=== PATIENT | male | born 1965 | race Caucasian/White ===

== ENCOUNTER → 2017-11-01 15:58 | Outpatient (CLI) | payer BC, SELFPAY ==
[2017-11-01 18:25] LABS: PSA,Total- Diagnostic 6.02 ng/mL (0.0-4.0)
== END ==
PROVIDERS: Family Provider Internal Medicine; PCP Internal Medicine; Visit Provider Internal Medicine
DX: R97.20 Elevated prostate specific antigen [PSA] (principal)
CPT/HCPCS: 36415; 84153

== ENCOUNTER → 2017-11-23 16:10 | Outpatient (CLI) | payer BC, SELFPAY ==
--- NOTE | 2017-11-23 16:11 | US_ITS ---
STUDY: RENAL ULTRASOUND - COMPLETE REASON FOR EXAM: Male, 52 years old. Flank pain. TECHNIQUE: Ultrasound evaluation of the kidneys was performed with real-time and static villatoro-scale imaging. COMPARISON: None. FINDINGS: RIGHT KIDNEY: Normal location of the right kidney, which is normal in size. The right kidney measures 10.7 cm x 4.8 cm x 4.3 cm. There is a normal cortex of the right kidney. The renal cortex measures 1.2 cm. There is no right renal mass or cyst. There are no right renal calculi. There is no right hydronephrosis. DISTAL RIGHT URETER: There is non-visualization of the distal right ureter. There is no demonstrated right ureterovesical junction calculus. There is a visualized right ureteral jet. LEFT KIDNEY: Normal location of the left kidney, which is normal in size. The left kidney measures 10.4 cm x 4.8 cm x 5.2 cm. There is a normal cortex of the left kidney. The renal cortex measures 1.0 cm. There is no left renal mass or cyst. There are no left renal calculi. There is no left hydronephrosis. DISTAL LEFT URETER: There is non-visualization of the distal left ureter. There is no demonstrated left ureterovesical junction calculus. There is a visualized left ureteral jet. BLADDER: The bladder is not well distended. The bladder wall is thickened. Incidental note is made of fatty infiltration of the liver. US/Kidney and Bladder IMPRESSION: Normal ultrasound of the kidneys. Thickening of the bladder wall although the bladder is not adequately distended. Electronically Signed: Long Molina MD at 8:26 EDT Tel [phone], Service support ,
== END ==
PROVIDERS: Family Provider Internal Medicine; PCP Internal Medicine; Visit Provider Nurse Practitioner Adult Health
DX: R10.9 Unspecified abdominal pain (principal)
CPT/HCPCS: 76770

== ENCOUNTER → 2018-01-05 18:16 | Outpatient (CLI) | payer BC, SELFPAY ==
--- NOTE | 2018-01-05 08:00 | PROSBIL_PTH ---
PATIENT: GIANCARLO MARTIN LOC: [facility] U#:[id number] AGE/SX: 60/M ROOM: RE01/05/[address]: Dr. James Ornelas MD : 1965 BED: DIS: SPEC #: [id number] RECD: 01/05/18 16:39 STATUS: KAT FRANCISCA #: [id number] HARSH: 01/05/18 08:[address]: James Ornelas DEPT: SURGICAL PATHOLOGY RECD BY: Ramses Jaimes Tissues: A - PROSTATE RIGHT B - PROSTATE RIGHT C - PROSTATE RIGHT D - PROSTATE LEFT E - PROSTATE LEFT F - PROSTATE LEFT Procedures: PROSTATE BX HEADER OPERATION: Prostate biopsy PRE-OP DIAGNOSIS: Elevated PSA TISSUE SUBMITTED: A - Right apex, B - Right mid, C - Right base, D - Left apex, E - Left mid, F - Left base MICROSCOPIC DIAGNOSIS A. Right prostate, apex, core biopsy: Focal high-grade prostatic intraepithelial neoplasia (HGPIN). B. Right prostate, mid, core biopsy: Prostatic tissue, negative for malignancy. C. Right prostate, base, core biopsy: Prostatic tissue, negative for malignancy. D. Left prostate, apex, core biopsy: Prostatic tissue, negative for malignancy. E. Left prostate, mid, core biopsy: Prostatic tissue, negative for malignancy. F. Left prostate, base, core biopsy: Prostatic tissue, negative for malignancy. SJ:farooq 01/12/18 MICROSCOPIC DESCRIPTION Slides are reviewed. GROSS DESCRIPTION A - Received is one container designated prostate, right apex. The specimen consists of two elongated fragments of light cavazos-white soft tissue each measuring 1 cm in length and 0.1 cm in diameter. The specimen is totally submitted in one cassette. B - Received is one container designated prostate, right mid. The specimen consists of two elongated fragments of light cavazos-white soft tissue each measuring 1 cm in length and 0.1 cm in diameter. The specimen is totally submitted in one cassette. C - Received is one container designated prostate, right base. The specimen consists of two elongated fragments of light cavazos-white soft tissue each measuring 1 cm in length and 0.1 cm in diameter. The specimen is totally submitted in one cassette. D - Received is one container designated prostate, left apex. The specimen consists of two elongated fragments of light cavazos-white soft tissue each measuring 1.5 cm in length and 0.1 cm in diameter. The specimen is totally submitted in one cassette. E - Received is one container designated prostate, left mid. The specimen consists of two elongated fragments of light cavazos-white soft tissue each measuring 1.5 cm in length and 0.1 cm in diameter. The specimen is totally submitted in one cassette. F - Received is one container designated prostate, left base. The specimen consists of two elongated fragments of light cavazos-white soft tissue each measuring 1.5 cm in length and 0.1 cm in diameter. The specimen is totally submitted in one cassette. / AM:farooq 01/06/18 TC:5 CPT: 23899 x6
== END ==
PROVIDERS: Visit Provider Urology
DX: N42.31 Prostatic intraepithelial neoplasia (principal); R97.20 Elevated prostate specific antigen [PSA]
CPT/HCPCS: 88305; G0416

== ENCOUNTER → 2018-01-23 15:45 | Outpatient (CLI) | payer BC, SELFPAY ==
[2018-01-23 16:57] LABS: Anion Gap 7 (5-15); BUN 15 mg/dL (7-18); BUN/Creat Ratio 13.6 RATIO (10-20); Calcium,Total 8.3 mg/dL (8.5-10.1); Chloride 100 mmol/L (98-107); Cholesterol 195 mg/dL (200); EST Glomerular Filtration Rate 74 mL/min (>60); Est Glom Filt Rate - Afr Amer 89 mL/min (>60); Glucose 94 mg/dL (74-106); High Density Lipoprotein 57 mg/dL; Potassium 3.5 mmol/L (3.5-5.1); Sodium Level 134 mmol/L (136-145); Triglycerides 233 mg/dL; Very Low Density Lipoprotein 47 mg/dL (5-40)
== END ==
PROVIDERS: Family Provider Internal Medicine; PCP Internal Medicine; Visit Provider Internal Medicine
DX: I10 Essential (primary) hypertension (principal)
CPT/HCPCS: 36415; 80048; 80061

== ENCOUNTER 2018-01-25 09:44 | Emergency (ER) | payer BC, SELFPAY ==
[2018-01-25 09:44] VITALS: BP 127/73; PULSE 77; RESP 20; TEMP 36.6; O2SAT 99; BMI 34.0
--- NOTE | 2018-01-25 10:27 | EKG12_ITS ---
Test Reason : SYNCOPE Blood Pressure : / mmHG Vent. Rate : 065 BPM Atrial Rate : 065 BPM P-R Int : 146 ms QRS Dur : 084 ms QT Int : 416 ms P-R-T Axes : 005 019 014 degrees QTc Int : 432 ms Normal sinus rhythm Normal ECG Confirmed by CASSI FARAH ([id number]), medical editor LORI MASCORRO ([id number]) on 01/30/2018 10:46:20 AM Referred By: Jere Jain Confirmed By:CASSI FARAH
--- NOTE | 2018-01-25 10:27 | CT_ITS ---
STUDY: CT BRAIN WITHOUT CONTRAST REASON FOR EXAM: Male, 53 years old. Fall due to a syncopal episode. RADIATION DOSAGE (If Supplied By Facility): CTDIvol = ( 60.81 ) mGy, DLP = ( 998.67 ) mGycm TECHNIQUE: Transaxial CT imaging of the brain was performed without administration of intravenous contrast material. Individualized dose optimization techniques were used for this CT. COMPARISON: None. FINDINGS: Normal soft tissue structures. Normal calvarium. Normal size ventricles and extra-axial spaces for the patient's age. Normal white matter tracts of the cerebral hemispheres. Normal basal ganglia and thalami. Normal brainstem. Normal cerebellum. There is no intracranial hemorrhage. There are no findings of an acute ischemic infarction. Partial opacification of the posterior aspect of the right ethmoid sinus. CT/Brain/Head without Contrast IMPRESSION: No acute abnormality is seen. Electronically Signed: Long Molina MD at 13:55 EDT Tel [phone], Service support ,
--- NOTE | 2018-01-25 10:28 | RAD_ITS ---
STUDY: X-RAY - UNILATERAL RIBS ( LEFT ) WITH CHEST REASON FOR EXAM: Male, 53 years old. Low back pain after a fall TECHNIQUE - RIBS: 4 view(s) of the ribs. TECHNIQUE - CHEST: Single PA view of the chest. COMPARISON: None. FINDINGS - RIBS: Normal visualized ribs without a demonstrated fracture. FINDINGS - CHEST: The lungs are clear and expanded. There is no demonstrated pleural abnormality. Normal size heart. Normal mediastinum and radha. Normal visualized pulmonary arteries. Normal visualized aortic arch and descending thoracic aorta. Normal visualized thoracic spine. Normal visualized ribs, clavicles, and shoulders. There is no demonstrated abnormality of the visualized soft tissue structures of the upper abdomen. RAD/Ribs Uni Min 3V w/PA Chest IMPRESSION: RIBS: Normal x-ray examination of the ribs. CHEST: Normal x-ray examination of the chest. Electronically Signed: Fidel Jernigan MD at 16:21 EDT , Service support ,
[2018-01-25 10:46] VITALS: BP 109/68; BP 110/67; BP 115/71; PULSE 60; PULSE 63; PULSE 88
[2018-01-25 10:47] LABS: Absolute Lymphocyte Count 0.89 X10^3/ul (0.83-4.51); Absolute Neutrophil Count 9.9 X10^3/uL (2.0-7.7); Basophil# 0.02 X10^3/uL; Basophil% 0.2 % (0-1); Eosinophil# 0.03 X10^3/uL; Eosinophils% 0.2 % (0-5); Hematocrit 39.2 % (40-54); Hemoglobin 13.1 g/dl (13.0-16.5); Lymphocyte # 0.89 X10^3/ul (4.0); Lymphocyte % 7.4 % (19-41); Mean Corp Hgb Conc 33.4 g/gl (32-36); Mean Corpuscular Hgb 29.7 pg (27.0-32.0); Mean Corpuscular Volume 88.9 fL (80-94); Mean Platelet Vol. 9.8 fl (6.2-12.0); Monocyte# 1.19 X10^3/uL; Monocyte% 9.9 % (0-10); Neutrophil # 9.86 X10^3/uL (2.7-7.7); Neutrophil % 81.9 % (47-70); POSITIVE COUNT NO; POSITIVE DIFFERENTIAL NO; POSITIVE MORPHOLOGY NO; Platelet Count 245 K/mm3 (150-450); RBC Distribution Width CV 12.7 % (11.6-14.6); RBC Distribution Width SD 40.9 fl (35.1-43.9); Red Blood Count 4.41 M/mm3 (4.6-6.2)
[2018-01-25] MEDS: 0.9% Normal Saline 1,000 ML 1000 ML IV (10:55)
[2018-01-25 10:56] VITALS: BP 109/68; PULSE 62; RESP 16; O2SAT 99
[2018-01-25 11:05] LABS: Anion Gap 6 (5-15); BUN 16 mg/dL (7-18); BUN/Creat Ratio 11.4 RATIO (10-20); Calcium,Total 8.6 mg/dL (8.5-10.1); Chloride 101 mmol/L (98-107); EST Glomerular Filtration Rate 56 mL/min (>60); Est Glom Filt Rate - Afr Amer 68 mL/min (>60); Estimated Creatinine Clearance 55.74 ml/min; Glucose 103 mg/dL (74-106); Potassium 3.6 mmol/L (3.5-5.1); Sodium Level 136 mmol/L (136-145)
--- NOTE | 2018-01-25 11:39 | NURSING ---
PER MARIANA AT [facility] THIS CASE WILL NOT BE FILED WORKERS COMP PER JOSUE. PT JUST STARTED A NEW MEDICATION AND SIDE EFFECT COULD HAVE CONTRIBUTED TO SYNCOPE.
[2018-01-25 11:58] VITALS: BP 112/77; PULSE 85; RESP 17; O2SAT 98
[2018-01-25 13:02] VITALS: BP 109/68; PULSE 63; RESP 19; O2SAT 98
--- NOTE | 2018-01-25 13:17 | ED.VISSUMM ---
- ER Visit Summary Date of Service: 01/25/18 Chief Complaint: Syncope History of Present Illness: The patient is a [address] Jain and Dr. Ornelas. Patient reports that today he was at work and had been standing for approximately 2 hours. He began feeling very lightheaded and shaky. Reports it was hard to think. States that he did feel diaphoretic and short of breath. This last approximately 30 seconds before he passed out. He denies any preceding chest pain, palpitations, or nausea. Patient did hit his head and states that his headache is 3 out of 10 severity that began after the fall. He has upper back pain that is 8-9 out of 10 in severity with movement. Is 5 out of 10 at rest. He describes this as sharp. Patient reports that he has BPH and was placed on Flomax. He took his first dose last night approximately 930. Physical Examination: Vitals: Stable. Afebrile. General: Well-nourished and well-developed. Head: Normocephalic atraumatic. Neck: Supple, no lymphadenopathy. No JVD. Nontender. Cardiovascular: Regular rate and rhythm. No murmurs. Respiratory: No respiratory distress. Clear to auscultation bilaterally. Abdominal: Soft, nontender, nondistended, normal bowel sounds. No guarding, rebound, or peritoneal signs. Back: Contusion/abrasion just inferior and medial to the left scapula. There is severe tenderness palpation. He does have pain with lateral compression of his chest. Extremities: Nontender, 1+ pitting edema of his lower extremity bilaterally. Skin: Normal color, no rash. Neurologic: Alert and oriented ?3. Cranial nerves II through XII are intact. Normal strength and sensation. Psych: Normal affect. Test Results: EKG is sinus at 65 with no acute changes. Is unchanged since 2014. CBC is more for white count of 12.0 with hematocrit of 39.2, 7 neutrophils 82, lymphocytes 7. Chem-7 is more for creatinine 1.40. Previously his creatinine is range between 0.97-1.26. Troponin is less than 0.015. Left rib series shows no pneumothorax or fracture. CT brain shows no acute disease. Emergency Department Course and Treatment: Patient had positive orthostatic vital signs. His heart rate increased 25 from lying to standing. His blood pressure remained 109/68 with standing. Patient was given a liter bolus of normal saline and is resting comfortably. Treatment Plan: Patient was discussed with Dr. Ornelas. He is instructed to stop taking the Flomax. Push fluids. He will be discharged with Aubrey and incentive spirometer. Instructed to follow-up with Dr. Jain in 1 week if his ribs are not improving. Return to the emergency department for any worsening symptoms. Disposition: To home in improved and stable condition. Impression: 1. Syncope. 2. Orthostatic hypotension due to Flomax. 3. Dehydration. 4. Contusion upper back. This note was generated with [employer] software. It may contain incorrect words, spelling, and punctuation that were not noted in review of the chart prior to signing ED Disposition - Plan for ED Patient: Disposition: Home or Assisted Living Chief Complaint: Syncope Instructions: ED Hypotension Orthostatic, ED Contusion Vs Minor Fx Rib Prescriptions: Hydrocodone/Acetaminophen [Aubrey 5-325 Tablet] 1 - 2 each PO 4X/DAY PRN PRN 5 Days #20 tablet PRN Reason: Pain Referrals: Jere Jain MD [Primary Care Provider] - 1 Week if not improving Additional Instructions: Do not take flomax again.
== END 2018-01-25 14:57 | disposition home or self-care (01) ==
PROVIDERS: Emergency Provider Emergency Medicine; Family Provider Internal Medicine; PCP Internal Medicine
DX: R55 Syncope and collapse (principal); I95.2 Hypotension due to drugs; T44.6X5A Adverse effect of alpha-adrenoreceptor antagonists, initial encounter; E86.0 Dehydration; S20.222A Contusion of left back wall of thorax, initial encounter; N40.0 Benign prostatic hyperplasia without lower urinary tract symptoms; I10 Essential (primary) hypertension; J45.909 Unspecified asthma, uncomplicated; Z79.899 Other long term (current) drug therapy; W18.30XA Fall on same level, unspecified, initial encounter; Y93.89 Activity, other specified; Y92.009 Unspecified place in unspecified non-institutional (private) residence as the place of occurrence of the external cause; Y99.8 Other external cause status
CPT/HCPCS: 70450; 71101; 80048; 84484; 85025; 93005; 96360; 99285; J7030; A4216

== ENCOUNTER → 2018-02-14 10:22 | Outpatient (CLI) | payer BC, SELFPAY ==
[2018-02-14 11:53] LABS: Anion Gap 8 (5-15); BUN 15 mg/dL (7-18); BUN/Creat Ratio 16.2 RATIO (10-20); Calcium,Total 8.8 mg/dL (8.5-10.1); Chloride 105 mmol/L (98-107); Creatinine, Serum 0.92 mg/dL (0.70-1.30); EST Glomerular Filtration Rate 90 mL/min (>60); Est Glom Filt Rate - Afr Amer 109 mL/min (>60); Glucose 94 mg/dL (74-106); Potassium 4.1 mmol/L (3.5-5.1); Sodium Level 138 mmol/L (136-145)
== END ==
PROVIDERS: Family Provider Internal Medicine; PCP Internal Medicine; Visit Provider Nurse Practitioner Family
DX: I10 Essential (primary) hypertension (principal)
CPT/HCPCS: 36415; 80048

== ENCOUNTER → 2018-03-31 10:30 | Outpatient (CLI) | payer BC, SELFPAY | PROVIDERS: Family Provider Internal Medicine; PCP Internal Medicine; Visit Provider Internal Medicine | DX: R68.81 Early satiety (principal) | CPT/HCPCS: 78264; A9541 ==

== ENCOUNTER → 2018-04-17 10:19 | Outpatient (CLI) | payer BC, SELFPAY ==
--- NOTE | 2018-04-17 10:21 | US_ITS ---
STUDY: ABDOMINAL ULTRASOUND REASON FOR EXAM: Male, 53 years old. Abdominal pain, early satiety, ascites TECHNIQUE: Transabdominal ultrasound was performed with real-time and static nguyen scale imaging. TECHNICAL QUALITY: Adequate. COMPARISON: CT 01/19/2014 FINDINGS: Liver: The liver measures 18.2 cm. There is increased echogenicity consistent with fatty infiltration. The bile ducts are within normal limits. There is hepatic color flow. The direction of portal flow is hepatopetal. There is no demonstrated mass lesion. Portal vein measurement: Gallbladder: Normal distended gallbladder. The gallbladder wall measures 2.8 mm. There is a negative sonographic Adams's sign. There is no pericholecystic fluid. There are no gallstones. Common Bile Duct (C.B.D.): The common bile duct measures 3.7 mm. Pancreas: Normal size of the head, body and tail of the pancreas. There is increased echogenicity of the pancreas. There is no demonstrated pancreatic mass or cyst. Spleen: Normal size of the spleen. The spleen measures 11.4 cm. Right Kidney: Normal size of the right kidney. The right kidney measures 10.8 x 4.5 x 5 cm. Normal renal cortex. The right cortex measures 1.5 cm. There is no demonstrated renal mass or cyst. There is no right hydronephrosis. Left Kidney: Normal size of the left kidney. The left kidney measures 10.4 x 5.3 x 4.8 cm. Normal renal cortex. The left cortex measures 1.6 cm. There is no demonstrated renal mass or cyst. There is no left hydronephrosis. Aorta: Unremarkable. I.V.C.: The IVC is patent. There is no ascites. US/Abdomen Complete IMPRESSION: Hepatomegaly and hepatic steatosis. The pancreas is echogenic consistent with fatty replacement. No ascites or additional abnormalities. The gallbladder is normal. Electronically Signed: Jeronimo Nettles DO at 8:33 EDT Tel , Service support ,
== END ==
PROVIDERS: Family Provider Internal Medicine; PCP Internal Medicine; Visit Provider Internal Medicine
DX: R68.81 Early satiety (principal); R10.9 Unspecified abdominal pain
CPT/HCPCS: 76700

== ENCOUNTER → 2018-06-27 08:33 | Outpatient (CLI) | payer BC, SELFPAY ==
[2018-06-27 08:33] VITALS: BMI 35.9
[2018-06-27 09:44] LABS: Anion Gap 5 (5-15); BUN 14 mg/dL (7-18); BUN/Creat Ratio 14.5 RATIO (10-20); Calcium,Total 8.5 mg/dL (8.5-10.1); Chloride 103 mmol/L (98-107); Creatinine, Serum 0.97 mg/dL (0.70-1.30); EST Glomerular Filtration Rate 86 mL/min (>60); Est Glom Filt Rate - Afr Amer 104 mL/min (>60); Glucose 104 mg/dL (74-106); Potassium 3.9 mmol/L (3.5-5.1); Sodium Level 136 mmol/L (136-145)
== END ==
PROVIDERS: Family Provider Internal Medicine; PCP Internal Medicine; Referring Provider Internal Medicine; Visit Provider Internal Medicine
DX: I10 Essential (primary) hypertension (principal)
CPT/HCPCS: 36415; 80048

== ENCOUNTER 2018-07-07 14:32 | Emergency (ER) | payer BC, SELFPAY ==
[2018-06-27 08:33] VITALS: BMI 35.9
[2018-07-07 14:35] VITALS: BP 187/97; PULSE 76; RESP 16; TEMP 36.4; O2SAT 99; BMI 37.0
--- NOTE | 2018-07-07 15:11 | CT_ITS ---
STUDY: CT ABDOMEN AND PELVIS WITHOUT CONTRAST REASON FOR EXAM: Male, 53 years old. Right-sided abdominal pain for 2 days. RADIATION DOSAGE (If Supplied By Facility): CTDIvol = ( 19.7 ) mGy, DLP = ( 1039.62 ) mGycm TECHNIQUE: Transaxial images were obtained from the dome of the diaphragm to the symphysis pubis without oral contrast, and without intravenous contrast. Sagittal and coronal images were reconstructed. Individualized dose optimization techniques were used for this CT. COMPARISON: None. FINDINGS: There is right basilar subsegmental atelectasis. There is mild elevation of the right hemidiaphragm. The visualized portions of the heart are within normal limits. There are vascular calcifications of the coronary arteries. Normal liver. Normal gallbladder and extrahepatic biliary system. Normal spleen. Normal pancreas. Normal bilateral adrenal glands. Normal right kidney. Normal left kidney. Normal visualized stomach. There is no evidence for dilated bowel, ascites or pneumoperitoneum. The small bowel has a grossly normal appearance. There are multiple colonic diverticula consistent with diverticulosis. There is non-visualization of the appendix. There is groundglass attenuation within the fat in the right peritoneum. This could be the result of mesenteric ischemia. Sequela of mesenteric panniculitis is also possible. Normal abdominal aorta. Normal inferior vena cava. Normal retroperitoneum. There is a left-sided retroaortic vein. Normal urinary bladder. There is enlargement of the prostate gland. Incidental note is made of mild bilateral gynecomastia. There appears to be a small left-sided inguinal hernia containing fat. Normal osseous structures. CT/Abdomen/Pelvis without Cont IMPRESSION: 1. Acute inflammation in the fat of the right paracolic region just caudal to the liver. Differential considerations include sequela of mesenteric panniculitis or mesenteric ischemia. 2. Mild colonic diverticulosis. 3. Right basilar subsegmental atelectasis. Electronically Signed: Sandie Sifuentes MD at 17:36 EST , Service support ,
[2018-07-07 15:36] LABS: AST(SGOT) 14 U/L (15-37); Alanine Aminotransfer ALT/SGPT 24 U/L (16-61); Albumin, Serum 3.4 g/dL (3.2-5.0); Alkaline Phosphatase 82 U/L (45-117); Anion Gap 8 (5-15); BUN 10 mg/dL (7-18); BUN/Creat Ratio 10.1 RATIO (10-20); Bilirubin, Direct 0.12 mg/dL (0.00-0.30); Calcium,Total 8.7 mg/dL (8.5-10.1); Chloride 103 mmol/L (98-107); Creatinine, Serum 0.99 mg/dL (0.70-1.30); EST Glomerular Filtration Rate 83 mL/min (>60); Est Glom Filt Rate - Afr Amer 101 mL/min (>60); Estimated Creatinine Clearance 76.08 ml/min; Globulin 4.2 g/dL (2.2-4.2); Glucose 72 mg/dL (74-106); Lipase 117 U/L (73-393); Potassium 3.5 mmol/L (3.5-5.1); Protein, Total 7.6 g/dL (6.4-8.2); Sodium Level 138 mmol/L (136-145)
[2018-07-07 15:38] LABS: Absolute Neutrophil Count 11.3 X10^3/uL (2.0-7.7); Basophil# 0.04 X10^3/uL; Basophil% 0.3 % (0-1); Eosinophil# 0.21 X10^3/uL; Eosinophils% 1.3 % (0-5); Hematocrit 42.9 % (40-54); Hemoglobin 14.3 g/dl (13.0-16.5); Mean Corp Hgb Conc 33.3 g/gl (32-36); Mean Corpuscular Hgb 29.4 pg (27.0-32.0); Mean Corpuscular Volume 88.1 fL (80-94); Mean Platelet Vol. 10.7 fl (6.2-12.0); Monocyte# 2.73 X10^3/uL; Monocyte% 17.1 % (0-10); Neutrophil # 11.33 X10^3/uL (2.7-7.7); Neutrophil % 70.8 % (47-70); Platelet Count 286 K/mm3 (150-450); RBC Distribution Width CV 13.5 % (11.6-14.6); RBC Distribution Width SD 43.4 fl (35.1-43.9); Red Blood Count 4.87 M/mm3 (4.6-6.2)
--- NOTE | 2018-07-07 15:44 | ED.VISSUMM ---
- ER Visit Summary Date of Service: 07/07/18 Chief Complaint: Abdominal pain History of Present Illness: The patient is a 53 M with a 2-day history of right-sided abdominal pain. He reports to the lateral right abdomen and states he has had pain occasionally radiate toward the groin. He had some mild nausea but no vomiting. He has had no diarrhea or constipation. He does report some radiation to the groin, however has no urinary symptoms. He has not had fever or chills. Patient states he had some mild right-sided abdominal pain about a month ago and had an ultrasound that was unremarkable. Physical Examination: Blood pressure is 187/97, other vitals normal. Patient is sitting upright in bed no acute distress. Head neck examination unremarkable. Heart is regular rate and rhythm. Lung sounds are clear. Abdomen is soft with moderate right-sided tenderness. No guarding or rebound. Active bowel sounds are noted throughout. Lower external examination is significant for 3+ bilateral symmetric edema. Test Results: CBC was a white count of 16.0 with 70% neutrophils. Chemistry studies significant only for glucose of 72. LFTs and lipase normal. Urinalysis normal. CT abdomen pelvis with p.o. contrast shows acute inflammation of the fat of the right pericolic region just caudal to the liver. Differential includes mesenteric panniculitis versus mesenteric ischemia. Emergency Department Course and Treatment: Patient declined anything for pain. On repeat evaluation he was resting comfortably. Test results were discussed with him. Lactic acid is added at this time. CTA of the abdomen and pelvis is obtained. CTA reveals no CTA evidence of dissection, narrowing, or thrombosis. CTA, however, cannot completely rule out mesenteric ischemia and they state that the location of inflammation would be typical of ischemia. Lactic acid returns at 0.8. On repeat evaluation patient is resting comfortably. I spoke with Dr. Rabago who the patient has seen in the past. He will see the patient in the office tomorrow morning at 8:00. Patient is comfortable with this plan. Treatment Plan: [] Disposition: Discharge Impression: Abdominal pain This note was generated with [employer] dictation software. It may contain incorrect words, spelling, and punctuation that were not noted in review of the chart prior to signing ED Disposition - Plan for ED Patient: Chief Complaint: Abd Pain Referrals: Jere Jain MD [Primary Care Provider] -
[2018-07-07 15:46] LABS: Differential Indicated SCAN CRITERIA MET; POSITIVE COUNT NO; POSITIVE DIFFERENTIAL YES; POSITIVE MORPHOLOGY NO
[2018-07-07 15:53] LABS: Bacteria 0 SEEN /hpf (None Seen); Mucous, Urine 0 SEEN /hpf (<or=2+); Red Blood Cells-Urine 0 SEEN /hpf (0-5); Squamous Epithelial Cells - UA 0 SEEN /hpf (0-5); White Blood Cells 0 SEEN /hpf (0-5)
[2018-07-07 16:07] LABS: Platelet Estimate A (ADEQ)
[2018-07-07 16:08] LABS: Anisocytosis RARE
[2018-07-07 16:12] LABS: Color, Urine Yellow (Yellow); Glucose, Dipstick Normal (Normal); Ketone-Dipstick Negative (Negative); Leukocyte Esterase-Dipstick Negative /ul (Negative); Nitrite-Dipstick Negative (Negative); Occult Blood-Urine Negative /ul (Negative); Protein-Dipstick Negative (Negative); Urine Bilirubin Dipstick Negative (Negative); Urine Clarity Clear (Clear); Urine Urobilinogen Normal (Normal); Urine pH 6.5 (5.0 - 8.0)
[2018-07-07] MEDS: 0.9% Normal Saline 1,000 ML 150 ML IV (16:30)
[2018-07-07 17:43] VITALS: BP 132/74; PULSE 71; RESP 16; O2SAT 97
--- NOTE | 2018-07-07 17:58 | CT_ITS ---
STUDY: CTA OF THE ABDOMEN AND PELVIS REASON FOR EXAM: Male, 53 years old. Right upper quadrant abdominal pain for 2 days. RADIATION DOSAGE (If Supplied By Facility): CTDIvol = ( 21.67 ) mGy, DLP = ( 1283.78 ) mGycm TECHNIQUE: Axial CT angiography multi-detector data acquisition was obtained from the lung bases to the to proximal thighs following intravenous administration of 100 ml of Isovue 370 contrast. Axial images and MIP images were reconstructed from the axial data set. Post-processing of the angiographic images was performed, with multiplanar reformation and 3D reconstruction. Individualized dose optimization techniques were used for this CT. TECHNICAL QUALITY: Good COMPARISON: CT of the abdomen and pelvis dated July 07, 2018. Descriptors of Narrowing: None (0%) Mild (< 50%) Moderate (50-70%) Severe (70-90%) Subtotal/Total Occlusion (90-100%) Non-Evaluable (technically non-diagnostic FINDINGS: Abdominal aorta: No demonstrated narrowing. Celiac and superior mesenteric arteries: There is variant anatomy at the celiac axis with a tiny rudimentary artery arising proximal to the celiac axis supplying the stomach. The remaining celiac axis has a normal appearance. The visualized superior mesenteric artery has a normal appearance. Inferior mesenteric artery: No demonstrated narrowing. Right renal artery(arteries): No demonstrated narrowing. Left renal artery(arteries): There appear to be two left-sided renal arteries, both of which appear patent. Right common iliac artery: No demonstrated narrowing with atherosclerotic calcification. Right external iliac artery: No demonstrated narrowing. Right internal iliac artery: No demonstrated narrowing. Left common iliac artery: No demonstrated narrowing. Left external iliac artery: No demonstrated narrowing. Left internal iliac artery: No demonstrated narrowing. ABDOMINAL AND PELVIC FINDINGS: There is right basilar subsegmental atelectasis. There is mild elevation of the right hemidiaphragm. The visualized portions of the heart are within normal limits. There are vascular calcifications of the coronary arteries. Normal liver. Normal gallbladder and extrahepatic biliary system. Normal spleen. Normal pancreas. Normal bilateral adrenal glands. Normal right kidney. Normal left kidney. Normal visualized stomach. There is no evidence for dilated bowel, ascites or pneumoperitoneum. The small bowel has a grossly normal appearance. There are multiple colonic diverticula consistent with diverticulosis. There is non-visualization of the appendix. There is groundglass attenuation within the fat in the right peritoneum, caudal to the liver. This could be the result of mesenteric ischemia. Sequela of mesenteric panniculitis is also possible. Normal inferior vena cava. Normal retroperitoneum. There is a left-sided retroaortic vein. Normal urinary bladder. There is enlargement of the prostate gland. Incidental note is made of mild bilateral gynecomastia. There appears to be a small left-sided inguinal hernia containing fat. There is degenerative disc disease at L5-S1. CT/CT ANGIO ABD&PEL W/O&W/DYE IMPRESSION: 1. No CTA evidence for arterial dissection, significant narrowing or thrombosis. 2. Acute inflammation in the fat of the right paracolic region just caudal to the liver. Differential considerations include sequela of mesenteric panniculitis or omental ischemia/infarct. The location of this abnormality is typical for sequela of omental ischemia. CTA usually does not help narrow the differential considerations. 3. Mild colonic diverticulosis. 4. Right basilar subsegmental atelectasis. Electronically Signed: Sandie Sifuentes MD at 20:00 EST , Service support ,
[2018-07-07] MEDS: DiphenhydrAMINE 50 MG/ML Syringe 25 MG IV (18:13)
[2018-07-07] MEDS: MethylPREDNISolone 125 MG/2 ML Vial 60 MG IV (18:14)
[2018-07-07 18:31] LABS: Lactic Acid 0.8 mmol/L (0.4-2.0)
[2018-07-07 20:00] VITALS: BP 141/93; PULSE 70; RESP 17; O2SAT 97
--- NOTE | 2018-07-07 20:29 | ED.DEP ---
ED Disposition - Plan for ED Patient: Disposition: Home or Assisted Living Chief Complaint: Abd Pain Instructions: ED Abdominal Pain Unkn Cause Male Referrals: Tahir Rabago MD [STAFF PHYSICIAN] - 1 Day
[2018-07-07 20:39] VITALS: BP 160/98; PULSE 70; RESP 14; O2SAT 98
--- NOTE | 2018-07-07 20:39 | ED.RN ---
pt given written and verbal discharge instructions. pt verbalizes understanding. iv d/c and covered with 2x2 gauze dressing and paper tape. pt dresses self and ambulates out of dept.
[2018-07-11 14:35] LABS: Pathologist Review Reviewed
--- OUTSIDE RECORDS SUMMARY | 2018-09-01 14:32 | XMS RPT_ITS ---
:1965 Author Organization [place] Support Name Relationship Address Phone KEIRY MARTIN Unavailable [address] + [place] [address] FUNK, NIMISHA Unavailable [address] + [address] [place] [address] THEA Unavailable [address] + [place] [address] FUNK, KEIRY Unavailable [address] + [place] [address] FUNK, NIMISHA Unavailable [address] + [address] [place] [address] THEA Unavailable [address] + [place] [address] FUNK, KEIRY Unavailable [address] + [place] [address] FUNK, NIMISHA Unavailable [address] + [address] [place] [address] THEA Unavailable [address] + [place] [address] FUNK, KEIRY Unavailable [address] + [place] [address] FUNK, NIMISHA Unavailable [address] + [address] [place] [address] THEA Unavailable [address] + [place] [address] FUNK, KEIRY Unavailable [address] + [place] [address] FUNK, NIMISHA Unavailable [address] [place] [address] THEA Unavailable [address] + [place] [address] FUNK, KEIRY Unavailable [address] + [place] [address] FUNK, NIMISHA Unavailable [address] [place] [address] THEA Unavailable [address] + [place] [address] FUNK, KEIRY Unavailable [address] + [place] [address] FUNK, NIMISHA Unavailable [address] + [address] [place] [address] THEA Unavailable [address] + [place] [address] FUNK, KEIRY Unavailable [address] + [place] [address] FUNK, NIMISHA Unavailable [address] + [address] [place] [address] THEA Unavailable [address] + [place] [address] FUNK, KEIRY Unavailable [address] + [place] [address] FUNK, NIMISHA Unavailable [address] + [address] [place] [address] THEA Unavailable [address] + [place] [address] FUNK, KEIRY Unavailable [address] + [place] [address] FUNK, NIMISHA Unavailable [address] [place] [address] THEA Unavailable [address] + [place] [address] FUNK, KEIRY Unavailable [address] + [place] [address] FUNK, NIMISHA Unavailable [address] + [address] [place] [address] THEA Unavailable [address] + [place] [address] FUNK, KEIRY Unavailable [address] + [place] [address] FUNK, NIMISHA Unavailable [address] + [address] [place] [address] THEA Unavailable [address] + [place] [address] FUNK, KEIRY Unavailable [address] + [place] [address] FUNK, NIMISHA Unavailable [address] + [address] [place] [address] THEA Unavailable [address] + [place] [address] FUNK, KEIRY Unavailable [address] + [place] [address] FUNK, NIMISHA Unavailable [address] + [address] [place] [address] THEA Unavailable [address] + [place] [address] FUNK, KEIRY Unavailable [address] + [place] [address] FUNK, NIMISHA Unavailable [address] + [address] [place] [address] THEA Unavailable [address] + [place] [address] FUNK, KEIRY Unavailable [address] + [place] [address] FUNK, NIMISHA Unavailable [address] + [address] [place] [address] THEA Unavailable [address] + [place] [address] FUNK, KEIRY Unavailable [address] + [place] [address] FUNK, NIMISHA Unavailable [address] + [address] [place] [address] THEA Unavailable [address] + [place] [address] FUNK, KEIRY Unavailable [address] + [place] [address] FUNK, NIMISHA Unavailable [address] + [address] [place] [address] THEA Unavailable [address] + [place] [address] FUNK, KEIRY Unavailable [address] + [place] [address] FUNK, NIMISHA Unavailable [address] + [address] [place] [address] THEA Unavailable [address] + [place] [address] FUNK, KEIRY Unavailable [address] + [place] [address] FUNK, NIMISHA Unavailable [address] [place] [address] THEA Unavailable [address] + [place] [address] FUNK, KEIRY Unavailable [address] + [place] [address] FUNK, NIMISHA Unavailable [address] + [address] [place] [address] THEA Unavailable [address] + [place] [address] FUNK, KEIRY Unavailable [address] + [place] [address] FUNK, NIMISHA Unavailable [address] + [address] [place] [address] THEA Unavailable [address] + [place] [address] FUNK, KEIRY Unavailable [address] + [place] [address] FUNK, NIMISHA Unavailable [address] + [address] [place] [address] THEA Unavailable [address] + [place] [address] FUNK, KEIRY Unavailable [address] + [place] [address] FUNK, NIMISHA Unavailable [address] + [address] [place] [address] THEA Unavailable [address] + [place] [address] FUNK, KEIRY Unavailable [address] + [place] [address] FUNK, NIMISHA Unavailable [address] + [address] [place] [address] THEA Unavailable [address] + [place] [address] FUNK, KEIRY Unavailable [address] + [place] [address] FUNK, NIMISHA Unavailable [address] + [address] [place] [address] THEA Unavailable [address] + [place] [address] Care Team Providers Name Role Phone Tahir Rabago Attending Unavailable Tahir Rabago Referring Unavailable Oleghe, Efewongbe Primary Care Unavailable Fabio Cueto TECHNICAL REP-C Attending Unavailable Oleghe, Efewongbe Referring Unavailable Oleghe, Efewongbe Primary Care Unavailable Fabio Cueto TECHNICAL REP-C Attending Unavailable CuetoFabio TECHNICAL REP-C Referring Unavailable Oleghe, Efewongbe Primary Care Unavailable Fabio Cueto TECHNICAL REP-C Attending Unavailable Oleghe, Efewongbe Referring Unavailable Oleghe, Efewongbe Primary Care Unavailable Fabio Cueto TECHNICAL REP-C Attending Unavailable Oleghe, Efewongbe Referring Unavailable Oleghe, Efewongbe Primary Care Unavailable Oleghe, Efewongbe Attending Unavailable Oleghe, Efewongbe Referring Unavailable Oleghe, Efewongbe Attending Unavailable Oleghe, Efewongbe Referring Unavailable Oleghe, Efewongbe Primary Care Unavailable Meli Elias Attending Unavailable Meli Elias Referring Unavailable Oleghe, Efewongbe Primary Care Unavailable Fabio Cueto TECHNICAL REP-C Attending Unavailable Oleghe, Efewongbe Referring Unavailable Oleghe, Efewongbe Primary Care Unavailable CeicJames Attending Unavailable Oleghe, Efewongbe Primary Care Unavailable CeciJames Referring Unavailable Oleghe, Efewongbe Attending Unavailable Oleghe, Efewongbe Referring Unavailable Oleghe, Efewongbe Primary Care Unavailable Oleghe, Efewongbe Primary Care Unavailable Giancarlo Navarro Attending Unavailable Fabio Cueto TECHNICAL REP-C Attending Unavailable Oleghe, Efewongbe Referring Unavailable Fabio Cueto TECHNICAL REP-C Attending Unavailable Oleghe, Efewongbe Referring Unavailable Oleghe, Efewongbe Primary Care Unavailable Fabio Cueto TECHNICAL REP-C Attending Unavailable Oleghe, Efewongbe Referring Unavailable Oleghe, Efewongbe Primary Care Unavailable Fabio Cueto TECHNICAL REP-C Attending Unavailable Fabio Cueto TECHNICAL REP-C Referring Unavailable Oleghe, Efewongbe Primary Care Unavailable Fabio Cueto TECHNICAL REP-C Attending Unavailable Oleghe, Efewongbe Referring Unavailable Oleghe, Efewongbe Primary Care Unavailable Oleghe, Efewongbe Attending Unavailable Oleghe, Efewongbe Referring Unavailable Oleghe, Efewongbe Primary Care Unavailable Oleghe, Efewongbe Attending Unavailable Oleghe, Efewongbe Referring Unavailable Oleghe, Efewongbe Primary Care Unavailable Oleghe, Efewongbe Attending Unavailable Oleghe, Efewongbe Referring Unavailable Oleghe, Efewongbe Primary Care Unavailable Oleghe, Efewongbe Attending Unavailable Oleghe, Efewongbe Referring Unavailable Oleghe, Efewongbe Primary Care Unavailable Oleghe, Efewongbe Attending Unavailable Oleghe, Efewongbe Referring Unavailable Oleghe, Efewongbe Attending Unavailable Oleghe, Efewongbe Referring Unavailable Oleghe, Efewongbe Primary Care Unavailable Oleghe, Efewongbe Primary Care Unavailable Ana Villanueva Attending Unavailable Tahir Rabago Attending Unavailable Oleghe, Efewongbe Referring Unavailable Tahir Rabago Attending Unavailable PROBLEMS PROBLEMS DATE TYPE CONDITION / CODE ATTENDING STATUS SOURCE 07/25/2018 Unknown R19.7 - Diarrhea, Tahir Rabago Active [facility] unspecified / Community R19.7(ICD-10) Hospital Repository 07/17/2018 Unknown R93.5 - Abnormal Tahir Rabago Active [place] findings on Community diagnostic imaging of Hospital other abdominal Repository regions, including retroperitoneum / R93.5(ICD-10) 07/17/2018 Unknown R10.9 - Unspecified Tahir Rabago Active [place] abdominal pain / Community R10.9(ICD-10) Hospital Repository 06/27/2018 Unknown I10 - Essential Oleghe, Active [place] (primary) [facility] hypertension / Hospital I10(ICD-10) Repository 03/15/2018 Unknown R68.81 - Early Oleghe, Active [place] satiety / [facility] R68.81(ICD-10) Hospital Repository 02/20/2018 Unknown R55 - Syncope and Giancarlo Navarro Active [facility] collapse / Community R55(ICD-10) Hospital Repository 02/20/2018 Unknown S22.39XA - Fracture Giancarlo Navarro Active [place] of one rib, Community unspecified side, Hospital initial encounter for Repository closed fracture / S22.39XA(ICD-10) 11/01/2017 Unknown R97.20 - Elevated Oleghe, Active [facility] prostate specific [place]be [facility] antigen [PSA] / Hospital R97.20(ICD-10) Repository 08/05/2017 Unknown K21.9 - CuetoFabio hamilton Active [place] Gastro-esophageal TECHNICAL REP-C [facility] reflux disease Hospital without esophagitis / Repository K21.9(ICD-10) 08/05/2017 Unknown I87.2 - Venous Cueto, Fabio Active [facility] insufficiency TECHNICAL REP-C Community (chronic) Hospital (peripheral) / Repository I87.2(ICD-10) 08/05/2017 Unknown F10.20 - Alcohol Cueto, Fabio Active [place] dependence, TECHNICAL REP-C Community uncomplicated / Hospital F10.20(ICD-10) Repository 08/05/2017 Unknown E66.9 - Obesity, Cueto, Fabio Active [place] unspecified / TECHNICAL REP-C Community E66.9(ICD-10) Hospital Repository PROCEDURES PROCEDURES No Procedure Records FoundRESULTS RESULTS Observed: 07/25/2018 Status: F Source: [place] CDIFF (MOLECULAR) 11:28 AM [facility] [place] [place] REPOSITORY Cdiff-Molecular Normal Reference Range = Negative C. Diff DNA Negative- No toxigenic C. Diff DNA Detected NAAT METHOD Testing was performed using nucleic acid amplification Performed By: #### [id number] #### [facility] [address] [place], [address] SURGERY VISIT REPORT Observed: 07/18/2018 Status: F Source: CLEAR 7:16 AM [facility] [place], [place] REPOSITORY [facility] [address] [place] [address] OFFICE VISIT Date of Service: 07/17/18 MR#: [id number] Acct: [id number] Name: GIANCARLO MARTIN Rep #: [id number] : 1965 Provider: Tahir Rabago MD Age/Sex: 53/M Location: [facility] Status: Signed Intake Vital Signs07/17/18 Height 5 ft 6 in 07/17/18 Weight: 220 lb Intake Visit Reasons: Abdominal Pain Chief Complaint: follow-up visit Rn Registry Required: No Is patient in pain?: Yes (Right flank / RLQ) Pain scale (1- 10): 1 Allergies shellfish derived Adverse Reaction (Verified 07/17/18 13:59) Anaphylaxis Medications amlodipine 10 mg tablet 10 mg PO DAILY #90 tab 08/05/17 [Rx Confirmed 07/17/18] fluticasone 50 mcg/actuation nasal spray,suspension 1 spray INTRANASAL BID #16 g 09/29/17 [Rx Confirmed 07/17/18] albuterol sulfate HFA 90 mcg/actuation aerosol inhaler 1 puff INHALATION Q6H PRN #8.5 g 06/12/18 [Rx Confirmed 07/17/18] pantoprazole 40 mg tablet,delayed release 40 mg PO BID #60 tab 06/28/18 [Rx Confirmed 07/17/18] amoxicillin 875 mg-potassium clavulanate 125 mg tablet 1 tab PO BID #20 tab 07/08/18 [Rx Confirmed 07/17/18] PFSH Medical History History of stomach ulcers (Acute) Hemorrhoids (Acute) Diarrhea (Acute) Vomiting (Acute) Nausea (Acute) Abdominal pain (Acute) Elevated PSA (Chronic) Polymorphous light eruption, diffuse erythematous type (Chronic) Early satiety (Acute) Elevated PSA (Chronic) Venous insufficiency of both lower extremities (Chronic) Alcohol dependence (Chronic) Obesity (Chronic) GERD (gastroesophageal reflux disease) (Chronic) Hypertension (Chronic) Asthma (Chronic) Surgical History Hx of colonoscopy (Acute) History of esophagogastroduodenoscopy (EGD) (Acute) H/O hernia repair (Acute) Family History Grandmother Diabetes Father Cancer unknown Brother Hypertension Grandfather Heart disease Social History Smoking Status: Never smoker how long ago did patient quit smokin alcohol intake: current alcohol intake frequency: 3 or more drinks per day Alcohol type: beer substance use type: does not use caffeine: Yes what type of physical activity do you participate in: walking frequency: daily seatbelt use: always HPI HPI HPI: GIANCARLO MARTIN, is a 53 M who presents to the office today for reevaluation from his abdominal pain which I saw on 07/08/2018. At that time the patient had been seen in [facility] emergency department on 07/07/2018. The CAT scan of his abdomen showed some acute inflammation in the fat of the right paracolic region just caudal to the liver. There did not appear to be any signs of inflammation of the colon itself. The patient was noted to have elevation in his white count and a normal lactic acid level his urinalysis was entirely normal. Patient had not been having any hematemesis nor any been noticing any bright red rectal bleeding or melena. I originally started on antibiotics Augmentin 875 mg twice daily for 10 days. He noted that he was having significant amounts of diarrhea which is slowly starting to get better but it is still loose. Patient states that he still notices some discomfort when he stretches his right side out mostly at nighttime. It is right along the right costal margin and right lower quadrant area. He has had no fevers and no chills. ROS General General: Yes weight change and fatigue; no appetite, colon cancer, breast cancer or weakness HEENT HEENT: No difficulty swallowing, eye injury, eye surgery, swollen glands or hoarseness Endo Endocrine: No thyroid disease, diabetes mellitus, thyroid cancer, Hair loss, heat intolerance or cold intolerance Skin Skin: Yes changing moles; no rash Musc Musculoskeletal: Yes back problems and joint pain; no arthritis, rheumatoid arthritis or gout Cardio Cardiovascular: Yes atrial fibrillation and high blood pressure; no murmur, pacemaker, heart disease, heart attack, heart stent, palpitations, shortness of breat with exertion or chest pain Psych Psychiatric: No depression, anxiety or hearing voices Resp Respiratory: Yes shortness of breath, Yes cough, Yes asthma Gastro Gastrointestinal: Yes abdominal pain, Yes nausea or vomiting, Yes diarrhea, Yes acid reflux, Yes hemorrhoids, Yes ulcers, No constipation, No blood in stool, No gallbladder problem, No black,tarry stools Papo Hematologic: No blood thinners, No blood disorders, No bleeding, No anemia, No blood clots Neuro Neurologic: No weakness Exam Const General: well developed, no acute distress, well hydrated Orientation: oriented to person, oriented to place, oriented to time [facility] Head: normocephalic, atraumatic Ears: external ears normal Mouth: moist mucous membranes Eyes Sclera: sclerae normal Pupils: normal by confrontation Neck Neck: no lymphadenopathy noted Neck mass: No Thyroid: symmetrical, thyroid normal Chest Chest palpation AND inspection: normal inspection of the chest Resp Effort AND Inspection: normal respiratory effort Auscultation: clear to auscultation bilaterally, wheezes expiratory wheezes and left upper Percussion: percussion normal Cardio Rate: regular rate Rhythm: regular rhythm Heart Sounds: no murmurs GI Palpation: soft, no masses, no hepatosplenomegaly, nontender Rectal Exam: other Other: Rectal exam deferred. Extrem General: no clubbing, cyanosis or edema, normal to inspection Assessment AND Plan Problems 1. Abnormal CT of the abdomen R93.5 Plan I have discussed the above with the patient. I have offered the patient colonoscopy as well as an esophagogastroduodenoscopy for evaluation. I have explained the risks/benefits of the procedure and described the procedure. I have discussed the risks with the patient, including but not limited to: infection, bleeding, perforation of the GI tract requiring emergency surgery, inability to complete the procedure, injury to any internal organs, complications of anesthesia, etc. - the patient understands and agrees to proceed. I have answered all the patient's questions to the patient's satisfaction and the patient has no further questions. The patient has been given instructions for the colon cleansing preparation. I am going to obtain stool cultures for C. difficile as well Orders Orders: Coding Level of Care Code Off vis,est,level [address] of the abdomen R93.5 07/18/18 0716 <Electronically signed by Tahir Rabago MD> Date Tahir Rabago MD Cosigner Signature: Date (if applicable) CC: Jere Jain MD SURGERY VISIT REPORT Observed: 07/10/2018 Status: F Source: CLEAR 8:21 AM [facility] [place] [place] REPOSITORY [facility] [address] [place] [address] [address] [place] [address] OFFICE VISIT Date of Service: 07/08/18 MR#: [id number] Acct: [id number] Name: GIANCARLO MARTIN Rep #: [id number] : 1965 Provider: Tahir Rabago MD Age/Sex: 53/M Location: [facility] Status: Signed Intake Vital Signs07/08/18 Body Mass Index (BMI) 37.0 07/08/18 Height 5 ft 6 in 07/08/18 Weight: 220 lb Intake Visit Reasons: Abdominal Pain Chief Complaint: follow-up visit Rn Registry Required: No Is patient in pain?: Yes (Right ribs/ flank) Pain scale (1- 10): 4 Allergies shellfish derived Adverse Reaction (Verified 07/08/18 09:26) Anaphylaxis Medications amlodipine 10 mg tablet 10 mg PO DAILY #90 tab 08/05/17 [Rx Confirmed 07/08/18] fluticasone 50 mcg/actuation nasal spray,suspension 1 spray INTRANASAL BID #16 g 09/29/17 [Rx Confirmed 07/08/18] albuterol sulfate HFA 90 mcg/actuation aerosol inhaler 1 puff INHALATION Q6H PRN #8.5 g 06/12/18 [Rx Confirmed 07/08/18] pantoprazole 40 mg tablet,delayed release 40 mg PO BID #60 tab 06/28/18 [Rx Confirmed 07/08/18] amoxicillin 875 mg-potassium clavulanate 125 mg tablet 1 tab PO BID #20 tab 07/08/18 [Rx Confirmed 07/08/18] [facility] Medical History History of stomach ulcers (Acute) Hemorrhoids (Acute) Diarrhea (Acute) Vomiting (Acute) Nausea (Acute) Abdominal pain (Acute) Elevated PSA (Chronic) Polymorphous light eruption, diffuse erythematous type (Chronic) Early satiety (Acute) Elevated PSA (Chronic) Venous insufficiency of both lower extremities (Chronic) Alcohol dependence (Chronic) Obesity (Chronic) GERD (gastroesophageal reflux disease) (Chronic) Hypertension (Chronic) Asthma (Chronic) Surgical History Hx of colonoscopy (Acute) History of esophagogastroduodenoscopy (EGD) (Acute) H/O hernia repair (Acute) Family History Grandmother Diabetes Father Cancer unknown Brother Hypertension Grandfather Heart disease Social History Smoking Status: Never smoker how long ago did patient quit smokin alcohol intake: current alcohol intake frequency: 3 or more drinks per day Alcohol type: beer substance use type: does not use caffeine: Yes what type of physical activity do you participate in: walking frequency: daily seatbelt use: always HPI HPI HPI: GIANCARLO MARTIN, is a 53 M who presents to the office today for evaluation of abdominal pain. Patient was seen and [facility] [place] 07/07/2018 a CAT scan of his abdomen was obtained. Patient was noted to have some acute inflammation in the fat of the right paracolic region just caudal to the liver. Differential considerations include sequelae of mesenteric panniculitis or omental ischemic infarct or ischemia. There did not appear to be any signs of inflammation of the colon itself. CTA revealed no evidence of dissection narrowing or thrombosis. He had a normal lactic acid level however his white count was elevated to 16,000 with 70% neutrophils. Urinalysis was entirely normal. Patient has been having issues with gastric emptying and has been worked up for abdominal pain over the last several months. He has had no hematemesis and no melena. However he has been complaining of significant amounts of looser stool. ROS General General: Yes weight change and fatigue; no appetite, colon cancer, breast cancer or weakness HEENT HEENT: No difficulty swallowing, eye injury, eye surgery, swollen glands or hoarseness Endo Endocrine: No thyroid disease, diabetes mellitus, thyroid cancer, Hair loss, heat intolerance or cold intolerance Skin Skin: Yes changing moles; no rash Musc Musculoskeletal: Yes back problems and joint pain; no arthritis, rheumatoid arthritis or gout Cardio Cardiovascular: Yes atrial fibrillation and high blood pressure; no murmur, pacemaker, heart disease, heart attack, heart stent, palpitations, shortness of breat with exertion or chest pain Psych Psychiatric: No depression, anxiety or hearing voices Resp Respiratory: Yes shortness of breath, Yes cough, Yes asthma Gastro Gastrointestinal: Yes abdominal pain, Yes nausea or vomiting, Yes diarrhea, Yes acid reflux, Yes hemorrhoids, Yes ulcers, No constipation, No blood in stool, No gallbladder problem, No black,tarry stools Papo Hematologic: No blood thinners, No blood disorders, No bleeding, No anemia, No blood clots Neuro Neurologic: No weakness, Yes tingling, Yes numbness Exam Const General: well developed, no acute distress, well hydrated Orientation: oriented to person, oriented to place, oriented to time [facility] Head: normocephalic, atraumatic Ears: external ears normal Mouth: moist mucous membranes Eyes Sclera: sclerae normal Pupils: normal by confrontation Neck Neck: no lymphadenopathy noted Neck mass: No Thyroid: symmetrical, thyroid normal Chest Chest palpation AND inspection: normal inspection of the chest Resp Effort AND Inspection: normal respiratory effort Auscultation: clear to auscultation bilaterally Percussion: percussion normal Cardio Rate: regular rate Rhythm: regular rhythm Heart Sounds: no murmurs GI Palpation: soft, no masses, no hepatosplenomegaly, tender (Tender along the right side and right upper quadrant area ) Rectal Exam: other Other: Rectal exam deferred. Extrem General: no clubbing, cyanosis or edema, normal to inspection Assessment AND Plan Problems 1. Abnormal CT scan R93.89 Plan I am going to start him on Augmentin 875 mg 2 times a day for 10 days. After this I am going to more likely going to need to reevaluate him with both an upper and lower endoscopy. If this is negative which I anticipate it more likely will be then he may need to have an exploratory laparoscopy to get a good visualization was going on in the right upper quadrant and right side of his abdomen. I have discussed the above with the patient. I have offered the patient colonoscopy as well as egd for evaluation. I have explained the risks/benefits of the procedure and described the procedure. I have discussed the risks with the patient, including but not limited to: infection, bleeding, perforation of the GI tract requiring emergency surgery, inability to complete the procedure, injury to any internal organs, complications of anesthesia, etc. - the patient understands and agrees to proceed. I have answered all the patient's questions to the patient's satisfaction and the patient has no further questions. The patient has been given instructions for the colon cleansing preparation. Medications New: Coding Level of Care Code Off vis,est,level [address] scan R93.89 07/10/18 0821 <Electronically signed by Tahir Rabago MD> Date Tahir Rabago MD Cosigner Signature: Date (if applicable) CC: Jere Jain MD EMERGENCY DEPARTMENT Observed: 07/07/2018 Status: F Source: CLEAR SUMMARY 10:56 PM [facility] [place] [place] REPOSITORY [facility] Medical Records Department [address] [place] [address] Emergency Department Summary 07/07/18 1544 MR#: [id number] Acct: [id number] Name: GIANCARLO MARTIN Rep #: [id number] : 1965 53 From: Ana Villanueva MD PCP: Jere Jain MD Status: DEP ER - ER Visit Summary Date of Service: 07/07/18 Chief Complaint: Abdominal pain History of Present Illness: The patient is a 53 M with a 2- day history of right-sided abdominal pain. He reports to the lateral right abdomen and states he has had pain occasionally radiate toward the groin. He had some mild nausea but no vomiting. He has had no diarrhea or constipation. He does report some radiation to the groin, however has no urinary symptoms. He has not had fever or chills. Patient states he had some mild right-sided abdominal pain about a month ago and had an ultrasound that was unremarkable. Physical Examination: Blood pressure is 187/97, other vitals normal. Patient is sitting upright in bed no acute distress. Head neck examination unremarkable. Heart is regular rate and rhythm. Lung sounds are clear. Abdomen is soft with moderate right-sided tenderness. No guarding or rebound. Active bowel sounds are noted throughout. Lower external examination is significant for 3+ bilateral symmetric edema. Test Results: CBC was a white count of 16.0 with 70% neutrophils. Chemistry studies significant only for glucose of 72. LFTs and lipase normal. Urinalysis normal. CT abdomen pelvis with p.o. contrast shows acute inflammation of the fat of the right pericolic region just caudal to the liver. Differential includes mesenteric panniculitis versus mesenteric ischemia. Emergency Department Course and Treatment: Patient declined anything for pain. On repeat evaluation he was resting comfortably. Test results were discussed with him. Lactic acid is added at this time. CTA of the abdomen and pelvis is obtained. CTA reveals no CTA evidence of dissection, narrowing, or thrombosis. CTA, however, cannot completely rule out mesenteric ischemia and they state that the location of inflammation would be typical of ischemia. Lactic acid returns at 0.8. On repeat evaluation patient is resting comfortably. I spoke with Dr. Rabago who the patient has seen in the past. He will see the patient in the office tomorrow morning at 8:00. Patient is comfortable with this plan. Treatment Plan: [] Disposition: Discharge Impression: Abdominal pain This note was generated with Digil[employer] dictation software. It may contain incorrect words, spelling, and punctuation that were not noted in review of the chart prior to signing ED Disposition - Plan for ED Patient: Chief Complaint: Abd Pain Referrals: Jere Jain MD [Primary Care Provider] - What to do if you have Problems For any increased pain, shortness of breath, bleeding, nausea or vomiting, chest pain, or any unexpected problems, contact your Primary Care Provider. Call [facility] ([phone]) or report to the closest Emergency Room. Call 911 if necessary. 07/07/182255 <Electronically signed by Ana Villanueva MD> Date Ana Villanueva MD Cosigner Signature (If Indicated): Date CC: Jere Jain MD DISCHARGE INSTRUCTION Observed: 07/07/2018 Status: F Source: MANNY 8:29 PM [facility] [place], [place] REPOSITORY [facility] Medical Records Department [address] [place] [address] [place] [address] Discharge Instruction 07/07/182028 MR#: [id number] Acct: [id number] Name: GIANCARLO MARTIN Rep #: [id number] : 1965 53 From: Ana Villanueva MD PCP: Jere Jain MD Status: REG ER ED Disposition - Plan for ED Patient: Disposition: Home or Assisted Living Chief Complaint: Abd Pain Instructions: ED Abdominal Pain Unkn Cause Male Referrals: Tahir Rabago MD [STAFF PHYSICIAN] - 1 Day What to do if you have Problems For any increased pain, shortness of breath, bleeding, nausea or vomiting, chest pain, or any unexpected problems, contact your Primary Care Provider. Call [facility] ([phone]) or report to the closest Emergency Room. Call 911 if necessary. 07/07/182028 <Electronically signed by Ana Villanueva MD> Date Ana Villanueva MD Cosigner Signature (If Indicated): Date CC: Jere Jain MD LACTIC ACID Collected: 07/07/2018 Status: F Source: MANNY 6:00 PM [facility] [place] [place] REPOSITORY Order Comment: Yes/No query for Sepsis Lactate Rule Y TYPE CODE TESTS RESULT OUT OF RANGE REFERENCE UNITS LAB L503.6005 0.4-2.0 mmol/L Normal LACTIC ACID 0.8 Performed By: #### L503.6005 #### [facility] [address] [facility] [place], [address] CT ANGIO ABD AND Observed: 07/07/2018 Status: F Source: MANNY PEL W/O AND W/DYE 5:59 PM [facility] [place] [place] REPOSITORY [facility] Imaging Services [address] [address] CT ANGIO ABD AND PEL W/O AND W/DYE MR#: [id number] Acct: [id number] Name: GIANCARLO MARTIN Rep #: [id number] : 1965 53 From: Sandie Sifuentes MD PCP: Jere Jain MD Status: REG ER Study: CT ANGIO ABD AND PEL W/O AND W/DYE Date of Exam: 07/07/18 Exam# [id number] Ordering Dr: Ana Villanueva MD STUDY: CTA OF THE ABDOMEN AND PELVIS REASON FOR EXAM: Male, 53 years old. Right upper quadrant abdominal pain for 2 days. RADIATION DOSAGE (If Supplied By Facility): CTDIvol = ( 21.67 ) mGy, DLP = ( 1283.78 ) mGycm TECHNIQUE: Axial CT angiography multi-detector data acquisition was obtained from the lung bases to the to proximal thighs following intravenous administration of 100 ml of Isovue 370 contrast. Axial images and MIP images were reconstructed from the axial data set. Post-processing of the angiographic images was performed, with multiplanar reformation and 3D reconstruction. Individualized dose optimization techniques were used for this CT. TECHNICAL QUALITY: Good COMPARISON: CT of the abdomen and pelvis dated July 07, 2018. Descriptors of Narrowing: None (0%) Mild (< 50%) Moderate (50-70%) Severe (70-90%) Subtotal/Total Occlusion (90-100%) Non-Evaluable (technically non-diagnostic FINDINGS: Abdominal aorta: No demonstrated narrowing. Celiac and superior mesenteric arteries: There is variant anatomy at the celiac axis with a tiny rudimentary artery arising proximal to the celiac axis supplying the stomach. The remaining celiac axis has a normal appearance. The visualized superior mesenteric artery has a normal appearance. Inferior mesenteric artery: No demonstrated narrowing. Right renal artery(arteries): No demonstrated narrowing. Left renal artery(arteries): There appear to be two left- sided renal arteries, both of which appear patent. Right common iliac artery: No demonstrated narrowing with atherosclerotic calcification. Right external iliac artery: No demonstrated narrowing. Right internal iliac artery: No demonstrated narrowing. Left common iliac artery: No demonstrated narrowing. Left external iliac artery: No demonstrated narrowing. Left internal iliac artery: No demonstrated narrowing. ABDOMINAL AND PELVIC FINDINGS: There is right basilar subsegmental atelectasis. There is mild elevation of the right hemidiaphragm. The visualized portions of the heart are within normal limits. There are vascular calcifications of the coronary arteries. Normal liver. Normal gallbladder and extrahepatic biliary system. Normal spleen. Normal pancreas. Normal bilateral adrenal glands. Normal right kidney. Normal left kidney. Normal visualized stomach. There is no evidence for dilated bowel, ascites or pneumoperitoneum. The small bowel has a grossly normal appearance. There are multiple colonic diverticula consistent with diverticulosis. There is non-visualization of the appendix. There is groundglass attenuation within the fat in the right peritoneum, caudal to the liver. This could be the result of mesenteric ischemia. Sequela of mesenteric panniculitis is also possible. Normal inferior vena cava. Normal retroperitoneum. There is a left-sided retroaortic vein. Normal urinary bladder. There is enlargement of the prostate gland. Incidental note is made of mild bilateral gynecomastia. There appears to be a small left-sided inguinal hernia containing fat. There is degenerative disc disease at L5-S1. CT/CT ANGIO ABD AND PEL W/O AND W/DYE IMPRESSION: 1. No CTA evidence for arterial dissection, significant narrowing or thrombosis. 2. Acute inflammation in the fat of the right paracolic region just caudal to the liver. Differential considerations include sequela of mesenteric panniculitis or omental ischemia/infarct. The location of this abnormality is typical for sequela of omental ischemia. CTA usually does not help narrow the differential considerations. 3. Mild colonic diverticulosis. 4. Right basilar subsegmental atelectasis. Electronically Signed: Sandie Sifuentes MD at 20:00 EST , Service support , CC: Jere Jain MD; Ana Villanueva MD Pesticide Chemist: Signed URINALYSIS, COMPLETE Collected: 07/07/2018 Status: F Source: MANNY 3:45 PM [facility] [place] [place] REPOSITORY Order Comment: Order Date: 07/07/18 Has pt arrived? Y How was Urine Obtained? CLEAN CATCH TYPE CODE TESTS RESULT OUT OF RANGE REFERENCE UNITS LAB L400.3000 Yellow COLOR Normal Yellow LAB L400.3050 Clear Normal CLARITY Clear LAB L400.3200 Normal mg/dl Normal GLUCOSE, UR Normal LAB L400.3300 Negative mg/dL Normal BILIRUBIN URINE Negative LAB L400.3400 Negative mg/dl Normal KETONE UR Negative LAB L400.3465 1.002-1.030 Normal SP.GR. DIPSTX 1.010 LAB L400.3550 5.0 - 8.0 pH UR Normal 6.5 LAB L400.3600 Negative mg/dl PROT Normal DIPSTX Negative LAB L400.3700 Normal mg/dl Normal UROBILI Normal LAB L400.3750 Negative Normal NITRITE UR Negative LAB L400.3780 Negative /ul Normal OCCULT BLOOD-UR Negative LAB L400.3800 Negative /ul LEUK Normal ESTERASE Negative LAB L400.4050 0-5 /hpf WBC 0 Normal SEEN LAB L400.4100 0-5 /hpf 0 Normal RBC-UA SEEN LAB L400.4150 0-5 /hpf SQUAM 0 Normal EPI SEEN LAB L400.4300 None Seen /hpf 0 Normal BACTERIA SEEN LAB L400.4350 <or=2+ /hpf 0 Normal MUCUS, URINE SEEN Performed By: #### L400.0001 #### [facility] [address] [place], [address] ABDOMEN/PELVIS WITHOUT Observed: 07/07/2018 Status: F Source: MANNY CONT 3:13 PM [facility] [place] [place] REPOSITORY [facility] Imaging Services [address] [place] [address] Abdomen/Pelvis without Cont MR#: [id number] Acct: [id number] Name: GIANCARLO MARTIN Rep #: [id number] : 1965 M 53 From: Sandie Sifuentes MD PCP: Jere Jain MD Status: REG ER Study: Abdomen/Pelvis without Cont Date of Exam: 07/07/18 Exam# [id number] Ordering Dr: Ana Villanueva MD STUDY: CT ABDOMEN AND PELVIS WITHOUT CONTRAST REASON FOR EXAM: Male, 53 years old. Right-sided abdominal pain for 2 days. RADIATION DOSAGE (If Supplied By Facility): CTDIvol = ( 19.7 ) mGy, DLP = ( 1039.62 ) mGycm TECHNIQUE: Transaxial images were obtained from the dome of the diaphragm to the symphysis pubis without oral contrast, and without intravenous contrast. Sagittal and coronal images were reconstructed. Individualized dose optimization techniques were used for this CT. COMPARISON: None. FINDINGS: There is right basilar subsegmental atelectasis. There is mild elevation of the right hemidiaphragm. The visualized portions of the heart are within normal limits. There are vascular calcifications of the coronary arteries. Normal liver. Normal gallbladder and extrahepatic biliary system. Normal spleen. Normal pancreas. Normal bilateral adrenal glands. Normal right kidney. Normal left kidney. Normal visualized stomach. There is no evidence for dilated bowel, ascites or pneumoperitoneum. The small bowel has a grossly normal appearance. There are multiple colonic diverticula consistent with diverticulosis. There is non-visualization of the appendix. There is groundglass attenuation within the fat in the right peritoneum. This could be the result of mesenteric ischemia. Sequela of mesenteric panniculitis is also possible. Normal abdominal aorta. Normal inferior vena cava. Normal retroperitoneum. There is a left-sided retroaortic vein. Normal urinary bladder. There is enlargement of the prostate gland. Incidental note is made of mild bilateral gynecomastia. There appears to be a small left-sided inguinal hernia containing fat. Normal osseous structures. CT/Abdomen/Pelvis without Cont IMPRESSION: 1. Acute inflammation in the fat of the right paracolic region just caudal to the liver. Differential considerations include sequela of mesenteric panniculitis or mesenteric ischemia. 2. Mild colonic diverticulosis. 3. Right basilar subsegmental atelectasis. Electronically Signed: Sandie Sifuentes MD at 17:36 EST , Service support , CC: Jere Jain MD; Ana Villanueva MD Pesticide Chemist: Signed BASIC METABOLIC Collected: 07/07/2018 Status: F Source: MNANY PROFILE (BMP) 2:40 PM [facility] [place] [place] REPOSITORY TYPE CODE TESTS RESULT OUT OF RANGE REFERENCE UNITS LAB L501.0100 74-106 mg/dL Low GLU 72 Result Comment: Please note revised GLUCOSE reference range effective 2017. LAB L501.1000 7-18 mg/dL Normal BUN 10 LAB L501.1100 0.70-1.30 mg/dL Normal CREAT,SERUM 0.99 Result Comment: The validity of the calculated GFR AND GFRAA in patients over 70 years has not been determined. Clinical correlation is essential. LAB L501.1110 >60 mL/min Normal EST GFR 83 Result Comment: Non- GFR Calc LAB L501.1115 >60 mL/min Normal EST GFR - AA 101 Result Comment: GFR Calc LAB L501.1255 ml/min Normal Estimated CRCL 76.08 LAB L501.1300 10-20 RATIO Normal BUN/CRE 10.1 LAB L501.2200 8.5-10 mg/dL Normal .1 CA 8.7 LAB L501.5300 136-14 mmol/L Normal 5 NA 138 LAB L501.5600 3.5-5. mmol/L Normal 1 K 3.5 LAB L501.5900 98-107 mmol/L Normal CL 103 LAB L501.6100 21.0-3 mmol/L Normal 2.0 CO2 27.0 LAB L501.6200 5-15 Normal GAP 8 Performed By: #### L500.2500, L500.3400, L501.2450 #### [facility] [address] [place], [place], [id number] LIVER PROFILE Collected: 07/07/2018 Status: F Source: CLEAR 2:40 PM [facility] [place] [place] REPOSIT[place] TYPE CODE TESTS RESULT OUT OF RANGE REFERENCE UNITS LAB L501.1500 6.4-8.2 g/dL Normal T PROT 7.6 LAB L501.1800 3.2-5.0 g/dL Normal ALB 3.4 LAB L501.1950 2.2-4.2 g/dL Normal GLOB 4.2 LAB L501.4100 15-37 U/L Low AST 14 LAB L501.4305 45-117 U/L Normal ALK P 82 LAB L501.4405 16-61 U/L Normal ALT 24 LAB L501.4600 0.20-1.00 mg/dL Normal T BILI 0.50 LAB L501.4700 0.00-0.30 mg/dL Normal D BILI 0.12 Performed By: #### L500.2500, L500.3400, L501.2450 #### [facility] [address], [place], [id number] LIPASE Collected: 07/07/2018 Status: F Source: CLEAR 2:40 PM [facility] [place] [place] REPOS[place] TYPE CODE TESTS RESULT OUT OF RANGE REFERENCE UNITS LAB L501.2450 73-393 U/L Normal LIPASE 117 Performed By: #### L500.2500, L500.3400, L501.2450 #### [facility] [address], [place], [id number] CBC W/DIFF, AUTOMATED Collected: 07/07/2018 Status: C Source: CLEAR 2:40 PM [facility] [place] [place] REPOSIT[place] TYPE CODE TESTS RESULT OUT OF RANGE REFERENCE UNITS LAB L100.1000 4.4-11.0 K/mm3 High WBC 16.0 LAB L100.1200 4.6-6.2 M/mm3 Normal RBC 4.87 LAB L100.1300 13.0-16.5 g/dl Normal HGB 14.3 LAB L100.1400 40-54 % Normal HCT 42.9 LAB L100.1500 80-94 fL Normal MCV 88.1 LAB L100.1600 27.0-32.0 pg Normal MCH 29.4 LAB L100.1700 32-36 g/gl Normal MCHC 33.3 LAB L100.1810 11.6-14.6 % Normal RDW CV 13.5 LAB L100.1820 35.1-43.9 fl Normal RDW SD 43.4 LAB L100.1900 150-450 K/mm3 Normal PLT 286 LAB L100.2000 6.2-12.0 fl Normal MPV 10.7 LAB L100.2100 47-70 % High NEUT% 70.8 LAB L100.2200 19-41 % Low LY% 10.0 LAB L100.2300 0-10 % High MONO% 17.1 LAB L100.2400 0-5 % Normal EO% 1.3 LAB L100.2500 0-1 % Normal BASO% 0.3 LAB L100.2550 0.0-0.9 % Normal IM GRAN % 0.500 Result Comment: IG% - Immature Granulocytes (promyelocytes, myelocytes and metamyelocytes) > 1% indicates that a LEFT SHIFT is Present. LAB L100.2620 2.0-7.7 X10 3/uL High Absolute Neut 11.3 LAB L100.2720 0.83-4.51 X10 3/ul Normal Absolute Lymph 1.60 LAB L100.4500 Normal SMEAR COMMENT SEE COMMENT Result Comment: MONOCYTOSIS NOTED LAB L100.5500 ADEQ Normal A PLT EST LAB L100.7300 Normal RARE ANISO LAB L100.9900 Normal PATH REV Reviewed Result Comment: Neutrophilic leukocytosis. Clinical correlation necessary. Dmitry Vera M.D. 07/11/18 AMENDED REPORT 07/11/18 3445 PATH REV previously reported as: Mary Ellen aburto Performed By: #### L100.0100 #### [facility] [place] [place], [address] BASIC METABOLIC Collected: 06/27/2018 Status: F Source: CLEAR PROFILE (BMP) 8:38 AM [facility] [place] [place] REPOSITORY TYPE CODE TESTS RESULT OUT OF RANGE REFERENCE UNITS LAB L501.0100 74-106 mg/dL Normal GLU 104 Result Comment: Fasting Glucose result from 100 to 125 mg/dL suggests IMPAIRED HOMEOSTASIS per A.D.A. criteria. Please note revised GLUCOSE reference range effective 2017. LAB L501.1000 7-18 mg/dL Normal BUN 14 LAB L501.1100 0.70-1.30 mg/dL Normal CREAT,SERUM 0.97 Result Comment: The validity of the calculated GFR AND GFRAA in patients over 70 years has not been determined. Clinical correlation is essential. LAB L501.1110 >60 mL/min Normal EST GFR 86 Result Comment: Non- GFR Calc LAB L501.1115 >60 mL/min Normal EST GFR - AA 104 Result Comment: GFR Calc LAB L501.1300 10-20 RATIO Normal BUN/CRE 14.5 LAB L501.2200 8.5-10.1 mg/dL CA Normal 8.5 LAB L501.5300 136-145 mmol/L NA Normal 136 LAB L501.5600 3.5-5.1 mmol/L K Normal 3.9 LAB L501.5900 98-107 mmol/L CL Normal 103 LAB L501.6100 21.0-32.0 mmol/L Normal CO2 28.0 LAB L501.6200 5-15 Normal GAP 5 Performed By: #### L500.2500 #### [facility] [address] [place], [address] INTERNAL MEDICINE Observed: 06/13/2018 Status: F Source: CLEAR OFFICE VISIT 4:53 PM [facility] [place] [place] REPOSITORY [facility] [address] [place] [address] [place] [address] OFFICE VISIT Date of Service: 06/12/18 MR#: [id number] Acct: [id number] Name: GIANCARLO MARTIN Rep #: [id number] : 1965 Provider: Jere Jain MD Age/Sex: 53/M Location: [facility] [place] Status: Signed Intake Vital Signs06/12/18 Height 5 ft 7 in Intake Visit Reasons: 2 MO FU Chief Complaint: follow-up visit Is patient in pain?: No Allergies shellfish derived Adverse Reaction (Verified 03/15/18 15:34) Anaphylaxis Medications amlodipine 10 mg tablet 10 mg PO DAILY #90 tab 08/05/17 [Rx Confirmed 03/15/18] fluticasone 50 mcg/actuation nasal spray,suspension 1 spray INTRANASAL BID #16 g 09/29/17 [Rx Confirmed 03/15/18] compression stocking, knee high,regular length,medium See Dose Instructions .ROUTE .MEDSUPPLY #2 ea 02/09/18 [Rx Confirmed 03/15/18] pantoprazole 40 mg tablet,delayed release 40 mg PO BID #60 tab 03/15/18 [Rx Confirmed 03/15/18] triamcinolone acetonide 0.025 % topical ointment 1 applic TOPICAL BID #80 g 03/15/18 [Rx Confirmed 04/12/18] albuterol sulfate HFA 90 mcg/actuation aerosol inhaler 1 puff INHALATION Q6H PRN #8.5 g 06/12/18 [Rx Confirmed 06/12/18] PFSH Medical History Alcohol dependence (Chronic) Obesity (Chronic) GERD (gastroesophageal reflux disease) (Chronic) Hypertension (Chronic) Asthma (Chronic) Surgical History H/O hernia repair (Acute) Family History Grandmother Diabetes Father Cancer unknown Brother Hypertension Grandfather Heart disease Social History Smoking Status: Never smoker how long ago did patient quit smokin alcohol intake: current alcohol intake frequency: 3 or more drinks per day Alcohol type: beer substance use type: does not use what type of physical activity do you participate in: walking frequency: daily HPI HPI Chief Complaint: follow-up visit Details: GIANCARLO MARTIN, is a 53 M who presents to the office today for follow-up of his chronic medical conditions. He has no acute complaints at this time. LE/OT said to have improved. Investigations/workup was without any abnormality. He is currently on pantoprazole twice daily. He denies any concerns with this. He has noted some worsening shortness of breath. This is typically improved with albuterol. Blood pressure noted to be elevated at this visit. He however routinely checks it at home and states that it is typically in the 120s systolic. ROS Const Constitutional: No weight change, body ache, chills, fatigue, sleep problems, fever(s), change in appetite, snoring, weakness, frequent falls, headache(s) or excessive sweating Eyes Eyes: No change in vision, eye pain, light sensitivity or blurry vision ENT ENT: No headache(s), abnormal hearing, ear pain, tinnitus, nasal congestion, sore throat or neck pain Resp Respiratory: Positive for cough Cough: Yes productive, shortness of breath and wheezing (increase asthma symptoms); no snoring Cardio Cardiology: No excessive sweating, chest pain at rest, chest pain with exertion, shortness of breath, dyspnea on exertion, palpitations, orthopnea or lightheadedness Gastro GI: No abdominal pain, change in bowel habits, constipation, diarrhea, vomiting, nausea/dyspepsia or cramping Genitourinary Male: No painful urination, urinary incontinence, urinary frequency, urinary urgency, blood in urine, testicle pain or other Musc Musculoskeletal: Positive for muscle weakness; no neck pain, abnormal walking, joint pain, back pain, limited range of motion, numbness or tingling Skin Skin: No redness, dry skin, itching, lesions, wounds or rash Neuro Neurology: No weakness, frequent falls, headache(s), abnormal hearing, abnormal walking, numbness, tingling, abnormal speech, dizziness or memory loss Psych Psychiatric: No change in appetite, No memory loss, No anxiety, No depression, No Thoughts of harming yourself/Others Endo Endocrine: No fatigue, excessive sweating, cold intolerance, increased thirst/drinking, heat intolerance, flushing or increased hunger Aller/Imm Allergy/Immunologic: Positive for wheezing (increase asthma symptoms); no itchy eyes, hives or seasonal allergy symptoms Papo/Lymp Hematologic/Lymphatic: No easy bleeding, easy bruising or enlarged lymph nodes Exam Const General: cooperative, no acute distress Orientation: alert, awake, oriented x3 HENMT Head: atraumatic, normocephalic Ears: hearing grossly normal bilaterally Resp Effort AND Inspection: normal respiratory effort, able to speak in complete sentences Auscultation: Bilateral: Clear to Auscultation Cardio Rate: regular rate Rhythm: regular rhythm Heart Sounds: S1 normal, S2 normal GI Palpation: soft, no hepatosplenomegaly Musc Musculoskeletal: Yes muscle weakness Neuro General: alert, awake, oriented x3, moves all extremities, CN's II-XI intact bilaterally Psych Appearance: grossly normal Mood: congruent mood Affect: normal affect Office Meds Flucelvax Quad [id number] (PF) Performing Provider: Jere Jain MD Administered by: Laura Cavanaugh on 06/12/18 16:06 Dose Route Admin Location Lot Number Expiration Date NDC [employer] 60 mcg IM left deltoid [id number] 02/04/19 89472-271-66 [employer]. Assessment AND Plan 1. Essential hypertension I10 Plan Slightly elevated at this visit. Patient however states that he routinely checks it at home and his blood pressures typically in the 120s systolic. He did a lot of walking coming in here today. Lifestyle/dietary modifications discussed. Advised to continue blood pressure log. Goal blood pressure is less than 130 80 mmHg. Continue current medication. Orders Orders: 2. Asthma J45.909 Plan States that he has had no recent in the last week otherwise no other significant concerns. Lungs clear to auscultation at this time. Continue albuterol as needed for now, if symptoms persist, will escalate therapy. Advised to call with worsening or persistence. 3. Flu vaccine need Z23 Plan Flu shot given. This note was generated with [employer] dictation software. It may contain incorrect words, spelling, and punctuation that were not noted in checking the note before signing. Orders Orders: Medications Discontinued: Flucelvax Quad 0816-7118 (PF) (flu vac qs 2018(4 yr up60 mcg (0.5 mL) IM ONCE 1 mL 0RF NS )CD(PF)) Discontinued Reason: Office Medication jackson s been Documented as given Plan Detail Other Medications New: albuterol sulfate HFA 90 mcg/actuation (ProAi1 puff Inhalation Q6H PRN 8.5 grams 3RF shor r HFA) tness of breath or wheezing Coding Level of Care Code Off vis,est,level 3 Diagnoses Essential hypertension I10 Hypertension type: essential hypertension Asthma J45.909 Flu vaccine need Z23 06/13/18 1653 <Electronically signed by Jere Jain MD> Date Jere Jain MD Cosigner Signature: Date (if applicable) CC: ABDOMEN COMPLETE Observed: 04/17/2018 Status: F Source: [place] 10:21 AM [facility] [place] [place] REPOSITORY [facility] Imaging Services [address] [address] Abdomen Complete MR#: [id number] Acct: [id number] Name: GIANCARLO MARTIN Rep #: [id number] : 1965 M 53 From: Jeronimo Nettles DO PCP: Jere Jain MD Status: REG CLI Study: Abdomen Complete Date of Exam: 04/17/18 Exam# [id number] Ordering Dr: Jere Jain MD STUDY: ABDOMINAL ULTRASOUND REASON FOR EXAM: Male, 53 years old. Abdominal pain, early satiety, ascites TECHNIQUE: Transabdominal ultrasound was performed with real-time and static nguyen scale imaging. TECHNICAL QUALITY: Adequate. COMPARISON: CT 01/19/2014 FINDINGS: Liver: The liver measures 18.2 cm. There is increased echogenicity consistent with fatty infiltration. The bile ducts are within normal limits. There is hepatic color flow. The direction of portal flow is hepatopetal. There is no demonstrated mass lesion. Portal vein measurement: Gallbladder: Normal distended gallbladder. The gallbladder wall measures 2.8 mm. There is a negative sonographic Adams's sign. There is no pericholecystic fluid. There are no gallstones. Common Bile Duct (C.B.D.): The common bile duct measures 3.7 mm. Pancreas: Normal size of the head, body and tail of the pancreas. There is increased echogenicity of the pancreas. There is no demonstrated pancreatic mass or cyst. Spleen: Normal size of the spleen. The spleen measures 11.4 cm. Right Kidney: Normal size of the right kidney. The right kidney measures 10.8 x 4.5 x 5 cm. Normal renal cortex. The right cortex measures 1.5 cm. There is no demonstrated renal mass or cyst. There is no right hydronephrosis. Left Kidney: Normal size of the left kidney. The left kidney measures 10.4 x 5.3 x 4.8 cm. Normal renal cortex. The left cortex measures 1.6 cm. There is no demonstrated renal mass or cyst. There is no left hydronephrosis. Aorta: Unremarkable. I.V.C.: The IVC is patent. There is no ascites. US/Abdomen Complete IMPRESSION: Hepatomegaly and hepatic steatosis. The pancreas is echogenic consistent with fatty replacement. No ascites or additional abnormalities. The gallbladder is normal. Electronically Signed: Jeronimo Nettles DO at 8:33 EDT Tel , Service support , CC: Jere Jain MD Pesticide Chemist: Signed INTERNAL MEDICINE Observed: 04/13/2018 Status: F Source: [place] OFFICE VISIT 3:44 PM [facility] [place] [address] [place] [address] OFFICE VISIT Date of Service: 04/12/18 MR#: [id number] Acct: [id number] Name: GIANCARLO MARTIN Rep #: [id number] : 1965 Provider: Jere Jain MD Age/Sex: 53/M Location: [facility] [place] Status: Signed Intake Vital Signs04/12/18 Height 5 ft 7 in Intake Visit Reasons: 1 MO FU Chief Complaint: 1 month FU Is patient in pain?: No Allergies shellfish derived Adverse Reaction (Verified 03/15/18 15:34) Anaphylaxis Medications amlodipine 10 mg tablet 10 mg PO DAILY #90 tab 08/05/17 [Rx Confirmed 03/15/18] fluticasone 50 mcg/actuation nasal spray,suspension 1 spray INTRANASAL BID #16 g 09/29/17 [Rx Confirmed 03/15/18] compression stocking, knee high,regular length,medium See Dose Instructions .ROUTE .MEDSUPPLY #2 ea 02/09/18 [Rx Confirmed 03/15/18] pantoprazole 40 mg tablet,delayed release 40 mg PO BID #60 tab 03/15/18 [Rx Confirmed 03/15/18] triamcinolone acetonide 0.025 % topical ointment 1 applic TOPICAL BID #80 g 03/15/18 [Rx Confirmed 04/12/18] PFSH Medical History Alcohol dependence (Chronic) Obesity (Chronic) GERD (gastroesophageal reflux disease) (Chronic) Hypertension (Chronic) Asthma (Chronic) Surgical History H/O hernia repair (Acute) Family History Grandmother Diabetes Father Cancer unknown Brother Hypertension Grandfather Heart disease Social History Smoking Status: Never smoker how long ago did patient quit smokin alcohol intake: current alcohol intake frequency: 3 or more drinks per day Alcohol type: beer substance use type: does not use what type of physical activity do you participate in: walking frequency: daily HPI HPI Chief Complaint: 1 month FU Details: GIANCARLO MARTIN, is a 53yo M who presents to the office today for follow-up of early satiety. He also reported abdominal bloating and epigastric tenderness. Gastric emptying study was normal. He was also started on pantoprazole twice daily and has noted some improvement in his symptoms. Better able to tolerate meals however still feels full quickly. He feels well otherwise and denies any significant weight changes or feeling of unwell. ROS Const Constitutional: No weight change, body ache, chills, fatigue, sleep problems, fever(s), change in appetite, snoring, weakness, frequent falls, headache(s) or excessive sweating Eyes Eyes: No change in vision, eye pain, light sensitivity or blurry vision ENT ENT: No headache(s), abnormal hearing, ear pain, tinnitus, nasal congestion, sore throat or neck pain Resp Respiratory: No snoring, cough, shortness of breath or wheezing Cardio Cardiology: No excessive sweating, chest pain at rest, chest pain with exertion, shortness of breath, dyspnea on exertion, palpitations, orthopnea or lightheadedness Gastro GI: No abdominal pain, change in bowel habits, constipation, diarrhea, vomiting, nausea/dyspepsia or cramping Genitourinary Male: No painful urination, urinary incontinence, urinary frequency, urinary urgency, blood in urine, testicle pain or other Musc Musculoskeletal: Positive for muscle weakness; no neck pain, abnormal walking, joint pain, back pain, limited range of motion, numbness or tingling Skin Skin: No redness, dry skin, itching, lesions, wounds or rash Neuro Neurology: No weakness, frequent falls, headache(s), abnormal hearing, abnormal walking, numbness, tingling, abnormal speech, dizziness or memory loss Psych Psychiatric: No change in appetite, No memory loss, No anxiety, No depression, No Thoughts of harming yourself/Others Endo Endocrine: No fatigue, excessive sweating, cold intolerance, increased thirst/drinking, heat intolerance, flushing or increased hunger Aller/Imm Allergy/Immunologic: No wheezing, itchy eyes, hives or seasonal allergy symptoms Papo/Lymp Hematologic/Lymphatic: No easy bleeding, easy bruising or enlarged lymph nodes Exam Const General: cooperative, no acute distress Orientation: alert, awake, oriented x3 [facility] Head: atraumatic, normocephalic Ears: hearing grossly normal bilaterally Resp Effort AND Inspection: normal respiratory effort, able to speak in complete sentences Auscultation: Bilateral: Clear to Auscultation Cardio Rate: regular rate Rhythm: regular rhythm Heart Sounds: S1 normal, S2 normal GI Percussion: normal to percussion Palpation: soft, no hepatosplenomegaly Musc Musculoskeletal: Yes muscle weakness Neuro General: alert, awake, oriented x3, moves all extremities, CN's II-XI intact bilaterally Psych Appearance: grossly normal Mood: congruent mood Affect: normal affect Assessment AND Plan 1. Early satiety R68.81 Plan Some improvement noted however not totally resolved. Bloating and associated epigastric tenderness is said to also be resolving. Gastric emptying not suggestive of gastroparesis. Abdominal ultrasound ordered. Continue pantoprazole twice daily. Orders Orders: 2. Polymorphous light eruption, diffuse erythematous type L56.4 Plan Resolved. Continue current management. 3. Essential hypertension I10 Plan Optimally controlled. Continue current medication and lifestyle modifications. 4. Elevated PSA R97.20 Plan Status post biopsy. Negative for malignancy. Continue follow-up with urology. This note was generated with Tailoredation software. It may contain incorrect words, spelling, and punctuation that were not noted in checking the note before signing. Plan Detail Other Orders Orders: Follow Up 2 Months Coding Level of Care Code Off vis,est,level 3 Diagnoses Early satiety R68.81 Polymorphous light eruption, diffuse erythematous type L56.4 Essential hypertension I10 Hypertension type: essential hypertension Elevated PSA R97.20 04/13/18 1544 <Electronically signed by Jere Jain MD> Date Jere Jain MD Cosigner Signature: Date (if applicable) CC: GASTRIC EMPTYING Observed: 03/31/2018 Status: F Source: [facility] 10:32 AM [facility] [place], [place] REPOSITORY [facility] Imaging Services [address] [place] [id number] Gastric Emptying Study MR#: [id number] Acct: [id number] Name: GIANCARLO MARTIN Rep #: [id number] : 1965 M 53 From: Ramses Davis DO PCP: Jere Jain MD Status: REG CLI Study: Gastric Emptying Study Date of Exam: 03/31/18 Exam# [id number] Ordering Dr: Jere Jain MD CLINICAL: 53-year-old male with reported history of early satiety. SEMI-SOLID PHASE 99m Tc SULFUR COLLOID GASTRIC EMPTYING STUDY COMPARISON: None available FINDINGS: The patient was administered 1.0 mCi of 99m Tc sulfur colloid mixed with oatmeal and consumed per os. Image acquisitions in the anterior-posterior projections for a total of 60 minutes. There is prompt visualization of the stomach. There is no gastroesophageal reflux identified. The T1/2 linear fit was calculated to be 32.26 minutes, (Normal: 12-56 minutes). NM/Gastric Emptying Study IMPRESSION: 1. NORMAL 99m Tc sulfur colloid semi-solid phase (oatmeal) gastric emptying imaging examination. A. There is normal and preserved semi-solid phase gastric emptying compared to normal controls with maintained first order kinetics throughout all components of the examination. (Johnathan et al, J Nucl Med Tech 38: 186, 2010). Electronically Signed: Ramses Davis DO at 12:56 EDT Tel , Service support , CC: Jere Jain MD Pesticide Chemist: Signed INTERNAL MEDICINE Observed: 03/15/2018 Status: F Source: [place] OFFICE VISIT 7:04 PM [facility] [address] [place] [address] [place] [address] OFFICE VISIT Date of Service: 03/15/18 MR#: [id number] Acct: [id number] Name: GIANCARLO MARTIN Rep #: [id number] : 1965 Provider: Jere Jain MD Age/Sex: 53/M Location: [facility] [place] Status: Signed Intake Vital Signs03/15/18 Height 5 ft 7 in 03/15/18 Weight: 217 lb 03/15/18 Body Mass Index (BMI) 34.0 03/15/18 Blood Pressure 134/89 Intake Visit Reasons: 1 M FU Chief Complaint: 1 MO FU Is patient in pain?: Yes (LEGS, FEET) Pain scale (1-10): 7 Allergies shellfish derived Adverse Reaction (Verified 03/15/18 15:34) Anaphylaxis Medications amlodipine 10 mg tablet 10 mg PO DAILY #90 tab 08/05/17 [Rx Confirmed 03/15/18] fluticasone 50 mcg/actuation nasal spray,suspension 1 spray INTRANASAL BID #16 g 09/29/17 [Rx Confirmed 03/15/18] compression stocking, knee high,regular length,medium See Dose Instructions .ROUTE .MEDSUPPLY #2 ea 02/09/18 [Rx Confirmed 03/15/18] pantoprazole 40 mg tablet,delayed release 40 mg PO BID #60 tab 03/15/18 [Rx Confirmed 03/15/18] triamcinolone acetonide 0.025 % topical ointment 1 applic TOPICAL BID #80 g 03/15/18 [Rx Confirmed 03/15/18] [facility] Medical History Alcohol dependence (Chronic) Obesity (Chronic) GERD (gastroesophageal reflux disease) (Chronic) Hypertension (Chronic) Asthma (Chronic) Surgical History H/O hernia repair (Acute) Family History Grandmother Diabetes Father Cancer unknown Brother Hypertension Grandfather Heart disease Social History Smoking Status: Never smoker how long ago did patient quit smokin alcohol intake: current alcohol intake frequency: 3 or more drinks per day Alcohol type: beer substance use type: does not use what type of physical activity do you participate in: walking frequency: daily HPI HPI Chief Complaint: 1 MO FU Details: GIANCARLO MARTIN, is a 53 M who presents to the office today for follow up. He has been seen over the last couple of months with dizziness which has now resolved. He however reports abdominal bloating and feeling full really quickly with subsequent poor appetite which has been going on over the last couple of weeks. He however denies any change in his bowel habit or weight changes. Last EGD was less than a year ago without any overt concerns. He denies any blood in his stool. There is also persistent bilateral forearm rash ongoing for the last couple of weeks. ROS Const Constitutional: No chills, fatigue, fever(s), frequent falls, malaise, weakness, sleep problems or change in appetite Eyes Eyes: No blurry vision, change in vision, double vision, discharge or visual disturbances ENT ENT: No abnormal hearing, ear pain, ear pressure, tinnitus or dizziness/vertigo Resp Respiratory: No cough, shortness of breath or wheezing Cardio Cardiology: No chest pain at rest, chest pain with exertion, shortness of breath, dyspnea on exertion, generalized swelling, irregular heart rhythm, lightheadedness, orthopnea, fast heart rate or palpitations Gastro GI: Positive for bloating; no abdominal pain, change in bowel habits, constipation, diarrhea, nausea/dyspepsia or vomiting Genitourinary Male: No difficulty urinating, burning urination, painful urination, urinary incontinence, urinary frequency, urinary urgency, urinary hesitancy, urinary retention, blood in urine, Frequent nighttime urination/ nocturia, sexual problems, testicle lump or testicle pain Musc Musculoskeletal: Positive for muscle weakness; no back pain, joint swelling, limited range of motion or tingling Skin Skin: Positive for rash (both arms); no change in skin color or wounds Breast Breast: No breast lump or breast pain Neuro Neurology: No frequent falls, weakness, abnormal hearing, tingling, unsteady gait/balance, dizziness, loss of vision, memory loss or visual disturbances Psych Psychiatric: No memory loss, No anxiety, No change in appetite, No depression, No Thoughts of harming yourself/Others Endo Endocrine: No fatigue, heat intolerance, increased thirst/drinking, increased hunger or increased urination Aller/Imm Allergy/Immunologic: No wheezing or seasonal allergy symptoms Papo/Lymp Hematologic/Lymphatic: No easy bleeding, easy bruising or enlarged lymph nodes Exam Const General: cooperative, no acute distress Orientation: alert, awake, oriented x3 HENMT Head: atraumatic, normocephalic Ears: hearing grossly normal bilaterally Resp Effort AND Inspection: normal respiratory effort, able to speak in complete sentences Auscultation: Bilateral: Clear to Auscultation Cardio Rate: regular rate Rhythm: regular rhythm Heart Sounds: S1 normal, S2 normal GI Palpation: soft (Epigastric tenderness) Musc Musculoskeletal: Yes muscle weakness Neuro General: alert, awake, oriented x3, moves all extremities, CN's II-XI intact bilaterally Psych Appearance: grossly normal Mood: congruent mood Affect: normal affect Assessment AND Plan 1. Early satiety R68.81 Plan Said to be associated with abdominal bloating. Epigastric tenderness on examination. Last EGD in 04/24 without any significant abnormality. gastric emptying study ordered. Switch to Pantoprazole 40mg BID. With any worsening symptoms. If no significant improvement in symptoms, will refer for another EGD Orders Orders: 2. GERD (gastroesophageal reflux disease) K21.9 Plan Plan as above. 3. Polymorphous light eruption, diffuse erythematous type L56.4 Plan Lifestyle modifications discussed. Triamcinolone twice daily x 2 weeks. This note was generated with Tailoredation software. It may contain incorrect words, spelling, and punctuation that were not noted in checking the note before signing. Plan Detail Other Medications New: Discontinued: Coding Level of Care Code Off vis,est,level 4 Diagnoses Early satiety R68.81 GERD (gastroesophageal reflux disease) K21.9 Polymorphous light eruption, diffuse erythematous type L56.4 03/15/18 1904 <Electronically signed by Jere Jain MD> Date Jere Jain MD Cosigner Signature: Date (if applicable) CC: INTERNAL MEDICINE Observed: 02/15/2018 Status: F Source: [place] OFFICE VISIT 1:23 PM [facility] [address] [place] [address] [place] [address] OFFICE VISIT Date of Service: 02/15/18 MR#: [id number] Acct: [id number] Name: GIANCARLO MARTIN Rep #: [id number] : 1965 Provider: Fabio Cueto NP Age/Sex: 53/M Location: [facility] [place] Status: Signed Intake Vital Signs02/15/18 Height 5 ft 7 in Intake Visit Reasons: 1 wk fu Chief Complaint: BP recheck Is patient in pain?: Yes (back) Pain scale (1-10): 1 Allergies shellfish derived Adverse Reaction (Verified 02/01/18 15:43) Anaphylaxis Medications amlodipine 10 mg tablet 10 mg PO DAILY #90 tab 08/05/17 [Rx Confirmed 02/15/18] omeprazole 40 mg capsule,delayed release 40 mg PO DAILY #90 cap 08/05/17 [Rx Confirmed 02/15/18] fluticasone 50 mcg/actuation nasal spray,suspension 1 spray INTRANASAL BID #16 g 09/29/17 [Rx Confirmed 02/15/18] compression stocking, knee high,regular length,medium See Dose Instructions .ROUTE .MEDSUPPLY #2 ea 02/09/18 [Rx Confirmed 02/15/18] PFSH Medical History Alcohol dependence (Chronic) Obesity (Chronic) GERD (gastroesophageal reflux disease) (Chronic) Hypertension (Chronic) Asthma (Chronic) Surgical History H/O hernia repair (Acute) Family History Grandmother Diabetes Father Cancer unknown Brother Hypertension Grandfather Heart disease Social History Smoking Status: Never smoker how long ago did patient quit smokin alcohol intake: current alcohol intake frequency: 3 or more drinks per day Alcohol type: beer substance use type: does not use what type of physical activity do you participate in: walking frequency: daily HPI HPI Chief Complaint: BP recheck Details: GIANCARLO MARTIN, is a 53 M who presents to the office today for follow-up from blood pressure medication changes. The patient has a past medical history of hypertension, obesity, asthma and venous insufficiency. The patient has been seen regularly over the past few weeks after a fall due to syncopal episode that he received at work after taking 1 dose of Flomax. He has had his hydrochlorothiazide discontinued due to orthostatic hypotension. He states that he is feeling much better and has not had any episodes of dizziness in the last week. He does have a log of his home blood pressures that ranged from 115-130 systolic and 70-80 diastolic. He does complain of 2 episodes of heart palpitations that lasted no more than 4 seconds. He notes that his back pain and left shoulder pain have improved significantly but he still has residual numbness tingling in his left forearm and fourth and fifth fingers. He also does complain of a rash to bilateral forearms that has been going on and off for 3 weeks. He notes the rash is itchy at times, the rash becomes worse with heat and feels better with cold water. The patient otherwise denies any fever, chills, nausea, vomiting, shortness of breath, chest pain or pressure, orthopnea, lower extremity edema, syncope or presyncopal episodes. ROS Const Constitutional: No weight change, body ache, chills, fatigue, sleep problems, fever(s), change in appetite, snoring, weakness, frequent falls, headache(s) or excessive sweating Eyes Eyes: No change in vision, eye pain, light sensitivity or blurry vision ENT ENT: No headache(s), abnormal hearing, ear pain, tinnitus, nasal congestion, sore throat or neck pain Resp Respiratory: No snoring, cough, shortness of breath or wheezing Cardio Cardiology: Positive for shortness of breath (when he woke up out of sleep one time) and palpitations (4 seconds); no excessive sweating, chest pain at rest, chest pain with exertion, dyspnea on exertion, orthopnea or lightheadedness Gastro GI: No abdominal pain, change in bowel habits, constipation, diarrhea, vomiting, nausea/dyspepsia or cramping Genitourinary Male: No painful urination, urinary incontinence, urinary frequency, urinary urgency, blood in urine, testicle pain or other Musc Musculoskeletal: No neck pain, abnormal walking, joint pain, back pain, limited range of motion, numbness, tingling or muscle weakness Skin Skin: Positive for rash (on arms); no redness, dry skin, itching, lesions or wounds Neuro Neurology: No weakness, frequent falls, headache(s), abnormal hearing, abnormal walking, numbness, tingling, abnormal speech, dizziness or memory loss Psych Psychiatric: No change in appetite, No memory loss, No anxiety, No depression, No Thoughts of harming yourself/Others Endo Endocrine: No fatigue, excessive sweating, cold intolerance, increased thirst/drinking, heat intolerance, flushing or increased hunger Aller/Imm Allergy/Immunologic: No wheezing, itchy eyes, hives or seasonal allergy symptoms Papo/Lymp Hematologic/Lymphatic: No easy bleeding, easy bruising or enlarged lymph nodes Exam Const General: cooperative, comfortable, no acute distress Nutritional Appearance: average body habitus, well nourished Orientation: alert, oriented x3 Limitations: mental status not altered Resp Effort AND Inspection: normal respiratory effort, able to speak in complete sentences, normal respiratory pattern, symmetric chest movement, no audible wheezes, no cough Auscultation: Bilateral: Clear to Auscultation Cardio Palpation: normal PMI Rate: regular rate Heart Sounds: S1 normal, S2 normal, normal S1 and S2, no click, no gallops, no murmurs, no rubs Musc Musculoskeletal: No joint tenderness, decreased ROM or muscle weakness Skin General: elasticity normal, turgor normal Lesions: no lesions Rashes: rashes noted (bilateral arms) Neuro General: alert, awake, oriented x3, CN's II-XI intact bilaterally Speech: speech normal Gait: normal gait Motor: muscle tone normal throughout Extrem General: normal to inspection, normal gait, edema Laterality: bilateral Severity: 1+ and non-pitting Psych Appearance: grossly normal Mental Status: mental status grossly normal Affect: normal affect Attitude: cooperative Thought Process: normal Assessment AND Plan 1. Orthostatic hypotension I95.1 Plan Seems to be resolved since d/c HCTZ, over the past week patient has had no syncopal episodes. At this time I feel it is safe for the patient to be released back to work. Patient educated on slow position changes and adequate fluid intake. Continue with compression stockings. 2. Dizziness R42 Plan The above plan 3. Left-sided thoracic back pain M54.6 Plan The patient states his left shoulder pain and back pain have significantly improved. will follow in future 4. HTN (hypertension) I10 Plan Patient has home log of blood pressures. Blood pressure seems well controlled. No hypertensive or hypotensive readings noted. Patient's blood pressure cuff was checked with home office reading and seems to be accurate. Patient encouraged to continue monitoring blood pressure at home. Patient educated on red flag signs and symptoms that would warrant emergency medical care. 5. Heart palpitations R00.2 Plan Patient has had only 2 very short durations of heart palpitations. Will continue to monitor. If palpitations continue or increase will consider Holter monitor. Patient educated on signs and symptoms that would warrant emergency medical care. 6. Rash R21 Plan Rash seems to be attributed to heat. 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 Patient educated to try to avoid he can use cold water compresses as needed for relief. This note was generated with [employer] dictation software. It may contain incorrect words, spelling, and punctuation that were not noted in checking the note before signing. Plan Detail Follow Up 1 mo or sooner if needed Coding Level of Care Code Off vis,est,level 3 Diagnoses Orthostatic hypotension I95.1 Dizziness R42 Left-sided thoracic back pain M54.6 HTN (hypertension) I10 Heart palpitations R00.2 Rash R21 02/15/18 1323 <Electronically signed by Fabio SERNA> Date Fabio SERNA Cosigner Signature: Date (if applicable) CC: BASIC METABOLIC Collected: 02/14/2018 Status: F Source: MANNY PROFILE (BMP) 10:27 AM [facility] [place], [place] REPOSITORY TYPE CODE TESTS RESULT OUT OF RANGE REFERENCE UNITS LAB L501.0100 74-106 mg/dL Normal GLU 94 Result Comment: Please note revised GLUCOSE reference range effective 2017. LAB L501.1000 7-18 mg/dL Normal BUN 15 LAB L501.1100 0.70-1.30 mg/dL Normal CREAT,SERUM 0.92 Result Comment: The validity of the calculated GFR AND GFRAA in patients over 70 years has not been determined. Clinical correlation is essential. LAB L501.1110 >60 mL/min Normal EST GFR 90 Result Comment: Non- GFR Calc LAB L501.1115 >60 mL/min Normal EST GFR - AA 109 Result Comment: GFR Calc LAB L501.1300 10-20 RATIO Normal BUN/CRE 16.2 LAB L501.2200 8.5-10.1 mg/dL CA Normal 8.8 LAB L501.5300 136-145 mmol/L NA Normal 138 LAB L501.5600 3.5-5.1 mmol/L K Normal 4.1 LAB L501.5900 98-107 mmol/L CL Normal 105 LAB L501.6100 21.0-32.0 mmol/L Normal CO2 25.0 LAB L501.6200 5-15 Normal GAP 8 Performed By: #### L500.2500 #### [facility] [address] [place], [address] INTERNAL MEDICINE Observed: 02/14/2018 Status: F Source: MANNY OFFICE VISIT 8:48 AM [facility] [place], [place] REPOSITORY [facility] [address] [place] [address] OFFICE VISIT Date of Service: 02/09/18 MR#: [id number] Acct: [id number] Name: GIANCARLO MARTIN Rep #: [id number] : 1965 Provider: Fabio Cueto NP Age/Sex: 53/M Location: [facility] Status: Signed Intake Vital Signs07/05/18 Height 5 ft 7 in 02/09/18 Weight: 218 lb 02/09/18 Body Mass Index (BMI) 34.1 02/09/18 Blood Pressure 126/86 02/09/18 Blood Pressure Location Rt brachial Intake Visit Reasons: 1 WK FU Chief Complaint: syncope Is patient in pain?: No Allergies shellfish derived Adverse Reaction (Verified 02/01/18 15:43) Anaphylaxis Medications amlodipine 10 mg tablet 10 mg PO DAILY #90 tab 08/05/17 [Rx Confirmed 01/25/18] lisinopril 5 mg tablet 5 mg PO QDAY #90 tab 08/05/17 [Rx Confirmed 01/25/18] omeprazole 40 mg capsule,delayed release 40 mg PO DAILY #90 cap 08/05/17 [Rx Confirmed 01/25/18] fluticasone 50 mcg/actuation nasal spray,suspension 1 spray INTRANASAL BID #16 g 09/29/17 [Rx Confirmed 01/25/18] Hydrocodone/Acetaminophen [[place] 5-325 Tablet] 1 - 2 ea PO 4X/DAY PRN PRN 5 Days #20 tab 01/25/18 [Rx] cyclobenzaprine 10 mg tablet 5 mg PO TID PRN #20 tab 02/01/18 [Rx Confirmed 02/01/18] compression stocking, knee high,regular length,medium See Dose Instructions .ROUTE .MEDSUPPLY #2 ea 02/09/18 [Rx Confirmed 02/09/18] hydrochlorothiazide 12.5 mg tablet 12.5 mg PO QDAY 02/09/18 [History Confirmed 02/09/18] PFSH Medical History Alcohol dependence (Chronic) Obesity (Chronic) GERD (gastroesophageal reflux disease) (Chronic) Hypertension (Chronic) Asthma (Chronic) Surgical History H/O hernia repair (Acute) Family History Grandmother Diabetes Father Cancer unknown Brother Hypertension Grandfather Heart disease Social History Smoking Status: Never smoker how long ago did patient quit smokin alcohol intake: current alcohol intake frequency: 3 or more drinks per day Alcohol type: beer substance use type: does not use what type of physical activity do you participate in: walking frequency: daily HPI HPI Chief Complaint: syncope Details: GIANCARLO MARTIN, is a 53 M who presents to the office today for follow-up appointment from 1 week ago for syncope. The patient has a past medical history of hypertension, venous insufficiency, GERD, obesity and asthma. The patient was seen 1 week ago for a syncopal episode that resulted in a fall while at work after taking 1 dose of Flomax. At that time his hydrochlorothiazide was cut in half. The patient presents today with complaints of 3 mild presyncopal episodes over the last week. The patient admits these episodes are result to position change. The patient feels these episodes coming on and lowers himself to the ground. None of these episodes have resulted in injury or fall. The patient also admits to a decrease in fluid intake with dark colored urine. He monitors his blood pressure at home and brought his blood pressure log with him to his visit. Lowest blood pressure noted was 97/67, highest blood pressure noted was 125/80. Patient is currently on FMLA leave. The patient states that the pain and numbness and tingling in his left shoulder and arm have improved significantly. Average systolic blood pressure 100-110. The patient otherwise denies any fever, chills, nausea, vomiting, shortness of breath, chest pain or pressure, palpitations, orthopnea or lower extremity edema. ROS Const Constitutional: Positive for fatigue; no weight change, body ache, chills, sleep problems, fever(s), change in appetite, snoring, weakness, frequent falls, headache(s) or excessive sweating Eyes Eyes: No change in vision, eye pain, light sensitivity or blurry vision ENT ENT: No headache(s), abnormal hearing, ear pain, tinnitus, nasal congestion, sore throat or neck pain Resp Respiratory: No snoring, cough, wheezing or shortness of breath Cardio Cardiology: No excessive sweating, chest pain at rest, chest pain with exertion, shortness of breath, dyspnea on exertion, palpitations, orthopnea or lightheadedness Gastro GI: Positive for nausea/dyspepsia; no abdominal pain, change in bowel habits, constipation, diarrhea, vomiting or cramping Genitourinary Male: No painful urination, urinary incontinence, urinary frequency, urinary urgency, blood in urine, testicle pain or other Musc Musculoskeletal: No neck pain, abnormal walking, joint pain, back pain, limited range of motion, numbness, tingling or muscle weakness Skin Skin: No redness, dry skin, itching, lesions, wounds or rash Neuro Neurology: Positive for dizziness and fainting; no weakness, frequent falls, headache(s), abnormal hearing, abnormal walking, numbness, tingling, abnormal speech or memory loss Psych Psychiatric: No change in appetite, No memory loss, No anxiety, No depression, No Thoughts of harming yourself/Others Endo Endocrine: Positive for fatigue; no excessive sweating, cold intolerance, increased thirst/drinking, heat intolerance, flushing or increased hunger Aller/Imm Allergy/Immunologic: No wheezing, itchy eyes, hives or seasonal allergy symptoms Papo/Lymp Hematologic/Lymphatic: No easy bleeding, easy bruising or enlarged lymph nodes Exam Const General: cooperative, comfortable, no acute distress Nutritional Appearance: average body habitus, well nourished Orientation: alert, oriented x3 Limitations: mental status not altered Resp Effort AND Inspection: normal respiratory effort, able to speak in complete sentences, normal respiratory pattern, symmetric chest movement, no audible wheezes, no cough Auscultation: Bilateral: Clear to Auscultation Cardio Palpation: normal PMI Rate: regular rate Heart Sounds: S1 normal, S2 normal, normal S1 and S2, no click, no gallops, no murmurs, no rubs Musc Musculoskeletal: No joint tenderness, decreased ROM or muscle weakness Skin General: no rashes or lesions noted, elasticity normal, turgor normal Lesions: no lesions Rashes: no rashes Neuro General: alert, awake, oriented x3, CN's II-XI intact bilaterally Speech: speech normal Gait: normal gait Motor: muscle tone normal throughout Extrem General: normal to inspection, normal gait, no edema, no pedal edema Psych Appearance: grossly normal Mental Status: mental status grossly normal Affect: normal affect Attitude: cooperative Thought Process: normal Assessment AND Plan 1. Orthostatic hypotension I95.1 Plan Will discontinue patient's hydrochlorothiazide. Patient will obtain compression stockings. Patient encouraged to increase fluid intake. Patient was educated on slow position changes. Patient will continue to monitor blood pressure at home and bring his log with him at his follow-up appointment. Discussed red flag symptoms and when to seek emergent care. 2. Dizziness R42 Plan plan as above, improving slowly. 3. HTN (hypertension) I10 Plan Will discontinue patient's hydrochlorothiazide due to orthostatic hypotension. Patient to monitor blood pressure at home and bring log with him to follow- up appointment in 1 week. Patient recommended to take blood pressure pills at bedtime. If log still shows low readings will consider d/cing lisinopril. This note was generated with [employer] dictation software. It may contain incorrect words, spelling, and punctuation that were not noted in checking the note before signing. 4. Left-sided thoracic back pain M54.6 Plan Continues to improve with conservative management. Encouraged to use ice. Patient is currently on FMLA leave. Plan Detail Other Medications New: compression stocking, knee high,regular galll61-83 mmHG wear daily for venous insufficency h,medium Follow Up 1 Week Coding Level of Care Code Off vis,est,level 3 Diagnoses Orthostatic hypotension I95.1 Dizziness R42 HTN (hypertension) I10 Left-sided thoracic back pain M54.6 02/14/18 0848 <Electronically signed by Fabio SERNA> Date Fabio SERNA Cosigner Signature: Date (if applicable) CC: INTERNAL MEDICINE Observed: 02/01/2018 Status: F Source: MANNY OFFICE VISIT 5:15 PM [facility] [address] [place] [address] [place] [address] OFFICE VISIT Date of Service: 02/01/18 MR#: [id number] Acct: [id number] Name: GIANCARLO MARTIN Rep #: [id number] : 1965 Provider: Fabio Cueto NP Age/Sex: 53/M Location: [facility] [place] Status: Signed Intake Vital Signs02/01/18 Height 5 ft 7 in 02/01/18 Weight: 213 lb 02/01/18 Body Mass Index (BMI) 33.3 02/01/18 Blood Pressure 129/86 Intake Visit Reasons: 2 MO FU Chief Complaint: follow-up from hosp last week Is patient in pain?: Yes (neck AND back) Pain scale (1-10): 10 Allergies shellfish derived Adverse Reaction (Verified 02/01/18 15:43) Anaphylaxis Medications amlodipine 10 mg tablet 10 mg PO DAILY #90 tab 08/05/17 [Rx Confirmed 01/25/18] lisinopril 5 mg tablet 5 mg PO QDAY #90 tab 08/05/17 [Rx Confirmed 01/25/18] omeprazole 40 mg capsule,delayed release 40 mg PO DAILY #90 cap 08/05/17 [Rx Confirmed 01/25/18] fluticasone 50 mcg/actuation nasal spray,suspension 1 spray INTRANASAL BID #16 g 09/29/17 [Rx Confirmed 01/25/18] Hydrocodone/Acetaminophen [[place] 5-325 Tablet] 1 - 2 ea PO 4X/DAY PRN PRN 5 Days #20 tab 01/25/18 [Rx] cyclobenzaprine 10 mg tablet 5 mg PO TID PRN #20 tab 02/01/18 [Rx Confirmed 02/01/18] hydrochlorothiazide 25 mg tablet 12.5 mg PO QDAY tab 02/01/18 [History] [facility] Medical History Alcohol dependence (Chronic) Obesity (Chronic) GERD (gastroesophageal reflux disease) (Chronic) Hypertension (Chronic) Asthma (Chronic) Surgical History H/O hernia repair (Acute) Family History Grandmother Diabetes Father Cancer unknown Brother Hypertension Grandfather Heart disease Social History Smoking Status: Never smoker how long ago did patient quit smokin alcohol intake: current alcohol intake frequency: 3 or more drinks per day Alcohol type: beer substance use type: does not use what type of physical activity do you participate in: walking frequency: daily HPI HPI Chief Complaint: follow-up from hosp last week Details: GIANCARLO MARTIN, is a 53 M who presents to the office today for follow-up appointment from emergency department visit. Patient has a past medical history of hypertension, asthma, GERD and obesity. Patient was seen at [facility] emergency department on January 25 for a fall that occurred at work. Patient was recently started on Flomax by Dr. Ornelas. Emergency department visit revealed no fractures only contusion, the patient was given [place] for the pain. Patient presents today with complaints of pain mid back and left shoulder area. Patient also complains of muscle spasms in the left shoulder area with complaints of numbness and tingling in his left arm that started after he was using heat on the extremity. Pain is worsened at night when laying down. Overall pain is improving. The patient otherwise denies any fever, chills, nausea, vomiting, shortness of breath, chest pain or pressure, palpitations, orthopnea, lower extremity edema, syncope or presyncopal episodes. ROS Const Constitutional: No chills, fatigue, fever(s), frequent falls, malaise, weakness, sleep problems or change in appetite Eyes Eyes: No blurry vision, change in vision, double vision, discharge or visual disturbances ENT ENT: No abnormal hearing, ear pain, ear pressure, tinnitus or dizziness/vertigo Resp Respiratory: No cough, shortness of breath or wheezing Cardio Cardiology: Positive for chest pain at rest (Fractured rib) and chest pain with exertion; no shortness of breath, dyspnea on exertion, generalized swelling, irregular heart rhythm, lightheadedness, orthopnea, fast heart rate or palpitations Gastro GI: No abdominal pain, change in bowel habits, constipation, diarrhea, nausea/dyspepsia or vomiting Genitourinary Male: No difficulty urinating, burning urination, painful urination, urinary incontinence, urinary frequency, urinary urgency, urinary hesitancy, urinary retention, blood in urine, Frequent nighttime urination/ nocturia, sexual problems, testicle lump or testicle pain Musc Musculoskeletal: Positive for joint pain (Neck), back pain and numbness (Left arm); no joint swelling, limited range of motion, muscle weakness or tingling Skin Skin: No change in skin color, itching, rash or wounds Breast Breast: No breast lump or breast pain Neuro Neurology: Positive for numbness (Left arm); no frequent falls, weakness, abnormal hearing, tingling, unsteady gait/balance, dizziness, loss of vision, memory loss or visual disturbances Psych Psychiatric: No memory loss, No anxiety, No change in appetite, No depression, No Thoughts of harming yourself/Others Endo Endocrine: No fatigue, heat intolerance, increased thirst/drinking, increased hunger or increased urination Aller/Imm Allergy/Immunologic: No wheezing, itchy eyes or seasonal allergy symptoms Papo/Lymp Hematologic/Lymphatic: No easy bleeding, easy bruising or enlarged lymph nodes Exam Const General: cooperative, comfortable, no acute distress Nutritional Appearance: average body habitus, well nourished Orientation: alert, oriented x3 Limitations: mental status not altered Resp Effort AND Inspection: normal respiratory effort, able to speak in complete sentences, normal respiratory pattern, symmetric chest movement, no audible wheezes, no cough Auscultation: Bilateral: Clear to Auscultation Cardio Palpation: normal PMI Rate: regular rate Heart Sounds: S1 normal, S2 normal, normal S1 and S2, no click, no gallops, no murmurs, no rubs Musc Musculoskeletal: No muscle weakness Cervical Spine: pain with cervical ROM, cervical ROM abnormal (limited) and cervical muscular tenderness Thoracic/Lumbar Spine: thoraco-lumbar ROM limited with forward flexion, with lateral flexion to the right, with lateral flexion to the left, with rotation to the right and with rotation to the left, pain with thoraco-lumbar ROM, paraspinal tenderness on the left greater than right, other (ecchymosis and palpable muscle spasm left thoracic region) Skin General: no rashes or lesions noted, elasticity normal, turgor normal Lesions: no lesions Rashes: no rashes Trauma: abrasion (left shoulder blade area) Neuro General: alert, awake, oriented x3, CN's II-XI intact bilaterally Speech: speech normal Gait: normal gait Motor: muscle tone normal throughout Extrem General: normal to inspection, normal gait, no edema, no pedal edema Psych Appearance: grossly normal Mental Status: mental status grossly normal Affect: normal affect Attitude: cooperative Thought Process: normal Assessment AND Plan Problems 1. Muscle spasm of left shoulder M62.838 2. Left-sided thoracic back pain M54.6 3. Dizzinesses R42 Plan Patient instructed to take [place] at bedtime. Throughout the day he can alternate Tylenol and ibuprofen as needed for pain. Flexeril given for muscle spasms. Patient instructed to cut his hydrochlorothiazide in half, monitor blood pressure daily and bring blood pressure log with him to follow-up appointment. Patient to have BMP prior to follow- up appointment in 1 week. Patient educated on his red flag symptoms that require urgent medical attention controlled attention. Patient of pain up in 1 [place] been walking week or 2 things that are released back to work, did instruct patient that he will not be released back to work until all of his episodes of dizziness resolved. Suspect that his intermittent dizziness is orthostatic related as it only occurs with position changes and he previously had positive orthostatic vitals. This note was generated with [employer] dictation software. It may contain incorrect words, spelling, and punctuation that were not noted in checking the note before signing. Orders Orders: Medications New: Plan Detail Follow Up 1 Week Coding Level of Care Code Off vis,est,level 3 Diagnoses Muscle spasm of left shoulder M62.838 Left-sided thoracic back pain M54.6 Dizzinesses R42 02/01/18 1715 <Electronically signed by Fabio SERNA> Date Fabio SERNA Cosigner Signature: Date (if applicable) CC: 12 LEAD ELECTROCARDIOGRAM Observed: 01/30/2018 Status: F Source: CLEAR 10:46 AM [facility] [place], [place] REPOSITORY [facility] Cardiovascular Services [address] [place] [address] 19452 12 Lead EKG 01/25/18 1004 MR#: [id number] Acct: [id number] Name: GIANCARLO MARTIN Rep #: [id number] : 1965 53 From: Tahir Farah MD Attending Dr: Status: DEP ER Ordering Dr: Giancarlo Navarro MD Date: 01/25/18 Location: ED Sex: M C Admitted: Test Reason : SYNCOPE Blood Pressure : / mmHG Vent. Rate : 065 BPM Atrial Rate : 065 BPM P-R Int : 146 ms QRS Dur : 084 ms QT Int : 416 ms P-R-T Axes : 005 019 014 degrees QTc Int : 432 ms Normal sinus rhythm Normal ECG Confirmed by TAHIR FARAH ([id number]), book or script editor LORI MASCORRO ([id number]) on 01/30/2018 10:46:20 AM Referred By: Jere Jain Confirmed By:TAHIR FARAH 01/30/18 1046 Date Tahir Farah MD CC: Jere Jain MD; Giancarlo Navarro MD Signed EMERGENCY DEPARTMENT Observed: 01/25/2018 Status: F Source: CLEAR SUMMARY 7:00 PM [facility] [place] [place] REPOSITORY [facility] Medical Records Department [address] [address] Emergency Department Summary 01/25/18 1317 MR#: [id number] Acct: [id number] Name: GIANCARLO MARTIN Rep #: [id number] : 1965 53 From: Giancarlo Navarro MD PCP: Jere Jain MD Status: DEP ER - ER Visit Summary Date of Service: 01/25/18 Chief Complaint: Syncope History of Present Illness: The patient is a [address] Jain and Dr. Ornelas. Patient reports that today he was at work and had been standing for approximately 2 hours. He began feeling very lightheaded and shaky. Reports it was hard to think. States that he did feel diaphoretic and short of breath. This last approximately 30 seconds before he passed out. He denies any preceding chest pain, palpitations, or nausea. Patient did hit his head and states that his headache is 3 out of 10 severity that began after the fall. He has upper back pain that is 8-9 out of 10 in severity with movement. Is 5 out of 10 at rest. He describes this as sharp. Patient reports that he has BPH and was placed on Flomax. He took his first dose last night approximately 930. Physical Examination: Vitals: Stable. Afebrile. General: Well-nourished and well-developed. Head: Normocephalic atraumatic. Neck: Supple, no lymphadenopathy. No JVD. Nontender. Cardiovascular: Regular rate and rhythm. No murmurs. Respiratory: No respiratory distress. Clear to auscultation bilaterally. Abdominal: Soft, nontender, nondistended, normal bowel sounds. No guarding, rebound, or peritoneal signs. Back: Contusion/abrasion just inferior and medial to the left scapula. There is severe tenderness palpation. He does have pain with lateral compression of his chest. Extremities: Nontender, 1+ pitting edema of his lower extremity bilaterally. Skin: Normal color, no rash. Neurologic: Alert and oriented 3. Cranial nerves II through XII are intact. Normal strength and sensation. Psych: Normal affect. Test Results: EKG is sinus at 65 with no acute changes. Is unchanged since 2013. CBC is more for white count of 12.0 with hematocrit of 39.2, 7 neutrophils 82, lymphocytes 7. Chem-7 is more for creatinine 1.40. Previously his creatinine is range between 0.97-1.26. Troponin is less than 0.015. Left rib series shows no pneumothorax or fracture. CT brain shows no acute disease. Emergency Department Course and Treatment: Patient had positive orthostatic vital signs. His heart rate increased 25 from lying to standing. His blood pressure remained 109/68 with standing. Patient was given a liter bolus of normal saline and is resting comfortably. Treatment Plan: Patient was discussed with Dr. Ornelas. He is instructed to stop taking the Flomax. Push fluids. He will be discharged with [place] and incentive spirometer. Instructed to follow-up with Dr. Jain in 1 week if his ribs are not improving. Return to the emergency department for any worsening symptoms. Disposition: To home in improved and stable condition. Impression: 1. Syncope. 2. Orthostatic hypotension due to Flomax. 3. Dehydration. 4. Contusion upper back. This note was generated with Digil[employer] dictation software. It may contain incorrect words, spelling, and punctuation that were not noted in review of the chart prior to signing ED Disposition - Plan for ED Patient: Disposition: Home or Assisted Living Chief Complaint: Syncope Instructions: ED Hypotension Orthostatic, ED Contusion Vs Minor Fx Rib Prescriptions: Hydrocodone/Acetaminophen [[place] 5-325 Tablet] 1 - 2 each PO 4X/DAY PRN PRN 5 Days #20 tablet PRN Reason: Pain Referrals: Jere Jain MD [Primary Care Provider] - 1 Week if not improving Additional Instructions: Do not take flomax again. What to do if you have Problems For any increased pain, shortness of breath, bleeding, nausea or vomiting, chest pain, or any unexpected problems, contact your Primary Care Provider. Call [facility] ([phone]) or report to the closest Emergency Room. Call 911 if necessary. 01/25/18 1900 <Electronically signed by Giancarlo Navarro MD> Date Giancarlo Navarro MD Cosigner Signature (If Indicated): Date CC: Jere Jain MD CBC W/DIFF, AUTOMATED Collected: 01/25/2018 Status: F Source: MANNY 10:40 AM [facility] [place] [place] REPOSITORY TYPE CODE TESTS RESULT OUT OF RANGE REFERENCE UNITS LAB L100.1000 4.4-11.0 K/mm3 High WBC 12.0 LAB L100.1200 4.6-6.2 M/mm3 Low RBC 4.41 LAB L100.1300 13.0-16.5 g/dl Normal HGB 13.1 LAB L100.1400 40-54 % Low HCT 39.2 LAB L100.1500 80-94 fL Normal MCV 88.9 LAB L100.1600 27.0-32.0 pg Normal MCH 29.7 LAB L100.1700 32-36 g/gl Normal MCHC 33.4 LAB L100.1810 11.6-14.6 % Normal RDW CV 12.7 LAB L100.1820 35.1-43.9 fl Normal RDW SD 40.9 LAB L100.1900 150-450 K/mm3 Normal PLT 245 LAB L100.2000 6.2-12.0 fl Normal MPV 9.8 LAB L100.2100 47-70 % High NEUT% 81.9 LAB L100.2200 19-41 % Low LY% 7.4 LAB L100.2300 0-10 % Normal MONO% 9.9 LAB L100.2400 0-5 % Normal EO% 0.2 LAB L100.2500 0-1 % Normal BASO% 0.2 LAB L100.2550 0.0-0.9 % Normal IM GRAN % 0.400 Result Comment: IG% - Immature Granulocytes (promyelocytes, myelocytes and metamyelocytes) > 1% indicates that a LEFT SHIFT is Present. LAB L100.2620 2.0-7.7 X10 3/uL High Absolute Neut 9.9 LAB L100.2720 0.83-4.51 X10 3/ul Normal Absolute Lymph 0.89 Performed By: #### L100.0100 #### [facility] [address] [place], [place], [id number] BASIC METABOLIC Collected: 01/25/2018 Status: F Source: CLEAR PROFILE (BMP) 10:40 AM [facility] [place] [place] REPOSITORY TYPE CODE TESTS RESULT OUT OF RANGE REFERENCE UNITS LAB L501.0100 74-106 mg/dL Normal GLU 103 Result Comment: Fasting Glucose result from 100 to 125 mg/dL suggests IMPAIRED HOMEOSTASIS per A.D.A. criteria. Please note revised GLUCOSE reference range effective 2017. LAB L501.1000 7-18 mg/dL Normal BUN 16 LAB L501.1100 0.70-1.30 mg/dL High CREAT,SERUM 1.40 Result Comment: The validity of the calculated GFR AND GFRAA in patients over 70 years has not been determined. Clinical correlation is essential. LAB L501.1110 >60 mL/min Low EST GFR 56 Result Comment: Non- GFR Calc LAB L501.1115 >60 mL/min Normal EST GFR - AA 68 Result Comment: GFR Calc LAB L501.1255 ml/min Normal Estimated CRCL 55.74 LAB L501.1300 10-20 RATIO Normal BUN/CRE 11.4 LAB L501.2200 8.5-10 mg/dL Normal .1 CA 8.6 LAB L501.5300 136-14 mmol/L Normal 5 NA 136 LAB L501.5600 3.5-5. mmol/L Normal 1 K 3.6 LAB L501.5900 98-107 mmol/L Normal CL 101 LAB L501.6100 21.0-3 mmol/L Normal 2.0 CO2 29.0 LAB L501.6200 5-15 Normal GAP 6 Performed By: #### L500.2500, L501.4010 #### [facility] [address] [place], [place], [id number] TROPONIN-I Collected: 01/25/2018 Status: F Source: MANNY 10:40 AM [facility] [place], [place] REPOSITORY TYPE CODE TESTS RESULT OUT OF RANGE REFERENCE UNITS LAB L501.4010 <0.045 ng/mL Normal < 0.015 TROPONIN-I Result Comment: TROPONIN-I EXPECTED VALUES <0.045 Negative 0.045 - 0.590 Consistent with Cardiac Damage > OR = 0.600 Critical Value Not every elevated troponin is indicative of NV. These values should be used with clinical judgement in examining the patient's clinical picture for diagnosis. To establish a diagnosis of NV versus myocardial injury, there must be a demonstrated rise and/or fall in the troponin values, in addition to ischemic symptoms, EKG changes, new regional wall motion abnormality, and/or angiographical evidence. PLEASE NOTE: REFERENCE RANGES EDITED 17 Performed By: #### L500.2500, L501.4010 #### [facility] [address] [place], [place], [address] BRAIN/HEAD WITHOUT Observed: 01/25/2018 Status: F Source: MANNY CONTRAST 10:28 AM [facility] [place], [place] REPOSITORY [facility] Imaging Services [address] [place] [address] Brain/Head without Contrast MR#: [id number] Acct: [id number] Name: VERONICAGIANCARLO R Rep #: [id number] : 1965 53 From: Long Molina MD PCP: Jere Jain MD Status: REG ER Study: Brain/Head without Contrast Date of Exam: 01/25/18 Exam# [id number] Ordering Dr: Giancarlo Navarro MD STUDY: CT BRAIN WITHOUT CONTRAST REASON FOR EXAM: Male, 53 years old. Fall due to a syncopal episode. RADIATION DOSAGE (If Supplied By Facility): CTDIvol = ( 60.81 ) mGy, DLP = ( 998.67 ) mGycm TECHNIQUE: Transaxial CT imaging of the brain was performed without administration of intravenous contrast material. Individualized dose optimization techniques were used for this CT. COMPARISON: None. FINDINGS: Normal soft tissue structures. Normal calvarium. Normal size ventricles and extra-axial spaces for the patient's age. Normal white matter tracts of the cerebral hemispheres. Normal basal ganglia and thalami. Normal brainstem. Normal cerebellum. There is no intracranial hemorrhage. There are no findings of an acute ischemic infarction. Partial opacification of the posterior aspect of the right ethmoid sinus. CT/Brain/Head without Contrast IMPRESSION: No acute abnormality is seen. Electronically Signed: Long Molina MD at 13:55 EDT Tel [phone], Service support , CC: Jere Jain MD; Giancarlo Navarro MD Pesticide Chemist: Signed RIBS UNI MIN 3V Observed: 01/25/2018 Status: F Source: CLEAR W/PA CHEST 10:28 AM [facility] [place], [place] REPOSITORY [facility] Imaging Services [address] [place] [address] Ribs Uni Min 3V w/PA Chest MR#: [id number] Acct: [id number] Name: GIANCARLO MARTIN Rep #: [id number] : 1965 [facility] From: Emerson Jernigan MD PCP: Jere Jani MD Status: DEP ER Study: Ribs Uni Min 3V w/PA Chest Date of Exam: 01/25/18 Exam# [id number] Ordering Dr: Giancarlo Navarro MD STUDY: X-RAY - UNILATERAL RIBS ( LEFT ) WITH CHEST REASON FOR EXAM: Male, 53 years old. Low back pain after a fall TECHNIQUE - RIBS: 4 view(s) of the ribs. TECHNIQUE - CHEST: Single PA view of the chest. COMPARISON: None. FINDINGS - RIBS: Normal visualized ribs without a demonstrated fracture. FINDINGS - CHEST: The lungs are clear and expanded. There is no demonstrated pleural abnormality. Normal size heart. Normal mediastinum and radha. Normal visualized pulmonary arteries. Normal visualized aortic arch and descending thoracic aorta. Normal visualized thoracic spine. Normal visualized ribs, clavicles, and shoulders. There is no demonstrated abnormality of the visualized soft tissue structures of the upper abdomen. RAD/Ribs Uni Min 3V w/PA Chest IMPRESSION: RIBS: Normal x-ray examination of the ribs. CHEST: Normal x-ray examination of the chest. Electronically Signed: Fidel Jernigan MD at 16:21 EDT , Service support , CC: Jere Jain MD; Giancarlo Navarro MD Pesticide Chemist: Signed BASIC METABOLIC Collected: 01/23/2018 Status: F Source: MANNY PROFILE (BMP) 3:48 PM [facility] [place], [place] REPOSITORY TYPE CODE TESTS RESULT OUT OF RANGE REFERENCE UNITS LAB L501.0100 74-106 mg/dL Normal GLU 94 Result Comment: Please note revised GLUCOSE reference range effective 2017. LAB L501.1000 7-18 mg/dL Normal BUN 15 LAB L501.1100 0.70-1.30 mg/dL Normal CREAT,SERUM 1.10 Result Comment: The validity of the calculated GFR AND GFRAA in patients over 70 years has not been determined. Clinical correlation is essential. LAB L501.1110 >60 mL/min Normal EST GFR 74 Result Comment: Non- GFR Calc LAB L501.1115 >60 mL/min Normal EST GFR - AA 89 Result Comment: GFR Calc LAB L501.1300 10-20 RATIO Normal BUN/CRE 13.6 LAB L501.2200 8.5-10.1 mg/dL Low CA 8.3 LAB L501.5300 136-145 mmol/L Low NA 134 LAB L501.5600 3.5-5.1 mmol/L K Normal 3.5 Result Comment: Slight Hemolysis, Result may be falsely increased. LAB L501.5900 98-107 mmol/L Normal CL 100 LAB L501.6100 21.0-32.0 mmol/L Normal CO2 27.0 LAB L501.6200 5-15 Normal 7 GAP Performed By: #### L500.2500, L500.4100 #### [facility] [address] [place], [address] LIPID PROFILE Collected: 01/23/2018 Status: F Source: MANNY 3:48 PM [facility] [place] [place] REPOSITORY TYPE CODE TESTS RESULT OUT OF RANGE REFERENCE UNITS LAB L501.4900 200 mg/dL Normal CHOL 195 Result Comment: <200 mg/dL Desirable 200-240 mg/dL Borderline >240 mg/dL High Risk LAB L501.5000 mg/dL High TRIG 233 Result Comment: The drugs N-Acetylcysteine and Metamizole may falsely depress this assay. Serum Triglycerides Reference Interval Normal <150 mg/dL Borderline high 150 - 199 mg/dL High 200 - 499 mg/dL Very High > or = 500 mg/dL LAB L501.6400 mg/dL Normal HDL 57 Result Comment: The drugs N-Acetylcysteine and Metamizole may falsely depress this assay. Reference Range HDL <40 mg/dL Low HDL Cholesterol HDL >or= 60 mg/dL High HDL Cholesterol LAB L501.6500 0-130 mg/dL Normal LDL 91 LAB L501.6600 5-40 mg/dL High VLDL 47 Performed By: #### L500.2500, L500.4100 #### [facility] [address] [place], [address] PROSTATE BIOPSY Observed: 01/05/2018 Status: F Source: MANNY BILATERAL 8:00 AM [facility] [place], [place] REPOSITORY Patient: GIANCARLO MARTIN : 1965 (53/M) Acct Num: [id number] Phys: Ceci RON,Maikol Unit Num: [id number] Loc: LABSPEC Specimen: [id number] Received: 01/05/181638 Spec Type: PROST BX TISSUES TISSUES: A. PROSTATE RIGHT B. PROSTATE RIGHT C. PROSTATE RIGHT D. PROSTATE LEFT E. PROSTATE LEFT F. PROSTATE LEFT GROSS DESCRIPTION A - Received is one container designated prostate, right apex. The specimen consists of two elongated fragments of light cavazos-white soft tissue each measuring 1 cm in length and 0.1 cm in diameter. The specimen is totally submitted in one cassette. B - Received is one container designated prostate, right mid. The specimen consists of two elongated fragments of light cavazos-white soft tissue each measuring 1 cm in length and 0.1 cm in diameter. The specimen is totally submitted in one cassette. C - Received is one container designated prostate, right base. The specimen consists of two elongated fragments of light cavazos-white soft tissue each measuring 1 cm in length and 0.1 cm in diameter. The specimen is totally submitted in one cassette. D - Received is one container designated prostate, left apex. The specimen consists of two elongated fragments of light cavazos-white soft tissue each measuring 1.5 cm in length and 0.1 cm in diameter. The specimen is totally submitted in one cassette. E - Received is one container designated prostate, left mid. The specimen consists of two elongated fragments of light cavazos-white soft tissue each measuring 1.5 cm in length and 0.1 cm in diameter. The specimen is totally submitted in one cassette. F - Received is one container designated prostate, left base. The specimen consists of two elongated fragments of light cavazos-white soft tissue each measuring 1.5 cm in length and 0.1 cm in diameter. The specimen is totally submitted in one cassette. / AM: 01/06/18 TC:5 CPT: 59799 x6 HEADER OPERATION: Prostate biopsy PRE-OP DIAGNOSIS: Elevated PSA TISSUE SUBMITTED: A - Right apex, B - Right mid, C - Right base, D - Left apex, E - Left mid, F - Left base MICROSCOPIC DESCRIPTION Slides are reviewed. MICROSCOPIC DIAGNOSIS A. Right prostate, apex, core biopsy: Focal high-grade prostatic intraepithelial neoplasia (HGPIN). B. Right prostate, mid, core biopsy: Prostatic tissue, negative for malignancy. C. Right prostate, base, core biopsy: Prostatic tissue, negative for malignancy. D. Left prostate, apex, core biopsy: Prostatic tissue, negative for malignancy. E. Left prostate, mid, core biopsy: Prostatic tissue, negative for malignancy. F. Left prostate, base, core biopsy: Prostatic tissue, negative for malignancy. SJ: 01/12/18 PSA RESULTS Date Time Test Result Flag (u) Normal Range 03/04/17 1018 PSA,TOT SCREEN 5.00 H 0.00-4.00 ng/mL This test was performed using the TPSA assay method for the Dimension chemistry system. Values obtained with different assay methods cannot be used interchangably. When changing PSA assays in the course of monitoring a patient, additional sequential testing should be carried out to confirm baseline values. Date Time Test Result Flag (u) Normal Range 11/01/17 1610 PSA, DIAGNOSTIC 6.02 H 0.0-4.0 ng/mL This test was performed using the TPSA assay method for the Dimension chemistry system. Values obtained with different assay methods cannot be used interchangably. When changing PSA assays in the course of monitoring a patient, additional sequential testing should be carried out to confirm baseline values. Signed Dmitry Vera 01/12/18 <signature on file> Performed By: #### PPROSBIL #### [facility] [address] [place], [address] KIDNEY AND BLADDER Observed: 11/23/2017 Status: F Source: CLEAR 4:11 PM [facility] [place], [place] REPOSITORY [facility] Imaging Services [address] [place] [address] Kidney and Bladder MR#: [id number] Acct: [id number] Name: GIANCARLO MARTIN Rep #: [id number] : 1965 M 52 From: Long Molina MD PCP: Jere Jain MD Status: REG CLI Study: Kidney and Bladder Date of Exam: 11/23/17 Exam# [id number] Ordering Dr: Meli Elias TECHNICAL REP-C STUDY: RENAL ULTRASOUND - COMPLETE REASON FOR EXAM: Male, 52 years old. Flank pain. TECHNIQUE: Ultrasound evaluation of the kidneys was performed with real-time and static villatoro-scale imaging. COMPARISON: None. FINDINGS: RIGHT KIDNEY: Normal location of the right kidney, which is normal in size. The right kidney measures 10.7 cm x 4.8 cm x 4.3 cm. There is a normal cortex of the right kidney. The renal cortex measures 1.2 cm. There is no right renal mass or cyst. There are no right renal calculi. There is no right hydronephrosis. DISTAL RIGHT URETER: There is non-visualization of the distal right ureter. There is no demonstrated right ureterovesical junction calculus. There is a visualized right ureteral jet. LEFT KIDNEY: Normal location of the left kidney, which is normal in size. The left kidney measures 10.4 cm x 4.8 cm x 5.2 cm. There is a normal cortex of the left kidney. The renal cortex measures 1.0 cm. There is no left renal mass or cyst. There are no left renal calculi. There is no left hydronephrosis. DISTAL LEFT URETER: There is non-visualization of the distal left ureter. There is no demonstrated left ureterovesical junction calculus. There is a visualized left ureteral jet. BLADDER: The bladder is not well distended. The bladder wall is thickened. Incidental note is made of fatty infiltration of the liver. US/Kidney and Bladder IMPRESSION: Normal ultrasound of the kidneys. Thickening of the bladder wall although the bladder is not adequately distended. Electronically Signed: Long Molina MD at 8:26 EDT Tel [phone], Service support , CC: Jere Jain MD; Meli Elias NP Pesticide Chemist: Signed PSA,TOTAL- DIAGNOSTIC Collected: 11/01/2017 Status: F Source: CLEAR 4:10 PM [facility] [place] [place] REPOSITORY TYPE CODE TESTS RESULT OUT OF REFERENCE UNITS RANGE LAB L501.9940 0.0-4.0 ng/mL PSA, High DIAGNOSTIC 6.02 Result Comment: This test was performed using the TPSA assay method for the Alignable chemistry system. Values obtained with different assay methods cannot be used interchangably. When changing PSA assays in the course of monitoring a patient, additional sequential testing should be carried out to confirm baseline values. Performed By: #### L501.9940 #### [facility] [place], [address] INTERNAL MEDICINE Observed: 11/01/2017 Status: F Source: MANNY OFFICE VISIT 8:25 AM [facility] [address] [place] [address] OFFICE VISIT Date of Service: 10/27/17 MR#: [id number] Acct: [id number] Name: GIANCARLO MARTIN Rep #: [id number] : 1965 Provider: Jere Jain MD Age/Sex: 52/M Location: [facility] Status: Signed Intake Vital Signs10/27/17 Height 5 ft 6 in 10/27/17 Weight: 221 lb 10/27/17 Body Mass Index (BMI) 35.6 10/27/17 Blood Pressure 123/89 Intake Visit Reasons: 3 M FU Chief Complaint: follow-up Is patient in pain?: No Allergies shellfish derived Adverse Reaction (Verified 05/02/17 06:58) Anaphylaxis Medications amlodipine 10 mg tablet 10 mg PO DAILY #90 tab 08/05/17 [Rx Confirmed 08/05/17] compression stocking,knee high,long length,large circum See Dose Instructions .ROUTE .MEDSUPPLY #2 unit 08/05/17 [Rx Confirmed 08/05/17] hydrochlorothiazide 25 mg tablet 25 mg PO QDAY #90 tab 08/05/17 [Rx Confirmed 08/05/17] lisinopril 5 mg tablet 5 mg PO QDAY #90 tab 08/05/17 [Rx Confirmed 08/05/17] omeprazole 40 mg capsule,delayed release 40 mg PO DAILY #90 cap 08/05/17 [Rx Confirmed 08/05/17] ibuprofen 600 mg tablet 600 mg PO TID PRN #30 tab 09/13/17 [Rx Confirmed 09/13/17] codeine 10 mg-guaifenesin 100 mg/5 mL oral liquid See Dose Instructions PO Q6H PRN #120 ml 09/29/17 [Rx Confirmed 09/29/17] fluticasone 50 mcg/actuation nasal spray,suspension 1 spray INTRANASAL BID #16 g 09/29/17 [Rx Confirmed 09/29/17] prednisone 10 mg tablet See Dose Instructions PO QDAY #30 tab 02/22/18 [Rx Confirmed 09/29/17] [facility] Medical History Alcohol dependence (Chronic) Obesity (Chronic) GERD (gastroesophageal reflux disease) (Chronic) Hypertension (Chronic) Asthma (Chronic) Surgical History H/O hernia repair (Acute) Family History Grandmother Diabetes Father Cancer unknown Brother Hypertension Grandfather Heart disease Social History Smoking Status: Former smoker how long ago did patient quit smokin alcohol intake: current alcohol intake frequency: 3 or more drinks per day Alcohol type: beer substance use type: does not use what type of physical activity do you participate in: walking frequency: daily HPI HPI Chief Complaint: follow-up Details: GIANCARLO MARTIN, is a 52 M who presents to the office today for follow-up. No acute complaints at this time. Blood pressure is better controlled. Is currently on hydrochlorothiazide, lisinopril and amlodipine. He reports compliance with his medication and lifestyle modifications. Last PSA in February 2017 was 5. Patient reports a family history of prostate cancer diagnosed in his father in his age 50s-60s. He denies any urinary symptoms at this time. ROS Const Constitutional: No weight change, body ache, chills, fatigue, sleep problems, fever(s), change in appetite, snoring, weakness, frequent falls, headache(s) or excessive sweating Eyes Eyes: No change in vision, eye pain, light sensitivity or blurry vision ENT ENT: No headache(s), abnormal hearing, ear pain, tinnitus, nasal congestion, sore throat or neck pain Resp Respiratory: No snoring, shortness of breath or wheezing Cardio Cardiology: No excessive sweating, chest pain at rest, chest pain with exertion, shortness of breath, dyspnea on exertion, palpitations, orthopnea or lightheadedness Gastro GI: Positive for vomiting (sometimes) and nausea/dyspepsia; no abdominal pain, change in bowel habits, constipation, diarrhea or cramping Musc Musculoskeletal: No neck pain, abnormal walking, joint pain, back pain, limited range of motion, numbness or tingling Skin Skin: No redness, dry skin, itching, lesions, wounds or rash Neuro Neurology: No weakness, frequent falls, headache(s), abnormal hearing, abnormal walking, numbness, tingling, abnormal speech, dizziness or memory loss Psych Psychiatric: No change in appetite, No memory loss, No anxiety, No depression, No Thoughts of harming yourself/Others Endo Endocrine: No fatigue, excessive sweating, cold intolerance, increased thirst/drinking, heat intolerance, flushing or increased hunger Aller/Imm Allergy/Immunologic: No wheezing, itchy eyes, hives or seasonal allergy symptoms Papo/Lymp Hematologic/Lymphatic: No easy bleeding, easy bruising or enlarged lymph nodes Exam Const General: cooperative, no acute distress Orientation: alert, awake, oriented x3 HENMT Head: atraumatic, normocephalic Ears: hearing grossly normal bilaterally Resp Effort AND Inspection: normal respiratory effort, able to speak in complete sentences Auscultation: Bilateral: Clear to Auscultation Cardio Rate: regular rate Rhythm: regular rhythm Heart Sounds: S1 normal, S2 normal GI Inspection: obesity Palpation: soft, no hepatosplenomegaly Neuro General: alert, awake, oriented x3, moves all extremities, CN's II-XI intact bilaterally Psych Appearance: grossly normal Mood: congruent mood Affect: normal affect Assessment AND Plan 1. Hypertension I10 Plan Better controlled. Continue current medications. Mild hyponatremia noted at his last BMP. Repeat BMP and lipid profile in 3 months. Follow-up in 3 months. Orders Orders: 2. Elevated PSA R97.20 Plan Last PSA of 5. Positive family history of prostate cancer. Repeat PSA ordered. No urinary symptoms at this time. Will follow. This note was generated with [employer] dictation software. It may contain incorrect words, spelling, and punctuation that were not noted in checking the note before signing. Orders Orders: Plan Detail Follow Up 3 Months Coding Level of Care Code Off vis,est,level 3 Diagnoses Hypertension I10 Elevated PSA R97.20 11/01/17 0825 <Electronically signed by Jere Jain MD> Date Jere Jain MD Cosigner Signature: Date (if applicable) CC: INTERNAL MEDICINE Observed: 09/29/2017 Status: F Source: MANNY OFFICE VISIT 11:49 AM [facility] [address] [place] [address] OFFICE VISIT Date of Service: 09/29/17 MR#: [id number] Acct: [id number] Name: GIANCARLO MARTIN Rep #: [id number] : 1965 Provider: Fabio Cueto NP Age/Sex: 52/M Location: [facility] Status: Signed Intake Vital Signs09/29/17 Height 5 ft 6 in Intake Visit Reasons: flu symptoms Chief Complaint: cough Is patient in pain?: Yes (chest) Pain scale (1-10): 3 Allergies shellfish derived Adverse Reaction (Verified 05/02/17 06:58) Anaphylaxis Medications amlodipine 10 mg tablet 10 mg PO DAILY #90 tab 08/05/17 [Rx Confirmed 08/05/17] compression stocking,knee high,long length,large circum See Dose Instructions .ROUTE .MEDSUPPLY #2 unit 08/05/17 [Rx Confirmed 08/05/17] hydrochlorothiazide 25 mg tablet 25 mg PO QDAY #90 tab 08/05/17 [Rx Confirmed 08/05/17] lisinopril 5 mg tablet 5 mg PO QDAY #90 tab 08/05/17 [Rx Confirmed 08/05/17] omeprazole 40 mg capsule,delayed release 40 mg PO DAILY #90 cap 08/05/17 [Rx Confirmed 08/05/17] ibuprofen 600 mg tablet 600 mg PO TID PRN #30 tab 09/13/17 [Rx Confirmed 09/13/17] codeine 10 mg-guaifenesin 100 mg/5 mL oral liquid See Dose Instructions PO Q6H PRN #120 ml 09/29/17 [Rx Confirmed 09/29/17] fluticasone 50 mcg/actuation nasal spray,suspension 1 spray INTRANASAL BID #16 g 09/29/17 [Rx Confirmed 09/29/17] prednisone 10 mg tablet See Dose Instructions PO QDAY #30 tab 09/29/17 [Rx Confirmed 09/29/17] [facility] Medical History Alcohol dependence (Chronic) Obesity (Chronic) GERD (gastroesophageal reflux disease) (Chronic) Hypertension (Chronic) Asthma (Chronic) Surgical History H/O hernia repair (Acute) Family History Grandmother Diabetes Father Cancer unknown Brother Hypertension Grandfather Heart disease Social History Smoking Status: Former smoker how long ago did patient quit smokin alcohol intake: current alcohol intake frequency: 3 or more drinks per day Alcohol type: beer substance use type: does not use what type of physical activity do you participate in: walking frequency: daily HPI HPI Chief Complaint: cough Details: GIANCARLO MARTIN, is a 52 M who presents to the office today for an acute visit of cough, nasal congestion, and wheezing. The patient has a past medical history as listed above. The patient was recently diagnosed with shingles and states that his shingles rash is much improving and that the pain has improved as well. The patient states that his main concern now is that approximately 2 days ago he began noting a productive cough of green-yellow sputum, nasal congestion, and wheezing with occasional shortness of breath. The patient states that the cough keeps him awake at night and he is unable to sleep due to this. The patient has been using his prescribed pro-air inhaler with moderate relief. He has not tried any other [id number] treatments. He does state that he has had sick contacts at work and that many coworkers are out due to a similar illness. He denies any fever or chills. He denies any other associated or alleviating factors. As an aside note, the patient does state that in the past he was diagnosed with COPD and was on a routine maintenance inhaler. However he has been off of this inhaler for quite some time and has not had formal PFTs done either. The patient otherwise denies any fever, chills, nausea, vomiting, , chest pain or pressure, palpitations, orthopnea, l, syncope or presyncopal episodes. ROS Const Constitutional: Positive for fatigue; no weight change, body ache, chills, sleep problems, fever(s), change in appetite, snoring, weakness, frequent falls, headache(s) or excessive sweating Eyes Eyes: No change in vision, eye pain, light sensitivity or blurry vision ENT ENT: Positive for nasal congestion and hoarseness; no headache(s), abnormal hearing, ear pain, tinnitus, sore throat or neck pain Resp Respiratory: Positive for cough Cough: Yes productive; no snoring, shortness of breath or wheezing Cardio Cardiology: Positive for chest pain at rest (with cough); no excessive sweating, chest pain with exertion, shortness of breath, dyspnea on exertion, palpitations, orthopnea or lightheadedness Gastro GI: Positive for nausea/dyspepsia (with cough); no abdominal pain, change in bowel habits, constipation, diarrhea, vomiting or cramping Musc Musculoskeletal: No neck pain, abnormal walking, joint pain, back pain, limited range of motion, numbness or tingling Skin Skin: No redness, dry skin, itching, lesions, wounds or rash Neuro Neurology: No weakness, frequent falls, headache(s), abnormal hearing, abnormal walking, numbness, tingling, abnormal speech, dizziness or memory loss Psych Psychiatric: No change in appetite, No memory loss, No anxiety, No depression, No Thoughts of harming yourself/Others Endo Endocrine: Positive for fatigue; no excessive sweating, cold intolerance, increased thirst/drinking, heat intolerance, flushing or increased hunger Aller/Imm Allergy/Immunologic: No wheezing, itchy eyes, hives or seasonal allergy symptoms Papo/Lymp Hematologic/Lymphatic: No easy bleeding, easy bruising or enlarged lymph nodes Exam Const General: cooperative, comfortable, no acute distress, ill appearing acutely Nutritional Appearance: average body habitus, well nourished Orientation: alert, oriented x3 Limitations: mental status not altered [facility] Head: normal to inspection Ears: hearing grossly normal bilaterally Nose: external nose normal Face and sinus: normal facial exam Mouth: oral mucosae normal Throat: postnasal drainage, posterior oropharynx abnormal (clear drainage) Eyes General: appearance normal, both eyes and all related structures Neck Neck: normal visual inspection, no lymphadenopathy Resp Effort AND Inspection: normal respiratory effort, able to speak in complete sentences, normal respiratory pattern, symmetric chest movement, no audible wheezes, cough Quality of cough: productive Auscultation: Bilateral: Inspiratory Wheezes, Expiratory Wheezes Cardio Palpation: normal PMI Rate: regular rate Heart Sounds: S1 normal, S2 normal, normal S1 and S2, no click, no gallops, no murmurs, no rubs Neuro General: alert, awake, oriented x3, CN's II-XI intact bilaterally Speech: speech normal Gait: normal gait Motor: muscle tone normal throughout Psych Appearance: grossly normal Mental Status: mental status grossly normal Affect: normal affect Attitude: cooperative Thought Process: normal Results BMSFLUAB Office Flu A AND B Negative FLU A AND B Last Edit by Fabio Cueto, ALEX-C on 09/29/17 11:45 Assessment AND Plan Problems 1. Bronchitis J40 2. URI (upper respiratory infection) J06.9 3. Cough R05 Plan The patient does have an acute upper respiratory infection which is most likely viral in nature and bronchitis as well. No antibiotics indicated at this time as most because of bronchitis are viral. Educated patient on this and he verbalized understanding. We will treat symptomatically and due to his significant wheezing, instructed patient to continue with his as needed Pro Air inhaler and prescribed him a prednisone tapering dose. Also instructed patient that he should utilize the cough syrup with codeine for his cough at night and that during the day he should take plain Mucinex DM. Patient verbalized understanding. Given his smoking history, at some point in the future would be a good idea to check PFTs, patient was previously on a routine maintenance inhaler however discontinued this. Discussed red flag symptoms that require urgent medical attention. Patient verbalized understanding. Work excuse given for today and tomorrow. Kari disclaimer Orders Orders: Medications New: codeine-guaifenesin 10-100 mg/5 mL (Cheratuss5-10 mL PO Q6H PRN cough in AC) prednisone 4 tabs for 3 days, then 3 tabs for 3 days, th en 2 tabs for 3 days, then 1 tab for 3 days P O QDAY; administer with food or milk Plan Detail Follow Up As previously scheduled for his routine appointment or sooner if needed. Coding Level of Care Code Off vis,est,level 3 Diagnoses Bronchitis J40 URI (upper respiratory infection) J06.9 Cough R05 09/29/17 1149 <Electronically signed by Fabio Cueto TECHNICAL REP-C> Date Fabio Cueto NP-Sadia Pearceigner Signature: Date (if applicable) CC: INTERNAL MEDICINE Observed: 09/13/2017 Status: F Source: MANNY OFFICE VISIT 3:41 PM [facility] [address] [id number] OFFICE VISIT Date of Service: 09/13/17 MR#: [id number] Acct: [id number] Name: GIANCARLO MARTIN Rep #: [id number] : 1965 Provider: Fabio Cueto NP Age/Sex: 52/M Location: [facility] [place] Status: Signed Intake Vital Signs09/13/17 Body Mass Index (BMI) 35.9 09/13/17 Blood Pressure 136/95 Intake Visit Reasons: POSSIBLY SHINGLES Chief Complaint: rash, scales on back and right arm Is patient in pain?: Yes (rash) Allergies shellfish derived Adverse Reaction (Verified 05/02/17 06:58) Anaphylaxis Medications amlodipine 10 mg tablet 10 mg PO DAILY #90 tab 08/05/17 [Rx Confirmed 08/05/17] compression stocking,knee high,long length,large circum See Dose Instructions .ROUTE .MEDSUPPLY #2 unit 08/05/17 [Rx Confirmed 08/05/17] hydrochlorothiazide 25 mg tablet 25 mg PO QDAY #90 tab 08/05/17 [Rx Confirmed 08/05/17] lisinopril 5 mg tablet 5 mg PO QDAY #90 tab 08/05/17 [Rx Confirmed 08/05/17] omeprazole 40 mg capsule,delayed release 40 mg PO DAILY #90 cap 08/05/17 [Rx Confirmed 08/05/17] ibuprofen 600 mg tablet 600 mg PO TID PRN #30 tab 09/13/17 [Rx Confirmed 09/13/17] valacyclovir 1 gram tablet 1,000 mg PO TID #21 tab 09/13/17 [Rx Confirmed 09/13/17] [facility] Medical History Alcohol dependence (Chronic) Obesity (Chronic) GERD (gastroesophageal reflux disease) (Chronic) Hypertension (Chronic) Asthma (Chronic) Surgical History H/O hernia repair (Acute) Family History Grandmother Diabetes Father Cancer unknown Brother Hypertension Grandfather Heart disease Social History Smoking Status: Former smoker how long ago did patient quit smokin alcohol intake: current alcohol intake frequency: 3 or more drinks per day Alcohol type: beer substance use type: does not use what type of physical activity do you participate in: walking frequency: daily HPI HPI Chief Complaint: rash, scales on back and right arm Details: GIANCARLO MARTIN, is a 52 M who presents to the office today for an acute visit of possible shingles. He has a past medical history of hypertension, GERD, alcohol dependence, asthma, and obesity. The patient states that his symptoms of constant pain underneath his right armpit and right upper back began approximately 6 days ago and a rash erupted 3 days ago. The pain is an 8 out of 10 pain. He states that the rash is only on the right side of his body and that it is painful, burning, and tingling at times. He also notes that it is occasionally itchy. He has tried capsaicin cream and this aggravated his symptoms. He has not tried any other uypn-ivt-cojgwdu treatments. He feels that his symptoms are progressively worsening. He denies any sick contacts. He denies any other alleviating or aggravating signs and symptoms. The patient otherwise denies any fever, chills, nausea, vomiting, shortness of breath, chest pain or pressure, palpitations, orthopnea, lower extremity edema, syncope or presyncopal episodes. ROS Const Constitutional: Positive for fatigue, sleep problems and headache(s); no weight change, body ache, chills, fever(s), change in appetite, snoring, weakness, frequent falls or excessive sweating Eyes Eyes: No change in vision, eye pain, light sensitivity or blurry vision ENT ENT: Positive for headache(s) and neck pain; no abnormal hearing, ear pain, tinnitus, nasal congestion or sore throat Resp Respiratory: Positive for cough Cough: Yes non-productive; no snoring, shortness of breath or wheezing Cardio Cardiology: Positive for chest pain at rest (right sided); no excessive sweating, chest pain with exertion, shortness of breath, dyspnea on exertion, palpitations, orthopnea or lightheadedness Gastro GI: No abdominal pain, change in bowel habits, constipation, diarrhea, vomiting, nausea/dyspepsia or cramping Musc Musculoskeletal: Positive for neck pain and muscle cramps; no abnormal walking, joint pain, back pain, limited range of motion, numbness, tingling or muscle weakness Skin Skin: Positive for itching and rash; no redness, dry skin, lesions or wounds Neuro Neurology: Positive for headache(s); no weakness, frequent falls, abnormal hearing, abnormal walking, numbness, tingling, abnormal speech, dizziness or memory loss Psych Psychiatric: No change in appetite, No memory loss, No anxiety, No depression, No Thoughts of harming yourself/Others Endo Endocrine: Positive for fatigue; no excessive sweating, cold intolerance, increased thirst/drinking, heat intolerance, flushing or increased hunger Aller/Imm Allergy/Immunologic: Positive for itchy eyes; no wheezing, hives or seasonal allergy symptoms Papo/Lymp Hematologic/Lymphatic: No easy bleeding, easy bruising or enlarged lymph nodes Exam Const General: cooperative, comfortable, no acute distress Nutritional Appearance: well nourished, obese Orientation: alert, oriented x3 Limitations: mental status not altered [facility] Head: normal to inspection Ears: hearing grossly normal bilaterally Nose: external nose normal Eyes General: appearance normal, both eyes and all related structures Resp Effort AND Inspection: normal respiratory effort, able to speak in complete sentences, normal respiratory pattern, symmetric chest movement, no audible wheezes, no cough Auscultation: Bilateral: Clear to Auscultation Cardio Palpation: normal PMI Rate: regular rate Heart Sounds: S1 normal, S2 normal, normal S1 and S2, no click, no gallops, no murmurs, no rubs Musc Musculoskeletal: No joint tenderness, decreased ROM or muscle weakness Skin General: elasticity normal, turgor normal Rashes: rashes noted Other: Vesicular clear fluid filled rash noted under right axilla and right upper back following the dermatome, does not cross over to the left side. Neuro General: alert, awake, oriented x3, CN's II-XI intact bilaterally Speech: speech normal Gait: normal gait Motor: muscle tone normal throughout Extrem General: normal to inspection, normal gait, edema Laterality: bilateral Severity: non-pitting and 1+ Psych Appearance: grossly normal Mental Status: mental status grossly normal Affect: normal affect Attitude: cooperative Thought Process: normal Assessment AND Plan Problems 1. 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 Therefore will treat with antiviral therapy. Discussed with patient that he needs to take the valacyclovir 3 times a day for 7 days. Discussed supportive mechanisms for the pain including the use of wxts-gxh-khmetrh calamine lotion and the use of ibuprofen for pain relief. Discussed with patient that while capsaicin cream is sometimes indicated for the use of postherpetic neuralgia pain from shingles, it is not useful in the acute phase and would encourage the discontinuation of its use. Patient verbalized understanding. Instructed patient to notify our office in a couple days to see how symptoms are doing. Patient also states that he will call off of work for the rest of the week. Discussed red flag symptoms including eye involvement that would require urgent medical attention. Patient verbalized understanding. 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 Clinical correlation is essential. LAB L501.1110 >60 mL/min Normal EST GFR 63 Result Comment: Non- GFR Calc LAB L501.1115 >60 mL/min Normal EST GFR - AA 77 Result Comment: GFR Calc LAB L501.1300 10-20 RATIO Normal BUN/CRE 10.3 LAB L501.2200 8.5-10.1 mg/dL CA Normal 8.7 LAB L501.5300 136-145 mmol/L Low NA 135 LAB L501.5600 3.5-5.1 mmol/L K Normal 4.4 LAB L501.5900 98-107 mmol/L Low CL 97 LAB L501.6100 21.0-32.0 mmol/L Normal CO2 28.0 LAB L501.6200 5-15 Normal GAP 10 Performed By: #### L500.2500 #### [facility] [address] [place], [place], [address] INTERNAL MEDICINE Observed: 08/05/2017 Status: F Source: CLEAR OFFICE VISIT 1:18 PM [facility] [place] [place] REPOSITORY [facility] [address] [address] OFFICE VISIT Date of Service: 08/05/17 MR#: [id number] Acct: [id number] Name: GIANCARLO MARTIN Jeanine Rep #: [id number] : 1965 Provider: Fabio Cueto NP Age/Sex: 52/M Location: [facility] [place] Status: Signed Intake Vital Signs08/05/17 Height 5 ft 6 in 08/05/17 Weight: 223 lb 08/05/17 Body Mass Index (BMI) 35.9 08/05/17 Blood Pressure 136/95 08/05/17 Blood Pressure Location Rt brachial Intake Visit Reasons: 6 wk FU Chief Complaint: follow-up visit Allergies shellfish derived Adverse Reaction (Verified 05/02/17 06:58) Anaphylaxis Medications amlodipine 10 mg tablet 10 mg PO DAILY #90 tab 08/05/17 [Rx Confirmed 08/05/17] compression stocking,knee high,long length,large circum See Dose Instructions .ROUTE .MEDSUPPLY #2 unit 08/05/17 [Rx Confirmed 08/05/17] hydrochlorothiazide 25 mg tablet 25 mg PO QDAY #90 tab 08/05/17 [Rx Confirmed 08/05/17] lisinopril 5 mg tablet 5 mg PO QDAY #90 tab 08/05/17 [Rx Confirmed 08/05/17] omeprazole 40 mg capsule,delayed release 40 mg PO DAILY #90 cap 08/05/17 [Rx Confirmed 08/05/17] PFSH Medical History Venous insufficiency of both lower extremities (Chronic) Alcohol dependence (Chronic) Obesity (Chronic) GERD (gastroesophageal reflux disease) (Chronic) Hypertension (Chronic) Asthma (Chronic) Surgical History H/O hernia repair (Acute) Family History Grandmother Diabetes Father Cancer unknown Brother Hypertension Grandfather Heart disease Social History Smoking Status: Former smoker how long ago did patient quit smokin alcohol intake: current alcohol intake frequency: 3 or more drinks per day Alcohol type: beer substance use type: does not use what type of physical activity do you participate in: walking frequency: daily HPI 6 wk FU: Chief Complaint: follow-up visit Details: GIANCARLO MARTIN, is a 52 M who presents to the office today for a follow-up of his hypertension and GERD. He has a past medical history which is significant for that of alcohol dependence, obesity, GERD, hypertension. The patient states that his blood pressures have still been averaging 140s over 90s at home and brings in a log of his blood pressures. He states that he is taking amlodipine 10 mg and HCTZ 25 mg appropriately. He denies any side effects at this time. He does state that his only complaint is that his GERD has been acting up lately, he states that he ran out of the omeprazole and stopped taking this and was wondering if he should be restarted on his PPI. He states that he has attempting to improve his diet and exercise and is making attempts at weight loss. He does admit to chronic lower extremity edema due to varicose veins, however this is not increased or worsened. Unfortunately, he continues to consume alcohol on a daily basis. He otherwise denies any fever, chills, nausea, vomiting, shortness of breath, chest pain or pressure, syncope or presyncopal episodes. ROS Const Constitutional: No weight change, body ache, chills, fatigue, sleep problems, fever(s), change in appetite, snoring, weakness, frequent falls, headache(s) or excessive sweating Eyes Eyes: No change in vision, eye pain, light sensitivity or blurry vision ENT ENT: Positive for nasal congestion; no headache(s), abnormal hearing, ear pain, tinnitus, sore throat or neck pain Resp Respiratory: No snoring, cough, shortness of breath or wheezing Cardio Cardiology: No excessive sweating, chest pain at rest, chest pain with exertion, shortness of breath, dyspnea on exertion, palpitations, orthopnea or lightheadedness Gastro GI: Positive for heartburn; no abdominal pain, change in bowel habits, constipation, diarrhea, vomiting, nausea/dyspepsia or cramping Musc Musculoskeletal: No neck pain, abnormal walking, joint pain, back pain, limited range of motion, numbness, tingling or muscle weakness Skin Skin: No redness, dry skin, itching, lesions, wounds or rash Neuro Neurology: No weakness, frequent falls, headache(s), abnormal hearing, abnormal walking, numbness, tingling, abnormal speech, dizziness or memory loss Psych Psychiatric: No change in appetite, No memory loss, No anxiety, No depression, No Thoughts of harming yourself/Others Endo Endocrine: No fatigue, excessive sweating, cold intolerance, increased thirst/drinking, heat intolerance, flushing or increased hunger Aller/Imm Allergy/Immunologic: No wheezing, itchy eyes, hives or seasonal allergy symptoms Papo/Lymp Hematologic/Lymphatic: No easy bleeding, easy bruising or enlarged lymph nodes Exam Const General: cooperative, comfortable, no acute distress Nutritional Appearance: well nourished, obese Orientation: alert, oriented x3 Limitations: mental status not altered [facility] Head: normal to inspection Ears: hearing grossly normal bilaterally Nose: external nose normal Eyes General: appearance normal, both eyes and all related structures Resp Effort AND Inspection: normal respiratory effort, able to speak in complete sentences, normal respiratory pattern, symmetric chest movement, no audible wheezes, no cough Auscultation: Bilateral: Clear to Auscultation Cardio Palpation: normal PMI Rate: regular rate Heart Sounds: S1 normal, S2 normal, normal S1 and S2, no click, no gallops, no murmurs, no rubs GI Inspection: normal to inspection Auscultation: normal bowel sounds, no hyperactive bowel sounds, no hypoactive bowel sounds Palpation: soft, no hepatosplenomegaly Musc Musculoskeletal: No joint tenderness, decreased ROM or muscle weakness Skin General: no rashes or lesions noted, elasticity normal, turgor normal Lesions: no lesions Rashes: no rashes Neuro General: alert, awake, oriented x3, CN's II-XI intact bilaterally Speech: speech normal Gait: normal gait Motor: muscle tone normal throughout Extrem General: normal to inspection, normal gait, edema Laterality: bilateral Severity: non-pitting and 1+ Psych Appearance: grossly normal Mental Status: mental status grossly normal Affect: normal affect Attitude: cooperative Thought Process: normal Assessment AND Plan 1. HTN (hypertension) I10 Plan Hypertension: Blood pressure is suboptimal at this time. Will make changes to current medication regimen which include the addition of lisinopril 5mg daily. Baseline labs reviewed. Educated patient on the potential side effects of the new medication and to keep a log of their blood pressures at home. Discussed risk factor reduction and lifestyle modifications. Discussed dietary changes that should be considered which include reducing the amount of sodium intake. Patient instructed to follow up in 3 months for hypertension follow up visit. Will repeat BMP in 2 weeks with the addition of the new medication instructed patient to keep a log for 2 weeks of his blood pressures and drop it off at our office. Orders Orders: 2. GERD (gastroesophageal reflux disease) K21.9 Plan Discussed with patient the importance of staying off his PPI. Refilled his medication. Discussed with him that alcohol will continue to his GERD as well. 3. Venous insufficiency of both lower extremities I87.2 Plan The patient does have a history of venous insufficiency, compression stockings ordered for the patient. 4. Alcohol dependence F10.20 Plan Complicates patient's overall plan of care, discussed cutting back and patient is not willing to at this time. We will continue to follow in the future. 5. Obesity E66.9 Plan Patient continues with dietary changes, lifestyle modification, risk factor reduction, he has lost over 10 pounds since his previous office visit. We will continue with attempts at weight loss. Kari disclaimer Plan Detail Other Medications New: Follow Up 3 Months Coding Level of Care Code Off vis,est,level 3 Diagnoses HTN (hypertension) I10 GERD (gastroesophageal reflux disease) K21.9 Venous insufficiency of both lower extremities I87.2 Alcohol dependence F10.20 Obesity E66.9 08/05/17 1318 <Electronically signed by Fabio SERNA> Date Fabio SERNA Cosigner Signature: Date (if applicable) CC: ALLERGIES ALLERGIES DATE TYPE / CODE NAME / CODE REACTION SEVERITY SOURCE 07/17/2018 Drug shellfish Anaphylaxis Unknown Manny Allergy/416 derived/[id number] [facility] [id number]([place] [address](RXNORM) [facility] ED [place]) Repository ENCOUNTERS ENCOUNTERS ADMIT/DISCHARGE ACCOUNT ADMITTING ENCOUNTER LOCATION SOURCE NUMBER CLASS 07/25/2018 [id number] Ambulatory Manny M[place] 1 [facility] ing:LABSPEC Repository 07/17/2018/ [id number] Ambulatory BMSBuilding:B Manny 8 6 [facility] Repository 07/08/2018/ [id number] Ambulatory BMSBuilding:B M[place] 8 1 [facility] Repository 07/07/2018/ [id number] Emergency Manny [place] 8 8 [facility] ing:ED Repository 06/27/2018 [id number] Ambulatory Manny [place] 6 [facility] ing:LAB Repository 06/12/2018/ [id number] Ambulatory BMSBuilding:B [place] 8 0 [facility] Repository 04/17/2018 [id number] Ambulatory Manny Manny 3 [facility] ing:[place] Repository 04/12/2018/ [id number] Ambulatory BMSBuilding:B [place] 8 7 [facility] Repository 03/31/2018 [id number] Ambulatory [place]anny 7 [facility] ing:NM Repository 03/15/2018/ [id number] Ambulatory BMSBuilding:B [place] 8 6 [facility] Hospital Repository 02/15/2018/ [id number] Ambulatory BMSBuilding:B [place] 8 8 [place].[facility] Hospital Repository 02/14/2018 [id number] Ambulatory Manny [facility] 9 [facility] ing:LAB Repository 02/09/2018/ [id number] Ambulatory BMSBuilding:B [place] 8 7 [place].[facility] Hospital Repository 02/01/2018/ [id number] Ambulatory BMSBuilding:B [place] 8 5 [facility] Hospital Repository 01/25/2018 [id number] Ambulatory BMSBuilding:B [place] 3 [facility] Hospital Repository 01/25/2018/ [id number] Emergency [place] 8 7 [facility] ing:ED Repository 01/23/2018 [id number] Ambulatory [place] [facility]LAB Repository 01/05/2018 [id number] Ambulatory [place] [facility]anny 2 [facility] ing:LABSPEC Repository 11/29/2017/ [id number] Ambulatory BMSBuilding:B [place] 8 6 [facility] Hospital Repository 11/23/2017 [id number] Ambulatory Manny Manny 1 [facility] ing:[place] Repository 11/01/2017 [id number] Ambulatory Manny [facility] 8 [facility] ing:MTLAB Repository 10/27/2017/ [id number] Ambulatory BMSBuilding:B [place] 8 1 [facility] Hospital Repository 09/29/2017/ [id number] Ambulatory BMSBuilding:B [place] 8 2 [facility] Hospital Repository 09/13/2017/ [id number] Ambulatory BMSBuilding:B [place] 8 2 [facility] Hospital Repository 08/18/2017 [id number] Ambulatory [place] 7 [facility] ing:MTLAB Repository 08/05/2017/ [id number] Ambulatory BMSBuilding:B [place] 7 6 MS.[facility] Hospital Repository PAYERS PAYERS ENCOUNTER GUARANTOR PAYER SUBSCRIBER SOURCE 07/25/2018 GIANCARLO Solorzano Manny [id number] CAMP Insurance:[employer] FUNKDOB: [facility] [place] Number: [id number] [address]Eyv: ([id number]) [id number] Repository [phone] () isaias Date:3404-90-36AR [address] [place] [address] 91364SD: 07/25/2018 Secondary NOT GIVENUNK [place] Insurance:SELF PAY [facility] Number: Effective Repository Date:2018-07-25 07/17/2018 GIANCARLO Solorzano [place] [id number] CAMP Insurance:ANTHEMPolic FUN[place]OB: [place] Number: [id number] [facility] 68107Pnz: (330) [id number] Repository [phone] () [place]aias Date:3229-13-27CF [address] [place] [address] 24446WP: 07/17/2018 Secondary NOT GIVENUNK [place] Insurance:SELF PAY [facility] Number: Effective Repository Date:2018-07-14 07/08/2018 GIANCARLO Solorzano [place] [id number] CAMP Insurance:ANTHEMPolic FUN[place]OB: [place] Number: [id number] Hospital 55703Ypb: (330) [id number] Repository [phone] () [place]as Date:2842-78-95EN [address] [place] [address] 80947JD: 07/08/2018 Secondary NOT GIVENUNK [place] Insurance:SELF PAY [facility] Number: Effective Repository Date:2018-07-08 07/07/2018 GIANCARLO Solorzano [place] [id number] CAMP Insurance:ANTHEMPolic FUN[place]OB[place] Number: [id number] [facility] 93147Opf: (330) [id number] Repository [phone] (HP) isaias Date:5601-21-47HU [address]GNYPYPA, [place] [address]QM: 07/07/2018 Secondary NOT GIVENUNK [place] Insurance:SELF PAY [facility] Effective Repository Date:2018-07-07 06/27/2018 GIANCARLO Solorzano Primary GIANCARLO R [place] [id number] CAMP Insurance:ANTHEMPolic FUNKDOB: [facility]: [id number] Hospital 55067Vib: (330) [id number] Repository [phone] () isaias Date:7746-02-49HY [address]QDEPNSR, [place] [address]UE: 06/27/2018 Secondary NOT GIVENUNK [place] Insurance:SELF PAY [facility] Number: Effective Repository Date:2018-06-27 06/12/2018 GIANCARLO Solorzano Primary GIANCARLO R [place] [id number] CAMP Insurance:ANTHEMPolic FUNKDOB: [facility] Number: [id number] Hospital 79901Oxm: (330) [id number] Repository [phone] () isaias Date:9763-94-99BL [address]PZFBGDG [place] [address]CN: 06/12/2018 Secondary NOT GIVENUNK [place] Insurance:SELF PAY [facility] Number: Effective Repository Date:2018-06-12 04/17/2018 GIANCARLO R Primary [place]LO R [place] [id number] CAMP Insurance:ANTHEMPolic FUNKDOB: [facility]: [id number] Hospital 44961Zvu: (330) [id number] Repository [phone] () [place]as Date:5754-26-47SC [address]JFBHICF, [place] [address]ZB: 04/17/2018 Secondary NOT GIVENUNK [place] Insurance:SELF PAY [facility] Number: Effective Repository Date:2018-04-12 04/12/2018 GIANCARLO R Primary GIANC[place]LO R [place] [id number] CAMP Insurance:ANTHEMPolic FUNKDOB: [facility]: [id number] Hospital 94492Khf: (330) [id number] Repository [phone] (HP) [place]as Date:9660-04-70VO [address]TRQAFWI [place] [address]TZ: 04/12/2018 Secondary NOT GIVENUNK [place] Insurance:SELF PAY [facility] Number: Effective Repository Date:2018-04-12 03/31/2018 GIANCARLO R Primary GIANCARLO R [place] [id number] CAMP Insurance:ANTHEMPolic FUNKDOB: [place]: [id number] Hospital 93297Gdg: (330) [id number] Repository [phone] () [place]as Date:8186-40-92XV [address] [place] [address] [place] [address]NZ: 03/31/2018 Secondary NOT GIVENUNK [place] Insurance:SELF PAY [facility] Number: Effective Repository Date:2018-03-16 03/15/2018 GIANCARLO Solorzano Primary GIANCARLO R [place] [id number] CAMP Insurance[place]: [id number] Hospital 66444Fcf: (330) [id number] Repository [phone] () [place]aias Date:7737-81-95MW [address] [place] [address] [place] [address]UC: 03/15/2018 Secondary NOT GIVENUNK [place] Insurance:SELF PAY [facility] Number: Effective Repository Date:2018-03-15 02/15/2018 GIANCARLO R Primary GIANCARLO R [place] [id number] CAMP Insurance:ANTHEMPolic FUNKDOB: [place] Number: [id number] Hospital 38734Ulw: (330) [id number] Repository [phone] () [place] Date:5091-82-91VG [address]GRMMDTW [place] [address]VT: 02/15/2018 Secondary NOT GIVENUNK [place] Insurance:SELF PAY [facility] Number: Effective Repository Date:2018-02-15 02/14/2018 GIANCARLO R Primary GIANCARLO R [place] [id number] CAMP Insurance:ANTHEMPolic FUNKDOB: [facility] Number: [id number] Hospital 11367Vvl: (330) [id number] Repository [phone] () [place] Date:4137-16-75QR [address]IGSLSQAMARG[address]ITA MARTINS [address]85[address]MF: 02/14/2018 Secondary NOT GIVENUNK [place] Insurance:SELF PAY [facility] Number: Effective Repository Date:2018-02-14 02/09/2018 GIANCARLO R Primary GIANCARLO R [place] [id number] CAMP Insurance:ANTHEMPolic FUNKDOB: [facility] [place] Number: [id number] Hospital 56103Fcz: (330) [id number] Repository [phone] () [place]as Date:2636-53-18NK [address]CWLCWDF, [place] [address]AM: 02/09/2018 Secondary NOT GIVENUNK [place] Insurance:SELF PAY [facility] Number: Effective Repository Date:2018-02-09 02/01/2018 GIANCARLO Solorzano Primary GI[place]LO R [place] [id number] CAMP Insurance:ANTHEMPolic [facility]KDOB[facility] [place] Number: [id number] Hospital 06965Gqn: (330) [id number] Repository [phone] () [place] Date:3151-03-33XH [address]FLBIMNA, [place] [address]YM: 02/01/2018 Secondary NOT GIVENUNK [place] Insurance:SELF PAY [facility] Number: Effective Repository Date:2018-02-01 01/25/2018 GIANCARLO R Primary GIANC[place]LO R [place] [id number] CAMP Insurance:ANTHEMPolic FUNKDOB[facility] [place] Number: [id number] Hospital 91299Thf: (330) [id number] Repository [phone] () [place] Date:0402-25-26WV [address]MRKSKXB, [place] [address]YQ: 01/25/2018 Secondary NOT GIVENUNK [place] Insurance:SELF PAY [facility] Number: Effective Repository Date:2017-10-27 01/25/2018 GIANCARLO MONDRAGON R [place] [id number] CAMP Insurance:ANTHEMPolic FUNKDOB: [facility]: [id number] Hospital 63488Tjw: (330) [id number] Repository [phone] (HP) [place] Date:5061-35-80RG [address] [place] [address] 05040GI: 01/25/2018 Secondary NOT GIVENUNK [place] Insurance:SELF PAY [facility] Number: Effective Repository Date:2018-01-25 01/23/2018 GIANCARLO MONDRAGON R [place] [id number] CAMP Insurance:ANTHEMPolic FUNKDOB: [facility]: [id number] Hospital 42775Xjc: (330) [id number] Repository [phone] () [place] Date:4680-08-03AW [address] [place] [address] 26730HL: 01/23/2018 Secondary NOT GIVENUNK [place] Insurance:SELF PAY [facility] Number: Effective Repository Date:2018-01-23 01/05/2018 GIANCARLO MONDRAGON R [place] [id number] CAMP Insurance:ANTHEMPolic FUNKDOB: [facility] Number: [id number] Hospital 21791Tuu: (330) [id number] Repository [phone] () [place] Date:2707-93-03DP [address] [place] [address] 87075CY: 01/05/2018 Secondary NOT GIVENUNK [place] Insurance:SELF PAY [facility] Number: Effective Repository Date:2018-01-05 11/29/2017 GIANCARLO MONDRAGON R [place] [id number] CAMP Insurance:ANTHEMPolic FUNKDOB: [facility]: [id number] Hospital 64329Ttj: (330) [id number] Repository [phone] () [place] Date:9299-80-43AP [address]WGFYFOT, [place] [address]LH: 11/29/2017 Secondary NOT GIVENUNK [place] Insurance:SELF PAY [facility] Number: Effective Repository Date:2017-11-29 11/23/2017 GIANCARLO Solorzano Primary [place]LO [place] [id number] CAMP Insurance:ANTHEMPolic FUNKDOB: [facility] Number: [id number] Hospital 28209Qqm: (330) [id number] Repository [phone] () [place] Date:1096-30-95TU [address]AHBEFDK, [place] [address]ZJ: 11/23/2017 Secondary NOT GIVENUNK [place] Insurance:SELF PAY [facility] Number: Effective Repository Date:2017-11-17 11/01/2017 GIANCARLO Solorzano Primary GIANC[place]LO R [place] [id number] CAMP Insurance:ANTHEMPolic FUNKDOB: [facility] Number: [id number] Hospital 37513Wdc: (330) [id number] Repository [phone] () [place] Date:2707-12-21EO [address]FDMSXEK, [place] [address]IB: 11/01/2017 Secondary NOT GIVENUNK [place] Insurance:SELF PAY [facility] Number: Effective Repository Date:2017-11-01 10/27/2017 GIANCARLO Solorzano Primary [place] [id number] CAMP Insurance:ANTHEMPolic FUNKDOB: [facility]: [id number] Hospital 47564Zqc: (330) [id number] Repository [phone] () [place] Date:9984-25-31GU [address]UCDTAPF, [place] [address]YI: 10/27/2017 Secondary NOT GIVENUNK [place] Insurance:SELF PAY [facility] Number: Effective Repository Date:2017-10-27 09/29/2017 GIANCARLO Solorzano Primary [place] [id number] CAMP Insurance:ANTHEMPolic FUNKDOB: [facility] Number: [id number] Hospital 30877Ydf: (330) [id number] Repository [phone] (HP) [place] Date:9121-68-20ZG [address] MARGAR[address] CONTRERAS [address]XM: 09/29/2017 Secondary NOT GIVENUNK [place] Insurance:SELF PAY [facility] Number: Effective Repository Date:2017-09-29 09/13/2017 GIANCARLO R Primary [place]LO R [place] [id number] CAMP Insurance:ANTHEMPolic FUNKDOB: [place]: [id number] Hospital 39808Cfl: (330) [id number] Repository [phone] (HP) [place] Date:0660-22-17JW [address] [place] CONTRERAS [address]JO: 09/13/2017 Secondary NOT GIVENUNK [place] Insurance:SELF PAY [facility] Number: Effective Repository Date:2017-09-12 08/18/2017 GIANCARLO R Primary [place]ANC[place]LO R [place] [id number] CAMP Insurance:ANTHEMPolic FUNKDOB: [place]: [id number] Hospital 33772Qmd: (330) [id number] Repository [phone] (HP) [place] Date:2667-07-26HY [address] [place] CONTRERAS 25[address]LY: 08/18/2017 Secondary NOT GIVENUNK [place] Insurance:SELF PAY [facility] Number: Effective Repository Date:2017-08-18 08/05/2017 GIANCARLO R Primary GIANCARLO R [place] [id number] CAMP Insurance:[place]HE[place] FUNKDOB: [place] Number: [id number] Hospital 10240Mtu: (330) [id number] Repository [phone] (HP) [place] Date:0678-96-63PP [address]PLNEYGWMARGARITA MARTINS [address]15[address]BH: 08/05/2017 Secondary NOT GIVENUNK [place] Insurance:SELF PAY [facility] Number: Effective Repository Date:2017-07-09
== END 2018-07-07 20:43 | disposition home or self-care (01) ==
PROVIDERS: Emergency Provider Emergency Medicine; Family Provider Internal Medicine; PCP Internal Medicine
DX: R10.9 Unspecified abdominal pain (principal); J45.909 Unspecified asthma, uncomplicated; K21.9 Gastro-esophageal reflux disease without esophagitis; I10 Essential (primary) hypertension; F41.9 Anxiety disorder, unspecified; F32.9 Major depressive disorder, single episode, unspecified; Z79.51 Long term (current) use of inhaled steroids; Z79.899 Other long term (current) drug therapy
CPT/HCPCS: 74174; 74176; 80048; 80076; 81001; 83605; 83690; 85025; 96361; 96374; 96375; 99284; J7030; Q9967; A4216

== ENCOUNTER → 2018-07-25 11:23 | Outpatient (CLI) | payer BC, SELFPAY ==
[2018-07-17 13:49] VITALS: BMI 35.5
--- OUTSIDE RECORDS SUMMARY | 2018-10-26 20:22 | XMS RPT_ITS ---
:1965 Author Organization OHIP Support Name Relationship Address Phone KEIRY MARTIN Unavailable . + [place] [address] FUNK, HERNANDEZ Unavailable . + ., [place] . THEA Unavailable [address] + [place] [address] FUNK, KEIRY Unavailable Unavailable + [place] [address] FUNK, NIMISHA Unavailable [address] + [address] [place] [address] THEA Unavailable [address] + [place] [address] FUNK, KEIRY Unavailable [address] + [place] [address] FUNK, NIMISHA Unavailable [address] + [address] [place] [address] THEA Unavailable [address] + [place] [address] FUNK, KEIRY Unavailable [address] + [place] [address] FUNK, NIMISHA Unavailable [address] + [address] [place] [address] THEA Unavailable [address] + [place] [address] FUNK, KEIRY Unavailable [address] + [place] [address] FUNK, NIMISHA Unavailable [address] + [address] [place] [address] THEA Unavailable [address] + [place] [address] FUNK, KEIRY Unavailable [address] + [place] [address] FUNK, NIMISHA Unavailable [address] [place] [address] THEA Unavailable [address] + [place] [address] FUNK, KEIRY Unavailable [address] + [place] [address] FUNK, NIMISHA Unavailable [address] + [address] [place] [address] THEA Unavailable [address] + [place] [address] FUNK, KEIRY Unavailable [address] + [place] [address] FUNK, NIMISHA Unavailable [address] [place] [address] THEA Unavailable [address] + [place] [address] FUNK, KEIRY Unavailable [address] + [place] [address] FUNK, NIMISHA Unavailable [address] [place] [address] THEA Unavailable [address] + [place] [address] FUNK, KEIRY Unavailable [address] + [place] [address] FUNK, NIMISHA Unavailable [address] + [address] [place] [address] THEA Unavailable [address] + [place] [address] FUNK, KEIRY Unavailable [address] + [place] [address] FUNK, NIMISHA Unavailable [address] [place] [address] THEA Unavailable [address] + [place] [address] FUNK, KEIRY Unavailable [address] + [place] [address] FUNK, NIMISHA Unavailable [address] [place] [address] THEA Unavailable [address] + [place] [address] FUNK, KEIRY Unavailable [address] + [place] [address] FUNK, NIMISHA Unavailable [address] [place] [address] THEA Unavailable [address] + [place] [address] FUNK, KEIRY Unavailable [address] + [place] [address] FUNK, NIMISHA Unavailable [address] [place] [address] THEA Unavailable [address] + [place] [address] FUNK, KEIRY Unavailable [address] + [place] [address] FUNK, NIMISHA Unavailable [address] [place] [address] THEA Unavailable [address] + [place] [address] FUNK, KEIRY Unavailable [address] + [place] [address] FUNK, NIMISHA Unavailable [address] [place] [address] THEA Unavailable [address] + [place] [address] FUNK, KEIRY Unavailable [address] + [place] [address] FUNK, NIMISHA Unavailable [address] [place] [address] THEA Unavailable [address] + [place] [address] FUNK, KEIRY Unavailable [address] + [place] [address] FUNK, NIMISHA Unavailable [address] [place] [address] THEA Unavailable [address] + [place] [address] FUNK, KEIRY Unavailable [address] + [place] [address] FUNK, NIMISHA Unavailable [address] [place] [address] THEA Unavailable [address] + [place] [address] FUNK, KEIRY Unavailable [address] + [place] [address] FUNK, NIMISHA Unavailable [address] [place] [address] THEA Unavailable [address] + [place] [address] FUNK, KEIRY Unavailable [address] + [place] [address] FUNK, NIMISHA Unavailable [address] [place] [address] THEA Unavailable [address] + [place] [address] FUNK, KEIRY Unavailable [address] + [place] [address] FUNK, NIMISHA Unavailable [address] [place] [address] THEA Unavailable [address] + [place] [address] FUNK, KEIRY Unavailable [address] + [place] [address] FUNK, NIMISHA Unavailable [address] [place] [address] THEA Unavailable [address] + [place] [address] FUNK, KEIRY Unavailable [address] + [place] [address] FUNK, NIMISHA Unavailable [address] [place] [address] THEA Unavailable [address] + [place] [address] FUNK, KEIRY Unavailable [address] + [place] [address] FUNK, NIMISHA Unavailable [address] [place] [address] THEA Unavailable [address] + [place] [address] FUNK, KEIRY Unavailable [address] + [place] [address] FUNK, NIMISHA Unavailable [address] [place] [address] THEA Unavailable [address] + [place] [address] Care Team Providers Name Role Phone Tahir Rabago Attending Unavailable Tahir Rabago Referring Unavailable Oleghe, Efewongbe Primary Care Unavailable Tahir Rabago Attending Unavailable Tahir Rabago Referring Unavailable Oleghe, Efewongbe Primary Care Unavailable Tahir Rabago Attending Unavailable Oleghe, Efewongbe Referring Unavailable Fabio Cueto ANESTHESIA TECHNICIAN-C Attending Unavailable Oleghe, Efewongbe Referring Unavailable Oleghe, Efewongbe Primary Care Unavailable Fabio Cueto ANESTHESIA TECHNICIAN-C Attending Unavailable Oleghe, Efewongbe Referring Unavailable Oleghe, Efewongbe Primary Care Unavailable Oleghe, Efewongbe Attending Unavailable Oleghe, Efewongbe Referring Unavailable Oleghe, Efewongbe Attending Unavailable Oleghe, Efewongbe Referring Unavailable Oleghe, Efewongbe Primary Care Unavailable Meli Elias Attending Unavailable Meli Elias Referring Unavailable Oleghe, Efewongbe Primary Care Unavailable Fabio Cueto ANESTHESIA TECHNICIAN-C Attending Unavailable Oleghe, Efewongbe Referring Unavailable Oleghe, Efewongbe Primary Care Unavailable Ceci Maikol Attending Unavailable Oleghe, Efewongbe Primary Care Unavailable CeciJames Referring Unavailable Oleghe, Efewongbe Attending Unavailable Oleghe, Efewongbe Referring Unavailable Oleghe, Efewongbe Primary Care Unavailable Oleghe, Efewongbe Primary Care Unavailable Giancarlo Navarro Attending Unavailable CuetoFabio ANESTHESIA TECHNICIAN-C Attending Unavailable Oleghe, Efewongbe Referring Unavailable CuetoFabio ANESTHESIA TECHNICIAN-C Attending Unavailable Oleghe, Efewongbe Referring Unavailable Oleghe, Efewongbe Primary Care Unavailable CuetoFabio ANESTHESIA TECHNICIAN-C Attending Unavailable Oleghe, Efewongbe Referring Unavailable Oleghe, Efewongbe Primary Care Unavailable CuetoFabio ANESTHESIA TECHNICIAN-C Attending Unavailable CuetoFabio ANESTHESIA TECHNICIAN-C Referring Unavailable Oleghe, Efewongbe Primary Care Unavailable CuetoFabio ANESTHESIA TECHNICIAN-C Attending Unavailable Oleghe, Efewongbe Referring Unavailable Oleghe, [...] Unknown R19.7 - Diarrhea, Tahir Rabago Active [place] unspecified / Community R19.7(ICD-10) Hospital Repository 07/17/2018 Unknown R93.5 - Abnormal Tahir Rabago Active [place] findings on Community diagnostic imaging of Hospital other abdominal Repository regions, including retroperitoneum / R93.5(ICD-10) 07/17/2018 Unknown R10.9 - Unspecified Tahir Rabago Active [place] abdominal pain / Community R10.9(ICD-10) Hospital Repository 06/27/2018 Unknown I10 - Essential Oleghe, Active [place] (primary) [facility] hypertension / Hospital I10(ICD-10) Repository 03/15/2018 Unknown R68.81 - Early Oleghe, Active [place] satiety / ewongbe Community R68.81(ICD-10) Hospital Repository 02/20/2018 Unknown R55 - Syncope and Giancarlo Navarro Active [place] collapse / Community R55(ICD-10) Hospital Repository 02/20/2018 Unknown S22.39XA - Fracture Giancarlo Navarro Active [place] of one rib, [facility] unspecified side, Hospital initial encounter for Repository closed fracture / S22.39XA(ICD-10) 11/01/2017 Unknown R97.20 - Elevated Oleghe, Active [place] prostate specific [facility] antigen [PSA] / Hospital R97.20(ICD-10) Repository PROCEDURES PROCEDURES No Procedure Records FoundRESULTS RESULTS SURGERY VISIT REPORT Observed: 08/17/2018 Status: F Source: [place] 4:34 PM [facility] REPOSITORY [facility] [address] [place] [address] [address] [place] [address] OFFICE VISIT Date of Service: 08/17/18 MR#: [id number] Acct: [id number] Name: GIANCARLO MARTIN Rep #: [id number] : 1965 Provider: Tahir Rabago MD Age/Sex: 53/M Location: [facility] Status: Signed Intake Intake Visit Reasons: Upper and Lower Scope 08/04 Chief Complaint: EGD/ c-scope results Ecdis N Navigation Operator Required: No Is patient in pain?: No Allergies shellfish derived Adverse Reaction (Verified 08/17/18 14:38) Anaphylaxis Medications Albuterol IH (ProAir) [ProAir HFA] 1 - 2 puff INHALATION Q6H PRN 08/02/18 [History Confirmed 08/02/18] Amlodipine [Norvasc] 10 mg PO DAILY 08/02/18 [History Confirmed 08/02/18] Fluticasone 0.05% [Flonase Nasal [place]] 1 spray INTRANASAL DAILY 08/02/18 [History Confirmed 08/02/18] Pantoprazole Sodium 40 mg PO BID 08/02/18 [History Confirmed 08/02/18] Subjective Details: Patient status post both an upper and lower endoscopy completed on 08/04/2018. His upper GI was essentially normal I biopsied his stomach it was negative for H. pylori I biopsied a small intestine which had no pathological diagnosis and was entirely normal. His colonoscopy showed some diverticular disease but no signs of any mucosal abnormalities throughout the colon. Objective Details: Lungs are clear to auscultation. Abdomen is soft and nontender Assessment AND Plan Problems 1. Abnormal CT of the abdomen R93.5 Plan Patient states that he has been having some chest discomfort that he may be catching a cold I have informed him that his lungs did sound clear but he should go to the now clinic and/or his primary care doctor to see if there further testing needs to be performed or he needs to be placed on antibiotics. I believe his abdominal pain was related to epiploic fat that got torsed and inflamed. At the present time I think he is entirely normal and I am not recommending any surgical interventions on him. I believe that it would be burgos for him to have a repeat colonoscopy in 5 years. Coding Level of Care Code Off vis,est,level [address] of the abdomen R93.5 08/17/18 4782 <Electronically signed by Tahir Rabago MD> Date Tahir Rabago MD Cosigner Signature: Date (if applicable) CC: Jere Jain MD OPERATIVE REPORT - Observed: 08/04/2018 Status: F Source: [place] ENDOSCOPY 8:37 AM [facility] REPOSITORY [facility] Medical Records Department [address] [place] [address] Operative Report - Endoscopy MR#: [id number] Acct: [id number] Name: GIANCARLO MARTIN Rep #: [id number] : 1965 53 From: Tahir Rabago MD PCP: Jere Jain MD Status: [facility] Patient Name: Giancarlo Martin Procedure Date: 08/04/2018 8:14 AM Date of : 1965 Age: 53 Procedure: Colonoscopy Indications: Abdominal pain in the right upper quadrant, Abnormal CT of the GI tract Providers: Tahir Rabago MD Referring MD: Jere Jain MD Medicines: See the Anesthesia note for documentation of the administered medications Patient Profile: This is a 53 year old male. Refer to note in patient chart for documentation of history and physical. Last Colonoscopy: 2016. Complications: No immediate complications. Procedure: Pre-Anesthesia Assessment: - Prior to the procedure, a History and Physical was performed, and patient medications and allergies were reviewed. The patient's tolerance of previous anesthesia was also reviewed. The risks and benefits of the procedure and the sedation options and risks were discussed with the patient. All questions were answered, and informed consent was obtained. Prior Anticoagulants: The patient has taken no previous anticoagulant or antiplatelet agents. ASA Grade Assessment: II - A patient with mild systemic disease. After reviewing the risks and benefits, the patient was deemed in satisfactory condition to undergo the procedure. After I obtained informed consent, the scope was passed under direct vision. Throughout the procedure, the patient's blood pressure, pulse, and oxygen saturations were monitored continuously. The colonoscope was introduced through the anus and advanced to the cecum, identified by appendiceal orifice and ileocecal valve. The colonoscopy was performed without difficulty. The patient tolerated the procedure well. The quality of the bowel preparation was good. Scope In: 8:16:57 AM Scope Withdrawal Time 0 hours 6 minutes 3 seconds Scope Out: 8:27:45 AM Total Procedure Duration Time 0 hours 10 minutes 48 seconds Findings: Multiple small-mouthed diverticula were found in the sigmoid colon and descending colon. Non-bleeding internal hemorrhoids were found during retroflexion. The exam was otherwise without abnormality. Impression: - Diverticulosis in the sigmoid colon and in the descending colon. - Non-bleeding internal hemorrhoids. - The examination was otherwise normal. - No specimens collected. Recommendation: - Discharge patient to home. - Resume previous diet. - Repeat colonoscopy in 5 years for surveillance. - Return to my office in 1 week. - Continue present medications. Procedure Code(s): --- Professional --- 48720, Colonoscopy, flexible; diagnostic, including collection of specimen(s) by brushing or washing, when performed (separate procedure) Diagnosis Code(s): --- Professional --- K64.8, Other hemorrhoids R10.11, Right upper quadrant pain K57.30, Diverticulosis of large intestine without perforation or abscess without bleeding R93.3, Abnormal findings on diagnostic imaging of other parts of digestive tract CPT copyright 2017 [employer]. All rights reserved. The codes documented in this report are preliminary and upon liquor department manager review may be revised to meet current compliance requirements. MD Tahir Man MD 08/04/2018 8:36:48 AM This report has been signed electronically. Number of Addenda: 0 Note Initiated On: 08/04/2018 8:14 AM 08/04/18 0837 Date Tahir Rabago MD Cosigner Signature: Date (if indicated) CC: Tahir Rabago MD; Jere Jain MD Date Dictated: 08/04/18 0814 Date Transcribed: Helicopter Utility Aircrewman: DP Signed OPERATIVE REPORT - Observed: 08/04/2018 Status: F Source: [place] ENDOSCOPY 8:34 AM [facility] REPOSITORY [facility] Medical Records Department [address] [place] [address] Operative Report - Endoscopy MR#: [id number] Acct: [id number] Name: GIANCARLO MARTIN Rep #: [id number] : 1965 53 From: Tahir Rabago MD PCP: Jere Jain MD Status: [facility] Patient Name: Giancarlo Martin Procedure Date: 08/04/2018 7:59 AM Date of : 1965 Age: 53 Procedure: Upper GI endoscopy Indications: Abnormal CT of the GI tract Providers: Tahir Rabago MD Referring MD: Jere Jain MD Medicines: See the Anesthesia note for documentation of the administered medications Patient Profile: This is a 53 year old male. Refer to note in patient chart for documentation of history and physical. Complications: No immediate complications. Procedure: Pre-Anesthesia Assessment: - Prior to the procedure, a History and Physical was performed, and patient medications and allergies were reviewed. The patient's tolerance of previous anesthesia was also reviewed. The risks and benefits of the procedure and the sedation options and risks were discussed with the patient. All questions were answered, and informed consent was obtained. Prior Anticoagulants: The patient has taken no previous anticoagulant or antiplatelet agents. ASA Grade Assessment: II - A patient with mild systemic disease. After reviewing the risks and benefits, the patient was deemed in satisfactory condition to undergo the procedure. After obtaining informed consent, the endoscope was passed under direct vision. Throughout the procedure, the patient's blood pressure, pulse, and oxygen saturations were monitored continuously. The gastroscope was introduced through the mouth, and advanced to the third part of duodenum. The upper GI endoscopy was accomplished without difficulty. The patient tolerated the procedure well. Scope In: 8:11:20 AM Scope Out: 8:14:13 AM Total Procedure Duration Time 0 hours 2 minutes 53 seconds Findings: The Z-line was regular and was found 39 cm from the incisors. A small hiatal hernia was present. The entire examined stomach was normal. Biopsies were taken with a cold forceps for Helicobacter pylori testing. The examined duodenum was normal. Biopsies for histology were taken with a cold forceps for evaluation of celiac disease. Impression: - Z-line regular, 39 cm from the incisors. - Small hiatal hernia. - Normal stomach. Biopsied. - Normal examined duodenum. Biopsied. Recommendation: - Await pathology results. - Repeat upper endoscopy at appointment to be scheduled for surveillance based on pathology results. - Return to my office in 1 week. - Continue present medications. Procedure Code(s): --- Professional --- 39117, Esophagogastroduodenoscopy, flexible, transoral; with biopsy, single or multiple Diagnosis Code(s): --- Professional --- K44.9, Diaphragmatic hernia without obstruction or gangrene R93.3, Abnormal findings on diagnostic imaging of other parts of digestive tract CPT copyright 2017 [employer]. All rights reserved. The codes documented in this report are preliminary and upon liquor department manager review may be revised to meet current compliance requirements. MD Tahir Man MD 08/04/2018 8:33:36 AM This report has been signed electronically. Number of Addenda: 0 Note Initiated On: 08/04/2018 7:59 AM 08/04/18 0833 Date Tahir Rabago MD Cosigner Signature: Date (if indicated) CC: Tahir Rabago MD; Jere Jain MD Date Dictated: 08/04/18 0759 Date Transcribed: Helicopter Utility Aircrewman: KIMBERLEE Signed EGD ([facility] SITE) Observed: 08/04/2018 Status: F Source: [place] 8:00 AM [facility] REPOSITORY Patient: GIANCARLO MARTIN : 1965 (53/M) Acct Num: [id number] Phys: Tahir Rabago MD Unit Num: [id number] Loc: EN Specimen: [id number] Received: 08/04/18 - 1438 Spec Type: EGD BIOPSY TISSUES 1 TISSUES: A. Small intestine biopsy B. Gastric mucous membrane COMMENT B. The results of immunohistochemistry for Helicobacter pylori will be reported separately ([id number]). GROSS DESCRIPTION A - Received in fixative is one container labeled with the patient's name and designated small bowel biopsy. The specimen consists of one irregular fragment of light cavazos soft tissue that measures 0.6 x 0.5 x 0.1 cm. The specimen is totally submitted in one cassette. B - Received in fixative is one container labeled with the patient's name and designated antrum biopsy. The specimen consists of one irregular fragment of light cavazos soft tissue that measures 0.6 x 0.2 x 0.1 cm. The specimen is totally submitted in one cassette. / AM:farooq 08/04/18 TC:3 CPT: 75765 x2 HEADER OPERATION: Colonoscopy, EGD ([facility]) PRE-OP DIAGNOSIS: Abdomen pain and abnormal CT scan TISSUE SUBMITTED: A - Biopsy of small intestine, B - Biopsy of antrum for H. pylori and path MICROSCOPIC DESCRIPTION Slides are reviewed. B. The specimen shows fragments of gastric mucosa with chronic inflammatory cell infiltrates in the lamina propria consisting of lymphocytes and plasma cells, consistent with mild chronic gastritis. A few minute lymphoid aggregates are noted, favor benign. MICROSCOPIC DIAGNOSIS A. Small intestine, biopsy: A fragment of small intestinal mucosa, no pathologic diagnosis. B. Antrum, biopsy: Mild gastritis. Minute lymphoid aggregates, favor benign. See microscopic description and comment. SJ:farooq 08/07/18 Signed Dmitry Vera MD 08/07/18 <signature on file> Performed By: #### PEGD #### [facility] [address] [place], [address] IMMUNOHISTOCHEMISTRY Observed: 08/04/2018 Status: F Source: [place] 8:00 AM [facility] REPOSITORY Patient: GIANCARLO MARTIN : 1965 (53/M) Acct Num: [id number] Phys: Hima RON,Tahir Unit Num: [id number] Loc: EN Specimen: [id number] Received: 08/07/18 - 1004 Spec Type: IMMUNO TISSUES 1 TISSUES: B. Stomach, NOS SPECIMEN INFORMATION: Tissue Source: B - Biopsy of antrum Clinical Info: Abdomen pain, abnormal CT scan Specimen Number: [id number] CPT code: 48234 METHODOLOGY: Deparaffinized sections of prefer/formalin-fixed tissue or PAP/DQ stained slides are incubated with monoclonal/polyclonal antibodies/oligonucleotide probes. Localization is made via biotin free immunoperoxidase method. Appropriate controls are performed and reacted as expected. Results on target cell population are indicated in the following table: RESULTS: ANTIBODY / CLONE RESULT Block B H Pylori (polyclonal) negative These tests were developed and their performance characteristics determined by [facility]. They may not have been cleared or approved by the U.S. Food and Drug Administration. The FDA has determined that such clearance or approval is not necessary. INTERPRETATION: B. Antrum, biopsy: Negative for Helicobacter pylori organisms. SJ:farooq 08/07/18 PHYSICIAN AND INSTITUTION [address] [address] Signed Dmitry Vera MD 08/07/18 <signature on file> Performed By: #### PIMM #### [facility] [address] [place] [address] Observed: 07/25/2018 Status: F Source: [place] CDIFF (MOLECULAR) 11:28 AM [facility] REPOSITORY Cdiff-Molecular Normal Reference Range = Negative C. Diff DNA Negative- No toxigenic C. Diff DNA Detected NAAT METHOD Testing was performed using nucleic acid amplification Performed By: #### [id number] #### [facility] [address] [place] [address] SURGERY VISIT REPORT Observed: 07/18/2018 Status: F Source: [place] 7:16 AM [facility] REPOSITORY [facility] [address] [place] [address] [address] [place] [address] OFFICE VISIT Date of Service: 07/17/18 MR#: [id number] Acct: [id number] Name: GIANCARLO MARTIN Rep #: [id number] : 1965 Provider: Tahir Rabago MD Age/Sex: 53/M Location: [facility] Status: Signed Intake Vital Signs07/17/18 Height 5 ft 6 in 07/17/18 Weight: 220 lb Intake Visit Reasons: Abdominal Pain Chief Complaint: follow-up visit Ecdis N Navigation Operator Required: No Is patient in pain?: Yes [...] BID #20 tab 07/08/18 [Rx Confirmed 07/17/18] [facility] Medical History History of stomach ulcers (Acute) [...] time the patient had been seen in [facility]'s emergency department on 07/07/2018. The CAT [...] person, oriented to place, oriented to time [facility] Head: normocephalic, atraumatic Ears: external ears normal [...] VISIT REPORT Observed: 07/10/2018 Status: F Source: [place] 8:21 AM [facility] [address] [place] [address] OFFICE VISIT Date of Service: 07/08/18 MR#: [id number] Acct: [id number] Name: GIANCARLO MARTIN Rep #: [id number] : 1965 Provider: Tahir Rabago MD Age/Sex: 53/M Location: [facility] Status: Signed Intake Vital Signs07/08/18 Body Mass Index (BMI) 37.0 07/08/18 Height 5 ft 6 in 07/08/18 Weight: 220 lb Intake Visit Reasons: Abdominal Pain Chief Complaint: follow-up visit Ecdis N Navigation Operator Required: No Is patient in pain?: Yes [...] BID #20 tab 07/08/18 [Rx Confirmed 07/08/18] [facility] Medical History History of stomach ulcers (Acute) [...] abdominal pain. Patient was seen and was [facility]'s emergency department on 07/07/2018 a CAT scan [...] person, oriented to place, oriented to time [facility] Head: normocephalic, atraumatic Ears: external ears normal [...] Tahir Rabago MD> Date Tahir Rabago MD [facility] Signature: Date (if applicable) CC: Jere Jain MD EMERGENCY DEPARTMENT Observed: 07/07/2018 Status: F Source: [place] SUMMARY 10:56 PM [facility] REPOSITORY [facility] Medical Records Department [address] [place] [address] Emergency Department Summary 07/07/18 1544 MR#: [id number] Acct: [id number] Name: GIANCARLO MARTIN Rep #: [id number] : 1965 53 From: Ana Villanueva MD [...] Abdominal pain This note was generated with Curioos dictation software. It may contain incorrect words, [...] problems, contact your Primary Care Provider. Call [facility] ([phone]) or report to the closest Emergency Room. Call 911 if necessary. 07/07/18 6956 <Electronically signed by Ana Villanueva MD> Date Ana Villanueva MD Cosigner Signature (If Indicated): Date CC: Jere Jain MD DISCHARGE INSTRUCTION Observed: 07/07/2018 Status: F Source: MANNY 8:29 PM [facility] REPOSITORY [facility] Medical Records Department [address] [place] [address] Discharge Instruction 07/07/182028 MR#: [id number] Acct: [id number] Name: VERONICAGIANCARLO R Rep #: [id number] : 1965 53 From: Ana Villanueva MD [...] your Primary Care Provider. Call [facility] ([phone]) or report to the closest Emergency Room. Call 911 if necessary. 07/07/182028 <Electronically signed by Ana Villanueva MD> Date Ana Villanueva MD Cosigner Signature (If Indicated): Date CC: Jere Jain MD LACTIC ACID Collected: 07/07/2018 Status: F Source: [place] 6:00 PM [facility] REPOSITORY Order Comment: Yes/No query for Sepsis Lactate Rule Y TYPE CODE TESTS RESULT OUT OF RANGE REFERENCE UNITS LAB L503.6005 0.4-2.0 mmol/L Normal LACTIC ACID 0.8 Performed By: #### L503.6005 #### [facility] [address] [facility], [address] CT ANGIO ABD AND Observed: 07/07/2018 Status: F Source: MANNY PEL W/O AND W/DYE 5:59 PM [facility] REPOSITORY [facility] Imaging Services [address] [place] [address] CT ANGIO ABD AND PEL W/O AND W/DYE MR#: [id number] Acct: [id number] Name: GIANCARLO MARTIN Rep #: [id number] : 1965 M 53 From: Sandie Sifuentes MD PCP: Jere Jain MD Status: REG ER Study: CT ANGIO ABD AND PEL W/O AND W/DYE Date of Exam: 07/07/18 Exam# [id number] Ordering Dr: Ana Villanueva MD STUDY: CTA [...] CC: Jere Jain MD; Ana Villanueva MD Helicopter Utility Aircrewman: Signed URINALYSIS, COMPLETE Collected: 07/07/2018 Status: F Source: MAN[place] 3:45 PM [facility] REPOSITORY Order Comment: Order Date: 07/07/18 Has [...] URINE SEEN Performed By: #### L400.0001 #### [facility] [address] [facility], [address] ABDOMEN/PELVIS WITHOUT Observed: 07/07/2018 Status: F Source: [place] CONT 3:13 PM [facility] REPOSITORY [facility] Imaging Services [address] [place] [address] Abdomen/Pelvis without Cont MR#: [id number] Acct: [id number] Name: GIANCARLO MARTIN Rep #: [id number] : 1965 M 53 From: Sandie Sifuentes MD PCP: Jere Jain MD Status: REG ER Study: Abdomen/Pelvis without Cont Date of Exam: 07/07/18 Exam# [id number] Ordering Dr: Ana Villanueva MD STUDY: CT [...] CC: Jere Jain MD; Ana Villanueva MD Helicopter Utility Aircrewman: Signed BASIC METABOLIC Collected: 07/07/2018 Status: F Source: MAN[place] PROFILE (BMP) 2:40 PM [facility] REPOSITORY TYPE CODE TESTS RESULT OUT OF [...] Performed By: #### L500.2500, L500.3400, L501.2450 #### [facility] [address] [place], [address] LIVER PROFILE Collected: 07/07/2018 Status: F Source: [place] 2:40 PM [facility] REPOSITORY TYPE CODE TESTS RESULT OUT OF [...] Performed By: #### L500.2500, L500.3400, L501.2450 #### [facility] [address] [place], [address] LIPASE Collected: 07/07/2018 Status: F Source: [place] 2:40 PM [facility] REPOSITORY TYPE CODE TESTS RESULT OUT OF RANGE REFERENCE UNITS LAB L501.2450 73-393 U/L Normal LIPASE 117 Performed By: #### L500.2500, L500.3400, L501.2450 #### [facility] [address] [place], [address] CBC W/DIFF, AUTOMATED Collected: 07/07/2018 Status: C Source: [place] 2:40 PM [facility] REPOSITORY TYPE CODE TESTS RESULT OUT OF [...] Dmitry Vera M.D. 07/11/18 AMENDED REPORT 07/11/18 1435 PATH REV previously reported as: Mary Ellen aburto Performed By: #### L100.0100 #### [facility] [address] [place], [address] BASIC METABOLIC Collected: 06/27/2018 Status: F Source: [place] PROFILE (BMP) 8:38 AM [facility] REPOSITORY TYPE CODE TESTS RESULT OUT OF [...] GAP 5 Performed By: #### L500.2500 #### [facility] [address] [place], [address] INTERNAL MEDICINE Observed: 06/13/2018 Status: F Source: [place] OFFICE VISIT 4:53 PM [facility] REPOSITORY [facility] [address] [place] [address] [place] [address] OFFICE VISIT Date of Service: 06/12/18 MR#: [id number] Acct: [id number] Name: GIANCARLO MARTIN Rep #: [id number] : 1965 Provider: Jere Jain MD Age/Sex: 53/M Location: [facility] Status: Signed Intake Vital Signs06/12/18 Height 5 [...] Affect: normal affect Office Meds Flucelvax Quad 2350-8003 (PF) Performing Provider: Jere Jain MD Administered by: Laura Cavanaugh on 06/12/18 16:06 Dose Route Admin Location Lot Number Expiration Date [facility] Electronic Engraver 60 mcg IM left deltoid [id number] 02/04/19 22967-670-44 [place]. Assessment AND Plan 1. Essential hypertension I10 [...] shot given. This note was generated with Curioos dictation software. It may contain incorrect words, spelling, and punctuation that were not noted in checking the note before signing. Orders Orders: Medications Discontinued: Flucelvax Quad 5543-9689 (PF) (flu vac qs 2018(4 yr up60 [...] ABDOMEN COMPLETE Observed: 04/17/2018 Status: F Source: [place] 10:21 AM [facility] REPOSITORY [facility] Imaging Services [address] [place] [address] Abdomen Complete MR#: [id number] Acct: [id number] Name: GIANCARLO MARTIN Rep #: [id number] : 1965 M 53 From: Jeronimo Nettles DO PCP: Jere Jain MD Status: REG CLI Study: Abdomen Complete Date of Exam: 04/17/18 Exam# [id number] Ordering Dr: Jere Jain MD STUDY: ABDOMINAL [...] Service support , CC: Jere Jain MD Helicopter Utility Aircrewman: Signed INTERNAL MEDICINE Observed: 04/13/2018 Status: F Source: [place] OFFICE VISIT 3:44 PM [facility] REPOSITORY [facility] [address] [place] [address] OFFICE VISIT Date of Service: 04/12/18 MR#: [id number] Acct: [id number] Name: GIANCARLO MARTIN Rep #: [id number] : 1965 Provider: Jere Jain MD Age/Sex: 53/M Location: [facility] Status: Signed Intake Vital Signs04/12/18 Height 5 [...] with urology. This note was generated with Curioos dictation software. It may contain incorrect words, [...] GASTRIC EMPTYING Observed: 03/31/2018 Status: F Source: [place] STUDY 10:32 AM [facility] REPOSITORY [facility] Imaging Services [address] [place] [address] [place] [address] Gastric Emptying Study MR#: [id number] Acct: [id number] Name: GIANCARLO MARTIN Jeanine Rep #: [id number] : 1965 M 53 From: Ramses Davis DO PCP: Jere Jain MD Status: REG CLI Study: Gastric Emptying Study Date of Exam: 03/31/18 Exam# [id number] Ordering Dr: Jere Jain MD CLINICAL: 53-year-old [...] throughout all components of the examination. (Johnathan esposito al, J Nucl Med Tech 38: 186, 2010). Electronically Signed: Ramses Davis DO at 12:56 EDT Tel , Service support , CC: Jere Jain MD Helicopter Utility Aircrewman: Signed INTERNAL MEDICINE Observed: 03/15/2018 Status: F Source: [place] OFFICE VISIT 7:04 PM [facility] [address] [place] [address] [place] [address] OFFICE VISIT Date of Service: 03/15/18 MR#: [id number] Acct: [id number] Name: SAEID MARTINBRODERICK Solorzano Rep #: [id number] : 1965 Provider: Jere Jain MD Age/Sex: 53/M Location: [facility] Status: Signed Intake Vital Signs03/15/18 Height 5 [...] BID #80 g 03/15/18 [Rx Confirmed 03/15/18] PFS Medical History Alcohol dependence (Chronic) Obesity (Chronic) [...] 2 weeks. This note was generated with SmartVineyardation software. It may contain incorrect words, spelling, [...] F Source: MANNY OFFICE VISIT 1:23 PM [facility] REPOSITORY [facility] [place] [address] OFFICE VISIT Date of Service: 02/15/18 MR#: [id number] Acct: [id number] Name: GIANCARLO MARTIN Jeanine Rep #: [id number] : 1965 Provider: Fabio Cueto ANESTHESIA TECHNICIAN Age/Sex: 53/M Location: [facility] Status: Signed Intake Vital Signs02/15/18 Height 5 [...] to heat. Patient advised if needed to vegetable picker jiwk-fbk-shakjmo nondrowsy antihistamine and topical hydrocortisone cream. Patient educated to try to avoid he can use cold water compresses as needed for relief. This note was generated with Curioos dictation software. It may contain incorrect words, [...] F Source: MAN[place] PROFILE (BMP) 10:27 AM [facility] REPOSITORY TYPE CODE TESTS RESULT OUT OF [...] GAP 8 Performed By: #### L500.2500 #### [facility] [address] [place], [address] INTERNAL MEDICINE Observed: 02/14/2018 Status: F Source: [place] OFFICE VISIT 8:48 AM [facility] REPOSITORY [facility] [address] [place] [address] [place] [address] OFFICE VISIT Date of Service: 02/09/18 MR#: [id number] Acct: [id number] Name: GIANCARLO MARTIN Rep #: [id number] : 1965 Provider: Fabio Cueto NP Age/Sex: 53/M Location: [facility] Status: Signed Intake Vital Signs02/09/18 Height 5 ft 7 in 02/09/18 Weight: [...] #16 g 09/29/17 [Rx Confirmed 01/25/18] Hydrocodone/Acetaminophen [Birmingham 5-325 Tablet] 1 - 2 ea PO [...] d/cing lisinopril. This note was generated with Curioos dictation software. It may contain incorrect words, spelling, and punctuation that were not noted in checking the note before signing. 4. Left-sided thoracic back pain M54.6 Plan Continues to improve with conservative management. Encouraged to use ice. Patient is currently on FMLA leave. Plan Detail Other Medications New: compression stocking, knee high,regular -02 mmHG wear daily for venous insufficency h,medium Follow Up 1 Week Coding Level of Care Code Off vis,est,level 3 Diagnoses Orthostatic hypotension I95.1 Dizziness R42 HTN (hypertension) I10 Left-sided thoracic back pain M54.6 02/14/18 0848 <Electronically signed by Fabio SERNA> Date Fabio SERNA Cosigner Signature: Date (if applicable) CC: INTERNAL MEDICINE Observed: 02/01/2018 Status: F Source: MANNY OFFICE VISIT 5:15 PM [facility] [address] [place] [address] OFFICE VISIT Date of Service: 02/01/18 MR#: [id number] Acct: [id number] Name: GIANCARLO MARTIN Rep #: [id number] : 1965 Provider: Fabio Cueto NP Age/Sex: 53/M Location: [facility] Status: Signed Intake Vital Signs02/01/18 Height 5 [...] #16 g 09/29/17 [Rx Confirmed 01/25/18] Hydrocodone/Acetaminophen [B[place] 5-325 Tablet] 1 - 2 ea PO 4X/DAY PRN PRN 5 Days #20 tab 01/25/18 [Rx] cyclobenzaprine 10 mg tablet 5 mg PO TID PRN #20 tab 02/01/18 [Rx Confirmed 02/01/18] hydrochlorothiazide 25 mg tablet 12.5 mg PO QDAY tab 02/01/18 [History] [facility] Medical History Alcohol dependence (Chronic) Obesity (Chronic) [...] GERD and obesity. Patient was seen at [facility] emergency department on January 25 for a fall that occurred at work. Patient was recently started on Flomax by Dr. Ornelas. Emergency department visit revealed no fractures only contusion, the patient was given Birmingham for the pain. Patient presents today with [...] Dizzinesses R42 Plan Patient instructed to take Birmingham at bedtime. Throughout the day he can [...] orthostatic vitals. This note was generated with Curioos dictation software. It may contain incorrect words, spelling, and punctuation that were not noted in checking the note before signing. Orders Orders: Medications New: Plan Detail Follow Up 1 Week Coding Level of Care Code Off vis,est,level 3 Diagnoses Muscle spasm of left shoulder M62.838 Left-sided thoracic back pain M54.6 Dizzinesses R42 02/01/18 2251 <Electronically signed by Fabio SERNA> Date Fabio SERNA Cosigner Signature: Date (if applicable) CC: 12 LEAD ELECTROCARDIOGRAM Observed: 01/30/2018 Status: F Source: [place] 10:46 AM [facility] Cardiovascular Services [address] [place] [address] 12 Lead EKG 01/25/18 1004 MR#: [id number] Acct: [id number] Name: GIANCARLO MARTIN Rep #: [id number] : 1965 53 From: Tahir Farah MD [...] Normal ECG Confirmed by TAHIR FARAH ([id number]), editor magazine LORI MASCORRO ([id number]) on 01/30/2018 10:46:20 AM Referred By: Jere Jain Confirmed By:TAHIR FARAH 01/30/18 1046 Date Tahir Farah MD CC: Jere Jain MD; Giancarlo Navarro MD Signed EMERGENCY DEPARTMENT Observed: 01/25/2018 Status: F Source: [place] SUMMARY 7:00 PM [facility] Medical Records Department [address] [place] [address] Emergency Department Summary 01/25/18 1317 MR#: [id number] Acct: [id number] Name: GIANCARLO MARTIN Rep #: [id number] : 1965 53 From: Giancarlo Navarro MD [...] with no acute changes. Is unchanged since 2014. CBC is more for white count of [...] Push fluids. He will be discharged with Birmingham and incentive spirometer. Instructed to follow-up with Dr. Jain in 1 week if his ribs are not improving. Return to the emergency department for any worsening symptoms. Disposition: To home in improved and stable condition. Impression: 1. Syncope. 2. Orthostatic hypotension due to Flomax. 3. Dehydration. 4. Contusion upper back. This note was generated with Curioos dictation software. It may contain incorrect words, spelling, and punctuation that were not noted in review of the chart prior to signing ED Disposition - Plan for ED Patient: Disposition: Home or Assisted Living Chief Complaint: Syncope Instructions: ED Hypotension Orthostatic, ED Contusion Vs Minor Fx Rib Prescriptions: Hydrocodone/Acetaminophen [Birmingham 5-325 Tablet] 1 - 2 each PO [...] your Primary Care Provider. Call [facility] ([phone]) or report to the closest Emergency Room. Call 911 if necessary. 01/25/18 1900 <Electronically signed by Giancarlo Navarro MD> Date Giancarlo Navarro MD Cosigner Signature (If Indicated): Date CC: Jere Jain MD CBC W/DIFF, AUTOMATED Collected: 01/25/2018 Status: F Source: MAN[place] 10:40 AM [facility] REPOSITORY TYPE CODE TESTS RESULT OUT OF [...] Lymph 0.89 Performed By: #### L100.0100 #### [facility] [address] [place], [place], [address] BASIC METABOLIC Collected: 01/25/2018 Status: F Source: [place] PROFILE ([facility]) 10:40 AM [facility] REPOSITORY TYPE CODE TESTS RESULT OUT OF [...] 6 Performed By: #### L500.2500, L501.4010 #### [facility] [address] [facility] [place], [place], [address] TROPONIN-I Collected: 01/25/2018 Status: F Source: [place] 10:40 AM [facility] REPOSITORY TYPE CODE TESTS RESULT OUT OF RANGE REFERENCE UNITS LAB L501.4010 <0.045 ng/mL Normal < 0.015 TROPONIN-I Result Comment: TROPONIN-I EXPECTED VALUES <0.045 Negative 0.045 - 0.590 Consistent with Cardiac Damage > OR = 0.600 Critical Value Not every elevated troponin is indicative of WI. These values should be used with clinical judgement in examining the patient's clinical picture for diagnosis. To establish a diagnosis of WI versus myocardial injury, there must be a demonstrated rise and/or fall in the troponin values, in addition to ischemic symptoms, EKG changes, new regional wall motion abnormality, and/or angiographical evidence. PLEASE NOTE: REFERENCE RANGES EDITED 17 Performed By: #### L500.2500, L501.4010 #### [facility] [address] [place], [place], [address] BRAIN/HEAD WITHOUT Observed: 01/25/2018 Status: F Source: [place] CONTRAST 10:28 AM [facility] REPOSITORY [facility] Imaging Services [address] [place] [address] Brain/Head without Contrast MR#: [id number] Acct: [id number] Name: GIANCARLO MARTIN Rep #: [id number] : 1965 M 53 From: Long Molina MD PCP: Jere Jain MD Status: REG ER Study: Brain/Head without Contrast Date of Exam: 01/25/18 Exam# [id number] Ordering Dr: Giancarlo Navarro MD STUDY: CT [...] Long Molina MD at 13:55 EDT Tel [phone], Service support , CC: Jere Jain MD; Giancarlo Navarro MD Helicopter Utility Aircrewman: Signed RIBS UNI MIN 3V Observed: 01/25/2018 Status: F Source: MAN[place] W/PA CHEST 10:28 AM [facility] REPOSITORY [facility] Imaging Services [address] [place] [address] Ribs Uni Min 3V w/PA Chest MR#: [id number] Acct: [id number] Name: GIANCARLO MARTIN Rep #: [id number] : 1965 M 53 From: Emerson Jernigan MD PCP: Jere Jain MD Status: DEP ER Study: Ribs Uni Min 3V w/PA Chest Date of Exam: 01/25/18 Exam# [id number] Ordering Dr: Giancarlo Navarro MD STUDY: X-RAY [...] CC: Jere Jain MD; Giancarlo Navarro MD Helicopter Utility Aircrewman: Signed BASIC METABOLIC Collected: 01/23/2018 Status: F Source: MAN[place] PROFILE (BMP) 3:48 PM [facility] REPOSITORY TYPE CODE TESTS RESULT OUT OF [...] GAP Performed By: #### L500.2500, L500.4100 #### [facility] [address] [place], [address] LIPID PROFILE Collected: 01/23/2018 Status: F Source: [place] 3:48 PM [facility] REPOSITORY TYPE CODE TESTS RESULT OUT OF [...] 47 Performed By: #### L500.2500, L500.4100 #### [facility] [address] [place], [address] PROSTATE BIOPSY Observed: 01/05/2018 Status: F Source: [place] BILATERAL 8:00 AM [facility] REPOSITORY Patient: GIANCARLO MARTIN : 1965 (53/M) Acct Num: [id number] Phys: Ceci RON,James Humphreys Unit Num: [id number] Loc: [facility]SPEC Specimen: [id number] Received: 01/05/18 - 1638 Spec Type: PROST BX TISSUES TISSUES: A. [...] is totally submitted in one cassette. / AM:rg 6/1/18 TC:5 CPT: 45561 x6 HEADER OPERATION: Prostate biopsy PRE-OP DIAGNOSIS: [...] core biopsy: Prostatic tissue, negative for malignancy. SJ:farooq 01/12/18 PSA RESULTS Date Time Test Result Flag (u) Normal Range 03/04/17 1018 PSA,TOT SCREEN 5.00 H 0.00-4.00 ng/mL This test was performed using the TPSA assay method for the [employer] chemistry system. Values obtained with different assay methods cannot be used interchangably. When changing PSA assays in the course of monitoring a patient, additional sequential testing should be carried out to confirm baseline values. Date Time Test Result Flag (u) Normal Range 11/01/17 1610 PSA, DIAGNOSTIC 6.02 H 0.0-4.0 ng/mL This test was performed using the TPSA assay method for the [employer] chemistry system. Values obtained with different assay methods cannot be used interchangably. When changing PSA assays in the course of monitoring a patient, additional sequential testing should be carried out to confirm baseline values. Signed Dmitry Vera 01/12/18 <signature on file> Performed By: #### PPROSBIL #### [facility] [address] [place], [address] KIDNEY AND BLADDER Observed: 11/23/2017 Status: F Source: [place] 4:11 PM [facility] REPOSITORY [facility] Imaging Services [facility] [place] [address] Kidney and Bladder MR#: [id number] Acct: [id number] Name: GIANCARLO MARTIN Rep #: [id number] : 1965 M 52 From: Long Molina MD PCP: Jere Jain MD Status: REG CLI Study: Kidney and Bladder Date of Exam: 11/23/17 Exam# [id number] Ordering Dr: Meli Elias ANESTHESIA TECHNICIAN-C STUDY: RENAL ULTRASOUND - COMPLETE REASON FOR [...] Long Molina MD at 8:26 EDT Tel [phone], Service support , CC: Jere Jain MD; Meli Elias NP Helicopter Utility Aircrewman: Signed PSA,TOTAL- DIAGNOSTIC Collected: 11/01/2017 Status: F Source: [place] 4:10 PM [facility] REPOSITORY TYPE CODE TESTS RESULT OUT OF REFERENCE UNITS RANGE LAB L501.9940 0.0-4.0 ng/mL PSA, High DIAGNOSTIC 6.02 Result Comment: This test was performed using the TPSA assay method for the [employer] chemistry system. Values obtained with different assay methods cannot be used interchangably. When changing PSA assays in the course of monitoring a patient, additional sequential testing should be carried out to confirm baseline values. Performed By: #### L501.9940 #### [facility] [address] [place], [address] INTERNAL MEDICINE Observed: 11/01/2017 Status: F Source: [place] OFFICE VISIT 8:25 AM [facility] REPOSITORY [facility] [address] [place] [address] [place] [address] OFFICE VISIT Date of Service: 10/27/17 MR#: [id number] Acct: [id number] Name: GIANCARLO MARTIN Rep #: [id number] : 1965 Provider: Jere Jain MD Age/Sex: 52/M Location: [facility] Status: Signed Intake Vital Signs10/27/17 Height 5 [...] QDAY #30 tab 09/29/17 [Rx Confirmed 09/29/17] PFSH Medical History Alcohol dependence (Chronic) Obesity [...] acute distress Orientation: alert, awake, oriented x3 [facility] Head: atraumatic, normocephalic Ears: hearing grossly normal [...] Will follow. This note was generated with SmartVineyardation software. It may contain incorrect words, spelling, [...] INTERNAL MEDICINE Observed: 09/29/2017 Status: F Source: [place] OFFICE VISIT 11:49 AM [facility] [address] [address] OFFICE VISIT Date of Service: 09/29/17 MR#: [id number] Acct: [id number] Name: GIANCARLO MARTIN Rep #: [id number] : 1965 Provider: Fabio Cueto NP Age/Sex: 52/M Location: [facility] Status: Signed Intake Vital Signs09/29/17 Height 5 [...] QDAY #30 tab 09/29/17 [Rx Confirmed 09/29/17] PFSH Medical History Alcohol dependence (Chronic) Obesity [...] relief. He has not tried any other pdmh-pgn-kmdihii treatments. He does state that he has [...] oriented x3 Limitations: mental status not altered [facility] Head: normal to inspection Ears: hearing grossly [...] FLU A AND B Last Edit by DAPHNE Sylvester on 09/29/17 11:45 Assessment AND Plan Problems [...] Work excuse given for today and tomorrow. Cherelleon disclaimer Orders Orders: Medications New: codeine-guaifenesin 10-100 [...] R05 09/29/17 1149 <Electronically signed by Fabio SERNA> Date Fabio SERNA Cosigner Signature: Date (if applicable) CC: INTERNAL MEDICINE Observed: 09/13/2017 Status: F Source: MAN[place] OFFICE VISIT 3:41 PM [facility] [address] [place] [address] OFFICE VISIT Date of Service: 09/13/17 MR#: [id number] Acct: [id number] Name: GIANCARLO MARTIN Rep #: [id number] : 1965 Provider: Fabio Cueto NP Age/Sex: 52/M Location: [facility] Status: Signed Intake Vital Signs09/13/17 Body Mass [...] TID #21 tab 09/13/17 [Rx Confirmed 09/13/17] PFSH Medical History Alcohol dependence (Chronic) Obesity [...] symptoms. He has not tried any other wbro-ygx-upsujqz treatments. He feels that his symptoms are [...] oriented x3 Limitations: mental status not altered [facility] Head: normal to inspection Ears: hearing grossly [...] for the pain including the use of gmoz-tgs-ptlzpcb calamine lotion and the use of ibuprofen [...] require urgent medical attention. Patient verbalized understanding. 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 09/13/17 1541 <Electronically signed by Fabio SERNA> Date Fabio Cueto NP-C Cosigner Signature: Date (if applicable) CC: ALLERGIES ALLERGIES DATE TYPE / CODE NAME / CODE REACTION SEVERITY SOURCE 08/17/2018 Drug shellfish Anaphylaxis Unknown Manny Allergy/416 derived/[id number] [facility] 220698([place] [address](RXNORM) [facility] ED [place]) Repository ENCOUNTERS ENCOUNTERS ADMIT/DISCHARGE ACCOUNT ADMITTING ENCOUNTER LOCATION SOURCE NUMBER CLASS 08/17/2018/ [id number] Ambulatory BMSBuilding:B M[place] 9 8 [facility] Repository 08/04/2018/ [id number] Ambulatory Manny Manny 8 5 [facility] ing:ENRoom: Repository [facility] 07/25/2018 [id number] Ambulatory Manny Manny 1 [facility] ing:LABSPEC Repository 07/17/2018/ [id number] Ambulatory BMSBuilding:B [place] 8 6 [facility] Repository 07/08/2018/ [id number] Ambulatory BMSBuilding:B [place] 8 1 [facility] Repository 07/07/2018/ [id number] Emergency Manny [place] 8 8 [facility] ing:ED Repository 06/27/2018 [id number] Ambulatory Manny [place] 6 [facility] ing:LAB Repository 06/12/2018/ [id number] Ambulatory BMSBuilding:B [place] 8 0 [facility] Repository 04/17/2018 [id number] Ambulatory Manny [place] 3 [facility] Hospital ing:US Repository 04/12/2018/ [id number] Ambulatory BMSBuilding:B [place] 8 7 [facility] Repository 03/31/2018 [id number] Ambulatory Manny Manny 7 [facility] Hospital ing:NM Repository 03/15/2018/ [id number] Ambulatory BMSBuilding:B [place] 8 6 [facility] Repository 02/15/2018/ [id number] Ambulatory BMSBuilding:B [place] 8 8 [facility] Repository 02/14/2018 [id number] Ambulatory [place] 9 [facility] Hospital ing:LAB Repository 02/09/2018/ [id number] Ambulatory BMSBuilding:B [place] 8 7 [facility] Repository 02/01/2018/ [id number] Ambulatory BMSBuilding:B [place] 8 5 [facility] Repository 01/25/2018 [id number] Ambulatory BMSBuilding:B [place] 3 [facility] Repository 01/25/2018/ [id number] Emergency [place] 7 [facility] Hospital ing:ED Repository 01/23/2018 [id number] Ambulatory [place] [facility] ing:LAB Repository 01/05/2018 [id number] Ambulatory [place] [facility] ing:LABSPEC Repository 11/29/2017/ [id number] Ambulatory BMSBuilding:B [place] 8 6 [facility] Repository 11/23/2017 [id number] Ambulatory [place] 1 [facility] ing:US Repository 11/01/2017 [id number] Ambulatory Manny [place] 8 [facility] ing:MTLAB Repository 10/27/2017/ [id number] Ambulatory BMSBuilding:B [place] 8 1 [facility] Repository 09/29/2017/ [id number] Ambulatory BMSBuilding:B [place] 8 2 [facility] Repository 09/13/2017/ [id number] Ambulatory BMSBuilding:B [place] 8 2 [facility] Repository PAYERS PAYERS ENCOUNTER GUARANTOR PAYER SUBSCRIBER SOURCE 08/17/2018 GIANCARLO Solorzano M[place] [id number] CAMP Insurance:ANTHEMPolic FUNKDOB: [facility] [place], [place] y Number: [id number] Hospital [address]Pea: (330) [id number] Repository [phone] () isaias Date:1030-95-56FM [address] [address]DT: 08/17/2018 Secondary NOT GIVENUNK Manny Insurance:SELF PAY [facility] Number: Effective Repository Date:2018-08-15 08/04/2018 GIANCARLO MONDRAGON R [place] [id number] CAMP Insurance:ANTHEMPolic FUNKDOB: [place] Number: [id number] Hospital [address]Vaz: (330) [id number] Repository [phone] () isaias Date:2198-82-54GE [address], [place] [address]EC: 08/04/2018 Secondary NOT GIVENUNK [place] Insurance:SELF PAY [facility] Number: Effective Repository Date:2018-07-17 07/25/2018 GIANCARLO MONDRAGON R M[place] [id number] CAMP Insurance:ANTHEMPolic FUNKDOB: [place] Number: [id number] Hospital 57541Tlg: (330) [id number] Repository [phone] () isaias Date:0259-66-64GD [address]ULPKFQW, [place] [address]IT: 07/25/2018 Secondary NOT GIVENUNK Manny Insurance:SELF PAY [facility] Number: Effective Repository Date:2018-07-25 07/17/2018 GIANCARLO Solorzano Primary GIANCARLO R Manny [id number] CAMP Insurance:ANTHEMPolic FUNKDOB: [place] Number: [id number] Hospital [address]Odb: (330) [id number] Repository [phone] (HP) isaias Date:8161-61-60LL [address]VPYAHKJ, [place] [address]YG: 07/17/2018 Secondary NOT GIVENUNK Manny Insurance:SELF PAY [facility] Number: Effective Repository Date:2018-07-14 07/08/2018 GIANCARLO R Primary GIANCARLO R [place] [id number] CAMP Insurance:ANTHEMPolic FUNKDOB: [place]: [id number] Hospital [address]Slf: (330) [id number] Repository [phone] (HP) isaias Date:3462-12-60FD [address]WSXWUUQ, [place] [address]WV: 07/08/2018 Secondary NOT GIVENUNK Manny Insurance:SELF PAY [facility] Number: Effective Repository Date:2018-07-08 07/07/2018 GIANCARLO R Primary GIANCARLO R [place] [id number] CAMP Insurance:ANTHEMPolic [place]OB[place] Number: [id number] Hospital [address]Foe: (330) [id number] Repository [phone] () iasias Date:5483-18-98IR [address]CSAPRU, [place] [address]NQ: 07/07/2018 Secondary NOT GIVENUNK Manny Insurance:SELF PAY [facility] Number: Effective Repository Date:2018-07-07 06/27/2018 GIANCARLO R Primary GIANCARLO R M[place] [id number] CAMP Insurance:ANTHEMPolic FUNKDOB: [place] Number: [id number] Hospital [address]Wzn: (330) [id number] Repository [phone] () isaias Date:9572-81-20YN [address]GPDAFAY, [place] [address]SS: 06/27/2018 Secondary NOT GIVENUNK Manny Insurance:SELF PAY [facility] Number: Effective Repository Date:2018-06-27 06/12/2018 GIANCARLO R Primary GIANCARLO R [place] [id number] CAMP Insurance:ANTHEMPolic FUNKDOB: [facility] Number: [id number] Hospital 116[address]Yny: (330) [id number] Repository [phone] () isaias Date:3841-79-02AD [address] [address]GT: 06/12/2018 Secondary NOT GIVENUNK Manny Insurance:SELF PAY [facility] Number: Effective Repository Date:2018-06-12 04/17/2018 GIANCARLO Solorzano Primary GIANCARLO R [place] [id number] CAMP Insurance:ANTHEMPolic FUNKDOB: [facility] Number: [id number] Hospital [address]Exq: (330) [id number] Repository [phone] () isaias Date:1875-42-40CF [address]JGWFNEL, [place] [address]MK: 04/17/2018 Secondary NOT GIVENUNK Manny Insurance:SELF PAY [facility] Number: Effective Repository Date:2018-04-12 04/12/2018 GIANCARLO Solorzano Primary GIANCARLO R Manny [id number] CAMP Insurance:ANTHEMPolic FUNKDOB: [facility] [place] Number: [id number] Hospital [address]Dzd: (330) [id number] Repository [phone] () isaias Date:6423-34-22ZK [address]LSSGGISMARG[address] MART[address] [address]JM: 04/12/2018 Secondary NOT GIVENUNK Manny Insurance:SELF PAY [facility] Number: Effective Repository Date:2018-04-12 03/31/2018 GIANCARLO Solorzano Primary GIANCARLO R [place] [id number] CAMP Insurance:ANTHEMPolic FUNKDOB: [facility], [place] Number: [id number] Hospital [address]Vfy: (330) [id number] Repository [phone] () isaias Date:6477-67-83RB [address]WFAHHGDM[address]ITA [address]ART[address] [address]DU: 03/31/2018 Secondary NOT GIVENUNK [place] Insurance:SELF PAY [facility] Effective Repository Date:2018-03-16 03/15/2018 GIANCARLO R Primary GIANCARLO R M[place] [id number] CAMP Insurance:ANTHEMPolic FUNKDOB: [place]: [id number] Hospital [address]Ris: (330) [id number] Repository [phone] () isaias Date:3785-19-89WY [address] [place] [address]MH: 03/15/2018 Secondary NOT GIVENUNK [place] Insurance:SELF PAY [facility] Number: Effective Repository Date:2018-03-15 02/15/2018 GIANCARLO Solorzano Primary GIANCARLO R Manny [id number] CAMP Insurance:ANTHEMPolic FUNKDOB: [place] Number: [id number] Hospital [address]Uai: (330) [id number] Repository [phone] () isaias Date:3638-34-68MK [address] [place] [address]UO: 02/15/2018 Secondary NOT GIVENUNK Manny Insurance:SELF PAY [facility] Number: Effective Repository Date:2018-02-15 02/14/2018 GIANCARLO Solorzano Primary GIANCARLO R Manny [id number] CAMP Insurance:ANTHEMPolic FUNKDOB: [place] Number: [id number] Hospital [address]Mni: (330) [id number] Repository [phone] () isaias Date:0153-38-48SL [address] [place] [address]UI: 02/14/2018 Secondary NOT GIVENUNK [place] Insurance:SELF PAY [facility] Number: Effective Repository Date:2018-02-14 02/09/2018 GIANCARLO Solorzano [facility] GIANCARLO R [place] [id number] CAMP Insurance:ANTHEMPolic FUNKDOB: [place] Number: [id number] Hospital [address]Dsp: (330) [id number] Repository [phone] () isaias Date:5000-79-57QL [address]WGNOJMM [place] [address]YT: 02/09/2018 Secondary NOT GIVENUNK [place] Insurance:SELF PAY [facility] Number: Effective Repository Date:2018-02-09 02/01/2018 GIANCARLO R Primary GIANCARLO R M[place] [id number] CAMP Insurance:ANTHEMPolic FUNKDOB: [facility] Number: [id number] Hospital [address]Vwm: (330) [id number] Repository [phone] () isaias Date:6838-04-89ZA [address]IUG[address] [place] [address]FP: 02/01/2018 Secondary NOT GIVENUNK Manny Insurance:SELF PAY [facility] Number: Effective Repository Date:2018-02-01 01/25/2018 GIANCARLO R Primary GIANCARLO R [place] [id number] CAMP Insurance:ANTHEMPolic FUNKDOB: [facility] [place] Number: [id number] Hospital 112[address]Yqi: (330) [id number] Repository [phone] () isaias Date:3095-07-45UV [address]AN [place] [address]EF: 01/25/2018 Secondary NOT GIVENUNK Manny Insurance:SELF PAY [facility] Number: Effective Repository Date:2017-10-27 01/25/2018 GIANCARLO Solorzano Primary GIANCARLO R Manny [id number] CAMP Insurance:ANTHEMPolic FUNKDOB: [facility] [place] Number: [id number] Hospital 148[address]Rcn: (330) [id number] Repository [phone] () isaias Date:5067-07-13AO [address]PDZVYIC [place] [address]XI: 01/25/2018 Secondary NOT GIVENUNK [place] Insurance:SELF PAY [facility] Number: Effective Repository Date:2018-01-25 01/23/2018 GIANCARLO R Primary GIANCARLO R Manny [id number] CAMP Insurance:ANTHEMPolic FUNKDOB: [facility] Number: [id number] Hospital 599[address]Kny: (330 [id number] Repository [phone] (HP) isaias Date:4926-06-70NI [address]ZIVDCZN [place] [address]AE: 01/23/2018 Secondary NOT GIVENUNK Manny Insurance:SELF PAY [facility] Number: Effective Repository Date:2018-01-23 01/05/2018 GIANCARLO R Primary GIANCARLO R [place] [id number] CAMP Insurance:ANTHEMPolic FUNKDOB: [place] Number: [id number] Hospital 328[address]Bnb: (330) [id number] Repository [phone] (HP) isaias Date:1381-81-42LB [address] [place] [address] [place] [address]RA: 01/05/2018 Secondary NOT GIVENUNK Manny Insurance:SELF PAY [facility] Number: Effective Repository Date:2018-01-05 11/29/2017 GIANCARLO R Primary GIANCARLO R [place] [id number] CAMP Insurance:ANTHEMPolic FUNKDOB: [place] Number: [id number] Hospital 609[address]Awz: (330) [id number] Repository [phone] () isaias Date:0817-03-33OF [address] [place] [address] [place] [address]HX: 11/29/2017 Secondary NOT GIVENUNK [place] Insurance:SELF PAY [facility] Number: Effective Repository Date:2017-11-29 11/23/2017 GIANCARLO R Primary GIANCARLO R [place] [id number] CAMP Insurance:ANTHEMPolic FUNKDOB: [place]: [id number] Hospital 07[address]Tdh: (330) [id number] Repository [phone] () isaias Date:4936-29-84FM [address]KBBGIWN, [place] [address]RC: 11/23/2017 Secondary NOT GIVENUNK Manny Insurance:SELF PAY [facility] Number: Effective Repository Date:2017-11-17 11/01/2017 GIANCARLO R Primary GIANCARLO R [place] [id number] CAMP Insurance:ANTHEMPolic [facility] [place] [place] Number: [id number] Hospital 336[address]Hru: (330) [id number] Repository [phone] () isaias Date:1463-21-25WO [address] [address]HS: 11/01/2017 Secondary NOT GIVENUNK [place] Insurance:SELF PAY [facility] Number: Effective Repository Date:2017-11-01 10/27/2017 GIANCARLO R Primary GIANCARLO R [place] [id number] CAMP Insurance:ANTHEMPolic [facility] [place] [place] Number: [id number] Hospital 53[address]Haz: (330) [id number] Repository [phone] () isaias Date:0237-79-62BZ [address]MLNGUGJ, [place] [address]YU: 10/27/2017 Secondary NOT GIVENUNK Manny Insurance:SELF PAY [facility] Number: Effective Repository Date:2017-10-27 09/29/2017 GIANCARLO R Primary GIANCARLO R Manny [id number] CAMP Insurance:ANTHEMPolic [facility] [place] [place] Number: [id number] Hospital [address]110[address]Tkh: (330) [id number] Repository [phone] () isaias Date:3725-14-53QF [address]OYNGALBMARGARITA MARTINS [address]BI: 09/29/2017 Secondary NOT GIVENUNK Manny Insurance:SELF PAY [facility] Number: Effective Repository Date:2017-09-29 09/13/2017 GIANCARLO R Primary GIANCARLO R [place] [id number] CAMP Insurance:ANTHEMPolic [facility] [place] Number: [id number] Hospital 18446Zxx: (330) [id number] Repository [phone] () isaias Date:9785-86-85TC [address]RZAHHQJ, [place] [address]AK: 09/13/2017 Secondary NOT GIVENUNK Manny Insurance:SELF PAY [facility] Number: Effective Repository Date:2017-09-12
== END ==
PROVIDERS: Family Provider Internal Medicine; PCP Internal Medicine; Referring Provider Surgery; Visit Provider Surgery
DX: R19.7 Diarrhea, unspecified (principal)
CPT/HCPCS: 87493

== ENCOUNTER 2018-08-04 06:55 | Day surgery (SDC) | payer BC, SELFPAY ==
[2018-07-17 13:49] VITALS: BMI 35.5
[2018-08-04 07:11] VITALS: BP 122/85; PULSE 75; RESP 16; TEMP 36.6; O2SAT 97; BMI 33.9
--- NOTE | 2018-08-04 08:00 | IMM_PTH ---
PATIENT: GIANCARLO MARTIN LOC: [facility] U#:[id number] AGE/SX: 53/M ROOM: RE08/04/[address]: Dr. Tahir Rabago MD : 1965 BED: DIS: 08/04/2018 SPEC #: [id number] RECD: 08/07/18 10:04 STATUS: KAT FRANCISCA #: [id number] HARHS: 08/04/18 08:[address]: Tahir Rabago DEPT: IMMUNOHISTOCHEMISTRY RECD BY: Chiara Reid ENTERED: 08/07/18 10:05 SP TYPE: IMMUNO OTHR DR: Dr. Jere Jain MD Tissues: B - Stomach, NOS Procedures: H Pylori (initial) PHYSICIAN & INSTITUTION [place] [id number] SPECIMEN INFORMATION: Tissue Source: B - Biopsy of antrum Clinical Info: Abdomen pain, abnormal CT scan Specimen Number: [id number] CPT code: 81397 METHODOLOGY: Deparaffinized sections of prefer/formalin-fixed tissue or PAP/DQ stained slides are incubated with monoclonal/polyclonal antibodies/oligonucleotide probes. Localization is made via biotin free immunoperoxidase method. Appropriate controls are performed and reacted as expected. Results on target cell population are indicated in the following table: RESULTS: ANTIBODY / CLONE RESULT Block B H Pylori (polyclonal) negative These tests were developed and their performance characteristics determined by [facility]. They may not have been cleared or approved by the U.S. Food and Drug Administration. The FDA has determined that such clearance or approval is not necessary. INTERPRETATION: B. Antrum, biopsy: Negative for Helicobacter pylori organisms. SJ:farooq 08/07/18
--- NOTE | 2018-08-04 08:00 | EGD_PTH ---
PATIENT: GIANCARLO MARTIN LOC: EN U#:[id number] AGE/SX: 53/M ROOM: RE08/04/[address]: Dr. Tahir Rabago MD : 1965 BED: DIS: 08/04/2018 SPEC #: [id number] RECD: 08/04/18 14:38 STATUS: KAT FRANCISCA #: [id number] HARSH: 08/04/18 08:[address]: Tahir Rabago DEPT: SURGICAL PATHOLOGY RECD BY: Ramses Jaimes ENTERED: 08/04/18 14:39 SP TYPE: EGD BIOPSY CLEOPATRA DR: Dr. Jere Jain MD Tissues: A - Small intestine biopsy B - Gastric mucous membrane Procedures: Surgery Specimen Level IV HEADER OPERATION: Colonoscopy, EGD ([facility]) PRE-OP DIAGNOSIS: Abdomen pain and abnormal CT scan TISSUE SUBMITTED: A - Biopsy of small intestine, B - Biopsy of antrum for H. pylori and path MICROSCOPIC DIAGNOSIS A. Small intestine, biopsy: A fragment of small intestinal mucosa, no pathologic diagnosis. B. Antrum, biopsy: Mild gastritis. Minute lymphoid aggregates, favor benign. See microscopic description and comment. SJ:[email or web address] 08/07/18 COMMENT B. The results of immunohistochemistry for Helicobacter pylori will be reported separately ([id number]). MICROSCOPIC DESCRIPTION Slides are reviewed. B. The specimen shows fragments of gastric mucosa with chronic inflammatory cell infiltrates in the lamina propria consisting of lymphocytes and plasma cells, consistent with mild chronic gastritis. A few minute lymphoid aggregates are noted, favor benign. GROSS DESCRIPTION A - Received in fixative is one container labeled with the patient's name and designated small bowel biopsy. The specimen consists of one irregular fragment of light cavazos soft tissue that measures 0.6 x 0.5 x 0.1 cm. The specimen is totally submitted in one cassette. B - Received in fixative is one container labeled with the patient's name and designated antrum biopsy. The specimen consists of one irregular fragment of light cavazos soft tissue that measures 0.6 x 0.2 x 0.1 cm. The specimen is totally submitted in one cassette. / AM:[email or web address] 08/04/18 TC:3 CPT: 65692 x2
[2018-08-04 08:31] VITALS: BP 116/91; BP 122/85; PULSE 96; RESP 16; TEMP 36.2; O2SAT 98
--- NOTE | 2018-08-04 08:34 | OP.ENDO_ITS ---
Patient Name: Nomi Gutiérrez Procedure Date: 08/04/2018 7:59 AM Date of : 1965 Age: 53 Procedure: Upper GI endoscopy Indications: Abnormal CT of the GI tract Providers: Tahir Rabago MD Referring MD: Jere Jain MD Medicines: See the Anesthesia note for documentation of the administered medications Patient Profile: This is a 53 year old male. Refer to note in patient chart for documentation of history and physical. Complications: No immediate complications. Procedure: Pre-Anesthesia Assessment: - Prior to the procedure, a History and Physical was performed, and patient medications and allergies were reviewed. The patient's tolerance of previous anesthesia was also reviewed. The risks and benefits of the procedure and the sedation options and risks were discussed with the patient. All questions were answered, and informed consent was obtained. Prior Anticoagulants: The patient has taken no previous anticoagulant or antiplatelet agents. ASA Grade Assessment: II - A patient with mild systemic disease. After reviewing the risks and benefits, the patient was deemed in satisfactory condition to undergo the procedure. After obtaining informed consent, the endoscope was passed under direct vision. Throughout the procedure, the patient's blood pressure, pulse, and oxygen saturations were monitored continuously. The gastroscope was introduced through the mouth, and advanced to the third part of duodenum. The upper GI endoscopy was accomplished without difficulty. The patient tolerated the procedure well. Scope In: 8:11:20 AM Scope Out: 8:14:13 AM Total Procedure Duration Time 0 hours 2 minutes 53 seconds Findings: The Z-line was regular and was found 39 cm from the incisors. A small hiatal hernia was present. The entire examined stomach was normal. Biopsies were taken with a cold forceps for Helicobacter pylori testing. The examined duodenum was normal. Biopsies for histology were taken with a cold forceps for evaluation of celiac disease. Impression: - Z-line regular, 39 cm from the incisors. - Small hiatal hernia. - Normal stomach. Biopsied. - Normal examined duodenum. Biopsied. Recommendation: - Await pathology results. - Repeat upper endoscopy at appointment to be scheduled for surveillance based on pathology results. - Return to my office in 1 week. - Continue present medications. Procedure Code(s): --- Professional --- 37619, Esophagogastroduodenoscopy, flexible, transoral; with biopsy, single or multiple Diagnosis Code(s): --- Professional --- K44.9, Diaphragmatic hernia without obstruction or gangrene R93.3, Abnormal findings on diagnostic imaging of other parts of digestive tract CPT copyright 2017 [employer]. All rights reserved. The codes documented in this report are preliminary and upon sewer cleaner review may be revised to meet current compliance requirements. MD Tahir Man MD 08/04/2018 8:33:36 AM This report has been signed electronically. Number of Addenda: 0 Note Initiated On: 08/04/2018 7:59 AM
[2018-08-04 08:35] VITALS: BP 114/86; BP 122/85; PULSE 83; RESP 16; O2SAT 97
--- NOTE | 2018-08-04 08:37 | OP.ENDO_ITS ---
Patient Name: Nomi Gutiérrez Procedure Date: 08/04/2018 8:14 AM Date of : 1965 Age: 53 Procedure: Colonoscopy Indications: Abdominal pain in the right upper quadrant, Abnormal CT of the GI tract Providers: Tahir Rabago MD Referring MD: Jere Jain MD Medicines: See the Anesthesia note for documentation of the administered medications Patient Profile: This is a 53 year old male. Refer to note in patient chart for documentation of history and physical. Last Colonoscopy: 2016. Complications: No immediate complications. Procedure: Pre-Anesthesia Assessment: - Prior to the procedure, a History and Physical was performed, and patient medications and allergies were reviewed. The patient's tolerance of previous anesthesia was also reviewed. The risks and benefits of the procedure and the sedation options and risks were discussed with the patient. All questions were answered, and informed consent was obtained. Prior Anticoagulants: The patient has taken no previous anticoagulant or antiplatelet agents. ASA Grade Assessment: II - A patient with mild systemic disease. After reviewing the risks and benefits, the patient was deemed in satisfactory condition to undergo the procedure. After I obtained informed consent, the scope was passed under direct vision. Throughout the procedure, the patient's blood pressure, pulse, and oxygen saturations were monitored continuously. The colonoscope was introduced through the anus and advanced to the cecum, identified by appendiceal orifice and ileocecal valve. The colonoscopy was performed without difficulty. The patient tolerated the procedure well. The quality of the bowel preparation was good. Scope In: 8:16:57 AM Scope Withdrawal Time 0 hours 6 minutes 3 seconds Scope Out: 8:27:45 AM Total Procedure Duration Time 0 hours 10 minutes 48 seconds Findings: Multiple small-mouthed diverticula were found in the sigmoid colon and descending colon. Non-bleeding internal hemorrhoids were found during retroflexion. The exam was otherwise without abnormality. Impression: - Diverticulosis in the sigmoid colon and in the descending colon. - Non-bleeding internal hemorrhoids. - The examination was otherwise normal. - No specimens collected. Recommendation: - Discharge patient to home. - Resume previous diet. - Repeat colonoscopy in 5 years for surveillance. - Return to my office in 1 week. - Continue present medications. Procedure Code(s): --- Professional --- 93930, Colonoscopy, flexible; diagnostic, including collection of specimen(s) by brushing or washing, when performed (separate procedure) Diagnosis Code(s): --- Professional --- K64.8, Other hemorrhoids R10.11, Right upper quadrant pain K57.30, Diverticulosis of large intestine without perforation or abscess without bleeding R93.3, Abnormal findings on diagnostic imaging of other parts of digestive tract CPT copyright 2017 [employer]. All rights reserved. The codes documented in this report are preliminary and upon electroplating laborer review may be revised to meet current compliance requirements. MD Tahir Man MD 08/04/2018 8:36:48 AM This report has been signed electronically. Number of Addenda: 0 Note Initiated On: 08/04/2018 8:14 AM
[2018-08-04 08:40] VITALS: BP 115/88; BP 122/85; PULSE 77; RESP 16; O2SAT 97
[2018-08-04 08:46] VITALS: BP 116/75; BP 122/85; PULSE 85; RESP 16; O2SAT 97
[2018-08-04 08:57] VITALS: BP 122/85
== END 2018-08-04 08:59 | disposition home or self-care (01) ==
LOC: EN 06:55 → AC 06:56
PROVIDERS: Family Provider Internal Medicine; PCP Internal Medicine; Referring Provider Surgery; Visit Provider Surgery
PROC: 0DJD8ZZ Inspection of Lower Intestinal Tract, Via Natural or Artificial Opening Endoscopic (ICD-10-PCS; CPT 45378; principal; 2018-08-04 07:55)
DX: K29.70 Gastritis, unspecified, without bleeding (principal); K57.30 Diverticulosis of large intestine without perforation or abscess without bleeding; K64.8 Other hemorrhoids; K44.9 Diaphragmatic hernia without obstruction or gangrene; E66.9 Obesity, unspecified; K21.9 Gastro-esophageal reflux disease without esophagitis; I10 Essential (primary) hypertension; J45.909 Unspecified asthma, uncomplicated; Z68.35 Body mass index [BMI] 35.0-35.9, adult; Z79.51 Long term (current) use of inhaled steroids; Z79.899 Other long term (current) drug therapy
CPT/HCPCS: 43239; 45378; 88305; 88342; J7120; J1610

== ENCOUNTER → 2019-02-07 | Outpatient (CLI) | payer BC, SELFPAY ==
[2019-02-05 15:20] VITALS: BMI 33.9
[2019-02-07 12:48] LABS: ALB/GLOB Ratio 0.9 RATIO (0.9-2.4); AST(SGOT) 16 U/L (15-37); Alanine Aminotransfer ALT/SGPT 28 U/L (16-61); Albumin, Serum 3.6 g/dL (3.2-5.0); Alkaline Phosphatase 81 U/L (45-117); Anion Gap 9 (5-15); BUN 12 mg/dL (7-18); BUN/Creat Ratio 11.8 RATIO (10-20); Calcium,Total 8.7 mg/dL (8.5-10.1); Chloride 104 mmol/L (98-107); Cholesterol 194 mg/dL (200); Creatinine, Serum 1.02 mg/dL (0.70-1.30); EST Glomerular Filtration Rate 80 mL/min (>60); Est Glom Filt Rate - Afr Amer 97 mL/min (>60); Glucose 96 mg/dL (74-106); High Density Lipoprotein 64 mg/dL; Protein, Total 7.6 g/dL (6.4-8.2); Sodium Level 140 mmol/L (136-145); Triglycerides 95 mg/dL; Very Low Density Lipoprotein 19 mg/dL (5-40)
== END | disposition home or self-care (01) ==
PROVIDERS: Family Provider Internal Medicine; PCP Internal Medicine; Visit Provider Internal Medicine
DX: I10 Essential (primary) hypertension (principal)
CPT/HCPCS: 36415; 80053; 80061

== ENCOUNTER → 2019-05-10 | Outpatient (CLI) | payer BC, SELFPAY ==
[2019-05-10 15:39] VITALS: BMI 35.6
--- NOTE | 2019-05-10 16:39 | EKG12_ITS ---
Test Reason : CP Blood Pressure : / mmHG Vent. Rate : 088 BPM Atrial Rate : 088 BPM P-R Int : 144 ms QRS Dur : 082 ms QT Int : 374 ms P-R-T Axes : 055 020 043 degrees QTc Int : 452 ms Normal sinus rhythm Normal ECG Confirmed by ARELI RON, ANITA ([id number]), editor magazine [employer] [place] ([id number]) on 05/15/2019 10:35:12 AM Referred By: Jere Jain Confirmed By:SANDRITA SINGLETON MD
[2019-05-10 17:13] LABS: Absolute Lymphocyte Count 1.77 X10^3/uL (0.83-4.51); Absolute Neutrophil Count 9.9 X10^3/uL (2.0-7.7); Basophil# 0.09 X10^3/uL; Basophil% 0.6 % (0-1); Eosinophil# 0.12 X10^3/uL; Eosinophils% 0.9 % (0-5); Hematocrit 47.5 % (40-54); Hemoglobin 15.5 g/dL (13.0-16.5); Lymphocyte # 1.77 X10^3/ul (4.0); Lymphocyte % 12.8 % (19-41); Mean Corp Hgb Conc 32.6 g/dL (32-36); Mean Corpuscular Hgb 29.3 pg (27.0-32.0); Mean Corpuscular Volume 89.8 fL (80-94); Mean Platelet Vol. 10.2 fl (6.2-12.0); Monocyte# 1.88 X10^3/uL; Monocyte% 13.5 % (0-10); NRBC Flagged by Analyzer 0 % (0-5); Neutrophil # 9.93 X10^3/uL (2.7-7.7); Neutrophil % 71.6 % (47-70); POSITIVE DIFFERENTIAL YES; Platelet Count 339 K/mm3 (150-450); RBC Distribution Width SD 42.8 fl (35.1-43.9); Red Blood Count 5.29 M/mm3 (4.6-6.2); White Blood Count 13.9 K/mm3 (4.4-11.0)
[2019-05-10 17:41] LABS: Anion Gap 4 (5-15); BUN 14 mg/dL (7-18); Calcium,Total 8.8 mg/dL (8.5-10.1); Chloride 106 mmol/L (98-107); Creatinine, Serum 1.08 mg/dL (0.70-1.30); EST Glomerular Filtration Rate 75 mL/min (>60); Est Glom Filt Rate - Afr Amer 91 mL/min (>60); Glucose 87 mg/dL (74-106); Potassium 3.9 mmol/L (3.5-5.1); Sodium Level 138 mmol/L (136-145)
[2019-05-10 17:50] LABS: Differential Indicated SCAN CRITERIA MET
[2019-05-10 17:52] LABS: Platelet Estimate ADEQUATE (ADEQ)
[2019-05-10 17:53] LABS: Anisocytosis RARE; Macrocytosis RARE; Red Cell Morphology N CHROM NORMAL (NORM C&C)
[2019-05-11 12:33] LABS: Pathologist Review Reviewed
== END | disposition home or self-care (01) ==
PROVIDERS: Family Provider Internal Medicine; PCP Internal Medicine; Referring Provider Internal Medicine; Visit Provider Internal Medicine
DX: K21.9 Gastro-esophageal reflux disease without esophagitis (principal); I10 Essential (primary) hypertension
CPT/HCPCS: 36415; 80048; 84484; 85025; 93005

== ENCOUNTER → 2019-09-06 | Outpatient (CLI) | payer BC, SELFPAY ==
[2019-09-06 09:09] VITALS: BMI 35.5
--- NOTE | 2019-09-06 10:05 | RAD_ITS ---
STUDY: X-RAY CHEST REASON FOR EXAM: Male, 54 years old. Dyspnea TECHNIQUE: PA and lateral views of the chest. COMPARISON: Comparison is made with prior study dated January 25, 2018. FINDINGS: The lungs are clear and expanded. There is no demonstrated pleural abnormality. Normal size heart. Normal mediastinum and radha. Normal visualized pulmonary arteries. Normal visualized aortic arch and descending thoracic aorta. There are mild degenerative changes of the visualized thoracic spine. Normal visualized ribs, clavicles, and shoulders. There is no demonstrated abnormality of the visualized soft tissue structures of the upper abdomen. RAD/Chest PA and Lateral IMPRESSION: No acute abnormality is seen. Electronically Signed: Long Molina, at 10:32 EST , Service support ,
[2019-09-06 12:24] LABS: Absolute Lymphocyte Count 1.21 X10^3/uL (0.83-4.51); Absolute Neutrophil Count 7.3 X10^3/uL (2.0-7.7); Basophil# 0.07 X10^3/uL; Basophil% 0.6 % (0-1); Eosinophil# 0.24 X10^3/uL; Eosinophils% 2.2 % (0-5); Hemoglobin 15.5 g/dL (13.0-16.5); Lymphocyte # 1.21 X10^3/ul (4.0); Lymphocyte % 11.2 % (19-41); Mean Corp Hgb Conc 31.6 g/dL (32-36); Mean Corpuscular Hgb 28.3 pg (27.0-32.0); Mean Corpuscular Volume 89.6 fL (80-94); Mean Platelet Vol. 10.6 fl (6.2-12.0); Monocyte# 1.99 X10^3/uL; Monocyte% 18.3 % (0-10); NRBC Flagged by Analyzer 0 % (0-5); Neutrophil # 7.28 X10^3/uL (2.7-7.7); Neutrophil % 67.1 % (47-70); POSITIVE DIFFERENTIAL YES; Platelet Count 314 K/mm3 (150-450); RBC Distribution Width CV 13.3 % (11.6-14.6); RBC Distribution Width SD 43.5 fl (35.1-43.9); Red Blood Count 5.47 M/mm3 (4.6-6.2); White Blood Count 10.9 K/mm3 (4.4-11.0)
[2019-09-06 12:40] LABS: PSA,Total - Annual Screen 7.66 ng/mL (0.00-4.00)
[2019-09-06 12:46] LABS: Differential Indicated SCAN CRITERIA MET
[2019-09-07 13:49] LABS: Pathologist Review Reviewed
== END | disposition home or self-care (01) ==
PROVIDERS: Nurse Practitioner Family; PCP Internal Medicine; Referring Provider Internal Medicine; Visit Provider Internal Medicine
DX: Z00.00 Encounter for general adult medical examination without abnormal findings (principal); J45.901 Unspecified asthma with (acute) exacerbation; R06.00 Dyspnea, unspecified
CPT/HCPCS: 36415; 71046; 84153; 85025; G0103

== ENCOUNTER → 2019-11-01 06:27 | Outpatient (CLI) | payer BC, SELFPAY ==
[2019-09-06 09:09] VITALS: BMI 35.5
--- NOTE | 2019-11-01 06:35 | MRI_ITS ---
STUDY: MR PELVIS WITH AND WITHOUT CONTRAST (PROSTATE) REASON FOR EXAM: Male, 54 years old. Elevated PSA, negative biopsy 2 years ago TECHNIQUE: Standardized multiparametric prostate MRI with T1, T2, DWI/ADC sequences were obtained in 3 orthogonal planes, and dynamic contrast enhancement sequences. 19 ml of Dotarem contrast material was administered intravenously for the contrast portion of the examination. COMPARISON: None. FINDINGS: The prostate volume measures 56 mm3. The contours of the prostate gland are lobulated. There is mass effect on the bladder base. The transition zone is heterogenous. PI-RADS DWI score . PI-RADS T2W score . Contrast enhancement . The peripheral zone is homogenous. 0.8 x 1.3 cm hypointense nodule of the right peripheral zone posterior medial case (image 11 series 7; image 13 series 4). PI-RADS DWI score 4 - Focal moderately hypointense on ADC and markedly hyperintense on high b-value DWI; <1.5cm on axial (image 100 series 10 and image 21 series 1001). PI-RADS T2W score 4 - Circumscribed, homogenous moderate hypointense focus/mass confined to prostate and < 1.5 cm in greatest dimension. Contrast enhancement no early or contemporaneous enhancement; or diffuse multifocal enhancement NOT corresponding to a focal finding on T2W and/or DWI or focal enhancement responding to a lesion demonstrating features of BPH onT2WI (including features of extruded BPH in the PZ). The seminal vesicles demonstrate normal margins and T2 signal pattern. No mass lesion or invasion depicted. The rectoprostatic angles are normal. Urinary bladder is not well distended but there is circumferential wall thickening with wall measuring up to 10 mm in thickness. The vascular structures of the are normal. The visualized hollow viscus structures are normal. No bone marrow edema or mass lesion depicted. MRI/Pelvis W/WO Contrast IMPRESSION: 1. PIRADS v2.1 2019 -- 4 - High (clinically significant cancer is likely). Electronically Signed: eCsar Mary MD (Brooks) at 8:33 EDT , Service support ,
== END ==
PROVIDERS: PCP Internal Medicine; Referring Provider Urology; Visit Provider Urology
DX: R97.20 Elevated prostate specific antigen [PSA] (principal)
CPT/HCPCS: 72197; A9575

== ENCOUNTER → 2019-11-15 | Outpatient (CLI) | payer BC, SELFPAY ==
[2019-09-06 09:09] VITALS: BMI 35.5
--- NOTE | 2019-11-15 | PROSBIL_PTH ---
PATIENT: GIANCARLO MARTIN LOC: [place] U#:[id number] AGE/SX: 54/M ROOM: RE11/15/[address]: Dr. James Ornelas MD : 1965 BED: DIS: 11/15/2019 SPEC #: [id number] RECD: 11/16/19 10:58 STATUS: KAT REAnton #: [id number] HARSH: 11/15/19 00:[address]: James Ornelas DEPT: SURGICAL PATHOLOGY RECD BY: Sergio Mercado ENTERED: 11/16/19 11:00 SP TYPE: PROST BX CLEOPATRA DR: Dr. Jere Jain MD Tissues: A - PROSTATE RIGHT B - PROSTATE RIGHT C - PROSTATE RIGHT D - PROSTATE LEFT E - PROSTATE LEFT F - PROSTATE LEFT Procedures: PROSTATE BX HEADER OPERATION: Prostate biopsy PRE-OP DIAGNOSIS: Elevated PSA TISSUE SUBMITTED: A - Right apex, B - Right mid, C - Right base, D - Left apex, E - Left mid, F - Left base MICROSCOPIC DIAGNOSIS A. Right prostate, apex, core biopsy: Mild chronic inflammation. Minimal acute inflammation. See comment. B. Right prostate, mid, core biopsy: Mild chronic inflammation and focal acute inflammation. C. Right prostate, base, core biopsy: Focal chronic inflammation. D. Left prostate, apex, core biopsy: Focal glandular atrophy. See comment. E. Left prostate, mid, core biopsy: Focal glandular atrophy. Minimal chronic inflammation. See comment. F. Left prostate, base, core biopsy: Benign prostatic tissue. AM:farooq 11/19/19 COMMENT A, D & E - Immunohistochemistry ([id number]) supports the above diagnosis. MICROSCOPIC DESCRIPTION Slides are reviewed. GROSS DESCRIPTION A - Received is one container designated prostate, right apex. The specimen consists of two elongated fragments of light cavazos-white soft tissue each measuring 1 cm in length and 0.1 cm in diameter. The specimen is totally submitted in one cassette. B - Received is one container designated prostate, right mid. The specimen consists of two elongated fragments of light cavazos-white soft tissue each measuring 1.2 cm in length and 0.1 cm in diameter. The specimen is totally submitted in one cassette. C - Received is one container designated prostate, right base. The specimen consists of two elongated fragments of light cavazos-white soft tissue each measuring 1.5 cm in length and 0.1 cm in diameter. The specimen is totally submitted in one cassette. D - Received is one container designated prostate, left apex. The specimen consists of two elongated fragments of light cavazos-white soft tissue each measuring 1.5 cm in length and 0.1 cm in diameter. The specimen is totally submitted in one cassette. E - Received is one container designated prostate, left mid. The specimen consists of two elongated fragments of light cavazos-white soft tissue each measuring 1.2 cm in length and 0.1 cm in diameter. The specimen is totally submitted in one cassette. F - Received is one container designated prostate, left base. The specimen consists of two elongated fragments of light cavazos-white soft tissue each measuring 1.5 cm in length and 0.1 cm in diameter. The specimen is totally submitted in one cassette. / SJ:rg 11/16/19 TC:2 CPT: 68081 x6
--- NOTE | 2019-11-15 | IMM_PTH ---
PATIENT: GIANCARLO MARTIN LOC: [place] U#:[id number] AGE/SX: 54/M ROOM: RE11/15/[address]: Dr. James Ornelas MD : 1965 BED: DIS: 11/15/2019 SPEC #: [id number] RECD: 11/19/19 10:42 STATUS: KAT REAnton #: [id number] HARSH: 11/15/19 00:[address]: James Ornelas DEPT: IMMUNOHISTOCHEMISTRY RECD BY: Chiara Reid ENTERED: 11/19/19 10:44 SP TYPE: IMMUNO OTHR DR: Dr. Jere Jain MD Tissues: A - PROSTATE RIGHT D - PROSTATE LEFT E - PROSTATE LEFT Procedures: 34BE12 (add) P40 (add) 34BE12 (initial) PHYSICIAN & INSTITUTION [place] [id number] SPECIMEN INFORMATION: Tissue Source: A - Right prostate, apex, D - Left prostate, apex, E - Left?prostate, mid Clinical Info: Elevated PSA Specimen Number: [id number] A, D & E CPT code: 31341, 72774 x5 METHODOLOGY: Deparaffinized sections of prefer/formalin-fixed tissue or PAP/DQ stained slides are incubated with monoclonal/polyclonal antibodies/oligonucleotide probes. Localization is made via biotin free immunoperoxidase method. Appropriate controls are performed and reacted as expected. Results on target cell population are indicated in the following table: RESULTS: ANTIBODY / CLONE RESULT Block A P40 (BC28) positive 34BE12 (34BE12) positive Block D P40 (BC28) positive 34BE12 (34BE12) positive Block E P40 (BC28) positive 34BE12 (34BE12) positive These tests were developed and their performance characteristics determined by [facility]. They may not have been cleared or approved by the U.S. Food and Drug Administration. The FDA has determined that such clearance or approval is not necessary. The above immunohistochemical/dualISH markers are ordered and reviewed by the Pathologist. INTERPRETATION: A. Right prostate, apex, core biopsy: Benign prostatic tissue. D. Left prostate, apex, core biopsy: Benign prostatic tissue. E. Left prostate, mid, core biopsy: Benign prostatic tissue. AM:farooq 11/20/19
== END | disposition home or self-care (01) ==
LOC: LABSPEC 14:03
PROVIDERS: PCP Internal Medicine; Referring Provider Urology; Visit Provider Urology
DX: R97.20 Elevated prostate specific antigen [PSA] (principal)
CPT/HCPCS: 88305; 88341; 88342; G0416

== ENCOUNTER → 2020-05-09 | Outpatient (CLI) | payer OTHER, SELFPAY ==
[2020-05-08 15:38] VITALS: BMI 35.5
--- NOTE | 2020-05-09 09:38 | RAD_ITS ---
STUDY: X-RAY CHEST REASON FOR EXAM: Male, 55 years old. BARKING COUGH x4 WEEKS -- HX OF SAME IN AUGUST -- HX OF ASTHMA AND USES STEROID INHALER TECHNIQUE: PA and lateral views of the chest. COMPARISON: Comparison is made with prior study dated 09/06/2019. FINDINGS: The lungs are clear and expanded. There is no demonstrated pleural abnormality. Normal size heart. Normal mediastinum and radha. Normal visualized pulmonary arteries. There is atherosclerotic tortuosity of the aortic arch and descending thoracic aorta. There are degenerative changes of the visualized thoracic spine. Normal visualized ribs, clavicles, and shoulders. There is no demonstrated abnormality of the visualized soft tissue structures of the upper abdomen. RAD/Chest PA and Lateral IMPRESSION: No acute abnormality is seen. Electronically Signed: Long Molina, at 15:30 EDT , Service support ,
== END | disposition home or self-care (01) ==
LOC: MTDU 09:37
PROVIDERS: PCP Internal Medicine; Referring Provider Internal Medicine; Visit Provider Internal Medicine
DX: J45.909 Unspecified asthma, uncomplicated (principal); R05 Cough; R06.02 Shortness of breath; Z20.828 Contact with and (suspected) exposure to other viral communicable diseases
CPT/HCPCS: 71046; 87635; C9803; U0003

== ENCOUNTER → 2020-10-21 09:42 | Outpatient (CLI) | payer OTHER, SELFPAY ==
[2020-10-21 09:18] VITALS: BMI 40.1
[2020-10-21 13:50] LABS: ALB/GLOB Ratio 0.8 RATIO (0.9-2.4); AST(SGOT) 29 U/L (15-37); Alanine Aminotransfer ALT/SGPT 60 U/L (16-61); Albumin, Serum 3.5 g/dL (3.2-5.0); Alkaline Phosphatase 114 U/L (45-117); Anion Gap 9 (5-15); BUN 12 mg/dL (7-18); BUN/Creat Ratio 10.3 RATIO (10-20); Chloride 107 mmol/L (98-107); Cholesterol 230 mg/dL (200); Creatinine, Serum 1.17 mg/dL (0.70-1.30); EST Glomerular Filtration Rate 68 mL/min (>60); Est Glom Filt Rate - Afr Amer 82 mL/min (>60); Globulin 4.3 g/dL (2.2-4.2); Glucose 93 mg/dL (74-106); High Density Lipoprotein 63 mg/dL; PSA,Total - Annual Screen 5.84 ng/mL (0.00-4.00); Potassium 3.8 mmol/L (3.5-5.1); Protein, Total 7.8 g/dL (6.4-8.2); Sodium Level 139 mmol/L (136-145); Triglycerides 95 mg/dL; Very Low Density Lipoprotein 19 mg/dL (5-40)
== END ==
PROVIDERS: PCP Internal Medicine; Referring Provider Internal Medicine; Visit Provider Internal Medicine
DX: I10 Essential (primary) hypertension (principal); N40.0 Benign prostatic hyperplasia without lower urinary tract symptoms; R97.20 Elevated prostate specific antigen [PSA]
CPT/HCPCS: 36415; 80053; 80061; 84153; G0103

== ENCOUNTER → 2020-12-26 | Outpatient (CLI) | payer OTHER, SELFPAY ==
[2020-12-26 10:43] VITALS: BMI 40.1
== END | disposition home or self-care (01) ==
LOC: LABSPEC 13:52
PROVIDERS: PCP Internal Medicine; Referring Provider Internal Medicine; Visit Provider Internal Medicine
DX: Z20.822 Contact with and (suspected) exposure to COVID-19 (principal)
CPT/HCPCS: 87635; U0002

== ENCOUNTER 2021-02-16 09:53 | Emergency (ER) | payer OTHER, SELFPAY ==
[2020-12-26 10:43] VITALS: BMI 40.1
[2021-02-16 09:54] VITALS: BP 157/90; PULSE 111; RESP 22; TEMP 36.8; O2SAT 97; BMI 38.2
--- NOTE | 2021-02-16 10:09 | RAD_ITS ---
STUDY: X-RAY - UNILATERAL RIBS ( LEFT ) WITH CHEST REASON FOR EXAM: Male, 56 years old. pain,cough TECHNIQUE - RIBS: 5 view(s) of the ribs. TECHNIQUE - CHEST: Single PA view the chest. COMPARISON: 05/09/2020. FINDINGS: Cardiac silhouette unremarkable. Pulmonary vascularity unremarkable. Aorta unremarkable. No focal patchy airspace opacities. No pleural effusions. Upper abdomen unremarkable. Osseous structures intact. No pneumothorax. RAD/Ribs Uni Min 3V w/PA Chest IMPRESSION: No acute cardiopulmonary findings Ribs intact Electronically Signed: Joseph Stafford DO at 10:47 EDT Tel , Service support ,
--- NOTE | 2021-02-16 10:14 | EX.ED.DYSGE1 ---
HPI History of Present Illness Chief Complaint: Chest Other Informant: patient Onset/Context/Timing Onset: Today (529) Context: Sudden Onset (While coughing) Timing: Continuous Quality: Pain that started with a ripping Location: Left flank and back along a rib Current Severity: Moderate Maximum Severity: Severe Worsened by: Movement of left upper arm/shoulder, deep breathing, movement Relieved by: Remaining still and breathing easy Associated Symptoms Associated Symptoms: Cough for the past 2 months since Covid vaccine Narrative Narrative: Patient has been coughing and wheezing off-and-on since his Covid vaccine. He denies chest pains until this morning, except for feeling like the cough is in my left lung. No fevers. Off-and-on leg swelling that is not new. [facility] Medical History Abdominal pain Alcohol dependence Asthma Asthma exacerbation Diarrhea Early satiety Elevated PSA Elevated PSA GERD (gastroesophageal reflux disease) Hemorrhoids History of stomach ulcers Hypertension Nausea Obesity Polymorphous light eruption, diffuse erythematous type Upper respiratory infection Venous insufficiency of both lower extremities Vomiting Home Medications fluticasone propionate 50 mcg/actuation nasal spray,suspension 1 spray INTRANASAL DAILY 90 Days #19.8 g 04/02/19 [Rx Last Taken Unknown] fluticasone propionate 44 mcg/actuation HFA aerosol inhaler 2 puff INHALATION BID #10.6 g 05/07/20 [Rx Last Taken Unknown] albuterol sulfate 90 mcg/actuation aerosol inhaler 1 - 2 puff INHALATION Q6H PRN #8.5 g 08/18/20 [Rx Last Taken Unknown] amlodipine 10 mg tablet See Rx Instructions .ROUTE .COMPLEX #90 tab 10/21/20 [Rx Last Taken Unknown] beclomethasone dipropionate 40 mcg/actuation HFA breath activated aerosol 2 inh INHALATION BID 90 Days #10.6 g 10/21/20 [Rx Last Taken Unknown] albuterol sulfate 2.5 mg INHALATION Q6H PRN #180 ml 12/26/20 [Rx Last Taken Unknown] amoxicillin 875 mg-potassium clavulanate 125 mg tablet 1 tab PO BID #14 tab 12/26/20 [Rx Last Taken Unknown] benzonatate 100 mg capsule 200 mg PO TID PRN #90 cap 12/26/20 [Rx Last Taken Unknown] prednisone 20 mg tablet 40 mg PO DAILY #10 tab 12/26/20 [Rx Last Taken Unknown] montelukast 10 mg tablet 10 mg PO QPM #90 tab 01/01/21 [Rx Last Taken Unknown] pantoprazole 40 mg tablet,delayed release 40 mg PO DAILY #90 tab 01/01/21 [Rx Last Taken Unknown] hydrocodone-acetaminophen 1 tab PO Q4H PRN PRN 2 Days #10 tablet 02/16/21 [Rx Last Taken Unknown] prednisone 40 mg PO DAILY 5 Days #10 tablet 02/16/21 [Rx Last Taken Unknown] Allergy/AdvReac Type Severity Reaction Status Date / Time shellfish derived AdvReac Anaphylaxis Verified 02/16/21 09:56 Family History Grandmother Diabetes Father Cancer unknown Brother Hypertension Grandfather Heart disease Surgical History H/O hernia repair History of colonoscopy (~08/2018) History of esophagogastroduodenoscopy (EGD) History of esophagogastroduodenoscopy (EGD) (~08/2018) Hx of colonoscopy Social History Smoking Status: Never smoker how long ago did patient quit smokin alcohol intake: current alcohol intake frequency: 3 or more drinks per day Alcohol type: beer substance use type: does not use caffeine: Yes what type of physical activity do you participate in: walking frequency: daily seatbelt use: always ROS ROS ED Constitutional Constitutional ED: Denies chills or fever(s) Eyes Eyes: Denies change in vision or diplopia ENT ENT ED: Denies rhinorrhea or sore throat Cardiovascular Cardiovascular: Denies chest pain or palpitations Respiratory/Chest Respiratory/Chest: Reports cough and dyspnea Gastrointestinal Gastrointestinal: Denies abdominal pain, diarrhea, nausea or vomiting Genitourinary Genitourinary ED: Denies dysuria or hematuria Musculoskeletal Musculoskeletal: Reports back pain; Denies neck pain Integumentary Denies abscess or rash Neurologic Neurologic: Denies headache(s), paresthesias or weakness Psychiatric Psychiatric: Denies anxiety or suicidal thoughts EXAM Physical Exam Const Vital Signs: 02/16/21 09:54 Temperature 98.3 F Temperature Source Temporal Pulse Rate 111 H Respiratory Rate 22 H Blood Pressure 157/90 H Blood Pressure Mean 112 Pulse Ox 97 Oxygen Delivery Method Room Air Positive well nourished and well developed General Appearance ED: well developed and NAD HEENT Reports moist mucous membranes normocephalic and atraumatic Eyes PERRL and EOMs intact bilaterally Neck full ROM and supple Chest Wall Chest Narrative: Tender along left anterior and lateral rib #8, no crepitance or subcutaneous emphysema, no step-off, no signs of trauma. No sternal tenderness. No deformity. Resp normal respiratory effort and clear to auscultation bilaterally Cardio regular rate, regular rhythm and no murmurs GI non-tender and non-distended Auscultation: normoactive bowel sounds Palpation: soft Back/Spine no CVA tenderness Back/Spine Narrative: Pain left back with tenderness infrascapular, along rib approximately #8 without crepitance or obvious step-off or signs of injury. No spinal tenderness. Patient has pain in this area with movements especially of his left arm or twisting. General Back: other FROM Extremity normal to inspection General Extremety ED: Negative for edema, pulses abnormal or tenderness General Extremity: Negative for edema or pulses abnormal Neuro oriented x3, CN's II-XII intact bilaterally and no sensory deficits noted Sensorium / Orientation: awake and alert Motor Exam: strength 5/5 throughout Skin no rashes or lesions noted and no wounds MDM MDM MDM Narrative Medical decision making narrative: I reviewed the ribs and PA chest x-ray interpretation, nothing acute. I also reviewed the imaging, 4 views my interpretation shows nothing acute. No pneumothorax, pneumonia, rib fracture. Patient was given a Kane and that helped but only a little. He was talking to his about a wrap around his chest and we had a discussion about avoiding this and other methods that act like binding ribs. He will be prescribed analgesics in addition to a 5-day short course of prednisone burst for his cough and wheezing that has been present for the last month or so, see if that helps. Radiography Diagnostic Testing: Radiology Impression Ribs w/Chest X-Ray 02/16/21 10:09 IMPRESSION: No acute cardiopulmonary findings Ribs intact Electronically Signed: Joseph Stafford DO at 10:47 EDT Tel , Service support , Discharge Plan Triage Chief Complaint: Chest Other ED Provider: Pérez Boyle Dx/Rx/DC Orders Clinical Impression: Intercostal muscle strain, Asthma exacerbation Instructions: ED Rib Contusion or Minor Fracture Prescriptions: New hydrocodone-acetaminophen [hydrocodone-acetaminophen] 1 TABLET tablet 1 tab PO Q4H PRN PRN (Reason: Pain) 2 Days Qty: 10 RF: 0 prednisone 20 MG tablet 40 mg PO DAILY 5 Days Qty: 10 RF: 0 No Action amlodipine 10 mg tablet See Rx Instructions .ROUTE .COMPLEX Qty: 90 RF: 1 prednisone 20 mg tablet 40 mg PO DAILY Qty: 10 RF: 0 benzonatate [Tessalon Perles] 100 mg capsule 200 mg PO TID PRN (Reason: cough) Qty: 90 RF: 0 amoxicillin-pot clavulanate 875-125 mg tablet 1 tab PO BID Qty: 14 RF: 0 albuterol sulfate 2.5 mg /3 mL (0.083 %) solution for nebulization 2.5 mg inhalation Q6H PRN (Reason: shortness of breath or wheezing) Qty: 180 RF: 3 fluticasone propionate 50 mcg/actuation spray,suspension 1 spray Intranasal DAILY 90 Days Qty: 19.8 RF: 2 Flovent HFA 44 mcg/actuation HFA aerosol inhaler 2 puff INHALATION BID Qty: 10.6 RF: 3 albuterol sulfate 90 mcg/actuation HFA aerosol inhaler 1 - 2 puff Inhalation Q6H PRN (Reason: shortness of breath or wheezing) Qty: 8.5 RF: 1 beclomethasone dipropionate 40 mcg/actuation HFA aerosol breath activated 2 inh INHALATION BID 90 Days Qty: 10.6 RF: 3 pantoprazole 40 mg tablet,delayed release (DR/EC) 40 mg PO DAILY Qty: 90 RF: 3 montelukast 10 mg tablet 10 mg PO QPM Qty: 90 RF: 3 Primary Care Provider: Jere Jain Referrals: Jere Jain MD [Primary Care Provider] - 3-5 Days Disposition Disposition: Home, Self Care
[2021-02-16] MEDS: HYDROcodone Bitartrate/Apap 5/325 Tablet PO (10:39)
== END 2021-02-16 12:14 | disposition home or self-care (01) ==
PROVIDERS: Emergency Provider Emergency Medicine; PCP Internal Medicine
DX: J45.901 Unspecified asthma with (acute) exacerbation (principal); S29.011A Strain of muscle and tendon of front wall of thorax, initial encounter; K21.9 Gastro-esophageal reflux disease without esophagitis; I10 Essential (primary) hypertension; E66.9 Obesity, unspecified; Z79.51 Long term (current) use of inhaled steroids; Z79.899 Other long term (current) drug therapy; X50.3XXA Overexertion from repetitive movements, initial encounter; Y93.89 Activity, other specified; Y92.89 Other specified places as the place of occurrence of the external cause; Y99.8 Other external cause status
CPT/HCPCS: 71101; 99283

== ENCOUNTER → 2021-03-05 10:30 | Outpatient (CLI) | payer OTHER, SELFPAY ==
[2021-02-23 09:14] VITALS: BMI 38.2
--- NOTE | 2021-03-06 07:41 | PFT ---
INTRODUCTION: The patient is a 56-year-old male that presents for pulmonary function studies secondary to a diagnosis of asthma. Respiratory therapy reported good patient effort. Bronchodilators were used during testing. INTERPRETATION: Forced expiration spirometry demonstrates no evidence of a large airways obstructive ventilatory defect. There was no significant response to aerosolized bronchodilators, based upon strict ATS criteria. Spirograms are of good quality and plateau normally. Body plethysmography was performed and revealed a decreased TLC to 4.8 L, 80% of predicted, indicative of a mild restrictive ventilatory impairment. Diffusing capacity by single breath CO is within normal limits. IMPRESSION: Mild restrictive ventilatory impairment.
== END ==
PROVIDERS: PCP Internal Medicine; Referring Provider Internal Medicine; Visit Provider Internal Medicine
DX: J45.909 Unspecified asthma, uncomplicated (principal)
CPT/HCPCS: 94060; 94726; 94729

== ENCOUNTER → 2021-04-27 08:50 | Outpatient (CLI) | payer OTHER, SELFPAY ==
[2021-04-27 12:14] LABS: Absolute Lymphocyte Count 1.49 X10^3/uL (0.83-4.51); Absolute Neutrophil Count 8.8 X10^3/uL (2.0-7.7); Basophil# 0.09 X10^3/uL; Basophil% 0.8 % (0-1); Eosinophil# 0.11 X10^3/uL; Eosinophils% 0.9 % (0-5); Hematocrit 51.1 % (40-54); Hemoglobin 16.3 g/dL (13.0-16.5); Lymphocyte # 1.49 X10^3/ul (0.83-4.51); Lymphocyte % 12.7 % (19-41); Mean Corp Hgb Conc 31.9 g/dL (32-36); Mean Corpuscular Hgb 28.8 pg (27.0-32.0); Mean Corpuscular Volume 90.3 fL (80-94); Mean Platelet Vol. 10.4 fl (6.2-12.0); Monocyte# 1.24 X10^3/uL; Monocyte% 10.5 % (0-10); NRBC Flagged by Analyzer 0 % (0-5); Neutrophil # 8.75 X10^3/uL (2.7-7.7); Neutrophil % 74.3 % (47-70); Platelet Count 367 K/mm3 (150-450); RBC Distribution Width CV 13.2 % (11.6-14.6); RBC Distribution Width SD 43.7 fl (35.1-43.9); Red Blood Count 5.66 M/mm3 (4.6-6.2); White Blood Count 11.8 K/mm3 (4.4-11.0)
[2021-04-27 12:26] LABS: Anion Gap 8 (5-15); BUN 14 mg/dL (7-18); BUN/Creat Ratio 13.7 RATIO (10-20); Calcium,Total 9.3 mg/dL (8.5-10.1); Chloride 104 mmol/L (98-107); Creatinine, Serum 1.02 mg/dL (0.70-1.30); EST Glomerular Filtration Rate 80 mL/min (>60); Est Glom Filt Rate - Afr Amer 96 mL/min (>60); Glucose 108 mg/dL (74-106); Potassium 3.7 mmol/L (3.5-5.1); Sodium Level 138 mmol/L (136-145)
== END ==
PROVIDERS: PCP Internal Medicine; Referring Provider Internal Medicine; Visit Provider Internal Medicine
DX: I10 Essential (primary) hypertension (principal)
CPT/HCPCS: 36415; 80048; 85025

== ENCOUNTER 2021-12-01 14:42 | Outpatient (CLI) | payer MEDICAID, SELFPAY ==
[2021-12-01 16:37] LABS: Absolute Lymphocyte Count 1.94 X10^3/uL (0.83-4.51); Basophil# 0.09 X10^3/uL; Basophil% 0.8 % (0-1); Eosinophil# 0.17 X10^3/uL; Eosinophils% 1.5 % (0-5); Hemoglobin 15.1 g/dL (13.0-16.5); Lymphocyte # 1.94 X10^3/ul (0.83-4.51); Lymphocyte % 16.9 % (19-41); Mean Corp Hgb Conc 32.1 g/dL (32-36); Mean Corpuscular Hgb 28.4 pg (27.0-32.0); Mean Corpuscular Volume 88.3 fL (80-94); Mean Platelet Vol. 10.8 fl (6.2-12.0); Monocyte# 1.22 X10^3/uL; Monocyte% 10.6 % (0-10); NRBC Flagged by Analyzer 0 % (0-5); Neutrophil # 8.02 X10^3/uL (2.7-7.7); Neutrophil % 69.7 % (47-70); Platelet Count 314 K/mm3 (150-450); RBC Distribution Width CV 13.2 % (11.6-14.6); RBC Distribution Width SD 42.8 fl (35.1-43.9); Red Blood Count 5.32 M/mm3 (4.6-6.2); White Blood Count 11.5 K/mm3 (4.4-11.0)
[2021-12-01 17:04] LABS: ALB/GLOB Ratio 0.9 RATIO (0.9-2.4); AST(SGOT) 18 U/L (15-37); Alanine Aminotransfer ALT/SGPT 35 U/L (16-61); Albumin, Serum 3.5 g/dL (3.2-5.0); Alkaline Phosphatase 105 U/L (45-117); Anion Gap 7 (5-15); BUN 14 mg/dL (7-18); Calcium,Total 8.3 mg/dL (8.5-10.1); Chloride 103 mmol/L (98-107); Cholesterol 211 mg/dL (200); Creatinine, Serum 0.93 mg/dL (0.70-1.30); EST Glomerular Filtration Rate 88 mL/min (>60); Est Glom Filt Rate - Afr Amer 107 mL/min (>60); Glucose 96 mg/dL (74-106); High Density Lipoprotein 49 mg/dL; PSA,Total - Annual Screen 6.16 ng/mL (0.00-4.00); Protein, Total 7.5 g/dL (6.4-8.2); Sodium Level 137 mmol/L (136-145); Triglycerides 177 mg/dL; Very Low Density Lipoprotein 35 mg/dL (5-40)
== END 2021-12-01 23:59 | disposition home or self-care (01) ==
LOC: BIMLAB 14:43
PROVIDERS: PCP Internal Medicine; Referring Provider Internal Medicine; Visit Provider Internal Medicine
DX: I10 Essential (primary) hypertension (principal); N40.0 Benign prostatic hyperplasia without lower urinary tract symptoms
CPT/HCPCS: 84153; 36415; 80053; 80061; 85025; G0103

== ENCOUNTER → 2022-04-14 | Outpatient (CLI) | payer MEDICAID, SELFPAY | END | disposition home or self-care (01) | LOC: LABSPEC 10:06 | PROVIDERS: PCP Internal Medicine; Referring Provider Physician Assistant; Visit Provider Physician Assistant | DX: Z20.822 Contact with and (suspected) exposure to COVID-19 (principal) | CPT/HCPCS: 87635; U0003; U0005 ==

== ENCOUNTER → 2022-04-27 | Outpatient (CLI) | payer MEDICAID, SELFPAY | END | disposition home or self-care (01) | LOC: SL 19:59 | PROVIDERS: PCP Internal Medicine; Visit Provider Physician Assistant | DX: G47.10 Hypersomnia, unspecified (principal) | CPT/HCPCS: 95810 ==

== ENCOUNTER → 2022-07-13 | Outpatient (CLI) | payer MEDICAID, SELFPAY | END | disposition home or self-care (01) | LOC: SL 09:43 | PROVIDERS: PCP Internal Medicine; Visit Provider Internal Medicine | DX: G47.33 Obstructive sleep apnea (adult) (pediatric) (principal) ==

== ENCOUNTER → 2022-09-10 | Outpatient (CLI) | payer MEDICAID, SELFPAY ==
--- NOTE | 2022-09-10 15:13 | RAD_ITS ---
EXAM: XR CHEST, 2 VIEWS CLINICAL INDICATION: dyspnea TECHNIQUE: Frontal and lateral views of the chest. This report was created using [employer] report generation technology. COMPARISON: 02/16/2021 FINDINGS: LUNGS AND PLEURAL SPACES: Unremarkable. No consolidation or edema. No pneumothorax. No effusion. HEART: Unremarkable. Cardiac silhouette not enlarged. MEDIASTINUM: Central airways and mediastinal contour are unremarkable. BONES/JOINTS: Unremarkable. SOFT TISSUES: Unremarkable. RAD/Chest PA and Lateral IMPRESSION: No radiographic evidence of acute cardiopulmonary disease. Electronically Signed: Steve Mock MD at 23:18 EST ,
== END | disposition home or self-care (01) ==
LOC: RAD 15:10
PROVIDERS: PCP Internal Medicine; Visit Provider Nurse Practitioner Family
DX: J45.901 Unspecified asthma with (acute) exacerbation (principal)
CPT/HCPCS: 71046

== ENCOUNTER → 2022-10-12 | Outpatient (CLI) | payer MEDICAID, SELFPAY ==
[2022-10-12 12:47] LABS: Absolute Lymphocyte Count 1.56 X10^3/uL (0.83-4.51); Absolute Neutrophil Count 7.7 X10^3/uL (2.0-7.7); Basophil# 0.08 X10^3/uL; Basophil% 0.8 % (0-1); Eosinophil# 0.09 X10^3/uL; Eosinophils% 0.8 % (0-5); Hematocrit 49.2 % (40-54); Hemoglobin 15.3 g/dL (13.0-16.5); Lymphocyte # 1.56 X10^3/ul (0.83-4.51); Lymphocyte % 14.6 % (19-41); Mean Corp Hgb Conc 31.1 g/dL (32-36); Mean Corpuscular Volume 89.9 fL (80-94); Mean Platelet Vol. 10.9 fl (6.2-12.0); Monocyte% 10.3 % (0-10); NRBC Flagged by Analyzer 0 % (0-5); Neutrophil # 7.74 X10^3/uL (2.7-7.7); Neutrophil % 72.7 % (47-70); Platelet Count 346 K/mm3 (150-450); RBC Distribution Width CV 13.7 % (11.6-14.6); RBC Distribution Width SD 45.2 fl (35.1-43.9); Red Blood Count 5.47 M/mm3 (4.6-6.2); White Blood Count 10.7 K/mm3 (4.4-11.0)
[2022-10-12 13:20] LABS: ALB/GLOB Ratio 0.9 RATIO (0.9-2.4); AST(SGOT) 14 U/L (15-37); Alanine Aminotransfer ALT/SGPT 28 U/L (16-61); Albumin, Serum 3.6 g/dL (3.2-5.0); Alkaline Phosphatase 95 U/L (45-117); Anion Gap 6 (5-15); BUN 14 mg/dL (7-18); BUN/Creat Ratio 13.1 RATIO (10-20); Chloride 106 mmol/L (98-107); Cholesterol 205 mg/dL (200); Creatinine, Serum 1.07 mg/dL (0.70-1.30); EST Glomerular Filtration Rate 75 mL/min (>60); Est Glom Filt Rate - Afr Amer 91 mL/min (>60); Globulin 3.9 g/dL (2.2-4.2); Glucose 101 mg/dL (74-106); High Density Lipoprotein 50 mg/dL; Potassium 4.4 mmol/L (3.5-5.1); Protein, Total 7.5 g/dL (6.4-8.2); Sodium Level 141 mmol/L (136-145); Triglycerides 103 mg/dL; Very Low Density Lipoprotein 21 mg/dL (5-40)
== END | disposition home or self-care (01) ==
LOC: BIMLAB 09:56
PROVIDERS: PCP Internal Medicine; Referring Provider Internal Medicine; Visit Provider Internal Medicine
DX: I10 Essential (primary) hypertension (principal)
CPT/HCPCS: 36415; 80053; 80061; 85025

== ENCOUNTER 2023-01-11 11:20 | Emergency (ER) | payer MEDICAID, SELFPAY ==
[2023-01-11] VITALS (7 sets, daily range): BP systolic 134–167; BP diastolic 78–110; PULSE 84–788; RESP 14–22; TEMP 36.6–36.7; O2SAT 96–100; BMI 39.4
--- NOTE | 2023-01-11 11:35 | ED.VIS.DYS ---
HPI History of Present Illness Chief Complaint: Shortness of Breath [facility] Medical History (Updated 01/11/23 @ 14:[address] Reid Luna, DO) Abdominal pain Acute asthma exacerbation Alcohol dependence Asthma Asthma exacerbation BPH (benign prostatic hyperplasia) Chest wall pain Colon cancer screening Dermatitis Diarrhea Early satiety Elevated PSA Elevated PSA Flu vaccine need GERD (gastroesophageal reflux disease) Hemorrhoids History of stomach ulcers Hypertension Nausea Neuropathy Obesity Polymorphous light eruption, diffuse erythematous type Upper respiratory infection Venous insufficiency of both lower extremities Vomiting Home Medications triamcinolone acetonide 0.1 % topical cream 1 applic topical DAILY #453.6 grams 12/01/21 [Rx Last Taken Unknown] albuterol sulfate 2.5 mg/3 mL (0.083 %) solution for nebulization 2.5 mg (3 mL) inhalation Q6H PRN shortness of breath or wheezing #90 mL 06/01/22 [Rx Last Taken Unknown] albuterol sulfate 90 mcg/actuation aerosol inhaler 1 - 2 puff inhalation Q6H PRN shortness of breath or wheezing #8.5 grams 09/06/22 [Rx Last Taken Unknown] amlodipine 10 mg tablet 10 mg PO DAILY #90 tabs 09/06/22 [Rx Last Taken Unknown] montelukast 10 mg tablet 10 mg PO QPM #90 tabs 09/06/22 [Rx Last Taken Unknown] pantoprazole 40 mg tablet,delayed release 40 mg PO DAILY GERD #90 tabs 09/06/22 [Rx Last Taken Unknown] tamsulosin 0.4 mg capsule 0.4 mg PO QHS #90 caps 09/06/22 [Rx Last Taken Unknown] benzonatate 100 mg capsule 100 mg PO PRN cough 10/27/22 [History Last Taken Unknown] budesonide-formoterol HFA 160 mcg-4.5 mcg/actuation aerosol inhaler (Symbicort) 2 puff inhalation BID #10.2 grams 11/30/22 [Rx Last Taken Unknown] ipratropium 0.5 mg-albuterol 3 mg (2.5 mg base)/3 mL nebulization soln See Rx Instructions .Route .COMPLEX #180 mL 12/07/22 [Rx Last Taken Unknown] Allergy/AdvReac Type Severity Reaction Status Date / Time shellfish derived AdvReac Anaphylaxis Verified 01/11/23 11:20 Family History Grandmother Diabetes Father Cancer unknown Brother Hypertension Grandfather Heart disease Surgical History H/O hernia repair History of colonoscopy (~08/2018) History of esophagogastroduodenoscopy (EGD) History of esophagogastroduodenoscopy (EGD) (~08/2018) Hx of colonoscopy Social History Smoking Status: Never smoker how long ago did patient quit smokin alcohol intake: current alcohol intake frequency: 3 or more drinks per day Alcohol type: beer substance use type: does not use caffeine: Yes what type of physical activity do you participate in: walking frequency: daily seatbelt use: always EXAM Physical Exam Const Vital Signs: 01/11/23 11:21 01/11/23 11:27 01/11/23 11:27 Temperature 98.0 F Temperature Source Temporal Pulse Rate 84 Respiratory Rate 22 H Respiratory Effort Normal Respiratory Depth Normal Respiratory Pattern Normal Blood Pressure 167/110 H Blood Pressure Mean 129 Pulse Ox 97 Oxygen Delivery Method Room Air Room Air 01/11/23 12:20 01/11/23 13:00 01/11/23 14:04 Temperature Temperature Source Pulse Rate 88 84 90 Respiratory Rate 14 18 16 Respiratory Effort Respiratory Depth Respiratory Pattern Blood Pressure 136/78 H 137/81 H 145/90 H Blood Pressure Mean 97 99 108 Pulse Ox 98 100 98 Oxygen Delivery Method Room Air Room Air Room Air MDM MDM MDM Narrative Medical decision making narrative: HISTORY OF PRESENT ILLNESS: 58-year-old male here for shortness of breath, chest pain. He states he developed shortness of breath and chest pain over the last several days. He states symptoms are intermittent worse with exertion. Patient denies sudden onset of pain, no tearing sensation, no migratory symptoms, no new numbness, weakness or loss of sensation. Patient denies family history or personal history of Marfan syndrome or Kunal-Danlos. Denies any pleuritic component to the pain the patient denies recent surgery in the last 4 weeks or immobilization in the last 3 days, denies previous diagnosis of DVT or PE, hemoptysis, unilateral leg swelling or malignancy with treatment the last 6 months. No estrogen use noted. Denies any recent volume loss or bleeding diathesis. REVIEW OF SYSTEMS: Pertinent positives: Shortness of breath, chest pain Pertinent negatives: Syncope, focal weakness PHYSICAL EXAM: Nursing triage notes reviewed, Vital signs reviewed Constitutional: please see mdm HENT: MMM Eyes: Pupils equal round and reactive to light, Extraocular muscles intact Neck: No stridor, no JVD, full neck ROM Lungs: Clear to auscultation, No wheezing or rales. No increased work of breathing, no conversational dyspnea, no accessory muscle use, no nasal flaring. No respiratory distress noted Heart: Regular rate and rhythm, No murmurs, No rubs and No gallops, 2+ distal pulses (radial, femoral, posterior tibial) in all extremities Abdomen: Soft, there is no tenderness, rigidity, rebound or guarding, no obvious peritoneal signs, no palpable pulsatile abdominal masses, no auscultated abdominal bruit : No CVAT Extremities: No edema Neuro: Alert and oriented x3, neuro exam at baseline, cranial nerves II through XII are intact. No pain with extraocular muscle movement. There is negative test of skew. Normal speech. 5 of 5 strength in upper and lower extremities in flexion extension. Intact sensation to light touch in upper and lower extremity dermatomes. No truncal or extremity ataxia. No dysdiadochokinesia. Normal gait. 2+ reflexes. No meningeal signs. Negative Babinski. NIH of 0 Skin: No rash or lesions noted MEDICAL DECISION MAKING: Chief Complaint: Shortness of breath External records reviewed: Chest x-ray from September 2022 shows no acute abnormality Factors affecting care: History of asthma, hypertension Social determinants of health: Never smoker, currently drinks 3 or more drinks per day History obtained from others: The patient's son Consults: None ALL IMAGES HAVE BEEN PERSONALLY REVIEWED AND INTERPRETED BY MYSELF. [facility] Narrative: Patient was hypertensive, tachypneic, saturating well on room air.. No focal cardiopulmonary normalities noted on exam I considered the following differential diagnosis: Asthma exacerbation, COPD exacerbation, CHF exacerbation, pneumonia, ACS, arrhythmia, PE I considered pulmonary embolism, consider obtaining a CT of the chest however without this diagnosis and testing are unnecessary at this time. Patient is low risk Wells score and as such a low risk for VTE. I was more concerned about myocardial schema, anemia, electrolyte abnormalities or arrhythmia producing the patient's symptoms. I obtained a broad lab and imaging work-up. I placed an IV, The patient on telemetry. Initial EKG shows evidence of PVCs however there is no evidence of myocardial ischemia or significant life-threatening arrhythmia. Patient's lung exam had no wheezing, no rales is not consistent with asthma, COPD or CHF. Chest x-ray, BMP did not reveal evidence of heart failure. High-sensitivity troponin was negative making ACS less likely. No clear life-limiting etiology could be ascertained. I suspect the patient is having intermittent PVCs which reduces palpitations anxiety and cause him to feel short of breath and even produce chest pain. Patient was ambulated here without significant hypoxia. He is appropriate for discharge home with close outpatient follow-up for reevaluation and further treatment. The patient and/or family, caregivers express understanding. The patient and/or family, caregivers agrees with the plan. Total critical care time today provided was at least 0 minutes. This excludes separately billable procedures. Critical care time if documented is secondary to the patient having high probability of clinically significant/life threatening deterioration in the patient's condition which required my urgent intervention. Shared decision making: I will have a discussion with the patient and or visitors regarding risk/benefits of further testing or admission. They will be made aware of of the risk/benefits inherent in this decision they will be given the opportunity to voice understanding. Lab Data Attestation: I reviewed the patient's lab results. Lab results narrative: CBC with leukocytosis suggestive of systemic inflammation, no anemia or thrombocytopenia BMP without evidence of significant electrolyte abnormalities, no anion gap, no acute kidney injury. Troponin is negative, no evidence of myocardial ischemia BNP within normal limits. No evidence of increased transmural pressure, ventricular stretch or volume overload Labs: Laboratory Results - last 24 hr 01/11/23 01/11/23 01/11/23 11:37 11:37 11:37 WBC 12.0 H RBC 5.51 Hgb 15.3 Hct 48.0 MCV 87.1 MCH 27.8 MCHC 31.9 L RDW Std Deviation 41.8 RDW Coeff of Marcella 13.2 Plt Count 325 MPV 10.3 Immature Gran % (Auto) 0.500 Neut % (Auto) 73.8 H Lymph % (Auto) 14.6 L Rutherford % (Auto) 9.7 Eos % (Auto) 0.7 Baso % (Auto) 0.7 Absolute Neuts (auto) 8.9 H Absolute Lymphs (auto) 1.75 Nucleated RBC % 0 Sodium 137 Potassium 4.3 Chloride 107 Carbon Dioxide 24.0 Anion Gap 6 BUN 14 Creatinine 1.02 Estim Creat Clear Calc 72.00 Est GFR (MDRD) Af Amer 96 Est GFR (MDRD) Non-Af 79 BUN/Creatinine Ratio 13.7 Glucose 114 H Calcium 8.9 Troponin I High Sens 7 B-Natriuretic Peptide 72.5 Radiography Diagnostic Testing: Clinical Impression(s) from Imaging Studies Chest X-Ray 01/11/23 12:25 IMPRESSION: Normal x-ray examination of the chest. Electronically Signed: Long Molina MD at 13:12 EDT , I have personally reviewed the patient's chest x-ray. Chest x-ray is unremarkable for pulmonary edema, pneumothorax, pneumonia or focal cardiopulmonary abnormality. Discharge Plan Triage Chief Complaint: Shortness of Breath ED Provider: Reid Luna Dx/Rx/DC Orders Clinical Impression: Acute dyspnea, Chest pain, Frequent PVCs Instructions: PVCs, ED Dyspnea Prescriptions: No Action triamcinolone acetonide 0.1 % cream 1 applic topical DAILY Qty: 453.6 2RF amlodipine 10 mg tablet 10 mg PO DAILY Qty: 90 3RF montelukast 10 mg tablet 10 mg PO QPM Qty: 90 3RF tamsulosin 0.4 mg capsule 0.4 mg PO QHS Qty: 90 1RF pantoprazole 40 mg tablet,delayed release (DR/EC) 40 mg PO DAILY Qty: 90 3RF albuterol sulfate 90 mcg/actuation HFA aerosol inhaler 1 - 2 puff Inhalation Q6H PRN (Reason: shortness of breath or wheezing) Qty: 8.5 3RF benzonatate 100 mg capsule 100 mg PO PRN (Reason: cough) albuterol sulfate 2.5 mg /3 mL (0.083 %) solution for nebulization 2.5 mg inhalation Q6H PRN (Reason: shortness of breath or wheezing) Qty: 90 3RF budesonide-formoterol [Symbicort] 160-4.5 mcg/actuation HFA aerosol inhaler 2 puff inhalation BID Qty: 10.2 3RF ipratropium-albuterol 0.5 mg-3 mg(2.5 mg base)/3 mL solution for nebulization See Rx Instructions .ROUTE .COMPLEX Qty: 180 0RF Dose Instruction: 3 ML INHALED EVERY 4 HOURS NEEDED FOR SHORTNESS OF BREATH OR WHEEZING Rx Instructions: 3 ML INHALED EVERY 4 HOURS NEEDED FOR SHORTNESS OF BREATH OR WHEEZING Stand Alone Forms: ED Work / School Excuse Primary Care Provider: Jere Jain Referrals: Jere Jain MD [Primary Care Provider] - Activity Restrictions/Additional Instructions: Thank you for trusting us with your care today! Please take Tylenol (2 pills, 650 mg), ibuprofen (2 pills, 400 mg) every 6 hours as needed for pain and fever control. Please return to the emergency department if your symptoms change or worsen. Specifically if develop worsening shortness of breath, chest pain. If you develop loss of consciousness. If develop focal numbness weakness or loss of sensation in your face or extremities. Please follow with your primary care physician for further outpatient evaluation and management. Disposition Disposition: Home, Self Care
--- NOTE | 2023-01-11 11:59 | EKG12_ITS ---
Test Reason : CP Blood Pressure : / mmHG Vent. Rate : 084 BPM Atrial Rate : 084 BPM P-R Int : 146 ms QRS Dur : 090 ms QT Int : 394 ms P-R-T Axes : 019 008 068 degrees QTc Int : 465 ms Sinus rhythm with frequent Premature ventricular complexes and Premature atrial complexes Nonspecific ST abnormality Abnormal ECG Confirmed by ADRI RON, LIGIA ([id number]), photo editor KEEGAN ANSARI ([id number]) on 01/12/2023 9:06:52 AM Referred By: Confirmed By:LIGIA RUSH MD
[2023-01-11 12:07] LABS: Absolute Lymphocyte Count 1.75 X10^3/uL (0.83-4.51); Absolute Neutrophil Count 8.9 X10^3/uL (2.0-7.7); Basophil# 0.09 X10^3/uL; Basophil% 0.7 % (0-1); Eosinophil# 0.08 X10^3/uL; Eosinophils% 0.7 % (0-5); Hemoglobin 15.3 g/dL (13.0-16.5); Lymphocyte # 1.75 X10^3/ul (0.83-4.51); Lymphocyte % 14.6 % (19-41); Mean Corp Hgb Conc 31.9 g/dL (32-36); Mean Corpuscular Hgb 27.8 pg (27.0-32.0); Mean Corpuscular Volume 87.1 fL (80-94); Mean Platelet Vol. 10.3 fl (6.2-12.0); Monocyte# 1.17 X10^3/uL; Monocyte% 9.7 % (0-10); NRBC Flagged by Analyzer 0 % (0-5); Neutrophil # 8.87 X10^3/uL (2.7-7.7); Neutrophil % 73.8 % (47-70); Platelet Count 325 K/mm3 (150-450); RBC Distribution Width CV 13.2 % (11.6-14.6); RBC Distribution Width SD 41.8 fl (35.1-43.9); Red Blood Count 5.51 M/mm3 (4.6-6.2)
[2023-01-11] MEDS: LORazepam 2 MG/ML Syringe 1 MG IV (12:15)
[2023-01-11 12:24] LABS: Anion Gap 6 (5-15); BUN 14 mg/dL (7-18); BUN/Creat Ratio 13.7 RATIO (10-20); Calcium,Total 8.9 mg/dL (8.5-10.1); Chloride 107 mmol/L (98-107); Creatinine, Serum 1.02 mg/dL (0.70-1.30); EST Glomerular Filtration Rate 79 mL/min (>60); Est Glom Filt Rate - Afr Amer 96 mL/min (>60); Glucose 114 mg/dL (74-106); Potassium 4.3 mmol/L (3.5-5.1); Sodium Level 137 mmol/L (136-145); Troponin-I HS 7 pg/mL (3.0-78.0)
--- NOTE | 2023-01-11 12:25 | RAD_ITS ---
STUDY: X-RAY CHEST REASON FOR EXAM: Male, 58 years old. Shortness of breath and confusion. TECHNIQUE: AP and lateral views of the chest. COMPARISON: Comparison is made with prior study of September 10, 2022. FINDINGS: EKG electrodes are seen. The lungs are clear and expanded. There is no demonstrated pleural abnormality. Normal size heart. Normal mediastinum and radha. Normal visualized pulmonary arteries. Normal visualized aortic arch and descending thoracic aorta. Normal visualized thoracic spine. Normal visualized ribs, clavicles, and shoulders. There is no demonstrated abnormality of the visualized soft tissue structures of the upper abdomen. RAD/Chest PA and Lateral IMPRESSION: Normal x-ray examination of the chest. Electronically Signed: Long Molina MD at 13:12 EDT ,
[2023-01-11 12:27] LABS: BNP,B-Type NATRIURETIC PEPTIDE 72.5 pg/mL (0-100)
== END 2023-01-11 15:02 | disposition home or self-care (01) ==
PROVIDERS: Emergency Provider Emergency Medicine; PCP Internal Medicine; Visit Provider Emergency Medicine
DX: R06.02 Shortness of breath (principal); R07.9 Chest pain, unspecified; I10 Essential (primary) hypertension; J45.909 Unspecified asthma, uncomplicated; I49.3 Ventricular premature depolarization
CPT/HCPCS: 71046; 80048; 83880; 84484; 85025; 87428; 93005; 96361; 96374; 99285; J7040; A4216

== ENCOUNTER → 2023-01-28 | Outpatient (CLI) | payer MEDICAID, SELFPAY ==
--- NOTE | 2023-01-28 12:53 | STRESSREP ---
Stress Test Report Date: 01/28/2023 Procedure: Exercise tolerance test Indications: Abnormal ECG Consent: Per the patient Procedure: The patient exercised on a João protocol for 4 minutes and 8 seconds achieving a peak heart rate of 144 bpm (90% predicted maximal heart rate) with a peak blood pressure 170/68 mmHg and a peak MET capacity of approximately 7.0 MET's. The baseline ECG demonstrated normal sinus rhythm with frequent PVCs. The peak exercise ECG demonstrated no ischemic changes. Frequent PVCs were noted. The functional capacity was considered suboptimal. The patient had no complaints of chest discomfort during exercise or recovery. The examination was discontinued secondary to dyspnea and target heart rate being achieved. Impression: 1. Technically adequate (percent predicted maximal heart rate greater than 85%) exercise tolerance test 2. Peak exercise ECG with no ischemic changes 3. Frequent PVCs at baseline as well as with exercise and in recovery. No ventricular runs noted. This note was generated with [employer] software. It may contain incorrect words, spelling, and punctuation that were not noted in checking the note before signing.
== END | disposition home or self-care (01) ==
LOC: CVS 11:41
PROVIDERS: PCP Internal Medicine; Referring Provider Internal Medicine; Visit Provider Internal Medicine
DX: R00.2 Palpitations (principal); R94.31 Abnormal electrocardiogram [ECG] [EKG]; I10 Essential (primary) hypertension
CPT/HCPCS: 93017; 93225; 93226

== ENCOUNTER → 2023-03-02 | Outpatient (CLI) | payer MEDICAID, SELFPAY ==
[2023-03-02 12:27] LABS: Thyroid Stim Hormone (TSH) 4.02 uIU/mL (0.358-3.74)
[2023-03-02 18:35] LABS: T4 Free Direct 1.17 ng/dL (0.76-1.46)
== END | disposition home or self-care (01) ==
LOC: LAB 09:33
PROVIDERS: PCP Internal Medicine; Referring Provider Internal Medicine Cardiovascular Disease; Visit Provider Internal Medicine Cardiovascular Disease
DX: R79.89 Other specified abnormal findings of blood chemistry (principal); R00.2 Palpitations; R06.02 Shortness of breath
CPT/HCPCS: 36415; 84439; 84443

== ENCOUNTER → 2023-03-03 | Outpatient (CLI) | payer MEDICAID, SELFPAY ==
[2023-03-05 04:07] LABS: Thyroid Peroxidase AB 51 IU/mL (0-34)
== END | disposition home or self-care (01) ==
LOC: BIMLAB 11:18
PROVIDERS: PCP Internal Medicine; Referring Provider Internal Medicine; Visit Provider Internal Medicine
DX: R79.89 Other specified abnormal findings of blood chemistry (principal)
CPT/HCPCS: 36415; 86376

== ENCOUNTER → 2023-03-25 | Outpatient (CLI) | payer MEDICAID, SELFPAY ==
--- NOTE | 2023-03-25 09:15 | ECHOCS_ITS ---
Reason For Study: SOB Procedure This was a 2D Doppler, Color Flow transthoracic echocardiogram. The study was technically difficult. Contrast injection was performed. Exam performed in department. Left Ventricle Apical false tendon noted. Normal LV size. Left ventricular systolic function is lower limits of normal. The estimated ejection fraction is 50 %. Stage 1 diastolic dysfunction. Basal anteroseptal: Hypokinetic. Mid-anteroseptal : Hypokinetic. Basal inferoseptal: Hypokinetic. Mid-inferoseptal : Hypokinetic. There are regional wall motion abnormalities as specified. Right Ventricle Normal RV size. Normal systolic function. Atria The left and right atria are normal. Mitral Valve The mitral valve is structurally normal. No prolapse or stenosis seen. Mild (1+) mitral valve insufficiency. Tricuspid Valve Normal tricuspid valve. Mild (1+) tricuspid valve insufficiency. Right ventricular systolic pressure estimated to be 27 mmHg. Aortic Valve Trisinus/trileaflet aortic valve. Mild focal aortic valve thickening. There is no aortic stenosis. Pulmonic Valve Normal pulmonic valve. Mild (1+) pulmonic valve insufficiency. Great Vessels Normal aortic root. Pericardium/Pleural No pericardial effusion. Medication 22 gauge I.V. with prn adaptor inserted into right arm. Diluted definity 2.5ml given slow IV push to enhance endocardial definition. MMode/2D Measurements & Calculations LVIDd: 5.4 cm IVSd: 1.1 cm Ao root diam: 3.7 cm LVIDs: 4.4 cm LVPWd: 1.3 cm RVDd: 3.0 cm FS: 18.4 % LAV(MOD-bp): 64.7 ml LVAd ap4: 39.6 cm2 SV(MOD-sp4): 78.1 ml LAV(MOD-bp) Indexed: 30.0 ml/m2 LVLd ap4: 8.8 cm LAV(MOD-sp2): 53.7 ml EDV(MOD-sp4): 145.4 ml LAV(MOD-sp4): 69.2 ml EDV(sp4-el): 150.6 ml LVAs ap4: 24.5 cm2 LVLs ap4: 7.3 cm ESV(MOD-sp4): 67.2 ml ESV(sp4-el): 69.5 ml EF(MOD-sp4): 53.8 % EF(sp4-el): 53.9 % SV(sp4-el): 81.1 ml LA A4 area: 22.5 cm2 RA A4 area: 14.6 cm2 TAPSE: 2.1 cm Time Measurements MV dec time: 0.26 sec Doppler Measurements & Calculations MV E max mejia: 102.9 cm/sec Lat Peak E' Mejia: 7.5 cm/sec Med Peak E' Mejia: 6.4 cm/sec MV A max mejia: 78.9 cm/sec E/E' lat: 13.8 E/E' med: 16.1 MV E/A: 1.3 MV V2 max: 98.3 cm/sec Ao V2 max: 156.0 cm/sec MV max P.9 mmHg MV dec slope: 399.3 cm/sec2 Ao max P.7 mmHg MV V2 mean: 57.1 cm/sec Ao V2 mean: 106.3 cm/sec MV mean P.5 mmHg Ao mean P.2 mmHg MV V2 VTI: 45.4 cm Ao V2 VTI: 37.8 cm AV (velocity ratio): 0.67 LV V1 max: 108.3 cm/sec PA V2 max: 102.9 cm/sec LV V1 max P.7 mmHg PA V2 mean: 69.2 cm/sec PI dec slope: 132.8 cm/sec2 LV V1 mean P.6 mmHg LV V1 mean: 75.6 cm/sec LV V1 VTI: 25.3 cm TR max mejia: 244.8 cm/sec TR max P.0 mmHg ECHO/Echo Complete W/ Contrast Interpretation Summary The estimated ejection fraction is 50-55 %. There are regional wall motion abnormalities as specified. Mild (1+) mitral valve insufficiency. Mild (1+) tricuspid valve insufficiency. The study was technically difficult. Contrast injection was performed. Ordering Physician: Peyton Tovar Referring Physician: Peyton Tovar Performed By: Moni Che RCS
== END | disposition home or self-care (01) ==
LOC: CVS 09:15
PROVIDERS: PCP Internal Medicine; Referring Provider Internal Medicine Cardiovascular Disease; Visit Provider Internal Medicine Cardiovascular Disease
DX: R06.02 Shortness of breath (principal)
CPT/HCPCS: 93306; Q9957; A4216; C8929

== ENCOUNTER → 2023-03-31 | Outpatient (CLI) | payer MEDICAID, SELFPAY ==
[2023-03-31 16:14] LABS: Thyroid Stim Hormone (TSH) 3.48 uIU/mL (0.358-3.74)
== END | disposition home or self-care (01) ==
LOC: BIMLAB 14:10
PROVIDERS: PCP Internal Medicine; Referring Provider Internal Medicine; Visit Provider Internal Medicine
DX: E06.3 Autoimmune thyroiditis (principal)
CPT/HCPCS: 36415; 84443

== ENCOUNTER 2023-05-02 08:30 | Day surgery (SDC) | payer MEDICAID, SELFPAY ==
[2023-04-19 09:22] LABS: Hematocrit 48.7 % (40-54); Hemoglobin 15.1 g/dL (13.0-16.5); Mean Corpuscular Hgb 28.1 pg (27.0-32.0); Mean Corpuscular Volume 90.7 fL (80-94); Mean Platelet Vol. 10.2 fl (6.2-12.0); Platelet Count 281 K/mm3 (150-450); RBC Distribution Width CV 13.7 % (11.6-14.6); RBC Distribution Width SD 45.3 fl (35.1-43.9); Red Blood Count 5.37 M/mm3 (4.6-6.2); White Blood Count 11.3 K/mm3 (4.4-11.0)
[2023-04-19 09:35] LABS: Partial Thromboplast Time 29.9 Seconds (24.1-36.2); Prothrombin Time (Protime)PT. 13.6 SECONDS (11.7-14.9)
[2023-04-19 09:53] LABS: Anion Gap 4 (5-15); BUN 17 mg/dL (7-18); BUN/Creat Ratio 13.6 RATIO (10-20); Calcium,Total 8.9 mg/dL (8.5-10.1); Chloride 108 mmol/L (98-107); Creatinine, Serum 1.25 mg/dL (0.70-1.30); EST Glomerular Filtration Rate 63 mL/min (>60); Est Glom Filt Rate - Afr Amer 76 mL/min (>60); Glucose 108 mg/dL (74-106); Sodium Level 141 mmol/L (136-145)
--- NOTE | 2023-04-27 21:55 | PCM.HP.BLA ---
History and Physical Date of Admission: 05/02/23 The patient has past medical history significant for hypertension. For the past some time, he feels palpitations. He perceives them as extra beats. No associated dizziness, lightheadedness. No syncope or presyncope. No associated chest pain. He does get chest pain on occasions which is sharp in character. Not associated with exertion. Lasts a few seconds only. Patient also has history of sleep apnea and sleeps with a CPAP. Complains of occasional ankle swelling. Intake Vital Signs: See EMR Intake Visit Reasons: [facility] Latin American Studies Director Required: No Accompanied by: Self Is patient in pain?: No Allergies shellfish derived Adverse Reaction (Verified 03/02/23 08:49) Anaphylaxis Medications See EMR [facility] Medical History (Updated 03/02/23 @ 09:[address] Peyton Tovar MD) Abdominal pain Abnormal EKG Acute asthma exacerbation Alcohol dependence Asthma Asthma exacerbation BPH (benign prostatic hyperplasia) Chest wall pain Colon cancer screening Dermatitis Diarrhea Early satiety Elevated PSA Elevated PSA Flu vaccine need GERD (gastroesophageal reflux disease) Hemorrhoids History of stomach ulcers Hypertension Nausea Neuropathy Obesity Palpitations Polymorphous light eruption, diffuse erythematous type SOB (shortness of breath) Upper respiratory infection Venous insufficiency of both lower extremities Vomiting Surgical History H/O hernia repair History of colonoscopy (~08/2018) History of esophagogastroduodenoscopy (EGD) History of esophagogastroduodenoscopy (EGD) (~08/2018) Hx of colonoscopy Family History Grandmother DiabetesFather Cancer unknownGrandfather Heart diseaseSister Cardiac resynchronization therapy defibrillator (MULTIMEDIA TEACHER-D) in place Hypertension Social History (Updated 03/02/23 @ 08:51 by Fartun Womack) Smoking Status: Former smoker how long ago did patient quit smokin alcohol intake: current alcohol intake frequency: a few times a week Alcohol type: beer substance use type: does not use caffeine: Yes Type: coffee Number of servings: 1 what type of physical activity do you participate in: walking frequency: daily seatbelt use: always ROS Const Const: Positive for fatigue, weakness and daytime sleepiness; Negative for headache(s), frequent falls, difficulty sleeping or excessive sweating Eyes Eyes: Positive for tunnel vision; Negative for loss of peripheral vision, transient loss of vision, blurry vision or double vision ENT ENT: Positive for dizziness and balance problems; Negative for headache(s) or Nosebleed/epistaxis Cardio Chest Pain: Yes Frequency: weekly (3-4xweek) Character: sharp Onset: other (shower, bending over) Location: left chest and other (into the back) Duration: brief Palpitations: Yes feels like its: fast and thumping Edema: Bilateral Muscle aches with walking: None Resp Respiratory: Positive for SOB with activity; Negative for SOB at rest, SOB orthopnea\SOB lying down, Cough or paroxysmal nocturnal dyspnea Additional Details: Wears C-pap GI GI: Negative nausea, vomiting, heartburn or black,tarry stools : Negative for hematuria Musc Musc: Positive for joint pain and balance problems; Negative for muscle aches/ myalgia or muscle weakness Skin Skin: Negative non-healing lesions, rash or unusual bruising Neuro Neuro: Positive for dizziness, lightheadedness, near syncope and weakness; Negative for syncope, frequent falls, headache(s), blurry vision, double vision or lack of coordination Papo Hematologic/Lymphatic: Negative for easy bleeding or easy bruising Endo Endo: Positive for fatigue; Negative for excessive sweating or increased thirst/drinking Psych Psych: Negative for anxiety or depression Allergy Allergy/Immunology: Negative for hives and Negative for rash Cardiology Exam Const Appearance: comfortable and no acute distress Nutritional Appearance: obese Neck Neck: no JVD Carotids: Negative bruit Chest Auscultation: Bilateral: Clear to Auscultation Cardio Rate: regular rate Rhythm: regular rhythm Heart sounds: S1 normal and S2 normal GI GI: obese Neuro General: patient alert, patient awake and patient oriented x3 Extremities Lower Extremity Edema: None: Bilateral Supplemental Info Supplemental Information STRESS TEST 01/28/23: Impression: 1. Technically adequate (percent predicted maximal heart rate greater than 85%) exercise tolerance test 2. Peak exercise ECG with no ischemic changes 3. Frequent PVCs at baseline as well as with exercise and in recovery. No ventricular runs noted. Echocardiogram from 03/28/2023: Interpretation Summary The estimated ejection fraction is 50-55 %. There are regional wall motion abnormalities as specified. Mild (1+) mitral valve insufficiency. Mild (1+) tricuspid valve insufficiency. The study was technically difficult. Contrast injection was performed. 48 HOUR HOLTER MONITOR 01/28/23: CONCLUSION Normal Sinus Rhythm with Frequent PVCs/PACs There were [place] 070[address] ventricular ectopic beats comprising 13.2% of the total QRS complexes. 558 ventricular couplets. 4 ventricular triplets. 6882 beats of ventricular bigeminy. 2403 beats of ventricular trigeminy. No runs noted. There were a total of 801 supraventricular ectopic beats comprising 0.4% of the total QRS complexes. 23 atrial couplets. 3 beats of atrial trigeminy. 17 atrial runs totaling 96 beats. The longest run was 27 beats rate 133 BPM recorded at 2043 D1. The fastest run was 3 beats rate 162 BPM recorded at 1749 D2. Assessment and Plan Assessment and Plan (1) Frequent PVCs: Status: Chronic Plan: 13% burden of PVCs noted on Holter monitoring. Exercise stress negative for ischemia. ECG with QT interval within normal limits. Will proceed with heart catheterization evaluate CAD component. His echocardiogram showed a preserved EF. (2) Palpitations: Status: Chronic Plan: See #1 above. Increase beta-blockers as tolerated. (3) Hypertension: Status: Chronic Qualifiers: Hypertension type: essential hypertension Qualified Code(s): I10 - Essential (primary) hypertension Plan: Per patient, his blood pressure at home range in the systolic 110s to 130s. His medications have been adjusted. Continue to monitor. (4) Obesity: Status: Chronic Plan: Lose weight. (5) Sleep apnea with use of continuous positive airway pressure (CPAP): Status: Chronic Plan: As per sleep medicine/primary care physician.
[2023-04-29 09:00] VITALS: BMI 38.0
--- NOTE | 2023-05-02 11:21 | CL.D_ITS ---
Patient Name: GIANCARLO MARTIN Study Date: 05/02/2023 Performing: Peyton Tovar MD Ht: 66.5 inches 168.91 cm : 1965 Wt: 242.99 lbs 110.22 kg Age: 58 Gender: male BSA: 2.18 PROCEDURE(S) PERFORMED [id number]-([id number])[facility] CLINICAL PROFILE AND INDICATIONS Indications: Cardiac Arrythmia Heart Failure: None CAD Presentations: No Sxs, no angina. CONCLUSIONS Mild, non-obstructive CAD RECOMMENDATIONS Risk factor modification Medical therapy DESCRIPTION OF PROCEDURE The patient arrived to the procedure lab. The risks and benefits of the procedure as well as a full description of our services here and current unavailability of surgical backup were fully explained to the patient and/or their significant other prior to the catheterization. The Timeout was completed, verifying the correct patient and procedure. The patient's procedural site was prepped and draped in the usual fashion. Local anesthetic was given subcutaneously to right radial region with Lidocaine 2%. Using a modified Seldinger technique, arterial access was obtained via the right radial artery, a 6Fr sheath was inserted. Left Coronary Artery selective angiography was performed in multiple views using a 5 Fr. 4.0 Ketchum catheter. Right Coronary Artery selective angiography was then performed in multiple views using a 5 Fr. 4.0 Ketchum catheter.The arterial sheath was pulled and a TR Band was applied for hemostasis - 10cc air CORONARY ANGIOGRAPHY DOMINANCE: Left Dominant LEFT MAIN: Angiographically normal LEFT ANTERIOR DESCENDING ARTERY: Mild luminal irregularities Prox LAD, Prox D1 CIRCUMFLEX ARTERY: Angiographically normal RIGHT CORONARY ARTERY: Non-dominant; no significant angiographic disease COMPLICATIONS No Complications PROCEDURE MEDICATIONS Fentanyl 50 mcg IV Versed 1 mg IV Oxygen: 2 L/min via nasal cannula Heparin given IA 05/02/2023 10:45:27 Verapamil 2.5mg, Ntg 200mcgs, 2000 units of Heparin given IA 05/02/2023 10:45:27 SUMMARY OF HEMODYNAMIC DATA Time AIR REST ECG 08:52:44 AO 124/82 (96) SA 10:49:00 AO 128/84 (100) 10:54:11 Signed By Peyton Tovar MD On 05/02/2023 11:20:07 Peyton Tovar MD
== END 2023-05-02 12:30 | disposition home or self-care (01) ==
LOC: CLSP 08:30
PROVIDERS: PCP Internal Medicine; Referring Provider Internal Medicine Cardiovascular Disease; Visit Provider Internal Medicine Cardiovascular Disease
DX: I25.10 Atherosclerotic heart disease of native coronary artery without angina pectoris (principal); I49.3 Ventricular premature depolarization; R00.2 Palpitations; Z87.891 Personal history of nicotine dependence; I10 Essential (primary) hypertension; J45.909 Unspecified asthma, uncomplicated; E66.9 Obesity, unspecified; G47.30 Sleep apnea, unspecified
CPT/HCPCS: 36415; 80048; 85027; 85610; 85730; 93454; 99152; 99153; J7040; C1769; C1894

== ENCOUNTER → 2023-05-31 | Outpatient (CLI) | payer MEDICAID, SELFPAY | END | disposition home or self-care (01) | LOC: PSN 10:40 | PROVIDERS: PCP Internal Medicine; Referring Provider Internal Medicine Cardiovascular Disease; Visit Provider Internal Medicine Cardiovascular Disease | DX: I49.3 Ventricular premature depolarization (principal); R93.1 Abnormal findings on diagnostic imaging of heart and coronary circulation; R94.31 Abnormal electrocardiogram [ECG] [EKG]; R06.02 Shortness of breath; R00.2 Palpitations | CPT/HCPCS: 93225; 93226 ==

== ENCOUNTER → 2023-08-24 | Outpatient (CLI) | payer MEDICAID, SELFPAY ==
--- OUTSIDE RECORDS SUMMARY | 2023-08-24 09:42 | XMS RPT_ITS | CCD ---
Author Name Unknown Address [facility] [place] [address] Organization [facility] Care Team Providers Care Social Sciences Professor Name Role Phone Fabio Hylton Unavailable Unavailable PHILOMENAPEYTON Referring Unavailable JERE EPPS Primary Care Unavailable ALISSON PAYNE Attending Unavailable Allergies Allergy Classification Reported Allergen(s) Allergy Type Date of Onset Reaction(s) Facility (1 source) OTHER; Translations: [OTHER] Propensity to adverse reactions (disorder) 2 [facility] Other [facility] Medications Completed/Discontinued Medications Medication Drug Class(es) Dates Sig (Normalized) Sig (Original) amLODIPine 10 mg oral tablet (3 sources) Dihydropyridine Calcium Channel Sherie Start: 03-04-20 17 take 1 tablet by mouth once daily AMLODIPINE BESYLATE 10 MG TABS 1 tab by mouth daily AMLODIPINE BESYLATE [id number] Fabio Cueto RADAR REPAIRER-C hydroCHLOROthiazide 25 mg oral tablet (3 sources) Thiazide Diuretic Start: 03-04-20 17 take 1 tablet by mouth once daily HYDROCHLOROTHIAZIDE 25 MG TABS One tablet by mouth daily HYDROCHLOROTHIAZIDE [id number] Fabio Natali Cueto RADAR REPAIRER-C omeprazole 40 mg delayed release oral capsule (3 sources) Proton Pump Inhibitor Start: 03-04-20 17 take 1 tablet by mouth once daily OMEPRAZOLE 40 MG CPDR One tablet by mouth daily OMEPRAZOLE [id number] Jere Epps MD POLYETHYLENE GLYCOL 3350 820282 MG / Potassium Chloride 2970 MG / Sodium Bicarbonate 6740 MG / Sodium Chloride 5860 MG / sodium sulfate 32604 MG Powder for Oral Solution (3 sources) Osmotic Laxative Start: 04-12-20 17 End: 04-13-20 17 GOLYTELY 236 GM SOLR As directed per package PEG [id number] SULF [id number] Rachel Rouse PA-C Problems Active Problems Problem Classification Problem Date Documented Date Episodic/Chronic Alcohol-related disorders (3 sources) Alcohol dependence; Translations: [Alcohol dependence, uncomplicated] Onset: 03-04-2017 03-04-2017 Chronic Asthma (3 sources) Asthma; Translations: [Unspecified asthma, uncomplicated] 03-31-2017 Chronic Cardiac dysrhythmias (1 source) Ventricular premature depolarization; 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] Onset: 06-17-2023 Chronic Cardiac dysrhythmias (1 source) Palpitations; Translations: [Palpitations] Onset: 06-17-2023 Episodic Esophageal disorders (3 sources) Gastroesophageal reflux disease; Translations: [Gastro-esophageal reflux disease without esophagitis] Onset: 03-04-2017 03-04-2017 Chronic Essential hypertension (6 sources) Hypertensive disorder; Translations: [Essential (primary) hypertension] Onset: 03-04-2017 03-31-2017 Chronic Other eye disorders (3 sources) Vitreous floaters; Translations: [Other vitreous opacities, unspecified eye] Onset: 03-04-2017 03-04-2017 Chronic Other nutritional; endocrine; and metabolic disorders (1 source) Obesity, unspecified; Translations: [Obesity, Class II, BMI 35-39.9] Onset: 07-25-2023 Chronic Residual codes; unclassified (1 source) Sleep apnea, unspecified; Translations: [Sleep apnea with use of continuous positive airway pressure (CPAP)] Onset: 06-17-2023 Chronic Unclassified (3 sources) Body mass index (BMI) 35.0-35.9, adult; Translations: [Body mass index (BMI) 35.0-35.9, adult] Onset: 03-04-2017 03-04-2017 Chronic Unclassified (3 sources) Screening for malignant neoplasm of colon ; Translations: [Encounter for screening for malignant neoplasm of colon] Onset: 03-04-2017 03-04-2017 Unclassified (3 sources) Screening for malignant neoplasm of prostate ; Translations: [Encounter for screening for malignant neoplasm of prostate] Onset: 03-04-2017 03-04-2017 Unclassified (3 sources) Thyroid disorder screening ; Translations: [Encounter for screening for other suspected endocrine disorder] Onset: 03-04-2017 03-04-2017 Unclassified (3 sources) Preventive procedure; Translations: [Encounter for general adult medical examination without abnormal findings] Onset: 03-04-2017 03-04-2017 Past or Other Problems Problem Classification Problem Date Documented Da te Episodic/Chronic Gastrointestinal hemorrhage (3 sources) Gastrointestinal hemorrhage; Translations: [Gastrointestinal hemorrhage, unspecified] Onset: 7 03-11-2017 Episodic Malaise and fatigue (3 sources) Malaise and fatigue; Translations: [Other fatigue] Onset: 7 03-04-2017 Episodic Other gastrointestinal disorders (6 sources) Occult blood in stools; Translations: [Scrotal mass] Onset: 7 04-07-2017 Episodic Unclassified (9 sources) Encounter for screening for lipoid disorders; Translations: [Encounter for screening for diseases of the blood and blood-forming organs and certain disorders involving the immune mechanism] Onset: 7 03-04-2017 Episodic Results Test Name Value Interpretation Reference Range Facil ity Vital Signs Date Time Vital Sign Value Performing Clinician Facility 06-22-2017 16:27-0500 BMI (Body Mass Index) 37.76 kg/m2 Fabio Nory [facility]ILL [facility] Work Phone: 06-22-2017 16:27-0500 Body Temperature 97.7 [degF] Fabio Nory [facility] Work Phone: 06-22-2017 16:27-0500 BP Diastolic 89 mm[Hg] Fabio Nory [facility] Work Phone: 06-22-2017 16:27-0500 BP Systolic 148 mm[Hg] Fabio Nory [facility] Work Phone: 06-22-2017 16:27-0500 Height 167.64 cm Fabio Nory HILL [facility] Work Phone: 06-22-2017 16:27-0500 Pulse (Heart Rate) 73 /min Fabio Nory [facility] Work Phone: 06-22-2017 16:27-0500 Respiratory Rate 18 /min Fabio [facility] Work Phone: 06-22-2017 16:27-0500 Weight 106.[address] [facility] Work Phone: 03-28-2017 15:48-0400 Body Temperature 98.4 [degF] Fabio HILL [facility] Work Phone: 03-28-2017 15:48-0400 Height 167.[address] [facility] Work Phone: 03-28-2017 15:48-0400 Weight 98.7 kg Fabio [facility] Work Phone: Encounters Encounter Date Encounter Type Care Provider Facility Start: 07-25-2023 End: 07-25-2023 ambulatory PEYTON PHILOMENA Facility:[facility] Procedures Date Procedure Procedure Detail Performing Clinician Start: 07-06-2017 End: 07-07-2017 *CMP Complete Metabolic Panel Fabio HILL Start: 03-04-2017 End: 03-04-2017 *BMP Jere Walden Work Phone: Start: 03-04-2017 End: 03-04-2017 *CBC with Differential Jere vargas MD Work Phone: Start: 03-04-2017 End: 03-11-2017 Assay of phosphorus inorganic urine Jere Epps MD Work Phone: Start: 03-04-2017 End: 03-11-2017 Follow Up Appt 1 month Jere vargas MD Work Phone: Start: 03-04-2017 End: 03-04-2017 Hemoglobin A1c/Hemoglobin.total in Blood Jere Epps MD Work Phone: Start: 03-04-2017 End: 03-11-2017 Hemoglobin.gastrointestina l [Presence] in Stool by Immunologic method Jere Epps MD Work Phone: Start: 03-04-2017 End: 03-04-2017 Lipid 1996 panel - Serum or Plasma Jere Epps MD Work Phone: Start: 03-04-2017 End: 03-04-2017 Magnesium [Mass/volume] in Serum or Plasma Jere Epps MD Work Phone: Start: 03-04-2017 End: 03-04-2017 Prostate specific Ag [Mass/volume] in Serum or Plasma Jere Epps MD Work Phone: Start: 03-04-2017 End: 03-05-2017 Referral to fighter pilot Jere villarreal MD Work Phone: Start: 03-04-2017 End: 03-05-2017 Referral to surgeon Jere Walden Work Phone: Start: 03-04-2017 End: 03-04-2017 Thyrotropin [Units/volume] in Serum or Plasma Jere Epps MD Work Phone: Start: 03-04-2017 End: 03-04-2017 Thyroxine (T4) free [Mass/volume] in Serum or Plasma Jere Epps MD Work Phone: Start: 03-04-2017 End: 03-11-2017 Us scrotum & contents Jere Epps MD Work Phone: Plan of Treatment Date Care Activity Detail Author Start: 08-05-2017 End: 08-05-2017 Appointment [facility]ointment [facility] Work Phone: Start: 07-06-2017 End: 07-07-2017 *CMP Complete Metabolic Panel *CMP Complete Metabolic Panel [facility] Work Phone: Start: 06-22-2017 End: 06-22-2017 Appointment Appointment [facility] Work Phone: Start: 06-22-2017 End: 06-22-2017 Follow Up Appt 6 weeks Follow Up Appt 6 weeks [facility] Work Phone: Start: 06-22-2017 End: 06-22-2017 WhyWeight WhyWeight [facility], [address], [place], [address] [facility] Work Phone: Start: 03-31-2017 End: 03-31-2017 Follow Up Appt 3 months Follow Up Appt 3 months [facility] Work Phone: Start: 03-28-2017 End: 04-07-2017 Colonoscopy flx dx w/collj spec when pfrmd Colonoscopy [facility] Work Phone: Start: 03-28-2017 End: 04-07-2017 Esophagogastroduodenoscopy transoral diagnostic EGD; diagnostic [facility] Work Phone: Start: 03-11-2017 End: 03-18-2017 Surgery Referral Surgery Referral Tahir Rabago, [address], [address], [place], [address] [facility] Work Phone: Start: 03-04-2017 End: 03-04-2017 *BMP *BMP [facility] Work Phone: Start: 03-04-2017 End: 03-04-2017 *CBC with Differential *CBC with Differential [facility] Work Phone: Start: 03-04-2017 End: 03-11-2017 Follow Up Appt 1 month Follow Up Appt 1 month [facility] Work Phone: Start: 03-04-2017 End: 03-04-2017 Hemoglobin A1c/Hemoglobin.total mass fraction (Bld) *HgA1C [facility] Work Phone: Start: 03-04-2017 End: 03-11-2017 Hemoglobin by Imm presence in stool *Occult Blood, Stool [facility] Work Phone: Start: 03-04-2017 End: 03-04-2017 Lipid panel [AGGREGATE] *Lipid Profile [facility] Work Phone: Start: 03-04-2017 End: 03-04-2017 Magnesium *Magnesium [facility] Work Phone: Start: 03-04-2017 End: 03-11-2017 Ophthalmology Referral Ophthalmology Referral González Etienne, [address], [place], [address] [facility] Work Phone: Start: 03-04-2017 End: 03-11-2017 Phosphate Phosphorus [facility] Work Phone: Start: 03-04-2017 End: 03-04-2017 PSA *PSA (Prostate Specific Antigen) [facility] Work Phone: Start: 03-04-2017 End: 03-11-2017 Surgery Referral Surgery Referral Lincoln Conway MD, [facility], [address] [place] [address], [address], [place], [address] [facility] Work Phone: Start: 03-04-2017 End: 03-04-2017 Thyroid stimulating hormone (TSH) *TSH [facility] Work Phone: Start: 03-04-2017 End: 03-04-2017 Thyroxine (T4) free *T4 free [facility] Work Phone: Start: 03-04-2017 End: 03-11-2017 Us scrotum & contents US Scrotum and Contents [facility] Work Phone: Payers Date Payer Category Payer Medicaid [id number] Progress note 07-25-2023 Note Date & Type Note Facility 07-25-2023 Note HNO ID: [id number] Author: Alisson Payne MD Service: ? Author Type: Physician Type: Progress Notes Filed: 07/29/2023 7:29 PM Note Text: PRIMARY CARE PHYSICIAN: Jere Epps (Gabrielle) [id number] [place] [address] REFERRING PHYSICIAN: Peyton [address] [facility] [id number] Patient Care Team: Jere Epps MD as PCP - General (Internal Medicine) Peyton Tovar MD as Specialty Vice President Payment (Cardiology) CHIEF COMPLAINT: Evaluation of arrhythmia HISTORY OF PRESENT ILLNESS: Mr. Gutiérrez is a 58 year old male who presents today for evaluation of arrhythmia. He states the COVID vaccines have caused trouble with his health, worsening his lung problem (has asthma, COPD) and also heart issues. He began experiencing episodes of lightheadedness, tunnel vision then pass out, started occurring about 1999. He states he underwent testing and nothing found. He states he would have trouble with his blood pressure getting too low. After one episode in June, was at home in his chair, had tunnel vision and passed out or nearly passed out. Paramedics came, he states he was found to have premature ventricular contractions (PVCs). He was taken to [facility] ED. He has undergone evaluation, including cardiac monitoring that revealed about 16% PVC burden. He was experiencing palpitations, but with metoprolol typically not much aware of the PVCs. He has been treated with metoprolol, initially 100 mg and then later 200 mg daily. I have confirmed and edited as necessary, the PFSH and ROS obtained by others. PAST MEDICAL HISTORY Diagnosis Date Asthma Hypertension Palpitations PVC (premature ventricular contraction) Stomach ulcer 06/17/2023 PAST SURGICAL HISTORY Procedure Laterality Date COLONOSCOPY SCREENING 08/2018 ECHOCARDIOGRAM 03/25/2023 EGD 08/2018 HERNIA REPAIR HX Left 1990 inguinal hernia; [facility] HOLTER MONITOR 48 HOUR 01/28/2023 LEFT HEART CATH,PERCUTANEOUS 05/02/2023 STRESS TEST 01/28/2023 SOCIAL HISTORY Social History Tobacco Use Smoking status: Former Packs/day: 1 Types: Cigarettes Quit date: 11/03/1987 Years since quittin.7 Smokeless tobacco: Former Types: Chew Substance Use Topics Alcohol use: Yes Comment: social Drug use: Never FAMILY HISTORY Problem Relation Age of Onset other (meningitis) Mother sleeping sickness -- deer fly bit her Prostate Cancer Father Heart Failure Sister has ICD Heart disease Sister No Known Problems Sister No Known Problems Brother No Known Problems Brother Heart disease Maternal Grandmother Heart disease Maternal Grandfather COPD Maternal Grandfather ALLERGIES: ALLERGIES Allergen Reactions Crab Meat [Other] Anaphylaxis MEDICATIONS: levothyroxine (SYNTHROID) 50 mcg tablet Take 1 tablet by mouth every afternoon. amLODIPine (NORVASC) 5 mg tablet Take 1 tablet by mouth every afternoon. metoprolol succinate ER (TOPROL XL) 200 mg 24 hr tablet Take 1 tablet by mouth every afternoon. pantoprazole DR (PROTONIX) 40 mg tablet TAKE 1 TABLET BY MOUTH DAILY NEEDED FOR GERD albuterol HFA (VENTOLIN HFA) 90 mcg/actuation inhaler Inhale 2 Puffs as instructed every 6 hours as needed for wheezing/shortness of breath. aspirin, enteric coated (ADULT LOW DOSE ASPIRIN) 81 mg EC tablet atorvastatin (LIPITOR) 10 mg tablet budesonide-formoterol (SYMBICORT) 160-4.5 mcg/actuation inhaler ipratropium-albuterol (DUONEB) 0.5 mg-3 mg(2.5 mg base)/3 mL nebu montelukast (SINGULAIR) 10 mg tablet tamsulosin (FLOMAX) 0.4 mg albuterol 90 mcg/actuation INHALATION Aero Inhale 2 Puffs as instructed every 6 hours. REVIEW OF SYSTEMS: Review of Systems Constitutional: Negative for chills, fever and malaise/fatigue. Respiratory: Negative for cough, hemoptysis, sputum production, shortness of breath and wheezing. Cardiovascular: Positive for palpitations. Negative for chest pain, orthopnea, claudication, leg swelling and PND. Gastrointestinal: Negative for abdominal pain, blood in stool, melena, nausea and vomiting. Genitourinary: Negative for dysuria and hematuria. Musculoskeletal: Negative for falls. Skin: Negative for rash. Neurological: Positive for dizziness. Negative for focal weakness, seizures and loss of consciousness. PHYSICAL EXAMINATION: BP 115/57 Pulse 71 Ht 5' 7 (1.70m) Wt 237 lb 12.8 oz (107.9kg) SpO2 93% BMI 37.24 kg/(m2). Physical Exam Vitals reviewed. Constitutional: General: He is not in acute distress. Appearance: Normal appearance. HENT: Head: Normocephalic and atraumatic. Cardiovascular: Rate and Rhythm: Normal rate and regular rhythm. Frequent Extrasystoles are present. Heart sounds: Normal heart sounds, S1 normal and S2 normal. No murmur heard. No friction rub. Pulmonary: Effort: Pulmonary effort is normal. No respiratory distress. (more content not included)... [facility] Summary Purpose Family History No Family History Records Found Advance Directives No Advanced Directives Records Found Additional Source Comments (unrecognized sect ion and content) No Status Records Found INFORMATION SOURCE (unrecogn ized section and content) FOR RECORDS PERTAINING TO PATIENTS WHO ARE OR HAVE BEEN ENROLLED IN A CHEMICAL DEPENDENCY/SUBSTANCEABUSE PROGRAM, SOME INFORMATION MAY BE OMITTED. This clinical summary was aggregated from multiple sources. Caution should be exercised in using it in the provision of clinical care. This summary normalizes information from multiple sources, and as a consequence, information in this document may materially change the coding, format and clinical context of patient data. In addition, data may be omitted in some cases. CLINICAL DECISIONS SHOULD BE BASED ON THE PRIMARY CLINICAL RECORDS. [email or web address] provides no warranty or guarantee of the accuracy or completeness of information in this document.
[2023-08-24 12:22] LABS: Absolute Lymphocyte Count 1.75 X10^3/uL (0.83-4.51); Basophil# 0.14 X10^3/uL; Basophil% 1.1 % (0-1); Eosinophil# 0.36 X10^3/uL; Eosinophils% 2.9 % (0-5); Hematocrit 47.3 % (40-54); Hemoglobin 14.8 g/dL (13.0-16.5); Lymphocyte # 1.75 X10^3/ul (0.83-4.51); Lymphocyte % 14.2 % (19-41); Mean Corp Hgb Conc 31.3 g/dL (32-36); Mean Corpuscular Hgb 28.5 pg (27.0-32.0); Mean Platelet Vol. 11.3 fl (6.2-12.0); Monocyte# 1.08 X10^3/uL; Monocyte% 8.7 % (0-10); NRBC Flagged by Analyzer 0 % (0-5); Neutrophil # 8.96 X10^3/uL (2.7-7.7); Neutrophil % 72.6 % (47-70); Platelet Count 308 K/mm3 (150-450); RBC Distribution Width CV 13.1 % (11.6-14.6); RBC Distribution Width SD 43.8 fl (35.1-43.9); White Blood Count 12.4 K/mm3 (4.4-11.0)
[2023-08-24 13:24] LABS: ALB/GLOB Ratio 0.9 RATIO (0.9-2.4); AST(SGOT) 13 U/L (15-37); Alanine Aminotransfer ALT/SGPT 21 U/L (16-61); Albumin, Serum 3.5 g/dL (3.2-5.0); Alkaline Phosphatase 91 U/L (45-117); Anion Gap 5 (5-15); BUN 16 mg/dL (7-18); BUN/Creat Ratio 14.8 RATIO (10-20); Calcium,Total 8.7 mg/dL (8.5-10.1); Chloride 105 mmol/L (98-107); Cholesterol 133 mg/dL (200); Creatinine, Serum 1.08 mg/dL (0.70-1.30); EST Glomerular Filtration Rate 74 mL/min (>60); Est Glom Filt Rate - Afr Amer 90 mL/min (>60); Globulin 3.8 g/dL (2.2-4.2); Glucose 101 mg/dL (74-106); High Density Lipoprotein 49 mg/dL; PSA,Total - Annual Screen 5.06 ng/mL (0.00-4.00); Potassium 4.4 mmol/L (3.5-5.1); Protein, Total 7.3 g/dL (6.4-8.2); Sodium Level 137 mmol/L (136-145); Thyroid Stim Hormone (TSH) 2.79 uIU/mL (0.358-3.74); Triglycerides 83 mg/dL; Very Low Density Lipoprotein 17 mg/dL (5-40)
== END | disposition home or self-care (01) ==
LOC: BIMLAB 09:17
PROVIDERS: PCP Internal Medicine; Visit Provider Internal Medicine
DX: I10 Essential (primary) hypertension (principal); N40.0 Benign prostatic hyperplasia without lower urinary tract symptoms; E06.3 Autoimmune thyroiditis
CPT/HCPCS: 84153; 36415; 80053; 80061; 84443; 85025; G0103

== ENCOUNTER → 2023-12-02 | Outpatient (CLI) | payer MEDICAID, SELFPAY ==
[2023-12-02 12:34] LABS: Absolute Lymphocyte Count 2.02 X10^3/uL (0.83-4.51); Absolute Neutrophil Count 8.3 X10^3/uL (2.0-7.7); Basophil# 0.08 X10^3/uL; Basophil% 0.7 % (0-1); Eosinophil# 0.17 X10^3/uL; Eosinophils% 1.4 % (0-5); Hematocrit 45.9 % (40-54); Hemoglobin 14.4 g/dL (13.0-16.5); Lymphocyte # 2.02 X10^3/ul (0.83-4.51); Lymphocyte % 17.2 % (19-41); Mean Corp Hgb Conc 31.4 g/dL (32-36); Mean Corpuscular Hgb 28.1 pg (27.0-32.0); Mean Corpuscular Volume 89.5 fL (80-94); Mean Platelet Vol. 11.2 fl (6.2-12.0); Monocyte# 1.13 X10^3/uL; Monocyte% 9.6 % (0-10); NRBC Flagged by Analyzer 0 % (0-5); Neutrophil # 8.32 X10^3/uL (2.7-7.7); Neutrophil % 70.7 % (47-70); Platelet Count 299 K/mm3 (150-450); RBC Distribution Width CV 12.9 % (11.6-14.6); RBC Distribution Width SD 42.1 fl (35.1-43.9); Red Blood Count 5.13 M/mm3 (4.6-6.2); White Blood Count 11.8 K/mm3 (4.4-11.0)
[2023-12-02 13:35] LABS: ALB/GLOB Ratio 0.9 RATIO (0.9-2.4); AST(SGOT) 13 U/L (15-37); Alanine Aminotransfer ALT/SGPT 24 U/L (16-61); Albumin, Serum 3.4 g/dL (3.2-5.0); Alkaline Phosphatase 87 U/L (45-117); Anion Gap 4 (5-15); BUN 16 mg/dL (7-18); BUN/Creat Ratio 15.2 RATIO (10-20); Calcium,Total 8.8 mg/dL (8.5-10.1); Chloride 105 mmol/L (98-107); Creatinine, Serum 1.05 mg/dL (0.70-1.30); EST Glomerular Filtration Rate 76 mL/min (>60); Est Glom Filt Rate - Afr Amer 92 mL/min (>60); Globulin 3.8 g/dL (2.2-4.2); Glucose 101 mg/dL (74-106); Potassium 4.6 mmol/L (3.5-5.1); Protein, Total 7.2 g/dL (6.4-8.2); Sodium Level 137 mmol/L (136-145); Thyroid Stim Hormone (TSH) 3.26 uIU/mL (0.358-3.74)
== END | disposition home or self-care (01) ==
LOC: BIMLAB 10:24
PROVIDERS: PCP Internal Medicine; Visit Provider Internal Medicine
DX: I49.3 Ventricular premature depolarization (principal)
CPT/HCPCS: 36415; 80053; 84443; 85025

== ENCOUNTER 2024-02-13 07:19 | Day surgery (SDC) | payer MEDICAID, SELFPAY ==
[2024-02-13] VITALS (7 sets, daily range): BP systolic 108–122; BP diastolic 61–85; PULSE 68–76; RESP 18; TEMP 36.1–36.8; O2SAT 95–100; BMI 39.4
--- NOTE | 2024-02-13 07:35 | PCM.PRE.AN2 ---
ASA Classification* ASA Classification ASA Classification: 3 Assessment & Plan Anesthesia* Anesthesia Assessment Anesthesia Assessment: Discussed sedation and/or anesthesia options, risks, benefits, and alternatives with patient/parents/legal guardian/POA. Questions invited. The patient/parents/legal guardian/POA seems to understand and agrees to proceed with anesthesia plan. Reviewed the physical assessment, medical history, allergy history and patient home medications list prior to surgery/procedure/anesthetic and documented any changes. Performed airway and anesthesia risk assessments. Anesthesia Type Anesthesia Type: MAC Anesthesia Focused Assessment* Airway Assessment Mouth opens: >3 cm Mallampati Score: II Focused Labs Anesthesia Preop lab: CBC WBC 11.8 K/mm3 (4.4-11.0) H 12/02/23 10:24 RBC 5.13 M/mm3 (4.6-6.2) 12/02/23 10:24 Hgb 14.4 g/dL (13.0-16.5) 12/02/23 10:24 Hct 45.9 % (40-54) 12/02/23 10:24 Plt Count 299 K/mm3 (150-450) 12/02/23 10:24 CHEMISTRY Potassium 4.6 mmol/L (3.5-5.1) 12/02/23 10:24 Sodium 137 mmol/L (136-145) 12/02/23 10:24 Magnesium 1.9 mg/dL (1.8-2.4) 03/04/17 10:18 Phosphorus 3.1 mg/dL (2.5-4.9) 03/04/17 10:18 BUN 16 mg/dL (7-18) 12/02/23 10:24 Creatinine 1.05 mg/dL (0.70-1.30) 12/02/23 10:24 Glucose 101 mg/dL (74-106) 12/02/23 10:24 TSH 3.26 uIU/mL (0.358-3.74) 12/02/23 10:24 COAG PT 13.6 SECONDS (11.7-14.9) 04/19/23 09:10 Pre-Assessment Diagnosis/Proposed Procedure Planned Operative Procedure(s): COLONOSCOPY Anesthesia History 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 When Was Last Pacemaker Check QUESTION #4 FULL TEXT: You/Your Family Experience fever (hyperthermia) with Anesthesia Last Oral Intake Last Oral intake: Last Oral Intake NPO since Meds taken in AM with sips of water? Meds patient instructed to take am of surgery PONV PONV - facility environmental technician: PONV - facility environmental technician Female No 02/07/24 08:51 HX of Motion Sickness Yes 02/07/24 08:51 HX of N/V After Surgery No 02/07/24 08:51 Non-Smoker Yes 02/07/24 08:51 Duration of Surgery greater No 02/07/24 08:51 than 60 minutes Number of Risk Factors 2 02/07/24 08:51 PONV Score Moderate Risk 02/07/24 08:51 Height & Weight Height & Weight: Anesthesia: Height & Weight Height 5 ft 6 in 01/05/24 10:37 Respiratory Assessment Respiratory Assessment - facility environmental technician: Respiratory Tract Infection Hx - facility environmental technician Hx Respiratory Tract Infection No 02/07/24 08:51 STOP Sleep Apnea STOP Sleep Apnea - facility environmental technician: STOP Sleep Apnea - facility environmental technician Hx Hypertension Yes 02/07/24 08:51 Hx Sleep Apnea Yes 02/07/24 08:51 CPAP Yes 02/07/24 08:51 BIPAP No 02/07/24 08:51 Do you snore loudly (louder than talking or can be heard Do you often feel tired/ fatigued/ sleepy during daytime? Has anyone observed you stop breathing during sleep? STOP Results Positive 02/07/24 08:51 QUESTION #5 FULL TEXT : Do you snore loudly (louder than talking or can be heard through closed doors)? Tobacco Use History Tobacco Use History - facility environmental technician: Tobacco Use History - facility environmental technician Tobacco Use Smoking Status Former smoker 02/07/24 08:51 Hx Tobacco Use No 02/07/24 08:51 Years Smoking 25 02/07/24 08:51 Packs Smoked per Day 2 02/07/24 08:51 Smoking Cessation Date was No - quit smoking greater 02/07/24 08:51 within the last 15 years than 15 years ago Hx Smoking Cessation Date 08/08/14 02/07/24 08:51 Hx Smoking Cessation No 02/07/24 08:51 Counseling Hematologic Medial History Hematologic Hx - facility environmental technician: Hematologic Medical Hx - etl lead Hx of Blood Transfusion No 02/07/24 08:51 Hx of Transfusion in last 3 No 02/07/24 08:51 Months Date of Last Transfusion (if within last 3 months) Ever experience any problems No 02/07/24 08:51 with transfusion(s)? Specify any problems Hx of Preganancy in last 3 N/A 02/07/24 08:51 Months Nurse Filling Out Transfusion SFRANTZ 02/07/24 08:51 & Questions: Date: 02/07/24 02/07/24 08:51 Time: 08:57 02/07/24 08:51 Patient unable to answer at this time (ie. confused, unrespo /Reproduction History /Reproductive History - facility environmental technician: /Reproductive Hx- facility environmental technician Hx Now No 02/07/24 08:51 Gestational Age (in weeks): EDC: Hx Hx Para Hx Section SAB No 02/07/24 08:51 Active Medications Active Medications: Current Medications Generic Name Dose Route Start Last Admin Trade Name Freq PRN Reason Stop Dose Admin Lactated Ringer's 1,000 mls @ 15 mls/hr 02/13/24 07:45 IV .Q48H BRIDEGR PFSH Medical History Wears glasses Anxiety Alcohol use Thyroid disease Prostate disease High cholesterol Migraine headache Blackout History of ulceration Former smoker CPAP (continuous positive airway pressure) dependence Sleep apnea Shortness of breath on exertion Chronic cough History of echocardiogram History of stress test Cardiology follow-up encounter History of atrial fibrillation History of irregular heartbeat Encounter for screening for malignant neoplasm of colon Asthmatic bronchitis with exacerbation Mitral regurgitation Dyslipidemia Coronary artery disease Acute bronchitis with asthma with acute exacerbation Abnormal echocardiogram Nia's thyroiditis Elevated TSH Sleep apnea with use of continuous positive airway pressure (CPAP) SOB (shortness of breath) Abnormal EKG Palpitations Frequent PVCs Colon cancer screening Acute asthma exacerbation Dermatitis Flu vaccine need BPH (benign prostatic hyperplasia) Neuropathy Chest wall pain Asthma exacerbation Intercostal muscle strain Asthma exacerbation Upper respiratory infection History of stomach ulcers Hemorrhoids Diarrhea Vomiting Nausea Abdominal pain Elevated PSA Polymorphous light eruption, diffuse erythematous type Early satiety Elevated PSA Venous insufficiency of both lower extremities Alcohol dependence Obesity GERD (gastroesophageal reflux disease) Hypertension Asthma Home Medications ?Medication ?Instructions ?Recorded ?Last Taken ?Type albuterol sulfate 2.5 mg/3 mL 2.5 mg (3 mL) inhalation Q6H PRN 06/01/22 Unknown Rx (0.083 %) solution for nebulization shortness of breath or wheezing #90 mL triamcinolone acetonide 0.1 % 1 applic topical DAILY PRN itching 01/19/23 Unknown History topical cream aspirin 81 mg tablet,delayed 81 mg PO DAILY #90 tabs 04/08/23 05/02/23 Rx release (Adult Aspirin Regimen) metoprolol succinate 200 mg 200 mg PO DAILY #90 tabs 05/18/23 Unknown Rx tablet,extended release 24 hr ipratropium 0.5 mg-albuterol 3 mg 3 ml continuous nebulization Q6H 06/14/23 Unknown Rx (2.5 mg base)/3 mL nebulization PRN shortness of breath or soln wheezing #90 mL amlodipine 5 mg tablet 5 mg PO DAILY #90 tabs 07/04/23 Unknown Rx budesonide-formoterol HFA 160 See Rx Instructions .Route 07/04/23 Unknown Rx mcg-4.5 mcg/actuation aerosol .COMPLEX #10.2 ea inhaler (Symbicort) levothyroxine 50 mcg tablet 50 mcg PO DAILY #90 TABLETS 11/24/23 Unknown Rx albuterol sulfate 90 mcg/actuation 1 - 2 puff inhalation Q6H PRN PRN 01/10/24 Unknown Rx aerosol inhaler for wheezing #18 ea atorvastatin 10 mg tablet 10 mg PO DAILY 02/07/24 Unknown History loratadine 10 mg tablet 10 mg PO DAILY 02/07/24 Unknown History (Allerclear) montelukast 10 mg tablet 10 mg PO DAILY 02/07/24 Unknown History pantoprazole 40 mg tablet,delayed 40 mg PO DAILY 02/07/24 Unknown History release tamsulosin 0.4 mg capsule 0.4 mg PO DAILY 02/07/24 Unknown History Allergy/AdvReac Type Severity Reaction Status Date / Time crab Allergy Severe Anaphylaxis Verified 02/07/24 08:26 shellfish derived AdvReac Anaphylaxis Verified 02/07/24 08:26 Family History Grandmother Diabetes Father Cancer unknown Grandfather Heart disease Sister Cardiac resynchronization therapy defibrillator (PLUMBER SUPERVISOR-D) in place Hypertension Surgical History Hx of cardiac catheterization (~05/02/23) History of colonoscopy (~08/2018) History of esophagogastroduodenoscopy (EGD) (~08/2018) Hx of colonoscopy History of esophagogastroduodenoscopy (EGD) H/O hernia repair Social History Smoking Status: Former smoker how long ago did patient quit smokin alcohol intake: current alcohol intake frequency: a few times a week Alcohol type: beer substance use type: does not use caffeine: Yes Type: coffee Number of servings: 1 what type of physical activity do you participate in: walking frequency: daily seatbelt use: always Review of Systems (Anesthesia) ROS Narrative System reviewed and no additional complaints, except as documented.
--- NOTE | 2024-02-13 08:24 | PCM.HP.STD ---
[facility] - General General Date of Admission: 02/13/24 Date of Service: 02/13/24 Chief Complaint: Surveillance colonoscopy HPI Narrative GIANCARLO MARTIN, is a 59 M who presents for surveillance colonoscopy. He has a past medical history of atrial fibrillation, hypothyroidism, CAD, GERD, history of peptic ulcer disease who presents for surveillance colonoscopy. His last colonoscopy back in 2019 comparison I have no problem with his bowels. He does not have any chest pain or shortness of breath. Overall he is in fairly good health. [facility] Medical History Wears glasses Anxiety Alcohol use Thyroid disease Prostate disease High cholesterol Migraine headache Blackout History of ulceration Former smoker CPAP (continuous positive airway pressure) dependence Sleep apnea Shortness of breath on exertion Chronic cough History of echocardiogram History of stress test Cardiology follow-up encounter History of atrial fibrillation History of irregular heartbeat Encounter for screening for malignant neoplasm of colon Asthmatic bronchitis with exacerbation Mitral regurgitation Dyslipidemia Coronary artery disease Acute bronchitis with asthma with acute exacerbation Abnormal echocardiogram Nia's thyroiditis Elevated TSH Sleep apnea with use of continuous positive airway pressure (CPAP) SOB (shortness of breath) Abnormal EKG Palpitations Frequent PVCs Colon cancer screening Acute asthma exacerbation Dermatitis Flu vaccine need BPH (benign prostatic hyperplasia) Neuropathy Chest wall pain Asthma exacerbation Intercostal muscle strain Asthma exacerbation Upper respiratory infection History of stomach ulcers Hemorrhoids Diarrhea Vomiting Nausea Abdominal pain Elevated PSA Polymorphous light eruption, diffuse erythematous type Early satiety Elevated PSA Venous insufficiency of both lower extremities Alcohol dependence Obesity GERD (gastroesophageal reflux disease) Hypertension Asthma Home Medications ?Medication ?Instructions ?Recorded ?Last Taken ?Type albuterol sulfate 2.5 mg/3 mL 2.5 mg (3 mL) inhalation Q6H PRN 06/01/22 Unknown Rx (0.083 %) solution for nebulization shortness of breath or wheezing #90 mL triamcinolone acetonide 0.1 % 1 applic topical DAILY PRN itching 01/19/23 Unknown History topical cream aspirin 81 mg tablet,delayed 81 mg PO DAILY #90 tabs 04/08/23 02/09/24 Rx release (Adult Aspirin Regimen) metoprolol succinate 200 mg 200 mg PO DAILY #90 tabs 05/18/23 02/12/24 Rx tablet,extended release 24 hr ipratropium 0.5 mg-albuterol 3 mg 3 ml continuous nebulization Q6H 06/14/23 Unknown Rx (2.5 mg base)/3 mL nebulization PRN shortness of breath or soln wheezing #90 mL amlodipine 5 mg tablet 5 mg PO DAILY #90 tabs 07/04/23 02/12/24 Rx budesonide-formoterol HFA 160 See Rx Instructions .Route 07/04/23 02/12/24 Rx mcg-4.5 mcg/actuation aerosol .COMPLEX #10.2 ea inhaler (Symbicort) levothyroxine 50 mcg tablet 50 mcg PO DAILY #90 TABLETS 11/24/23 02/13/24 05:00 Rx albuterol sulfate 90 mcg/actuation 1 - 2 puff inhalation Q6H PRN PRN 01/10/24 02/13/24 05:00 Rx aerosol inhaler for wheezing #18 ea atorvastatin 10 mg tablet 10 mg PO DAILY 02/07/24 02/12/24 History loratadine 10 mg tablet 10 mg PO DAILY 02/07/24 02/12/24 History (Allerclear) montelukast 10 mg tablet 10 mg PO DAILY 02/07/24 02/12/24 History pantoprazole 40 mg tablet,delayed 40 mg PO DAILY 02/07/24 02/12/24 History release tamsulosin 0.4 mg capsule 0.4 mg PO DAILY 02/07/24 02/12/24 History Allergy/AdvReac Type Severity Reaction Status Date / Time crab Allergy Severe Anaphylaxis Verified 02/13/24 07:43 shellfish derived AdvReac Anaphylaxis Verified 02/13/24 07:43 Family History Grandmother Diabetes Father Cancer unknown Grandfather Heart disease Sister Cardiac resynchronization therapy defibrillator (SUBCONTRACT MANAGER-D) in place Hypertension Surgical History Hx of cardiac catheterization (~05/02/23) History of colonoscopy (~08/2018) History of esophagogastroduodenoscopy (EGD) (~08/2018) Hx of colonoscopy History of esophagogastroduodenoscopy (EGD) H/O hernia repair Social History Smoking Status: Former smoker how long ago did patient quit smokin alcohol intake: current alcohol intake frequency: a few times a week Alcohol type: beer substance use type: does not use caffeine: Yes Type: coffee Number of servings: 1 what type of physical activity do you participate in: walking frequency: daily seatbelt use: always ROS Review of Systems ROS Unobtainable: other Constitutional Constitutional: Denies fatigue, fever(s), poor appetite, weight gain or weight loss ENT HEENT: Denies mouth lesions Cardiovascular Cardiovascular: Denies abdominal bloating, abdominal edema or abdominal pain Respiratory/Chest Respiratory/Chest: Denies change in mental status, change in phlegm color, chest congestion or chest tightness Gastrointestinal Gastrointestinal: Denies belching, bloating, change in bowel habits, change in stool character, chewing difficulty, coffee ground emesis, constipation, cramping, diarrhea, dyspepsia, dysphagia, early satiety, excessive flatus, fecal incontinence, heartburn, hematemesis, hematochezia, hemorrhoids, loose stools, melena, nausea, odynophagia, rectal bleeding, tenesmus, vomiting or weight changes Genitourinary Genitourinary: Denies abdominal discomfort, burning urination or itching Musculoskeletal Musculoskeletal: Reports as per HPI; Denies muscle weakness or myalgias Integumentary Integumentary: Denies jaundice Neurologic Neurologic: Denies lack of coordination or weakness Psychiatric Psychiatric: Denies confusion, depression, memory loss, mood swings, paranoia or suicidal ideation Endocrine Endocrinology: Denies systems reviewed and no addt'l complaints, except as documented Hematologic/Lymphatic Hematologic/Lymphatic: Denies anemia, easy bleeding, easy bruising or lymphadenopathy Allergic/Immunologic Allergic/Immunologic: Denies systems reviewed and no addt'l complaints, except as documented Vital Signs Vital Signs Vital Signs: 02/13/24 07:48 02/13/24 07:51 Temperature 96.9 F L Temperature Source Temporal Pulse Rate 68 Respiratory Rate 18 Respiratory Pattern Normal Blood Pressure 122/61 H Blood Pressure Mean 81 Blood Pressure Source Monitor Blood Pressure Position Semi-Fowlers Blood Pressure Location Left Arm Pulse Ox 100 Oxygen Delivery Method Room Air Weight Weight: 244 lb 6.4 oz Body Mass Index (BMI) 39.4 Physical Exam Const alert, oriented x3, no apparent distress, healthy appearing and well nourished General Appearance: cooperative, comfortable, well kempt and well developed Orientation / Consciousness: awake and oriented to person HEENT Head and Scalp: normocephalic and atraumatic Face and Sinus: normal facial exam Mouth: oral and palatal mucosa normal Eyes General Eye: normal appearance of both eyes Neck full ROM Lymph Lymphatic: no lymphadenopathy noted Chest inspection of chest normal Resp normal respiratory effort and no use of accessory muscles Cardio regular rate and regular rhythm GI normal to inspection, nondistended, normoactive bowel sounds, soft to palpation, non-tender, non-distended and no masses Auscultation: normoactive bowel sounds Palpation: soft Percussion: normal to percussion Rectal Exam: visual inspection normal and normal sphincter tone no CVA tenderness Back/Spine no CVA tenderness and normal ROM Extremity normal to inspection Peripheral Pulses: Yes pulses 2+ throughout Skin no rashes or lesions noted General Skin Exam: no breakdown, elasticity normal and turgor normal Neuro oriented x3 Motor Exam: strength 5/5 throughout Psych mental status grossly normal Appearance: grossly normal Attitude: calm Activity / Motor Behavior: appropriate eye contact Speech: normal speech Thought Process: normal thought process Thought Content: normal thought content Attention / Concentration: attention grossly intact Memory / Cognition: memory grossly intact Insight: insight good Judgement: judgement good Assessment & Plan Assessment/Plan (1) Encounter for screening colonoscopy: PLAN: He was explained alternatives, risk, benefits include not withstanding bleeding, infection, sepsis, perforation, need for emergent surgery and . He will have an ASA of 3.
--- NOTE | 2024-02-13 08:30 | COLBX_PTH ---
PATIENT: GIANCARLO MARTIN LOC: [facility] U#:[id number] AGE/SX: 59/M ROOM: RE02/13/[address]: Dr. Chris Dixon DO : 1965 BED: DIS: 02/13/2024 SPEC #: [id number] RECD: 02/13/24 10:16 STATUS: KAT FRANCISCA #: [id number] HARSH: 02/13/24 08:[address]: Chris Dixon DEPT: SURGICAL PATHOLOGY RECD BY: Anthony Flower ENTERED: 02/13/24 11:19 SP TYPE: COLON BX OTHR DR: Dr. Jere Jain MD Tissues: A - Ascending colon B - Rectum, NOS Procedures: Surgery Specimen Level IV HEADER OPERATION: Colonoscopy with polypectomy PRE-OP DIAGNOSIS: Encounter for screening colonoscopy TISSUE SUBMITTED: A- Ascending colon polyp cold snare, B- Rectal polyp biopsy MICROSCOPIC DIAGNOSIS A. Ascending colon polyp, polypectomy: Fragments of fecal material. See comment. B. Rectal polyp, biopsy: Hyperplastic polyp. AMMON/ 02/14/2024 COMMENT A. This specimen entirely consists of fragments of fecal material. Colonic mucosal tissue is not identified. Correlation with clinical, endoscopic findings and appropriate follow up are necessary. MICROSCOPIC DESCRIPTION Slides are reviewed. GROSS DESCRIPTION A. Received in fixative is one container labeled with the patient's name and designated Ascending colon polyp. The specimen consists of multiple irregular fragments of light cavazos soft tissue mixed with fecal material that in aggregate measure 1.5 x 0.4 x 0.1 cm. The specimen is totally submitted in one cassette. B. Received in fixative is one container labeled with the patient's name and designated Rectal polyp biopsy. The specimen consists of one irregular fragment of light cavazos soft tissue that measures 0.2 x 0.2 x 0.1 cm. The specimen is totally submitted in one cassette. AMMON/ 02/13/2024 TC:1 CPT:57010v3
--- NOTE | 2024-02-13 08:54 | PCM.POST.ANE ---
Anesthesia: Postop Eval I Current Vital Signs Temperature: 98.2 F Pulse Rate: 76 Blood Pressure: 108/75 Respiratory Rate: 18 Pulse Ox: 98 Assessment Airway patent: Yes Spontaneous unlabored respirations: Yes nausea: No Vomiting: No Anesthesia Complication: No Fluid Hydration Crystalloid volume administer (ml): 500 Total IV fluid infused: 500 Progress Note Anesthesia document: Postop Eval 1 completed: Yes
--- NOTE | 2024-02-13 08:57 | OP.CCLET_ITS ---
02/13/2024 Jere Jain MD [address] [place] [address] [place] [address] Re : Colonoscopy procedure for Nomi Gutiérrez Dear Dr. Jain This procedure was performed on Tuesday, February 13, 2024. My impressions and recommendations are as follows: Impressions : - Diverticulosis in the recto-sigmoid colon, in the sigmoid colon and in the descending colon. - One 10 mm polyp in the ascending colon, removed with a cold snare. Resected and retrieved. - One 5 mm polyp in the rectum, removed with a jumbo cold forceps. Resected and retrieved. Recommendations : - Repeat colonoscopy in 5 years for surveillance. - Continue present medications. My findings are described in the full procedure note, which is enclosed. If I can be of further assistance, please feel free to contact me at . Sincerely, Chris Dixon, 02/13/2024 8:56:48 AM This report has been signed electronically.
--- NOTE | 2024-02-13 08:57 | OP.COLON_ITS ---
Patient Name: Nomi Gutiérrez Procedure Date: 02/13/2024 8:26 AM Date of : 1965 Age: 59 Procedure: Colonoscopy Indications: High risk colon cancer surveillance: Personal history of colonic polyps Providers: Chris Dixon DO Referring MD: Jere Jain MD Medicines: Monitored Anesthesia Care Patient Profile: This is a 59 year old male. Refer to note in patient chart for documentation of history and physical. Last Colonoscopy: several years ago. Complications: No immediate complications. Procedure: Pre-Anesthesia Assessment: - Prior to the procedure, a History and Physical was performed, and patient medications and allergies were reviewed. The risks and benefits of the procedure and the sedation options and risks were discussed with the patient. All questions were answered and informed consent was obtained. Patient identification and proposed procedure were verified by the physician. Mental Status Examination: normal. Prophylactic Antibiotics: The patient does not require prophylactic antibiotics. Prior Anticoagulants: The patient has taken no anticoagulant or antiplatelet agents. After reviewing the risks and benefits, the patient was deemed in satisfactory condition to undergo the procedure. The anesthesia plan was to use monitored anesthesia care (MAC). Immediately prior to administration of medications, the patient was re-assessed for adequacy to receive sedatives. The heart rate, respiratory rate, oxygen saturations, blood pressure, adequacy of pulmonary ventilation, and response to care were monitored throughout the procedure. The physical status of the patient was re-assessed after the procedure. After I obtained informed consent, the scope was passed under direct vision. Throughout the procedure, the patient's blood pressure, pulse, and oxygen saturations were monitored continuously. The Colonoscope was introduced through the anus and advanced to the cecum, identified by appendiceal orifice and ileocecal valve. The colonoscopy was performed without difficulty. The patient tolerated the procedure well. The quality of the bowel preparation was adequate. The ileocecal valve, appendiceal orifice, and rectum were photographed. Scope In: 8:39:43 AM Scope Withdrawal Time 0 hours 8 minutes 46 seconds Scope Out: 8:50:52 AM Total Procedure Duration Time 0 hours 11 minutes 9 seconds Findings: The perianal and digital rectal examinations were normal. Multiple small and large-mouthed diverticula were found in the recto-sigmoid colon, sigmoid colon and descending colon. A 10 mm polyp was found in the ascending colon. The polyp was sessile. The polyp was removed with a cold snare. Resection and retrieval were complete. Verification of patient identification for the specimen was done. Estimated blood loss was minimal. A 5 mm polyp was found in the rectum. The polyp was sessile. The polyp was removed with a jumbo cold forceps. Resection and retrieval were complete. Verification of patient identification for the specimen was done. Estimated blood loss was minimal. Impression: - Diverticulosis in the recto-sigmoid colon, in the sigmoid colon and in the descending colon. - One 10 mm polyp in the ascending colon, removed with a cold snare. Resected and retrieved. - One 5 mm polyp in the rectum, removed with a jumbo cold forceps. Resected and retrieved. Recommendation: - Repeat colonoscopy in 5 years for surveillance. - Continue present medications. Procedure Code(s): --- Professional --- 90216, Colonoscopy, flexible; with removal of tumor(s), polyp(s), or other lesion(s) by snare technique 55776, 59, Colonoscopy, flexible; with biopsy, single or multiple CPT copyright 2021 [employer]. All rights reserved. The codes documented in this report are preliminary and upon cement production plant operator review may be revised to meet current compliance requirements. Chris Dixon DO 02/13/2024 8:56:48 AM This report has been signed electronically. Number of Addenda: 0 Note Initiated On: 02/13/2024 8:26 AM
--- NOTE | 2024-02-13 09:09 | POSTOPAN2_ITS ---
Anesthesia Postop Eval I Sum Postop Eval Completion status Anesthesia document: Postop Eval 1 completed: Yes Anesthesia Postop Eval I Summary Anesthesia Postop Eval I Summary: Anesthesia Postop Eval I: Assessment Summary Airway patent Yes 02/13/24 08:54 FRONT END [email or web address] Spontaneous unlabored Yes 02/13/24 08:54 FRONT END MANAGER.CSIR respirations Mental status nausea No 02/13/24 08:54 FRONT END MANAGER.CSIR Vomiting No 02/13/24 08:54 FRONT END MANAGER.CSIR Anesthesia Postop Eval I: Fluid Summary Crystalloid volume administer 500 02/13/24 08:54 FRONT END MANAGER.CSIR (ml) Colloids volume administered ( ml) Blood Product volume administered (ml) Total IV fluid infused 500 02/13/24 08:54 FRONT END MANAGER.CSIR Anesthesia Postop Eval I: Summary Notes Anesthesia Complication No 02/13/24 08:54 FRONT END MANAGER.CSIR Anesthesia Complication Comment: Post-operative progress note Anesthesia: Postop Eval II Evaluation Mental status: Awake Pain Level: 0 nausea: No Vomiting: No Complications Anesthesia Complication: No
--- NOTE | 2024-02-13 09:09 | PCM.POSTANE2 ---
Anesthesia Postop Eval I Sum Postop Eval Completion status Anesthesia document: Postop Eval 1 completed: Yes Anesthesia Postop Eval I Summary Anesthesia Postop Eval I Summary: Anesthesia Postop Eval I: Assessment Summary Airway patent Yes 02/13/24 08:54 LEASING COORDINATOR.[email or web address] Spontaneous unlabored Yes 02/13/24 08:54 LEASING COORDINATOR.CSIR respirations Mental status nausea No 02/13/24 08:54 LEASING COORDINATOR.CSIR Vomiting No 02/13/24 08:54 LEASING COORDINATOR.CSIR Anesthesia Postop Eval I: Fluid Summary Crystalloid volume administer 500 02/13/24 08:54 LEASING COORDINATOR.CSIR (ml) Colloids volume administered ( ml) Blood Product volume administered (ml) Total IV fluid infused 500 02/13/24 08:54 LEASING COORDINATOR.CSIR Anesthesia Postop Eval I: Summary Notes Anesthesia Complication No 02/13/24 08:54 LEASING COORDINATOR.CSIR Anesthesia Complication Comment: Post-operative progress note Anesthesia: Postop Eval II Evaluation Mental status: Awake Pain Level: 0 nausea: No Vomiting: No Complications Anesthesia Complication: No
== END 2024-02-13 09:32 | disposition home or self-care (01) ==
LOC: EN 07:21 → AC 07:23
PROVIDERS: PCP Internal Medicine; Referring Provider Internal Medicine; Visit Provider Internal Medicine Gastroenterology
PROC: 0DJD8ZZ Inspection of Lower Intestinal Tract, Via Natural or Artificial Opening Endoscopic (ICD-10-PCS; CPT 45378; principal; 2024-02-13 08:25)
DX: Z12.11 Encounter for screening for malignant neoplasm of colon (principal); I48.91 Unspecified atrial fibrillation; I25.10 Atherosclerotic heart disease of native coronary artery without angina pectoris; Z86.010 Personal history of colon polyps; Z87.891 Personal history of nicotine dependence; K63.5 Polyp of colon; K62.1 Rectal polyp; K57.30 Diverticulosis of large intestine without perforation or abscess without bleeding; E78.00 Pure hypercholesterolemia, unspecified; I10 Essential (primary) hypertension; G47.30 Sleep apnea, unspecified; Z99.89 Dependence on other enabling machines and devices; Z79.82 Long term (current) use of aspirin; Z79.899 Other long term (current) drug therapy; K21.9 Gastro-esophageal reflux disease without esophagitis; N40.0 Benign prostatic hyperplasia without lower urinary tract symptoms; J45.909 Unspecified asthma, uncomplicated
CPT/HCPCS: 45380; 45385; 88305; J7120; J2405

== ENCOUNTER → 2024-02-21 | Outpatient (CLI) | payer MEDICAID, SELFPAY ==
[2024-02-21 10:56] LABS: ALB/GLOB Ratio 0.8 RATIO (0.9-2.4); AST(SGOT) 12 U/L (15-37); Alanine Aminotransfer ALT/SGPT 23 U/L (16-61); Albumin, Serum 3.3 g/dL (3.2-5.0); Alkaline Phosphatase 89 U/L (45-117); Anion Gap 6 (5-15); BUN 19 mg/dL (7-18); BUN/Creat Ratio 16.4 RATIO (10-20); Calcium,Total 8.5 mg/dL (8.5-10.1); Chloride 104 mmol/L (98-107); Cholesterol 132 mg/dL (200); Creatinine, Serum 1.16 mg/dL (0.70-1.30); EST Glomerular Filtration Rate 68 mL/min (>60); Est Glom Filt Rate - Afr Amer 82 mL/min (>60); Globulin 3.9 g/dL (2.2-4.2); Glucose 106 mg/dL (74-106); High Density Lipoprotein 55 mg/dL; Protein, Total 7.2 g/dL (6.4-8.2); Sodium Level 137 mmol/L (136-145); Triglycerides 139 mg/dL; Very Low Density Lipoprotein 28 mg/dL (5-40)
== END | disposition home or self-care (01) ==
LOC: LAB 09:28
PROVIDERS: PCP Internal Medicine; Referring Provider Internal Medicine Cardiovascular Disease; Visit Provider Internal Medicine Cardiovascular Disease
DX: I25.10 Atherosclerotic heart disease of native coronary artery without angina pectoris (principal); I34.0 Nonrheumatic mitral (valve) insufficiency; E78.5 Hyperlipidemia, unspecified; R06.02 Shortness of breath
CPT/HCPCS: 36415; 80053; 80061

== ENCOUNTER → 2024-09-24 | Outpatient (CLI) | payer MEDICAID, SELFPAY ==
[2024-09-24 15:43] LABS: Absolute Lymphocyte Count 2.08 X10^3/uL (0.83-4.51); Absolute Neutrophil Count 9.4 X10^3/uL (2.0-7.7); Basophil# 0.09 X10^3/uL; Basophil% 0.7 % (0-1); Eosinophil# 0.11 X10^3/uL; Eosinophils% 0.8 % (0-5); Hematocrit 46.3 % (40-54); Hemoglobin 14.4 g/dL (13.0-16.5); Lymphocyte # 2.08 X10^3/ul (0.83-4.51); Mean Corp Hgb Conc 31.1 g/dL (32-36); Mean Corpuscular Hgb 27.6 pg (27.0-32.0); Mean Corpuscular Volume 88.7 fL (80-94); Mean Platelet Vol. 11.2 fl (6.2-12.0); Monocyte# 1.29 X10^3/uL; Monocyte% 9.9 % (0-10); NRBC Flagged by Analyzer 0 % (0-5); Neutrophil # 9.39 X10^3/uL (2.7-7.7); Neutrophil % 72.1 % (47-70); Platelet Count 300 K/mm3 (150-450); RBC Distribution Width CV 13.1 % (11.6-14.6); RBC Distribution Width SD 42.9 fl (35.1-43.9); Red Blood Count 5.22 M/mm3 (4.6-6.2)
[2024-09-24 16:14] LABS: ALB/GLOB Ratio 0.8 RATIO (0.9-2.4); AST(SGOT) 17 U/L (15-37); Alanine Aminotransfer ALT/SGPT 29 U/L (16-61); Albumin, Serum 3.4 g/dL (3.2-5.0); Alkaline Phosphatase 89 U/L (45-117); Anion Gap 7 (5-15); BUN 19 mg/dL (7-18); Bilirubin, Direct 0.13 mg/dL (0.00-0.30); Calcium,Total 8.7 mg/dL (8.5-10.1); Chloride 104 mmol/L (98-107); Cholesterol 138 mg/dL (200); Creatinine, Serum 1.19 mg/dL (0.70-1.30); EST Glomerular Filtration Rate 66 mL/min (>60); Est Glom Filt Rate - Afr Amer 80 mL/min (>60); Globulin 4.1 g/dL (2.2-4.2); Glucose 92 mg/dL (74-106); High Density Lipoprotein 55 mg/dL; PSA,Total - Annual Screen 7.27 ng/mL (0.00-4.00); Potassium 4.2 mmol/L (3.5-5.1); Protein, Total 7.5 g/dL (6.4-8.2); Sodium Level 136 mmol/L (136-145); Triglycerides 141 mg/dL; Very Low Density Lipoprotein 28 mg/dL (5-40)
== END | disposition home or self-care (01) ==
LOC: BIMLAB 13:23
PROVIDERS: PCP Internal Medicine; Referring Provider Internal Medicine; Visit Provider Internal Medicine
DX: I10 Essential (primary) hypertension (principal); E78.5 Hyperlipidemia, unspecified; E06.3 Autoimmune thyroiditis; N40.0 Benign prostatic hyperplasia without lower urinary tract symptoms
CPT/HCPCS: 84153; 36415; 80053; 80061; 82248; 84443; 85025; G0103

== ENCOUNTER → 2024-11-27 | Outpatient (CLI) | payer MEDICAID, SELFPAY ==
--- NOTE | 2024-11-27 13:05 | RAD_ITS ---
EXAM: XR Chest, 2 Views CLINICAL INDICATION: LEUKOCYTOSIS TECHNIQUE: Frontal and lateral views of the chest. COMPARISON: No relevant prior studies available. FINDINGS: LUNGS AND PLEURAL SPACES: Unremarkable. No consolidation. No pneumothorax. HEART: Unremarkable. No cardiomegaly. MEDIASTINUM: Unremarkable. Normal mediastinal contour. BONES/JOINTS: Unremarkable. No acute fracture. RAD/Chest PA and Lateral IMPRESSION: No acute cardiopulmonary process. Reading Location: [facility]
== END | disposition home or self-care (01) ==
LOC: MTRAD 13:05
PROVIDERS: PCP Internal Medicine; Referring Provider Nurse Practitioner Family; Visit Provider Nurse Practitioner Family
DX: D72.825 Bandemia (principal)
CPT/HCPCS: 71046

== ENCOUNTER → 2025-01-10 | Outpatient (CLI) | payer MEDICAID, SELFPAY ==
[2025-01-10 16:10] LABS: PSA,Total- Diagnostic 5.64 ng/mL (0.00-4.00)
== END | disposition home or self-care (01) ==
LOC: BIMLAB 12:29
PROVIDERS: PCP Internal Medicine; Referring Provider Internal Medicine; Visit Provider Internal Medicine
DX: N40.0 Benign prostatic hyperplasia without lower urinary tract symptoms (principal)
CPT/HCPCS: 36415; 84153

== ENCOUNTER → 2025-03-21 | Outpatient (CLI) | payer MEDICAID, SELFPAY | END | disposition home or self-care (01) | LOC: PSN 11:37 | PROVIDERS: PCP Internal Medicine; Referring Provider Nurse Practitioner Family; Visit Provider Nurse Practitioner Family | DX: I49.3 Ventricular premature depolarization (principal) | CPT/HCPCS: 93225; 93226 ==

== ENCOUNTER → 2025-03-22 | Outpatient (CLI) | payer MEDICAID, SELFPAY ==
--- NOTE | 2025-03-22 15:41 | ECHOD_ITS ---
Reason For Study Reason For Study: PVC burden, eval EF Procedure This was a 2D Doppler, Color Flow transthoracic echocardiogram. Exam performed in department. Left Ventricle Normal LV size. Left ventricular systolic function is normal. Stage 1 diastolic dysfunction. The left ventricular ejection fraction is 60 %. No regional wall motion abnormalities noted. Right Ventricle Normal RV size. Normal systolic function. Atria Normal left atrium. Normal right atrium. Mitral Valve Normal mitral valve. Tricuspid Valve Normal tricuspid valve. Mild (1+) tricuspid valve insufficiency. Pulmonary artery systolic pressure is 35 mmHg. Aortic Valve Trisinus/trileaflet aortic valve. Pulmonic Valve Normal pulmonic valve. Great Vessels Normal aortic root. The pulmonary artery is normal size. Normal inferior vena cava. Pericardium/Pleural No pericardial effusion. MMode/2D Measurements & Calculations LVIDd: 4.4 cm IVSd: 1.0 cm Ao root diam: 3.5 cm LVIDs: 3.5 cm LVPWd: 1.0 cm RVDd: 2.9 cm FS: 20.9 % LAV(MOD-bp): 44.2 ml LVAd ap4: 32.7 cm2 LVAd ap2: 22.3 cm2 LAV(MOD-bp) Indexed: 19.8 ml/m2 LVLd ap4: 7.9 cm LVLd ap2: 7.8 cm LAV(MOD-sp2): 42.5 ml EDV(MOD-sp4): 109.8 ml EDV(MOD-sp2): 52.4 ml LAV(MOD-sp4): 47.1 ml EDV(sp4-el): 115.0 ml EDV(sp2-el): 54.6 ml LVAs ap4: 19.0 cm2 LVAs ap2: 13.8 cm2 LVLs ap4: 6.9 cm LVLs ap2: 6.8 cm ESV(MOD-sp4): 44.4 ml ESV(MOD-sp2): 22.6 ml ESV(sp4-el): 44.7 ml ESV(sp2-el): 24.0 ml EF(MOD-sp4): 59.6 % EF(MOD-sp2): 56.8 % EF(sp4-el): 61.1 % SV(MOD-sp4): 65.4 ml SV(MOD-sp2): 29.8 ml SV(sp4-el): 70.3 ml SI(MOD-sp4): 29.3 ml/m2 SI(MOD-sp2): 13.3 ml/m2 LA A4 area: 18.0 cm2 LA dimension(2D): 4.4 cm RA A4 area: 12.5 cm2 TAPSE: 2.3 cm Time Measurements MV dec time: 0.26 sec Doppler Measurements & Calculations MV E max mejia: 88.9 cm/sec Lat Peak E' Mejia: 9.9 cm/sec Med Peak E' Mejia: 7.2 cm/sec MV A max mejia: 81.9 cm/sec E/E' lat: 9.0 E/E' med: 12.3 MV E/A: 1.1 MV V2 max: 107.2 cm/sec MV P1/2t max mejia: 104.2 cm/sec Ao V2 max: 127.0 cm/sec MV max P.6 mmHg MV P1/2t: 91.5 msec Ao max P.5 mmHg MV V2 mean: 54.9 cm/sec Ao V2 mean: 90.0 cm/sec MV mean P.4 mmHg MV dec slope: 333.3 cm/sec2 Ao mean P.6 mmHg MV V2 VTI: 39.8 cm MVA(P1/2t): 2.4 cm2 Ao V2 VTI: 27.8 cm AV (velocity ratio): 0.78 LV V1 max: 93.6 cm/sec PA V2 max: 98.5 cm/sec LV V1 max P.5 mmHg PA V2 mean: 68.2 cm/sec PI dec slope: 115.5 cm/sec2 LV V1 mean P.9 mmHg LV V1 mean: 65.0 cm/sec LV V1 VTI: 21.5 cm TR max mejia: 285.0 cm/sec TR max P.5 mmHg ECHO/Echo Complete Interpretation Summary Normal LV size. Left ventricular systolic function is normal. Stage 1 diastolic dysfunction. The left ventricular ejection fraction is 60 %. Pulmonary artery systolic pressure is 35 mmHg. Ordering Physician: Marcos Paz Referring Physician: Jere Jain Performed By: Elaine Howard, JAYLEEN, RVT
== END | disposition home or self-care (01) ==
LOC: CVS 15:41
PROVIDERS: PCP Internal Medicine; Referring Provider Nurse Practitioner Family; Visit Provider Nurse Practitioner Family
DX: I49.3 Ventricular premature depolarization (principal)
CPT/HCPCS: 93306